=== PATIENT | female | born 1950 | race Caucasian/White ===

== ENCOUNTER 2024-04-28 10:58 | Outpatient (OUT) | payer MEDICARE, SELFPAY ==
--- NOTE | 2024-04-28 | XR_ITS ---
The [address] [address] Patient Name: CHARLI AGEE MRN: [id number] date: 1950 Sex: F Assigned Patient Location: Current Patient Location: Accession/Order Number: [id number] Exam Date: 04/28/2024 11:00 Report Date: 04/29/2024 10:58 At the request of: ELÍAS LOUIS Procedure: XR ankle LT min 3V PROCEDURE: XR ankle LT min 3V HISTORY: LEFT ANKLE PAIN COMPARISON: None. FINDINGS: BONES:Prior surgical repair of lateral malleolus via plate and screws; no hardware fracture loosening. Prior repair medial malleolus via 2 lag screws. Complete loss of the lateral aspect of the tibiotalar joint space with [id number] articulation and bone remodeling. Bone contact between lateral malleolus and lateral margin of the talus/calcaneus. SOFT TISSUES:Lateral soft tissue swelling. EFFUSION:None visible. OTHER: Negative. XR/XR ankle LT min 3V IMPRESSION: 1. 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 2. Prior repair of fractures without evidence of hardware failure. Electronically authenticated by: MIKAL HU Date: 04/29/2024 10:58
== END 2024-04-28 10:59 | disposition home or self-care (01) ==
LOC: EC 10:58
PROVIDERS: PCP Podiatrist Foot & Ankle Surgery; Visit Provider Podiatrist Foot & Ankle Surgery
DX: M25.572 Pain in left ankle and joints of left foot (principal); M19.072 Primary osteoarthritis, left ankle and foot; Z98.890 Other specified postprocedural states
CPT/HCPCS: 73610

== ENCOUNTER 2025-08-24 14:35 | Outpatient (OUT) | payer MEDICARE, SELFPAY ==
--- OUTSIDE RECORDS SUMMARY | 2025-08-19 09:34 | XMS_ITS | Continuity of Care Document ---
Author Organization [facility] Address [address] [place] [address] Phone Care Team Providers [facility] Social Worker Name Role Phone Mast, Adrian DO Primary Care Provider [phone] Mast, Adrian DO Attending Provider [phone] Sanchez Lr DPM Attending Provider Mast, Adrian DO Referring Provider Artie Hair MD Attending Provider Gretel Watts RN Attending Provider [facility] Care Teams Patient Care Team Team Status: Active Member Role/Relationship Status Dates Adrian Mast , DO Primary Care Provider Active Visit Care Team Team Status: Inactive Member Role/Relationship Status Dates Adrian Mast , DO Primary Care Provider Active Star t: May 21, 2025 End: May 21, 2025Eric Mast , DOAttending ProviderActiveStart: May 21, 2025 End: May 21, 2025 Visit Care Team Team Status: Inactive Member Role/Relationship Status Dates Adrian Mast , DO Primary Care Provider Active Star t: June 14, 2025 End: June 14, 2025ROLAND MaldonadoMAttending ProviderActiveStart: June 14, 2025 End: June 14, 2025 Visit Care Team Team Status: Inactive Member Role/Relationship Status Dates Adrian Mast , DO Primary Care Provider Active Star t: July 08, 2025 End: July 08, 2025Eric Mast , DOAttending ProviderActiveStart: July 08, 2025 End: July 08, 2025 Visit Care Team Team Status: Inactive Member Role/Relationship Status Dates Adrian Mast , DO Primary Care Provider Active Star t: July 22, 2025 End: July 22, 2025Eric Mast , DOReferring ProviderActiveStart: July 22, 2025 End: July 22, 2025Artie Hair MDAttending ProviderActiveStart: July 22, 2025 End: July 22, 2025 Visit Care Team Team Status: Inactive Member Role/Relationship Status Dates Adrian Mast , DO Primary Care Provider Active Star t: July 22, 2025 End: July 22, 2025Dajudah Hair MDAttending ProviderActiveStart: July 22, 2025 End: July 22, 2025 Visit Care Team Team Status: Inactive Member Role/Relationship Status Dates Adrian Mast , DO Primary Care Provider Active Star t: August 11, 2025 End: August 11, 2025Eric Mast , DOAttending ProviderActiveStart: August 11, 2025 End: August 11, 2025 Patient Care Team Team Status: Active Member Role/Relationship Status Dates Adrian Mast , DO Primary Care Provider Active Star t: August 18, 2025 Gretel Watts RNAttending ProviderActiveStart: August 18, 2025 Patient Care Team Team Status: Inactive Member Role/Relationship Status Dates Adrian Mast , DO Primary Care Provider Active Star t: August 19, 2025 End: August 19, 2025Eric Mast , DOAttending ProviderActiveStart: August 19, 2025 End: August 19, 2025 Chief Complaint and Reason for Visit Chief Complaint Admit Date Z13.6, E78.5 May 21, 2025 9:06 am B ankle pain (2 accounts) June 14, 11:15am awv July 08, 2025 1:44pm z13.6 k76.0 e04.1 z13.29 z78.0 July 22, 2025 11:22am follow up ALIF w/xray July 22 12:57pm K76.0 August 11, 2025 1 0:43am Amb Documentation August 18, 2025 1 0:50am recheck appt and to review US August 192024 12:54pm Reason for Visit Admit Date Fatty liver July 08, 2025 1:44pm Hx of partial thyroidectomy July 082024 1:44pm Hyperlipidemia July 08, 2025 1:44pm Obesity (BMI 35.0-39.9 without comorbidi ty) July 08, 2025 1:44pm Osteopenia July 08, 2025 1:44pm Encounter for subsequent [facility] wellness visit in Medicare patient July 08, 2025 1:44pm Lower extremity weakness July 22, 2025 12:57pm History of lumbar fusion July 22, 2025 12:57pm Allergies, Adverse Reactions, Alerts Allergen Type Severity Reaction Last Updated Verified Status Comments Penicillins Allergy Unknown Hives August 19, 2025 1:06pm Yes Active sulfamethoxazoleAllergyUnknownRashOctober 2024 1:06pmYesActiveoxycodone Adverse ReactionUnknownConfusionOctober 2024 1:06pmYesActivedelerium Social History Smoking Status Status Start Date End Date Date of Observa tion Never smoked tobacco (finding) July 08, 2025 2:05pm Observation Status Observation Response Date of Response Legal Sex Female (finding) Sex Assigned At BirthFemaleDecember 1949 Family History Relationship Condition Age at Onset Recorded Date/T rissa mother Arthritis Unknown Malignant melanomaUnknownDeceasedUnknownfatherPolycythemiaUnknownPulmonary emphysemaUnknownDeceasedUnknownHistory of strokeUnknownbrotherDeceasedUnknown Malignant neoplasmUnknowngrandparentDeceasedUnknowngrandparentDeceasedUnknown grandparentDeceasedUnknowngrandparentDeceasedUnknownbrotherAtrial fibrillation Unknown Problems Active Problems Problem Diagnosis/Recorded Date Onset Date Status C ryanne Carpal tunnel syndrome of ri ght wrist December 18, 2023 2:03pm Unknown Active Vascular claudicationApril 2023 10:26amUnknownActiveParonychiaMay 2024 12:32pmUnknownActiveSupraclavicular fossa fullnessApril 2023 2:43pm UnknownActiveParonychia of great toeMay 2024 12:41pmUnknownActiveGreater trochanteric bursitis of both hipsFebruary 2023 5:27pmUnknownActiveTrigger finger, right middle fingerFebruary 2023 2:03pmUnknownActiveTrigger finger, right index fingerApril 2023 9:51amUnknownActiveTrigger finger, right ring fingerApril 2023 9:51amUnknownActiveTrigger finger, left middle fingerApril 2024 2:38pmUnknownActiveTrigger finger, left ring fingerApril 2023 11:44amUnknownActiveCarpal tunnel syndrome of left wristFebruary 2023 2:03pmUnknownActiveSciaticaMay 2020 2:05pmUnknownActiveThyroid noduleAugust 2023 2:47pmUnknownActiveChronic painMay 2024 1:38pm UnknownActiveFatty liverMay 2023 2:46pmUnknownActiveElevated LFTsMay 2023 2:46pmUnknownActiveSymptoms of upper respiratory infection (URI)June 01, 2024 3:57pmUnknownActivePost-traumatic osteoarthritis of left ankleFebruary 2023 11:43amUnknownActiveOsteoarthritis of spine with radiculopathy, lumbar regionMay 2024 1:39pmUnknownActiveHyperlipidemiaFebruary 2023 2:03pmUnknownActiveLower extremity weaknessDecember 2023 2:27pmUnknown ActiveArthritis of both handsDecember 2023 11:58amUnknownActiveOsteopenia Kaitlin 2020 11:20amUnknownActivehad Reclast in MayObesity (BMI 35.0-39.9 without comorbidity)June 16, 2024 2:47pmUnknownActiveHx of partial thyroidectomyApril 2024 2:19pmUnknownActiveRight shoulder painJuly 2023 3:30pmUnknownActiveLeft thyroid noduleMay 2023 2:46pmUnknownActive Acute diarrheaAugust 2023 3:56pmUnknownActiveOsteoarthritis, shoulderJuly 2023 4:19pmUnknownActiveCarpal tunnel syndrome on both sidesJuly 2024 8:42amUnknownActiveArthritis of carpometacarpal (CMC) joint of left thumb December 18, 2023 2:02pmUnknownActiveInactive/Resolved Problems Problem Diagnosis/Recorded Date Onset Date Status C omments UTI (urinary tract infection) July 28, 2024 10:26pm Un known Resolved Lumbar radiculopathyJune 2023 9:47amUnknownResolvedImpaired mobility and activities of daily livingSeptember 2023 1:26pmUnknownResolvedLumbar stenosisApril 2023 10:26amUnknownResolvedArthritisFebruary 2023 2:03pmUnknownResolvedHypothyroidismFebruary 2023 2:03pmUnknownResolved Obesity, Class II, BMI 35-39.9February 2023 3:53pmUnknownResolvedHistory of lumbar fusionApril 2023 10:26amUnknownResolvedHistory of lumbar fusion April 14, 2024 9:47amUnknownResolvedSpinal stenosisFebruary 2023 2:03pm UnknownResolvedPost-operative painSeptember 2023 1:26pmUnknownResolvedFall July 26, 2024 4:04pmUnknownResolvedClass 2 obesity with body mass index (BMI) of 37.0 to 37.9 in adultFebruary 2023 3:53pmUnknownResolvedLumbar stenosis with neurogenic claudicationJune 2020 8:06amUnknownResolved Medications Medication Status Dose Units Route Directions Qty Days Refills S tart Date Stop Date End Date Reason(s) Instructions Adherence Omeprazole 20 mg capsule,delayed release(DR/EC) Discontinued 20 MG PO Daily 90 1April 2023 12:27pmSeptember 2023 1:18pmgerdAtorvastatin 20 mg tablet Discontinued0.ROUTE.VTZUQSI709Fgr 10th, 2024 10:53amSeptember 2023 1:18pm TAKE 1 TABLET BY MOUTH DAILYPropranolol 160 mg capsule,extended release 24 hr Discontinued0.ROUTE.SGFPGQQ403Vwqf 2023 7:39amSeptember 2023 1:18pm TAKE 1 CAPSULE BY MOUTH DAILYLevothyroxine 100 mcg tabletDiscontinued0.ROUTE .XZLMOUK256Nkgm 2023 1:15pmSeptember 2023 1:18pmTAKE 1 TABLET BY MOUTH DAILYOmeprazole 20 mg capsule,delayed release(DR/EC)Discontinued0.ROUTE .TUZEDXT094Jcywtodu 25th, 2024 12:11pmNovember 2023 1:24pmTAKE 1 CAPSULE BY MOUTH DAILY FOR GERDOmeprazole 20 mg capsule,delayed release(DR/EC)Active0 .ROUTE.BXTBCGL545Qgjnsgsc 25th, 2024 1:24pmTAKE 1 CAPSULE BY MOUTH DAILY FOR GERDComplies with drug therapyGabapentin 400 mg phaddspFpelcltxqlca758RXTNYjgyu times qcock915551Kfenlta 2024 11:54amApril 2024 9:14amnerve pain Propranolol 160 mg capsule,extended release 24 tbWwkszaqsyaex204APVUFidij lloijrd98722Flgqfpy 2024 7:53amMay 2024 12:35pmDiclofenac Sodium 75 mg tablet,delayed release (DR/EC)Ezblumeuxdzy44DWNAJsodw diwcv61289Phzsabld 2024 1:00amMay 2024 1:36pmDiclofenac Sodium (Voltaren Arthritis Pain) 1 % tuxSocyus6RDHITSZXQJynn times daily as needed for ppzk1529Dykho 2024 2:05pm apply to single knee, hand, ankle, foot; for foot includes sole/toes/top of foot Complies with drug therapyGabapentin 400 mg jumvwkuNfbcrtjtgyby878CYGJPevbh times unkut86152Gwrmr 2024 9:13amMay 2024 1:36pmSciatica Sciatica, unspecified side nerve painPropranolol 160 mg capsule,extended release 24 fsVetxxa055PWCAFcjdv wcvfzwu12505Hew 2024 12:35pmComplies with drug therapySumatriptan Succinate 50 mg tabletDiscontinued0.ROUTE.PLPXQDY025Rtr 2024 6:49amSeptember 2024 2:02pmTAKE 1 TABLET BY MOUTH DAILY NEEDED FOR HEADACHE. THIS IS 30 DAY SUPPLYLevothyroxine 150 mcg lrsxxhCypzly836VRVLEDolbs566Cwrg 2024 5:20pm Complies with drug therapyAtorvastatin 20 mg tabletActive0.ROUTE.SUUZVJJ584Uita 2024 12:13pmTAKE 1 TABLET BY MOUTH DAILYComplies with drug therapy Gabapentin 400 mg duyzqnhPtbeqj166UCHOMvjwr times tuizi93728Nynqbjjpg 2024 10:12amSciatica Sciatica, unspecified side nerve painComplies with drug therapyAtorvastatin 20 mg tvnokxObvxsxpyoihh71ELQH 1500June 2017 12:00amMay 2023 10:53amhyperlipidemiaFolic Acid 400 mcg TabletDiscontinued0.4MGPODailyJune 2017 12:00amJune 2020 11:43am Meloxicam 7.5 mg tabletDiscontinued7.5MGPODailyJune 2017 12:00amJune 2020 11:40amLevothyroxine 100 mcg yixxgkXczkqebisrth024BPIZHKosfyGrnu 2017 12:002023 1:15pmhypothyroidIbuprofen 200 mg QfeiyoVamtuksjkyne360FM PODaily as needed for PainJune 2017 12:00amJune 2020 11:47am Azelastine 137 mcg (0.1 %) aerosol,sprayDiscontinued0.1PERCENTINTRANASALTwice dailyJune 2017 12:00amJune 2020 11:46amSumatriptan (Imitrex) 20 mg/actuation [place],Non-HqbuearMglijqevbfku17UIDPJJBTLVYURhel as needed for Migraine HeadacheJune 2017 12:00amFebruary 2022 9:09amHydrocodone- Acetaminophen (Kyle) 5-325 mg tabletDiscontinued1 - 2TABPOEVERY 4-6 HOURS as needed for Rgiq694Dtqx2020 3:48pmPostoperative pain of extremity Trigger finger of left hand Other acute postprocedural pain Trigger finger, unspecified fingerDoxycycline Hyclate 100 mg tabletDiscontinued 100MGPOTwice nevlp3239Rpli 2017 12:00amMay 2020 3:48pmZoledronic Qium-Wczifujp-Oxina (Reclast) 5 mg/100 mL PjqxfjpwdTbjhstbfuzyr9MTXIPgcmVfx 3rd, 2021 12:00amFebruary 2022 9:09amMultivitamin IcpuhbFknefixqpymk1IXGKOMzkdf April 10, 2021 12:00amFebruary 2022 9:31amPropranolol 160 mg capsule,extended release 24 buPtdbafvlaotf374BZWDXafzs morningJun2020 12:00amJune 2023 7:39amPVC'sGabapentin 400 mg fxbxsemPkfiuppevsao860PLNY Three times dailyJune 2020 12:00amOctober 2023 12:23pmnerve pain Omeprazole 20 mg capsule,delayed release(DR/EC)Heezdmwssknz31VZXPSfmxzMnko 2020 12:00amApril 2023 12:27pmgerdDiclofenac Sodium 50 mg tablet,delayed release (DR/EC)Bqvviozysaob43SBJJLuhup dailyJune 2020 12:00amJune 2020 1:38pmarthritisCalcium-Vitamin D3-Vitamin K 500-100-40 mg-unit-mcg Tablet,RqbpebznAgngupnhqqeh7IMSPNDquyc eveningJun2020 12:00amOctober 2023 12:24pmTizanidine 2 mg kilgpqBtgwprmtacth4SEUIPpekm daily as needed for Muscle SpasmJune 2020 12:00amFebruary 2022 9:09amOndansetron Hcl (Zofran) 4 mg IyjnxyAuqbhgdbakkz5MACSB8W as needed for NauseaJune 2020 12:00amOctober 2023 12:24pmOxycodone-Acetaminophen 5-325 mg Tablet Jyutbmqvocxh6LWWUYNewxs times daily as needed for PainJune 2020 12:00am April 19, 2021 1:38pmRizatriptan 10 mg Tablet,IjcyuzffzaxzlfJstbyabdibjs46OVWA Once as needed for Migraine HeadacheJune 2020 12:00amFebruary 2023 2:31pmBisacodyl (Dulcolax (Bisacodyl)) 5 mg Tablet,Delayed Release (Dr/Ec) Dgobmbkqbxjz2SNMZXvrpi morning as needed for ConstipationJune 2020 12:00am December 03, 2022 9:09amAcetaminophen (Tylenol Extra Strength) 500 mg Capsule Htspfdubbfru4367SCIXK0G as needed for PainJune 2020 12:00amJune 2020 1:31kmBrsrado-Uhitounctpvsy-Vbvskaqq (Excedrin Migraine) 250-250-65 mg Tablet Pgvmoqowstwr1NCSMEDFXIE 4-6 HOURS as needed for Migraine HeadacheJune 2020 12:00amFebruary 2022 9:09amCyclobenzaprine 10 mg mpgnlfSvzdsqqjusad87HUPG Three times daily as needed for back deadnm040Pdfs 2020 12:00amFebruary 2022 9:09amOxycodone 5 mg capsuleDiscontinued5 - 99RBKWD4R as needed for gbld4193Byed 23rd, 2021February 2022 9:09amSpinal stenosis of lumbar region with neurogenic claudication Spinal stenosis, lumbar region with neurogenic claudicationPrednisone 10 mg tablets,dose lalbMehkvpftzwey8lmio pkPOper package mkblmtrfxz809Pryz 23rd, 2021 12:00amFebruary 2022 9:09amtake 4 tabs for 3 days then take 3 tabs for 3 days then take 2 tabs for 3 days then take 1 tab for 3 daysDiclofenac Sodium 75 mg tablet,delayed release (DR/EC) Gkrazhylvhsd81WGLXUhtnf dailyFebruary 2022 1:00amOctober 2023 12:24pm Fluticasone Propionate 50 mcg/actuation spray,yomvzktkniMqvlqdaxfytt9CBHCZ INTRANASALDailyFebruary 2022 1:00amFebruary 2023 11:15amSumatriptan Succinate 50 mg QwjfrsDlotkclkxbxz42LPLOMcyim as needed for migraine headache December 03, 2022 1:00amMay 2024 6:49amTramadol 50 mg TabletDiscontinued 71JRZIP0O as needed for PainFebruary 2022 1:00amSeptember 2023 9:25am Propranolol 160 mg capsule,extended release 24 fdRvsrcvfksxjw271LQOPBwzcu morningSeptember 2023 12:00amOctober 2023 12:23pmAtorvastatin 20 mg yvcsbkTwkwhtdpqmtl84SHJGAbqhd eveningSeptember 2023 12:00amOctober 2023 12:23pmLevothyroxine 100 mcg jsjzynSpunpiadauui984ZXPLWPazsg morning July 08, 2024 12:00amOctober 2023 12:23pmOmeprazole 20 mg capsule,delayed release(DR/EC)Yhvvoxfczarx22SXZHCbpot morningSeptember 2023 12:00amOctober 2023 12:24pmgerdCholecalciferol (Vitamin D3) (Vitamin D3) 25 mcg (1,000 unit) hntcffVfjdkcicryqi50RLQYUNzddo eveningSeptember 2023 12:00amOctober 2023 12:23pmAcetaminophen (Tylenol) 325 mg Tablet Cbhwbh094UOTHO8T as needed for Mild Dnoy39Qaabmoihn 2023 12:00amComplies with drug therapyCyclobenzaprine 10 mg NyhoexYsuhkhsklhzm25ARTHLjkmw 8 hours as needed for Muscle Yaypc24Uiphfuzxt 2023 12:00amOctober 2023 12:23pm Famotidine (Pf) 20 mg/2 mL KmiqtzhgOwohkovjvmxb85NEUR-VHEEJoocj 12 hoursJuly 24, 2024 12:00amOctober 2023 12:24pmSennosides-Docusate Sodium 8.6-50 mg UokilwRazywljfxltz4EYUEOQhcna wgnnr45Adzdoofht 2023 12:00am August 07, 2024 12:24pmMagnesium Hydroxide (Milk Of Magnesia) 400 mg/5 mL XpyjigkwptDbnkkgruvmfn90FCFDLleigpf as needed for Prricpbzambt37Trhdmevww 2023 12:00amOctober 2023 12:24pmAlum-Mag Hydroxide-Simeth (Mag-Al Plus) 200-200-20 mg/5 mL UxxgnlxpxhTlcmedrgebtf18NCZMW2E as needed for Yzfdwxryv67 July 24, 2024 12:00amOctober 2023 12:24pmOxycodone 5 mg Tablet Zdtjifplpeuv84JDDUJkqlh 6 hours as needed for Pain Scale 6 - 1000September 2023October 2023 12:24pmOxycodone 5 mg XsnqcgEjtfpyjsxwbl6GJKVIxqwi 6 hours as needed for Pain Scale 1 - 500September 2023Octb[facility] 2023 12:24pmSodium Chloride 0.9 % WpysfaezKexdiizxczbp17LRINVEXUEZGPLW as needed for To dilute Vncsqh51Kcajxkahv 27th, 2024 12:00amOctober 2023 12:24pmCalcium Carbonate-Vitamin D3 (Oyster Shell Calcium-Vit D3) 500 mg-5 mcg (200 unit) ihtedtOnrvabruwmol8SLIXAHexuwOuvkyrxza 2023 12:00amOctober 2023 12:23pmPantoprazole (Protonix) 40 mg tablet,delayed release (DR/EC)Discontinued 40MGPODailySeptember 2023 12:00amOctober 2023 12:23pmTramadol 50 mg RrucmeMeflfehsspzn87DQFFW5B as needed for Tabs7655KzusuvzAugust 07, 2024 12:00amMay 2024 1:36pmLumbar radiculopathy Radiculopathy, lumbar regionCyclobenzaprine 10 mg JafotpKukmlcwgmiao17XLVXTpett 8 hours as needed for Muscle Ybyqe90901Bzobujt 2023 12:22pmJune 2024 2:25pmPropranolol 160 mg capsule,extended release 24 lqXjseevshrlbl664XDLUBkftg sreivyz05906Zgnrbcx 2023 12:22pmJanuary 2024 7:53amAtorvastatin 20 mg hiwnsaWdnzesqxstfi66SUFTZapvf vgtgxmo22937Lswwqob 2023 12:22pmJuly 2024 12:13pmGabapentin 400 mg hinkbenPxdmoaqdgbws616AQWVYumcv times daily 10688Qpsauru 2023 12:22pmJanuary 2024 11:54amnerve painLevothyroxine 100 mcg vhqnuzRylrntjtwlst740VYSPOFgoos lkiosam58188Clzstwc 11th, 2024 12:22pm January 28, 2025 2:20pmPantoprazole (Protonix) 40 mg tablet,delayed release (DR/EC)Srxsysydenvk20DPPZQgcmb33143Zakyian 2023 12:22pmNovember 2023 11:01amCalcium Carbonate-Vitamin D3 (Oyster Shell Calcium-Vit D3) 500 mg-5 mcg (200 unit) mxemrgKbgtsjlvopvv9MFDYOClhpj71405Zygeaiw 2023 12:22pmSeptember 2024 2:00pmCholecalciferol (Vitamin D3) (Vitamin D3) 25 mcg (1,000 unit) baosswZmbdgs48VSVDBDfnej zmbqizj60115Byewyrb 2023 12:22pmComplies with drug therapyDiclofenac Sodium 1 % rwvLrxrrzuyahwh5WICKEMWLALx Ytpyxkry798401 August 07, 2024 12:22pmApril 2024 2:20pmFreeTextSig: as directed Externally; Note: Source Status: Takingprn; Provider: Morales Carr RCelecoxib (Celebrex) 200 mg DprxuqfLympfmoimxzu424HEGFJdbkv dailyJanuary 2018 1:00am April 10, 2021 11:46amAspirin 325 mg ZhililOaaqtjiidfxq284JLTEIzioyWyhbyvr 2018 1:00amJune 2020 11:18xcDgpwkxzm-Gznwrmmfu-Sc 3.5-10,000-0.5 mg/g-unit/g-% CreamDiscontinuedJanuary 2018 1:00amMay 2020 3:48pm Clobetasol 0.05 % SolutionDiscontinuedJanuary 2018 1:00amJune 2020 11:46amCalcium Carbonate-Vitamin D3 (Caltrate 600 + D) 600 mg (1,500 mg)-800 unit Tablet,OyvkounvPrdrkrbnssau2ZCJZWPsciu dailyJanuary 2018 1:00amJune 2020 11:46amHydrocodone-Acetaminophen (Kyle) 5-325 mg tabletDiscontinued1 TABPOEVERY 4-6 HOURS as needed for nexe1613Ycpxzia 2018May 2020 3:48pmChronic maxillary sinusitisClindamycin Hcl 150 mg lnoghlxXxmtojcfxvod550MG POThree times obzit1950Hgsmrxq 2018 1:00amJanuary 2018 1:00amJanuary 2018 1:02amHydrocodone-Acetaminophen 5-325 mg hfppqwHrwumqkbmupk2GBMMJO2N as needed for funt530Vuf 2020June 2020 11:46amSciatica Sciatica, unspecified sidePrednisone 20 mg biocpfOlmsoixwxita71RTJXAbllm958Jhu 2020 12:00amJune 2020 11:47amadminister with food or milk Methylprednisolone (Medrol (Nikolay)) 4 mg tablets,dose bogjErqybdsdqhki3CGPLsk hlnowify65Frbk 2023 12:00amAugust 2023 3:36pmTramadol 50 mg tablet Fgjpqg89LMZFSdsrb daily as needed for Zbml27592Dda 2024 1:34pmLumbar radiculopathy Radiculopathy, lumbar regionComplies with drug therapyGabapentin 400 mg capsule Womqdyslwtrt607NCEAXxtoc times woqzn98141Xtk 1st, 2025 1:36pmSeptember 2024 10:12amSciatica Sciatica, unspecified side nerve painDiclofenac Sodium 75 mg tablet,delayed release (DR/EC)Vapakx16CJIY Twice dnzxt26334Kdt 1st, 2025 1:36pmComplies with drug therapyMultivitamin (Daily Multi-Vitamin) plyxpgDvvkpr4UDGJIZgjhlRzqvwjnjk 2024 12:00am Complies with drug therapySumatriptan Succinate 50 mg tabletActive0.ROUTE .COMPLEX as neededSept2024 2:01pmTAKE 1 TABLET BY MOUTH DAILY NEEDED FOR HEADACHE. THIS IS 30 DAY SUPPLY PRN;Complies with drug therapy Acetaminophen-Codeine 300-30 mg rutnorXvabeoakucys3HWUWCEjgzw dailyFebruary 2023 1:00amSeptember 2023 1:15pmFreeTextSi tablet as needed Orally BID; Note: Source Status: Refill; Refills: 2; Qty: 60 Tablet; Provider: Toribio Ayala PDiclofenac Sodium 1 % ekrNgdizesywkaa2ZIKLSWAJTRt Directed December 24, 2023 1:00amOctober 2023 12:23pmFreeTextSig: as directed Externally; Note: Source Status: Takingprn; Provider: Morales Brenner Tirzepatide (Weight Loss) (Zepbound) 2.5 mg/0.5 mL pen injectorDiscontinued2.5MG SUBCUTevery fwat8347Kenlkfxg 2023 1:00amApril 2023 2:17pmDiclofenac Sodium (Voltaren Arthritis Pain) 1 % uulBmdmrtstkxyu0FNHBKQEHIPhjd times daily as needed for bgyg9095Loveqblu 2023 1:00amApril 2024 2:05pmapply to single knee, hand, ankle, foot; for foot includes sole/toes/top of foot Omeprazole 20 mg capsule,delayed release(DR/EC)Nglaevvmkqiu46URIPJmjnbOmdkmthc 2023 1:00amNovember 2023 12:11pmLevothyroxine 137 mcg tablet Pqknkfldyafk880TZRPNSulugFqfpm 2024 12:00amJuly 2024 5:21pm Methylprednisolone (Medrol (Nikolay)) 4 mg tablets,dose joltVihgndeloauy5IEWQus lmmjenhn89Preap 3rd, 2025 12:00amJune 2024 2:25pmDoxycycline Monohydrate 100 mg bceptinBdvbzyqgpnut288JKJTGkneb vecbs7547Qnp 2024 12:00amJun2024 2:25pm Immunizations Immunization Event Date Not Given Reason Dose Number Drop Wire Aliner Lot Number Reason(s) Given Vaccine Information Statement (VIS) Detail Administration Location COVID-19 mRNA-1273 (Moderna) December 22, 2020 COVID-19 mRNA-1273 (Moderna)January 19OVID-19 mRNA-1273 (Moderna)September 13OVID-19 mRNA Bivalent Booster (Moderna)August 07, 2022Quadrivalent Influenza (mdv)August 04, 2014Fluzone TIV High-Dose 65YR+August 03, 2024 HH5364ZMSillovvknSumma Health [facility] Ctrinfluenza, unspecified formulation July 17, 2017influenza, unspecified formulationOctober 2017 influenza, unspecified formulationOctober 2018influenza, unspecified formulationOctober 2019influenza, unspecified formulationNovneumococcal Conjugate Vaccine, 13 valentOctober 2017Pneumococcal Polysacc. Vaccine, 23 valentOctober 2018Quadrivalent InfluenzaNovember 2022Trivalent Influenza VaccineOctober 2020 Medical Equipment Device Date Implanted Date Explanted Device Deta ils STRATOFUSE DBM 10CC April 17, 2021 Spinal fusion graft kitJune 2020UDI: ()[id number] Issuing Agency: [facility] [[email or web address]] Device Id: [id number] Expiration Date: 2022-03-27 Lot Number: [id number] spinal fusion cage, non-sterileJune 2020 MARY: ()[id number] Issuing Agency: [facility] [[email or web address]] Device Id: [id number]-smjkd internal spinal fixation system, non-sterile April 17, 2021UDI: ()[id number] Issuing Agency: [facility] [[email or web address]] Device Id: [id number]-qfgcc internal spinal fixation system, non-sterile April 17, 2021UDI: ()[id number] Issuing Agency: [facility] [[email or web address]] Device Id: [id number]-gvrwv internal spinal fixation system, non-sterile April 17, 2021UDI: ()[id number] Issuing Agency: [facility] [[email or web address]] Device Id: [id number]-kenuq internal spinal fixation system, non-sterile April 17, 2021UDI: ()[id number] Issuing Agency: [facility] [[email or web address]] Device Id: [id number]-uucec internal spinal fixation system, non-sterile April 17, 2021UDI: ()[id number] Issuing Agency: [facility] [[email or web address]] Device Id: [id number]-ipujq internal spinal fixation system, non-sterile April 17, 2021UDI: ()[id number] Issuing Agency: [facility] [[email or web address]] Device Id: [id number]-fosix internal spinal fixation system, non-sterile April 17, 2021UDI: ()[id number] Issuing Agency: [facility] [[email or web address]] Device Id: [id number]-tiiwd internal spinal fixation system, non-sterile April 17, 2021UDI: ()[id number] Issuing Agency: [facility] [[email or web address]] Device Id: [id number] cement preparation/delivery kitJune 2020UDI: ()[id number]; [id number] cement preparation/delivery kitJune 2020UDI: ()[id number]; [id number] DBM 10CCSeptember 2023STRATOFUSE DBM 5CCSeptember 2023Spinal fusion graft kitSeptember 2023UDI: ()[id number] Issuing Agency: [facility] [[email or web address]] Device Id: [id number] Expiration Date: 2024-09-26 Lot Number: [id number] spinal fusion cage, non-sterileSeptember 2023UDI: ()[id number] Issuing Agency: [facility] [[email or web address]] Device Id: [id number] spinal fusion cage, non-sterileSept2023UDI: ()[id number] Issuing Agency: [facility] [[email or web address]] Device Id: [id number]-dsgpa internal spinal fixation system, non-sterile July 22, 2024UDI: ()[id number] Issuing Agency: [facility] [[email or web address]] Device Id: [id number]-kaggx internal spinal fixation system, non-sterile July 22, 2024UDI: ()[id number] Issuing Agency: [facility] [[email or web address]] Device Id: [id number]-mzzfh internal spinal fixation system, non-sterile July 22, 2024UDI: ()[id number] Issuing Agency: [facility] [[email or web address]] Device Id: [id number]-yhddf internal spinal fixation system, non-sterile July 22, 2024UDI: ()[id number] Issuing Agency: [facility] [[email or web address]] Device Id: [id number]-enevx internal spinal fixation system, non-sterile July 22, 2024UDI: +[id number] Issuing Agency: [facility] [[email or web address]] Device Id: [id number]-sbmrk internal spinal fixation system, non-sterile July 22, 2024UDI: +[id number] Issuing Agency: [facility] [[email or web address]] Device Id: [id number]-tdfnw internal spinal fixation system, non-sterile July 22, 2024UDI: +[id number] Issuing Agency: [facility] [[email or web address]] Device Id: [id number]-kqgmy internal spinal fixation system, non-sterile July 22, 2024UDI: +[id number] Issuing Agency: [facility] [[email or web address]] Device Id: [id number] bone screw, non-bioabsorbable, non-sterile July 22, 2024UDI: +[id number] Issuing Agency: [facility] Device Id: [id number] bone screw, non-bioabsorbable, non-sterile July 22, 2024UDI: +[id number] Issuing Agency: [facility] Device Id: [id number] bone screw, non-bioabsorbable, non-sterile July 22, 2024UDI: +[id number] Issuing Agency: [facility] Device Id: [id number] bone screw, non-bioabsorbable, non-sterile July 22, 2024UDI: +[id number] Issuing Agency: [facility] Device Id: [id number]-dwdtq internal spinal fixation system, non-sterile July 22, 2024UDI: +[id number] Issuing Agency: [facility] Device Id: [id number]-sfbot internal spinal fixation system, non-sterile July 22, 2024UDI: +[id number] Issuing Agency: [facility] Device Id: [id number]-xykej internal spinal fixation system, non-sterile April 172023UDI: ()[id number] Issuing Agency: [facility] [[email or web address]] Device Id: [id number]-yvbef internal spinal fixation system, non-sterile April 172023UDI: ()[id number] Issuing Agency: [facility] [[email or web address]] Device Id: [id number] Procedures Procedure Date Performed Status XR lumbar spine AP/LAT/FLX/EXT July 22, 2 025 12:05pm completed US liver August 11, 2025 10:46am compl eted Relevant Diagnostic Tests and/or Laboratory Data Laboratory Results Test Collection Date/Time Result Date/Time Result Interpretation Reference Range Result Comment Performing Site Corrected White Blood Count July 22, 2025 11:46am July 22, 2025 12:13pm 7.5 10*3/uL 3.8-11.6F[facility] [id number] [address] [facility] 79907Wkfxkvpfzkb WBC CountSept2024 11:46amSept2024 12:13pm7.5 10*3/uL3.8-11.6F[facility] [id number] [address] [facility] 49392Ekq Blood CountSept2024 11:46amSept2024 12:13pm3.94 10*6/uL3.60-5.00[facility] [id number] [address] [facility] 62774DbbawhxwmcHjorwrthn 2024 11:46amSeptember 2024 12:13pm12.6 g/dL11.8-15.4F[facility] [id number] [address] [facility] 43432YosfjnprmjHdmdmcvyp 2024 11:46amSeptember 2024 12:13pm37.0 %34.0-46.4F[facility] [id number] [address] [facility] 22518Gjvl Corpuscular VolumeSeptember 2024 11:46amSeptember 2024 12:13pm93.8 oD91-981AtswnvpsgPremier [facility] [id number] [address] [facility] 98912Dwxj Corpuscular HemoglobinSeptember 2024 11:46am July 22, 2025 12:13pm31.9 pg24.7-34.3F[facility] [id number] [address] [facility] 92859Yqmp Corpuscular Hemoglobin ConcentSeptember 2024 11:46am July 22, 2025 12:13pm34.0 g/dL32.0-35.0[facility] [id number] [address] [facility] 82215Rva Cell Distribution WidthSeptember 2024 11:46am July 22, 2025 12:13pm14.0 %11.9-15.3F[facility] [id number] [address] [facility] 75022Ljqkjwoy CountSeptember 2024 11:46amSept2024 12:51cb049 10*3/hL531-037NyowpncwrPremier Health Atrium [facility] [id number] [address] [facility] 61004Gsag Platelet VolumeSeptember 2024 11:46amSept2024 12:13pm7.8 fL6.3-10.7F[facility] [id number] [address] [facility] 84639Kxbtluuqhkw (%) (Auto)July 22, 2025 11:46amSept2024 12:13pm61.4 %.[facility] [id number] [address] [facility] 35549Kkulyguevhe (%) (Auto)July 22, 2025 11:46amSept2024 12:13pm27.2 %.[facility] [id number] [address] [facility] 98040Pbltlhcxp (%) (Auto)July 22, 2025 11:46amSept2024 12:13pm6.0 %.[facility] [id number] [address] [facility] 44753Jwixkrtticr (%) (Auto)July 22, 2025 11:46amSept2024 12:13pm4.7 %.[facility] [id number] [address] [facility] 73822Fufvqzmjh (%) (Auto)July 22, 2025 11:46amSept2024 12:13pm0.7 %.[facility] [id number] [address] [facility] 20222Veqcynjos RBC Relative Count (auto)July 22, 2025 11:46am July 22, 2025 12:13pm0.0 /100{WBC}0-0.5F[facility] [id number] [address] [facility] 36035Veqitugzfim # (Auto)July 22, 2025 11:46amSept2024 12:13pm4.6 10*3/uL1.8-7.7F[facility] [id number] [address] [facility] 43414Gytyszxezok # (Auto)July 22, 2025 11:46amSept2024 12:13pm2.0 10*3/uL1.00-4.8[facility] [id number] [address] [facility] 98002Nqdxcgcyp # (Auto)July 22, 2025 11:46amSept2024 12:13pm0.4 10*3/uL0.0-0.8[facility] [id number] [address] [facility] 76214Xqjkvgyrive # (Auto)July 22, 2025 11:46amSept2024 12:13pm0.4 10*3/uL0.0-0.45[facility] [id number] [address] [facility] 81097Lfkvjdwxw # (Auto)July 22, 2025 11:46amSeptember 2024 12:13pm0.1 10*3/uL0.0-0.2F[facility] [id number] [address] [facility] 22400Ihmzfat LevelJuly 2024 9:16amJuly 2024 2:49pm91 mg/uF48-207DloinzemgPremier Health [facility] [id number] [address] [facility] 15033Ocxfwes LevelSeptember 2024 11:46amSeptember 2024 12:50pm87 mg/dV38-907WzwqglqaaPremier Health [facility] [id number] [address] [facility] 65934Wozdo Urea NitrogenJuly 2024 9:16amJuly 2024 2:49pm 29 mg/dLAbove high normal7-[facility] [id number] [address] [facility] 55229Mfcsr Urea NitrogenSept2024 11:46amSeptember 2024 12:50pm19 mg/dL7-25[facility] [id number] [address] [facility] 84070ImbjmaurcwBtmh 2024 9:16amJuly 2024 2:49pm0.64 mg/dL0.60-1.20[facility] [id number] [address] [facility] 77075BtgbyvdvvqWucdroijm 25th, 2025 11:46amSeptember 2024 12:50pm0.59 mg/dLBelow low normal0.60-1.20[facility] [id number] [address] [facility] 67155Puiudnmks GFR (CKD-EPI)May 21, 2025 9:16amJuly 2024 2:49pm> 60.0 mL/MinPremier Health Atrium Medical Center Ctr [id number] [address] [facility] 49863Zoohtbywz GFR (CKD-EPI)July 22, 2025 11:46amSept2024 12:50pm> 60.0 mL/MinPremier Health Atrium Medical Center [facility] [id number] [address] [facility] 35765Rndxvi LevelJuly 2024 9:16amJuly 2024 2:70is654 mmol/P471-600CzdhfuegfPremier Health At[facility] [id number] [address] [facility] 80968Sptrfp LevelSeptember 2024 11:46amSeptember 2024 12:58xy121 mmol/N863-461OgycjcwjsPremier Health Atrium [facility] [id number] [address] [facility] 67632Wycyyzhej LevelJuly 2024 9:16amJuly 2024 2:49pm4.6 mmol/L3.5-5.1F[facility] [id number] [address] [facility] 92054Jrgddfldw LevelSeptember 2024 11:46amSeptember 2024 12:50pm4.5 mmol/L3.5-5.1F[facility] [id number] [address] [facility] 71963Fyqpdabo LevelJuly 2024 9:16amJuly 2024 2:79im290 mmol/T15-712HzqpqkxgyPremier Health [facility] [id number] [address] [facility] 18112Hvaowxch LevelSeptember 2024 11:46amSeptember 2024 12:48lu434 mmol/W17-228EhrguzotoPremier Health Atrium [facility] Center [facility] [id number] [address] [facility] 19719Mmzfek Dioxide LevelJuly 2024 9:16amJuly 2024 2:49pm30.1 mmol/L21.0-31.0[facility] [id number] [address] [facility] 32474Lwvnra Dioxide LevelSeptember 2024 11:46amSeptember 2024 12:50pm30.6 mmol/L21.0-31.0[facility] [id number] [address] [facility] 36502Mgncd GapJuly 2024 9:16amJuly 2024 2:49pm9.5 mEq/L 6.0-15.0[facility] [id number] [address] [facility] 42178Hhdgu GapSeptember 2024 11:46amSeptember 2024 12:50pm8.9 mEq/L6.0-15.0[facility] [id number] [address] [facility] 55345Voaxell LevelJuly 2024 9:16amJuly 2024 2:49pm9.3 mg/dL8.6-10.3F[facility] [id number] [address] [place] [id number] LevelSeptember 2024 11:46amSeptember 2024 12:50pm9.3 mg/dL8.6-10.3F[facility] [id number] [address] [facility] 77413Nbpkr ProteinJuly 2024 9:16amJuly 2024 2:49pm6.3 g/dLBelow low normal6.4-8.9[facility] [id number] [address] [facility] 20547Aauga ProteinSeptember 2024 11:46amSeptember 2024 12:50pm6.3 g/dLBelow low normal6.4-8.9[facility] [id number] [address] [facility] 81553CaauusxVoro 2024 9:16amJuly 2024 2:49pm3.8 g/dL 3.5-5.7F[facility] [id number] [address] [facility] 00713HcrzebiZabcpcxlq 2024 11:46amSeptember 2024 12:50pm 4.0 g/dL3.5-5.7F[facility] [id number] [address] [facility] 14490ThquoxynEdih 2024 9:16amJuly 2024 2:49pm2.5 g/dL [facility] [id number] [address] [place] [address] 44778IxovdagzZogsfzydy 2024 11:46amSeptember 2024 12:50pm2.3 g/dLPremier Health Atrium Medical Center [facility]tr [id number] [address] [facility] 46150Xedkhcp/Globulin RatioJuly 2024 9:16amJuly 2024 2:49pm1.5F[facility] [id number] [address] [facility] 00356Nonbkgr/Globulin RatioSeptember 2024 11:46amSeptember 2024 12:50pm1.7F[facility] [id number] [address] [facility] 08686Jnjif BilirubinJuly 2024 9:16amJuly 2024 2:49pm0.7 mg/dL0.3-1.0[facility] [id number] [address] [facility] 53221Thsxu BilirubinSeptember 2024 11:46amSeptember 2024 12:50pm1.1 mg/dLAbove high normal0.3-1.0[facility] [id number] [address] [facility] 35685Dbfkldnru Amino Transf (AST/SGOT)May 21, 2025 9:16amJuly 2024 2:49pm49 U/LAbove high lliifn52-09YwwflvliaPremier Health [facility]rium [facility] [id number] [address] [place] [address] 61706Rgsnadvdn Amino Transf (AST/SGOT)July 22, 2025 11:46am July 22, 2025 12:94ud395 U/LAbove high yexepx69-67VqegkncfpPremier Health Atrium [facility] [id number] [address] [place] [address] 13899Eqocmpz Aminotransferase (ALT/SGPT)May 21, 2025 9:16amJuly 2024 2:49pm69 U/LAbove high normal7-52[facility] [id number] [address] [place] [address] 47658Xsrlgwa Aminotransferase (ALT/SGPT)July 22, 2025 11:46am July 22, 2025 12:56tr659 U/LAbove high normal7-52[facility] [id number] [address] [place] [address] 13716Bgetbbru PhosphataseJuly 2024 9:16amJuly 2024 2:49pm47 U/T75-197LqivrooysPremier Health Atrium [facility] [id number] [address] [facility] 96261Ofquixiu PhosphataseSeptember 2024 11:46amSeptember 2024 12:50pm55 U/E55-914CziifcibhPremier Health Atrium Medical Center [facility] [id number] [address] [facility] 54912Iiicanmipoc LevelJuly 2024 9:16amJuly 2024 2:49pm 196 mg/oG851-296Xbmo less than 200 mg/dl low riskChol 201-239 mg/dl borderline riskChol 240 mg/dl and greater high riskPremier Health Atrium Medical Center [facility]tr [id number] [address] [facility] 75022Axlbhlfoaer LevelSeptember 2024 11:46amSeptember 2024 12:81rr795 mg/fD718-185Vjrx less than 200 mg/dl low riskChol 201-239 mg/dl borderline riskChol 240 mg/dl and greater high riskPremier Health Atrium Medical Center [facility] [id number] [address] [facility] 58522KUI CholesterolJuly 2024 9:16amJuly 2024 2:49pm50 mg/pQ50-28IVZ CHOL ATP-III CLASSIFICATION Cardiovascular RiskHDL > or equal to 60 mg/dL LOWHDL < 40 mg/dL [facility] [id number] [address] [facility] 99378PZQ CholesterolSeptember 2024 11:46amSeptember 2024 12:50pm53 mg/lL79-45DTM CHOL ATP-III CLASSIFICATION Cardiovascular RiskHDL > or equal to 60 mg/dL LOWHDL < 40 mg/dL [facility] [id number] [address] [facility] 57190Hvjhanjkbezwv LevelJuly 2024 9:16amJuly 2024 2:49pm 89 mg/dL0-149TRIG ATP III CLASSIFICATIONTRIG less than 150 mg/dL NormalTRIG 150- 199 mg/dL Borderline highTRIG 200-500 mg/dL High TRIG greater than 500 mg/dL Very highStandard traceable to the Center for Disease Conrtrol and Prevention (CDC) test method.[facility] [id number] [address] [facility] 93822Vhfghchgvseov LevelSeptember 2024 11:46amSeptember 2024 12:50pm86 mg/dL0-149TRIG ATP III CLASSIFICATIONTRIG less than 150 mg/dL NormalTRIG 150-199 mg/dL Borderline highTRIG 200-500 mg/dL High TRIG greater than 500 mg/dL Very highStandard traceable to the Center for Disease Conrtrol and Prevention (CDC) test method.[facility] [id number] [address] [facility] 94290JDU Cholesterol, CalculatedJuly 2024 9:16amJuly 2024 2:86gt193 mg/dLAbove high normal0-100LDL ATP III CLASSIFICATIONLDL less than 100 mg/dL OptimalLDL 100-129 mg/dL Near or above jtejlosYAW121-760 mg/dL Borderline highLDL 160-189 mg/dL HighLDL greater than 189 mg/dL Very high [facility] [id number] [address] [facility] 43903JZI Cholesterol, CalculatedSeptember 2024 11:46am July 22, 2025 12:44gu732 mg/dLAbove high normal0-100LDL ATP III CLASSIFICATIONLDL less than 100 mg/dL OptimalLDL 100-129 mg/dL Near or above vuqgfzdUHP336-242 mg/dL Borderline highLDL 160-189 mg/dL HighLDL greater than 189 mg/dL Very highPremier Health Atrium Medical Center [facility] [id number] [address] [facility] 42002VYMA CholesterolJuly 2024 9:16amJuly 2024 2:49pm17 mg/dLPremier Health Atrium Medical Center [facility] [id number] [address] [facility] 60057LXIZ CholesterolSeptember 2024 11:46amSeptember 2024 12:50pm17 mg/dLPremier Health Atrium Medical Center [facility] [id number] [address] [facility] 34718Ndfcyxfsbqm/HDL RatioJuly 2024 9:16amJuly 2024 2:49pm3.9<5.0[facility] [id number] [address] [facility] 47771Rxyuzoavbnb/HDL RatioSeptember 2024 11:46amSeptember 2024 12:50pm3.4<5.0[facility] [id number] [address] [place] [address] 50100Ddrduqn Stimulating Hormone 3rd GenSept2024 11:46am July 22, 2025 1:09pm2.98 u[iU]/mL0.45-5.33[facility] [id number] [address] [place] [address] 87907Ljsjepwn Creatinine Clearance (ChemJuly 2024 9:16amJuly 2024 2:49pmN/[facility] [id number] [address] [place] [address] 28812Bbelgibg Creatinine Clearance (ChemSeptember 2024 11:46am July 22, 2025 12:50pmN/[facility] [id number] [address] [place] [address] 42888 Diagnostic Imaging Reports Author Ramez Sanchez [facility]stownAuthoredSept2024 4:12pmReport Dictated Date/TimeDictated ByStatusRadiology ReportSept2024 4:12pm Ramez Sanchez II [facility] [place] [address] [place] [address] XRay Report Signed Patient: Yolis Florez MR#: [id number] : 1950 Acct:[id number] Age/Sex: 74 / F ADM Date: 5 Loc: IN Room: Type: [facility] Attending Dr: Artie Hair MD Copies to: Artie Hair MD~ Ordering Provider: Artie Hair MD Date of Service: 07/22/25 XR/XR lumbar spine AP/LAT/FLX/EXT: M47.26 - Other spondylosis with radiculopathy, lumbar region XR lumbar spine AP/LAT/FLX/EXT 07/22/2025 12:35 PM SIGNS AND SYMPTOMS: ^M47.26 - Other spondylosis with radiculopathy, lumbar region PROTOCOLS: Frontal, lateral, and flexion-extension views of the lumbar spine COMPARISON: 04/06/2025 FINDINGS: Posterior and intervertebral fusion is noted from L2 through L5 without hardware complication or change in alignment. There is evidence of prior vertebroplasty at L4 and L5. No pathologic movement on flexion or extension. The bones are in anatomic alignment. The sacrum and sacroiliac joints are normal. XR/XR lumbar spine AP/LAT/FLX/EXT IMPRESSION: Posterior and intervertebral fusion is noted from L2 through L5 without hardware complication or change in alignment. There is evidence of prior vertebroplasty at L4 and L5. No pathologic movement on flexion or extension. Impression dictated by: Ramez Sanchez M.D. 07/22/2025 4:14 PM Dictation Location: RADIO-PC-24 Transcribed By: [facility] 07/22/25 161 Dictated By: Ramez Sanchez II, MD 07/22/25 1612 Signed By: <Electronically signed by Ramez Sanchez II, MD in OV> 07/22/25 161 Author Marlo Siddiqui [facility]stownAuthoredOctbaptist health [facility] 2024 12:15pmReport Dictated Date/TimeDictated ByStatusRadiology ReportOctober 2024 12:15pm Marlo Siddiqui Jr [facility] [place] [address] [place] [address] Ultrasound Report Signed Patient: Yolis Florez MR#: [id number] : 1950 Acct:[id number] Age/Sex: 74 / F ADM Date: 5 Loc: Room: Type: [facility] Attending Dr: Adrian Sharif DO Ordering Provider: Adrian Sharif DO Date of Service: 08/11/25 US/US liver: K76.0 - Fatty (change of) liver, not elsewhere classified Copies to: Adrian Sharif DO~ LIMITED ABDOMINAL ULTRASOUND: CLINICAL HISTORY: Elevated LFTs. COMPARISON: None TECHNIQUE: Grayscale and color Doppler images of the right upper quadrant organs were obtained. FINDINGS: Pancreas: Visualized portions appear unremarkable. Liver: Unremarkable. Gallbladder: Small polyp versus adherent stone. No wall thickening. CBD: 4.6 mm. RT KIDNEY: No Hydronephrosis US/US liver IMPRESSION: SMALL POLYP VERSUS ADHERENT STONE INVOLVING THE GALLBLADDER. NO SONOGRAPHIC EVIDENCE OF ACUTE CHOLECYSTITIS.. Impression dictated by: Marlo Siddiqui Jr., D.O. 08/11/2025 12:16 PM Dictation Location: [place] [address] Tech: Blank Jimenez Transcribed By: ERIKA 08/11/251215 Dictated By: Marlo Siddiqui Jr, DO 08/11/251214 Signed By: <Electronically signed by Marlo Siddiqui Jr, DO in OV> 08/11/25 121 Vital Signs Vital Reading Result Reference Range Collection Date/Time Height 67 [in_i] July 08, 2025 2:13zuHkpidr43.69 kgSept2024 2:09pmBody Gzaknavveon66.0 [degF]97.6-99.0September 2024 2:09pmHeart Rate71 /min 60-100Sept2024 2:09pmRespiratory rate16 /egy02-46Cjtdrmtbu 11th, 2025 2:09pmOxygen saturation by Pulse nwhvkdyd32 %95-100Sept2024 2:09pmBP Dehzkdud886 mm[Hg]100-140Sept2024 2:09pmBP Dzfcgmtmz81 mm[Hg]60-100Sept2024 2:09pmBMI (Body Mass Index)33.7 kg/w2Xjozrgchl2024 2:67jiFynlzi988.40 kgSept2024 1:09efMewcqh48 [in_i] August 19, 2025 1:03udZdfctl885.32 kgOctober 2024 1:08pmBody Hixhwznsuhs89.8 [degF]97.6-99.0October 2024 1:08pmHeart Rate67 /vet50-836 August 19, 2025 1:08pmRespiratory rate20 /nfl14-06Sbekrrr 2024 1:08pm Oxygen saturation by Pulse jwyzgzmv27 %95-100October 2024 1:08pmBP Wycdbiss719 mm[Hg]100-140October 2024 1:08pmBP Kekmhasnt87 mm[Hg]60-100 August 19, 2025 1:08pmBMI (Body Mass Index)34.9 kg/q9Yftdjgm 2024 1:08pm Advance Directives Advance Directive Response Recorded Date/ Time Advance Directives No February 11 018 11:11am Insurance Providers Guarantor Yolis Florez Address [address]Home Phone: Payer Group Member ID Coverage Type Subscriber Relationship to Subscriber Effective Date Expiration Date [facility] Employees [id number] A Gahris Id: [id number] [address] [place] [id number] Home Phone: Email: [email or web address] Hospitaledicare Id: Shireen [id number] A Gahris Id: [id number] [address] [facility] [address] Home Phone: Email: [email or web address] Encounter Location(s) Arrival/Admit Date Discharge/Departure Date Discharge/Departure Disposition Provider(s) Departed Clinical [facility] May 21, 2025 9:06am May 21, 2025 9:07am Discharged to home care or self care (routine discharge) Adrian Sharif DO Discharged [facility] June 14, 2025 11:15am June 14, 2025 3:00pm Discharged to home care or self care (routine discharge) Sanchez Lr DPM Departed Physician/ Provider Office Visit -[facility] July 08, 2025 1:44pm July 08, 2025 2:38pm Discharged to home care or self care (routine discharge) Adrian Sharif DO Departed Clinical -[facility] July 22, 2025 11:22am July 22, 2025 11:23am Discharged to home care or self care (routine discharge) Artie Hair MD Departed Physician/ Provider Office Visit -[facility] July 22, 2025 12:57pm July 22, 2025 1:47pm Discharged to home care or self care (routine discharge) Artie Hair MD Departed Clinical -[facility] August 11, 2025 10:43am August 11, 2025 10:44am Discharged to home care or self care (routine discharge) Adrian Sharif DO Non-patient / Non-visit -[facility] Family Medicine Chaz liang August 18, 2025 10:50am Gretel Watts RNDeparted Physician/Provider Office Visit-[facility] Family Medicine BereniceyOctober 2024 12:54pmOctober 2024 1:33pmDischarged to home care or self care (routine discharge)Adrian Sharif DO Recent Diagnosis Onset Date Admit Date Fatty liver Unknown July 08, 2025 1:44pm Hx of partial thyroidectomy Unknown Jun 2024 1:44pm Hyperlipidemia Unknown July 08, 2025 1:44pm Obesity (BMI 35.0-39.9 without comorbidity) Unkn own July 08, 2025 1:44pm Osteopenia Unknown July 08, 2025 1:44pm Encounter for subsequent [facility] wellness visit in Medicare patient Unknown July 08, 2025 1:44pm Lower extremity weakness Unknown 2024 12:57pm History of lumbar fusion Unknown 2024 12:57pm Assessments Diagnosis Onset Date Resolution Status Admit Date Fatty liver acutept2024 1:44pmHx of partial thyroidectomyacutept2024 1:44pmHyperlipidemiaacuteSept2024 1:44pmObesity (BMI 35.0-39.9 without comorbidity)acuteJuly 08, 2025 1:44pmOsteopeniaacuteSept2024 1:44pmEncounter for subsequent annual wellness visit in Medicare patientnoneactiveSept2024 1:44pmLower extremity weaknessacute July 22, 2025 12:57pmHistory of lumbar fusioninactivept2024 12:57pm Plan of Treatment Author Artie Hair [facility]ored[facility] 1:40pmThis is a 75-year-old female who is deconditioned uses a walker but is much better now after her anterior posterior lumbar fusion L3-4 L2-3. I reevaluated her hardware which looks to be in good position. She tells me clinically she has definitely improved with surgery but she still remains globally deconditioned. She understands her limitations that she is doing well has no radicular pain no claudicatory pain. She is generally happy with her progress. I will see her again in a year with an x-ray. Author Adrian Sharif [facility]oredSept2024 2:44pmWe reviewed in detail the medical events over the last year. She continues to follow with orthopedics and neurosurgery. I encouraged her to be continue following with specialty care as she is doing. She is due for annual labs and DEXA scan which are ordered. I advised we may consider restarting Reclast pending the DEXA results. I will be happy to manage her levothyroxine replacement, await thyroid labs. Weight loss is encouraged. I think she would really benefit from a GLP-1 agonist and I encouraged her to consider a trial of semaglutide. We discussed that this can also improve fatty liver related conditions. Urged vaccines as noted above. Return in 6 months, sooner if problems Future Tests Future scheduled test information is unavailable Pending Tests Test Name Ordered Date Scheduled Date XR dexa axial skeleton July 08, 2025 2:26 pm Future Visits Future appointment information is unavailable Future Procedures Future procedure information is unavailable Future Medications Future medication information is unavailable Patient Instructions Patient instructions are unavailable
--- NOTE | 2025-08-24 14:44 | XR_ITS ---
The [address] [address] Patient Name: DMITRY AGEE MRN: [id number] date: 1950 Sex: F Assigned Patient Location: [facility] Current Patient Location: Accession/Order Number: [id number] Exam Date: 08/24/2025 14:55 Report Date: 08/25/2025 08:31 At the request of: ELÍAS LOUIS DPGage Procedure: XR ankle DAVID min 3V BILATERAL ANKLES - 3 views each COMPARISON: Left ankle 04/28/2024 CLINICAL DATA: Chronic bilateral ankle pain. Previous left ankle fractures. Weightbearing AP, lateral and oblique views were obtained. There is osteopenia. A lateral plate and multiple screws is seen along the distal left fibula. There are 2 cannulated screws at the left medial malleolus. No acute fractures or dislocation are noted. There is continued lateral narrowing of the left tibiotalar joint space with mild subchondral sclerosis and some spurring. Malleolar and calcaneal spurs are visualized bilaterally. Mild lateral soft tissue swelling is again seen on the left. XR/XR ankle DAVID min 3V IMPRESSION: OSTEOPENIA. POSTOPERATIVE AND DEGENERATIVE CHANGES AT THE LEFT ANKLE. CALCANEAL SPURS. Impression dictated by: Jyoti Rodríguez M.D. 08/25/2025 8:31 AM Dictation Location: [place] [address] Electronically authenticated by: [id number] Y Date: 08/25/2025 08:31
--- OUTSIDE RECORDS SUMMARY | 2025-08-24 14:51 | XMS_ITS | CCD ---
Author Organization [facility] Care Team Providers Care Data Integrity Specialist Name Role Phone Jamie Rooney Unavailable Artie Hair Unavailable Trixie Oconnor Unavailable Mast, Amanda Unavailable Trixie Loving Unavailable Jamie Vera Unavailable Lilly Nielsne Unavailable Baljit Pompa II Unavailable Mast, DO Amanda Primary Care Provider MD Lilly Nielsen Attending Provider [phone] MD Artie Hair Attending Provider [phone] Mast, DO Amanda Attending Provider MD Baljit Pompa II Attending Provider [phone] Krishna Zamorano Unavailable Mast, DO Amanda Primary Care Provider MD Baljit Pompa II Attending Provider Mast, DO Amanda Attending Provider [phone] Mast, DO Amanda Referring Provider Self, Referral Attending Provider Unavailable MD Krishna Zamorano Attending Provider [phone] Mast, DO Amanda Primary Care Provider Mast, DO Amanda Attending Provider MERCEDES Ayala Attending Provider Juanita Ayala Unavailable MD Jamie Rooney Attending Provider [phone] MD Baljit Pompa II Attending Provider [phone] MELECIO Hernández Attending Provider Mast, DO Amanda Primary Care Provider MERCEDES Ayala Attending Provider MD Jamie Rooney Attending Provider [phone] MD Baljit Pompa II Attending Provider MELECIO Hernández Attending Provider Mast, DO Amanda Primary Care Provider [phone] MD Artie Hair Attending Provider Mast, DO Amanda Primary Care Provider [phone] Mast, DO Amanda Referring Provider Self, Referral Attending Provider Unavailable Mast, DO Amanda Primary Care Provider Mast, DO Amanda Attending Provider DO Pascual Thornton Attending Provider MERCEDES Oconnor Attending Provider Mast, DO Amanda Primary Care Provider MD Artie Hair Attending Provider [phone] Mast, DO Amanda Primary Care Provider Mast, DO Amanda Attending Provider Mast, DO Amanda Primary Care Provider Mast, DO Amanda Primary Care Provider MD Artie Hair Attending Provider [phone] MD Artie Hair Admit Provider MD Marlo Wheatley Other Provider Amanda Sharif MD E Primary Care Provider [phone] Pascual Thornton DO Unavailable Mast, DO Amanda Primary Care Provider MD Artie Hair Attending Provider MD Artie Hair Admit Provider MD Marlo Wheatley Other Provider MurDO Pascual moreira Attending Provider [phone] Murharish DO, Pascual Attending Provider [phone] Mast DO, Amanda Primary Care Provider Artie Hair MD Attending Provider Murharish DO, Pascual Other Provider Murharish DO, Pascual Attending Provider [phone] Mast DO, Amanda Primary Care Provider Artie Hair MD Attending Provider Jose Guadalupe ALCANTAR, Buck Pinto Admitting U navailable Buck Shi MD Attending U navailable MAST, AMANDA E Primary Care Unavailable MAST, AMANDA E Primary Care Unavailable Le Nas K Admitting Unavailable Le, Nas K Attending Unavailable MAST, AMANDA E Primary Care Unavailable Phillip Martin Admitting Unavailable Phillip Martin Attending Unavailable Buddy Copeland Admitting Unavaila ble Buddy Copeland Attending Unavaila ble MAST, AMANDA E Primary Care Unavailable Mast DO, Amanda Primary Care Provider Pascual Thornton DO Attending Provider Mast DO, Amanda Primary Care Provider Pascual Thornton DO Attending Provider Mast DO, Amanda Referring Provider [phone] Self, Referral Attending Provider Unavailable Mast DO, Amanda Primary Care Provider Artie Hair MD Attending Provider Mast DO, Amanda E Primary Care Provider PASCUAL THORNTON Attending Unavailable MURPASCUAL MOREIRA Attending Unavailable MURPASCUAL MOREIRA Attending Unavailable MAST, AMANDA E Referring Unavailable PASCUAL THORNTON Attending Unavailable MURPASCUAL MOREIRA Attending Unavailable MAST, AMANDA E Referring Unavailable MURCEK, PASCUAL W Attending Unavailable MAST, AMANDA E Referring Unavailable MURPASCUAL MOREIRA Attending Unavailable MURPASCUAL MOREIRA W Attending Unavailable Jamie Rooney MD Attending Provider [phone] Yudy Brunner PA-C Attending Provider Artie Hair MD Attending Provider Sneider DPM, Sanchez Attending Provider Morales ALCANTAR, Lilly Brenner Attending Provider [phone] Mast DO, Amanda Attending Provider [phone] Sneider DPM, Sanchez Attending Provider Mast DO, Amanda Primary Care Provider Mureduink DO, Pascual Attending Provider [phone] Sneider DPM, Sanchez Attending Provider Mast DO, Amanda Primary Care Provider Artie Hair MD Attending Provider [phone] Mast DO, Amanda Primary Care Provider [phone] Mast DO, Amanda Referring Provider Mast DO, Amanda Primary Care Provider Artie Hair MD Attending Provider Mast DO, Amanda Primary Care Provider Gretel Watts RN Attending Provider Unavaila ble Mast, Amanda Primary Care Unavailable Mast, Amanda Referring Unavailable Self, Referral Attending Unavailable Self, Referral Admitting Unavailable Mast, Amanda Primary Care Unavailable Artie Hair Admitting Unavailable Artie Hair Attending Unavailable Mast, Amanda Primary Care Unavailable Pascual Thornton Attending Unavailable Pascual Thornton Admitting Unavailable Mast, Amanda Primary Care Unavailable Sanchez Lr Attending Unavailable Sanchez Lr Admitting Unavailable Mast, Amanda Primary Care Unavailable Mast, Amanda Admitting Unavailable Mast, Amanda Attending Unavailable Mast, Amanda Primary Care Unavailable Mast, Amanda Referring Unavailable Artie Hair Admitting Unavailable Artie Hair Attending Unavailable Mast, Amanda Primary Care Unavailable Mast, Amanda Admitting Unavailable Mast, Amanda Attending Unavailable Mast, Amanda Primary Care Unavailable Hair, Artie E Attending Unavailable Hair, Artie E Admitting Unavailable Murcek, Pascual Admitting Unavailable Murcek, Pascual Attending Unavailable Mast, Amanda Primary Care Unavailable Murcek, Pascual Consulting Unavailable Hair, Artie E Admitting Unavailable Hair, Artie E Attending Unavailable Murcek, Pascual Attending Unavailable Murcek, Pascual Admitting Unavailable Mast, Amanda Primary Care Unavailable Murcek, Pascual Attending Unavailable Murcek, Pascual Admitting Unavailable Hair, Artie E Admitting Unavailable Hair, Artie E Attending Unavailable Mast, Amanda Primary Care Unavailable Mast, Amanda Primary Care Unavailable Hair, Artei E Admitting Unavailable Hair, Artie E Attending Unavailable Mast, Amanda Primary Care Unavailable Murcek, Pascual Attending Unavailable Murcek, Pascual Admitting Unavailable Allergies Allergy ClassificationReported Allergen(s)Allergy TypeDate of OnsetReaction(s) FacilityPenicillins (antibiotic) (2 sources)PenicillinsDrug [id number] MetroHealth Systemulfonamides (antibiotic) (2 sources)SulfamethoxazoleDrug Fphasxq09-68-7114FmpvNfvwcapdpParma Community [facility] Hospital (20 sources)Penicillin VDrug AllergyUnkAudrain Medical Center [facility] Other (20 sources)SulfamethoxazoleDrug Ogjphkv27-65-2411ZsouuveMarietta Memorial Hospital (20 sources)Penicillins; Translations: [Penicillins]Allergy to substance 58-76-6716HftjbctZnukwueevDayton Osteopathic Hospital (13 sources)Sulfonamides (Antibiotic)Allergy to -83-3052KpwnAazifycnsParma Community General Hospital (20 sources)Penicillin; Translations: [penicillin]Drug AllergyC[facility] (20 sources)oxyCODONE; Translations: [oxycodone]Drug Ghjktej79-15-2973GgobyFirelands Regional Medical Center South CampusComment on above:delerium (16 sources)Sulfonamides (Antibiotic)Drug Haajvpd42-33-1746[facility] (1 source)sulfa drug; Translations: [sulfa drug]Propensity to adverse reactions to drug (disorder)[facility] (1 source)SulfamethoxazoleDrug Fxlgtzi50-43-0583ZbgdgcmmpTwin City Hospital Repository Medications Current Medications MedicationDrug Class(es)DatesSig (Normalized)Sig (Original)acetaminophen 325 mg oral tablet (20 sources)Start: 09-45-2826ngws 2 tablets by mouth every four hours as needed for painAcetaminophen (Tylenol) 325 mg Tablet Active 650 MG PO Q4H as needed for Mild Pain 0 0 July 24, 2024 12:00am Complies with drug therapyStart: 04-10-2021 End: 18-73-3364yvrj 2 capsules by mouth every six hours as needed for pain Acetaminophen (Tylenol Extra Strength) 500 mg Capsule Discontinued 1000 MG PO Q6H as needed for Pain April 10, 2021 12:00am April 19, 2021 1:38pmStart: 04-10-2021 End: 77-95-6992pxjm 2 capsules by mouth every six hours as needed for pain Acetaminophen (Tylenol Extra Strength) 500 mg Capsule Discontinued 1000 MG PO Q6H as needed for Pain April 10, 2021 12:00am April 19, 2021 1:38pm acetaminophen 325 mg / HYDROcodone bitartrate 5 mg oral tablet (20 sources)Opioid AgonistStart: 21-41-7232wjkv 1-2 tablets by mouth three times daily as neededHYDROcodone-Acetaminophen 5-325 MG 1-2 tablets Orally tid for 7 days prn February, ActiveStart: 63-60-6910Xulqb: 03-10-2021 End: 55-13-6543ebkd 1 tablet by mouth every six hours as needed for pain Hydrocodone-Acetaminophen 5-325 mg tablet Discontinued 1 TAB PO Q6H as needed for pain 8 2 0 March 10, 2021 April 10, 2021 11:46am Sciatica Sciatica, unspecified sideStart: 04-03-2018 End: 30-04-6834erqn 1 tablet by mouth every four to six hours as needed for pain Hydrocodone-Acetaminophen ([place]) 5-325 mg tablet Discontinued 1 TAB PO EVERY 4- 6 HOURS as needed for pain 20 7 0 November 17, 2018 February 27, 2021 3:48pm Chronic maxillary sinusitisatorvastatin 20 mg oral tablet (20 sources)HMG-CoA Reductase InhibitorStart: 14-43-9216nyrz 1 tablet by mouth once dailyAtorvastatin 20 mg tablet Active 0 .ROUTE .COMPLEX 90 3 May 13, 2025 12:13pm TAKE 1 TABLET BY MOUTH DAILY Complies with drug therapyStart: 07-08-2024 End: 85-23-5945uzpl 1 tablet by mouth once daily in the eveningAtorvastatin 20 mg tablet Discontinued 20 MG PO Every evening 30 August 07, 2024 12:22pm May 13, 2025 12:13pmStart: 03-06-2024 End: 97-69-7728ubkn 1 tablet by mouth once dailyAtorvastatin 20 mg tablet Discontinued 0 .ROUTE .COMPLEX 90 3 March 06, 2024 10:53am July 08, 2024 1:18pm TAKE 1 TABLET BY MOUTH DAILYStart: 03-06-2024 End: 63-37-0530gtds 1 tablet by mouth once dailyAtorvastatin Discontinued 0 .ROUTE .COMPLEX 90 March 06, 2024 9:53am July 08, 2024 12:18pm TAKE 1 TABLET BY MOUTH DAILYStart: 03-06-2024 End: 18-20-2312yxip 1 tablet by mouth once dailyAtorvastatin Discontinued 0 .ROUTE .COMPLEX 90 March 06, 2024 10:53am July 08, 2024 1:18pm TAKE 1 TABLET BY MOUTH DAILYStart: 63-27-7131jcin 1 tablet by mouth once daily Atorvastatin Active 0 .ROUTE .COMPLEX 90 March 06, 2024 10:53am TAKE 1 TABLET BY MOUTH DAILYStart: 04-02-2018 End: 19-55-4037Eksaxzvnjxpp 20 mg tablet Discontinued 20 MG PO 1500 April 02, 2018 12:00am March 06, 2024 10:53am hyperlipidemiaCalcium (20 sources)Phosphate Binder, CalciumCalcium + D ActiveCalcium Carbonate-Vitamin D3 (Oyster Shell Calcium-Vit D3) 500 mg-5 mcg (200 unit) tablet (20 sources)Start: 85-02-5140ewrd 1 tablet by mouth once dailyCalcium Carbonate- Vitamin D3 (Oyster Shell Calcium-Vit D3) 500 mg-5 mcg (200 unit) tablet Active 1 TAB PO Daily August 07, 2024 11:22amStart: 52-77-5981kitw 1 tablet by mouth once dailyCalcium Carbonate-Vitamin D3 (Oyster Shell Calcium-Vit D3) 500 mg-5 mcg (200 unit) tablet Active 1 TAB PO Daily August 07, 2024 12:22pmStart: 07-24-2024 End: 23-34-0951ixdu 1 tablet by mouth once dailyCalcium Carbonate-Vitamin D3 (Oyster Shell Calcium-Vit D3) 500 mg-5 mcg (200 unit) tablet Discontinued 1 TAB PO Daily July 23, 2024 11:00pm August 07, 2024 11:23amStart: 07-24-2024 End: 00-56-6543caqz 1 tablet by mouth once dailyCalcium Carbonate-Vitamin D3 (Oyster Shell Calcium-Vit D3) 500 mg-5 mcg (200 unit) tablet Discontinued 1 TAB PO Daily July 24, 2024 12:00am August 07, 2024 12:23pmStart: 54-36-3540wmkn 1 tablet by mouth once dailyCalcium Carbonate-Vitamin D3 (Oyster Shell Calcium-Vit D3) 500 mg-5 mcg (200 unit) tablet Active 1 TAB PO Daily July 24, 2024 12:00amcholecalciferol 0.025 mg oral capsule (20 sources)Vitamin DStart: 62-32-3605vvikrhefflkkqjw (Vitamin D-3) 25 MCG (1000 UT) capsule 08/07/2024 ActiveStart: 50-09-0986ywicauitpszkqhg (Vitamin D-3) 25 MCG (1000 UT) capsule Every evening 08/07/2024 ActiveStart: 07-08-2024 End: 98-09-5972ssts 1 tablet by mouth once daily in the eveningCholecalciferol (Vitamin D3) (Vitamin D3) 25 mcg (1,000 unit) tablet Active 25 MCG PO Every 30 0 August 07, 2024 12:22pm Complies with drug therapy ciprofloxacin 250 mg oral tablet (5 sources)Quinolone AntimicrobialStart: 10-84-8196fdbd 1 tablet by mouth every twelve hoursCiprofloxacin HCl 250 MG 1 tablet Orally every 12 hrs for 5 day(s) Apr, Activediclofenac sodium 75 mg delayed release oral tablet (20 sources)Nonsteroidal Anti-inflammatory DrugStart: 41-86-9083Emtsiradxn Sodium (Voltaren Arthritis Pain) 1 % gel Active 4 GM TOPICAL Four times daily as needed for pain February 01, 2025 2:05pm apply to single knee, hand, ankle, foot; for foot includes sole/toes/top of footStart: 11-30-2024 End: 85-00-7590pzra 1 tablet by mouth twice dailyDiclofenac Sodium 75 mg tablet,delayed release (DR/EC) Active 75 MG PO Twice daily 60 30 3 February 1:36pm Complies with drug therapyStart: 10-02-2024 End: 38-77-6453Yehulmeqjo Sodium (Voltaren Arthritis Pain) 1 % gel Active 4 GM TOPICAL Four times daily as needed for pain 100 0 February 01, 2025 2:05pm apply to single knee, hand, ankle, foot; for foot includes sole/toes/top of foot Complies with drug therapyStart: 10-02-2024 End: 78-66-8235Xuhucmauxz Sodium (Voltaren Arthritis Pain) 1 % gel Discontinued 4 GM TOPICAL Four times daily as needed for pain October 02, 2024 1:00am February 01, 2025 2:05pm apply to single knee, hand, ankle, foot; for foot includes sole/toes/top of footStart: 12-50-1894Jrgvtkduay Sodium (Voltaren Arthritis Pain) 1 % gel Active 4 GM TOPICAL Four times daily as needed for pain October 02, 2024 1:00am apply to single knee, hand, ankle, foot; for foot includes sole/toes/top of footStart: 46-84-3804Anhrvgnzui Sodium (Voltaren Arthritis Pain) 1 % gel Active 4 GM TOPICAL Four times daily as needed for pain October 02, 2024 12:00am apply to single knee, hand, ankle, foot; for foot includes sole/toes/top of footStart: 12-24-2023 End: 57-19-1829Bauazuqiqf Sodium 1 % gel Discontinued 2 GM TOPICAL As Directed 100 30 August 07, 2024 12:22pmApril 2024 2:20pm FreeTextSig: as directed Externally; Note: Source Status: Takingprn; Provider: Morales Brenner Start: 12-24-2023 End: 87-64-7976Phjgettgvd Sodium Active 2 GM TOPICAL As Directed August 07, 2024 11:22am FreeTextSig: asdirected Externally; Note: Source Status: Takingprn; Provider: Morales Carr RStart: 02-05-2022 End: 94-47-7528sznd 1 tablet by mouth twice dailyDiclofenac Sodium 75 mg tablet,delayed release (DR/EC) Discontinued 75 MG PO Twice daily December 03, 2022 1:00am August 07, 2024 12:24pmStart: 99-43-3804Ffzhnrauus Sodium 1 % as directed Externally prn May, ActiveStart: 04-10-2021 End: 60-47-8174ljfi 1 tablet by mouth twice dailyDiclofenac Sodium 50 mg tablet,delayed release (DR/EC) Discontinued 50 MG PO Twice daily March 12:00am April 19, 2021 1:38pm arthritistake 1 capsule by mouth every eight hoursDiclofenac 35 MG 1 capsule as needed Orally Three times a day Active Voltaren 1% apply 1-2 grams to affected area Transdermal BID PRN for 30 days PRN Activelevothyroxine sodium 0.15 mg oral tablet (20 sources)l-ThyroxineStart: 52-56-7787bnxd 1 tablet by mouth once daily Levothyroxine 150 mcg tablet Active 150 MCG PO Daily 90 1 May 03, 2025 5:20pm Complies with drug therapyStart: 03-02-2025 End: 64-55-2130nknm 1 tablet by mouth before mealtimelevothyroxine (Synthroid) 150 MCG tablet Indications: Status post partial thyroidectomy Take 1 tablet (150 mcg) by mouth in the morning. Take before meals. 60 tablet 03/02/2025 05/01/2025 ActiveStart: 12-01-2024 End: 50-97-0653ctwd 1 tablet by mouth once dailyLevothyroxine 137 mcg tablet Discontinued 137 MCG PO Daily January 28, 2025 12:00am May 03, 2025 5:21pm Start: 07-08-2024 End: 80-13-5690kliu 1 tablet by mouth once daily in the morningLevothyroxine 100 mcg tablet Discontinued 100 MCG PO Every morning 30 30 0 August 07, 2024 12:22pm January 28, 2025 2:20pmStart: 04-13-2024 End: 33-77-0901anvr 1 tablet by mouth once dailyLevothyroxine 100 mcg tablet Discontinued 0 .ROUTE .COMPLEX 90 3 April 13, 2024 1:15pm July 08, 2024 1:18pm TAKE 1 TABLET BY MOUTH DAILYStart: 04-02-2018 End: 24-53-2497lnjw 1 tablet by mouth once dailyLevothyroxine 100 mcg tablet Discontinued 100 MCG PO Daily April 02, 2018 12:00am April 13, 2024 1:15pm hypothyroidLevothyroxine Sodium 100 MCG TAKE ONE TABLET BY MOUTH DAILY Once a day for 90 days Activemeclizine hydrochloride 25 mg oral tablet (16 sources)AntiemeticStart: 80-48-4286exvz 1 tablet by mouth every eight hours as needed for dizzinessMeclizine HCl 25 MG 1 tablet as needed for dizziness Orally every 8 hrs May, Activemeloxicam 15 mg oral tablet (20 sources)Nonsteroidal Anti-inflammatory DrugStart: 34-07-2620vghj 1 tablet by mouth every twenty-four hoursMeloxicam 15 MG 1 tablet Orally Once a day for 30 day(s) Nov, ActiveStart: 04-02-2018 End: 62-07-8922avsk 1 tablet by mouth once dailyMeloxicam 7.5 mg tablet Discontinued 7.5 MG PO Daily April 02, 2018 12:00am April 10, 2021 11:40am Multivitamin (Daily Multi-Vitamin) tablet (5 sources)Start: 87-63-4668sqyc 1 tablet by mouth once dailyStart: 07-08-2025 take 1 tablet by mouth once dailyMultivitamin (Daily Multi-Vitamin) tablet Active 1 TAB PO Daily July 08, 2025 12:00am Complies with drug therapy omeprazole 20 mg delayed release oral capsule (20 sources)Proton Pump InhibitorStart: 09-21-2024 End: 99-57-6665ekca 1 capsule by mouth once daily for gastroesophageal reflux diseaseOmeprazole 20 mg capsule,delayed release(DR/EC) Active 0 .ROUTE .COMPLEX 90 3 September 21, 2024 1:24pm TAKE 1 CAPSULE BY MOUTH DAILY FOR GERD Complies with drug therapyStart: 04-10-2021 End: 72-65-1392xedt 1 capsule by mouth once dailyOmeprazole 20 mg capsule,delayed release(DR/EC) Discontinued 20 MG PO Daily September 21, 2024 1:00am September 21, 2024 12:11pmoseltamivir 75 mg oral capsule (7 sources)Neuraminidase InhibitorStart: 07-88-0657rksx 1 capsule by mouth every twelve hoursTamiflu 75 MG 1 capsule Orally Twice a day for 5 day(s) Sep, ActiveSUMAtriptan 50 mg oral tablet (20 sources)Serotonin-1b and Serotonin-1d Receptor AgonistStart: 03-15-2025 End: 49-12-9511ejbv 1 tablet by mouth once daily as needed for headache Sumatriptan Succinate 50 mg tablet Active 0 .ROUTE .COMPLEX as needed July 08, 2025 2:01pm TAKE 1 TABLET BY MOUTH DAILY NEEDED FOR HEADACHE. THIS IS 30 DAY SUPPLY PRN; Complies with drug therapyStart: 12-03-2022 End: 65-29-5036tocf 1 tablet by mouth once daily as needed for headache Sumatriptan Succinate 50 mg Tablet Discontinued 50 MG PO Daily as needed for migraine headache December 03, 2022 1:00am March 15, 2025 6:49amStart: 04-02-2018 End: 79-67-2362Bdbxuuptiix (Imitrex) 20 mg/actuation [place],Non-Aerosol Discontinued 20 MG INTRANASAL Once as needed for Migraine Headache April 02, 2018 12:00am December 03, 2022 9:09amtopiramate 50 mg oral tablet (16 sources)topiramate (Topamax) 50 MG tablet 1 (one) time each day at the same time ActivetraMADol hydrochloride 50 mg oral tablet (20 sources)Opioid AgonistStart: 63-86-7371yvyq 1 tablet by mouth twice daily as needed for painTramadol 50 mg tablet Active 50 MG PO Twice daily as needed for Pain 60 30 0 February 25, 2025 1:34pm Lumbar radiculopathy Radiculopathy, lumbar region Complies with drug therapyStart: 08-07-2024 End: 55-44-1556hzbj 1 tablet by mouth every six hours as needed for painTramadol 50 mg Tablet Discontinued 50 MG PO Q6H as needed for Pain 30 7 0 August 07, 2024 12:00am February 25, 2025 1:36pm Lumbar radiculopathy Radiculopathy, lumbar regionStart: 12-03-2022 End: 52-97-5911dwef 1 tablet by mouth every eight hours as needed for pain Tramadol 50 mg Tablet Discontinued 50 MG PO Q8H as needed for Pain December 03, 2022 1:00am July 24, 2024 9:25amStart: 05-46-0377lztr 1 tablet by mouth twice daily as neededtraMADol HCl 50 MG 1 tablet as needed Orally up to two times daily as needed for 30 days prn Apr, Not-Takingtake 1 tablet by mouth every twenty-four hourstraMADol HCl 50 MG 1 tablet as needed Orally Once a day for 30 days [facility]# [id number] ActiveVitamin D3 (11 sources)Vitamin D3 Active Completed/Discontinued Medications MedicationDrug Class(es)DatesSig (Normalized)Sig (Original)acetaminophen 250 mg / aspirin 250 mg / caffeine 65 mg oral tablet (20 sources)Platelet Aggregation Inhibitor, Nonsteroidal Anti-inflammatory Drug, Central Nervous System Stimulant, MethylxanthineStart: 04-10-2021 End: 58-57-0283eyif 1 tablet by mouth every four to six hours as needed for uzfrovkkNmiioos-Osmaxkwrgmcpq-Upjuxhoa (Excedrin Migraine) 250-250-65 mg Tablet Discontinued 1 TAB PO EVERY4-6 HOURS as needed for Migraine Headache April 10, 2021 12:00am December 03, 2022 9:09amacetaminophen 300 mg / codeine phosphate 30 mg oral tablet (20 sources)Opioid AgonistStart: 12-24-2023 End: 42-55-6953kwnd 1 tablet by mouth twice daily as neededAcetaminophen-Codeine 300-30 mg tablet Discontinued 1 TAB PO Twice daily December 24, 2023 1:00am July 08, 2024 1:15pm FreeTextSi tablet as needed Orally BID; Note: Source Status: Refill; Refills: 2; Qty: 60 Tablet; Provider: Toribio Russell Start: 30-08-1709mzmk 1 tablet by mouth every twelve hoursAcetaminophen-Codeine 300-30 MG 1 tablet as needed Orally BID for 30 days Oct, ActiveStart: 66-87-2874enmt 1 tablet by mouth every twelve hoursAcetaminophen-Codeine 300-30 MG 1 tablet as needed Orally BID for 30 days Jul, Activeacetaminophen 325 mg / oxyCODONE hydrochloride 5 mg oral tablet (20 sources)Opioid AgonistStart: 04-10-2021 End: 51-11-9653mfjf 1 tablet by mouth three times daily as needed for pain Oxycodone-Acetaminophen 5-325 mg Tablet Discontinued 1 TAB PO Three times daily as needed for Pain April 10, 2021 12:00am April 19, 2021 1:38pmaluminum hydroxide 40 mg/ml / magnesium hydroxide 40 mg/ml / simethicone 4 mg/ml oral suspension (20 sources)Start: 07-24-2024 End: 36-44-8806jxxx 1 mL by mouth every four hours as needed for gastroesophageal reflux diseaseAlum-Mag Hydroxide-Simeth (Mag-Al Plus) 200-200-20 mg/5 mL Suspension Discontinued 30 ML PO Q4H as needed for Heartburn 0 0 July 24, 2024 12:00am August 07, 2024 12:24pmaspirin 325 mg oral tablet (20 sources)Platelet Aggregation Inhibitor, Nonsteroidal Anti-inflammatory Drug Start: 11-12-2018 End: 67-81-0945pdyj 1 tablet by mouth once dailyAspirin 325 mg Tablet Discontinued 325 MG PO Daily November 12, 2018 1:00am April 10, 2021 11:45am azelastine hydrochloride 0.137 mg/actuat metered dose nasal spray (20 sources)Histamine-1 Receptor AntagonistStart: 04-02-2018 End: 61-49-6199Tlasfvbhde 137 mcg (0.1 %) aerosol,spray Discontinued 0.1 PERCENT INTRANASAL Twice daily April 02, 2018 12:00am April 10, 2021 11:46amtake 1 puff(s) nasal route twice dailyAzelastine HCl 0.1% 1 puff in each nostril Nasally Twice a day Activebisacodyl 5 mg delayed release oral tablet (20 sources)Stimulant LaxativeStart: 04-10-2021 End: 62-32-9263ihyh 1 tablet by mouth once daily in the morning as needed for constipationBisacodyl (Dulcolax (Bisacodyl)) 5 mg Tablet,Delayed Release (Dr/Ec) Discontinued 5 MG PO Every morning as needed for Constipation April 10, 2021 12:00am December 03, 2022 9:09amcalcium carbonate 1250 mg / cholecalciferol 200 unt oral tablet (20 sources)Vitamin DStart: 07-24-2024 End: 01-53-2828blde 1 tablet by mouth once dailyCalcium Carbonate-Vitamin D3 (Oyster Shell Calcium-Vit D3) 500 mg-5 mcg (200 unit) tablet Discontinued 1 TAB PO Daily 30 30 0 August 07, 2024 12:22pm July 08, 2025 2:00pmStart: 11-12-2018 End: 44-32-5301Bjrnswg Carbonate-Vitamin D3 (Caltrate 600 + D) 600 mg (1,500 mg)-800 unit Tablet,Chewable Discontinued 1 TAB PO Twice daily November 12, 2018 1:00am April 10, 2021 11:46amcalcium carbonate 1250 mg / cholecalciferol 100 unt / vitamin k1 0.04 mg chewable tablet (20 sources)Vitamin D, Warfarin Reversal Agent, Vitamin KStart: 04-10-2021 End: 08-19-8280tjbe 1 tablet by mouth once daily in the eveningCalcium-Vitamin D3-Vitamin K 500-100-40 mg-unit-mcg Tablet,Chewable Discontinued 1 TAB PO Every evening April 10, 2021 12:00am August 07, 2024 12:24pmStart: 29-91-9724yccw 1 tablet by mouth twice dailyCalcium-Vitamin D3-Vitamin K Active 1 TAB PO Twice daily April 10, 2021 12:00amcelecoxib 200 mg oral capsule (20 sources)Nonsteroidal Anti-inflammatory DrugStart: 11-12-2018 End: 04-37-3503bsgw 1 capsule by mouth twice dailyCelecoxib (Celebrex) 200 mg Capsule Discontinued 200 MG PO Twice daily November 12, 2018 1:00am April 10, 2021 11:46amtake 1 capsule by mouth once daily as neededcelecoxib (CeleBREX) 200 MG capsule take 1 capsule by ORAL route every day as needed Oral Active clindamycin 150 mg oral capsule (20 sources)Lincosamide AntibacterialStart: 11-17-2018 End: 06-35-7084mahv 1 capsule by mouth three times dailyClindamycin Hcl 150 mg capsule Discontinued 150 MG PO Three times daily 21 7 0 November 17, 2018 1: 00am November 23, 2018 1:00am November 24, 2018 1:02amclobetasol propionate 0.5 mg/ml topical solution (20 sources)CorticosteroidStart: 11-12-2018 End: 97-58-2828Wjyafxinyx 0.05 % Solution Discontinued November 12, 2018 1:00am April 10, 2021 11:46amStart: 11-12-2018 End: 76-45-1364Llzuedrjrv Discontinued SOLUTION November 12, 2018 12:00am April 10, 2021 10:46amCoricidin HBP (11 sources)Coricidin HBP otc Not-Taking/PRNCoricidin HBP otc Not-Taking Coricidin HBP otc Activecyclobenzaprine hydrochloride 10 mg oral tablet (20 sources)Muscle RelaxantStart: 07-24-2024 End: 01-58-7323lijk 1 tablet by mouth every eight hours as needed for muscle spasmsCyclobenzaprine 10 mg Tablet Discontinued 10 MG PO Every 8 hours as needed for Muscle Spasm 90 30 0October 2023 12:22pm April 06, 2025 2:25pmStart: 04-19-2021 End: 70-58-1499arti 1 tablet by mouth three times daily as needed for muscle spasmsCyclobenzaprine 10 mg tablet Discontinued 10 MG PO Three times daily as needed for back spasms 50 0Jun2020 12:00am December 03, 2022 9:09am docusate sodium 50 mg / sennosides, long term 8.6 mg oral tablet (20 sources)Start: 07-24-2024 End: 10-77-9512zhnk 2 tablets by mouth twice dailySennosides-Docusate Sodium 8.6-50 mg Tablet Discontinued 2 TAB PO Twice daily 0 0 July 24, 2024 12:00am August 07, 2024 12:24pmdoxycycline monohydrate 100 mg oral capsule (20 sources)Tetracycline-class DrugStart: 03-11-2025 End: 43-71-6103kfln 1 capsule by mouth twice dailyDoxycycline Monohydrate 100 mg capsule Discontinued 100 MG PO Twice daily 14 7 0 March 11, 2025 12:00am April 06, 2025 2:25pmStart: 40-31-6953irlo 1 capsule by mouth every twelve hours Doxycycline Hyclate 100 MG 1 capsule Orally every 12 hrs for 7 days Oct, ActiveStart: 43-71-9915pzhm 1 tablet by mouth every twelve hoursDoxycycline Hyclate 100 MG 1 tablet Orally every 12 hrs for 10 days Sep, Active Start: 04-03-2018 End: 03-11-0800wkmt 1 tablet by mouth twice dailyDoxycycline Hyclate 100 mg tablet Discontinued 100 MG PO Twice daily 10 5 0 April 03, 2018 12:00am February 27, 2021 3:48pm2 ml famotidine 10 mg/ml injection (20 sources)Histamine-2 Receptor AntagonistStart: 07-24-2024 End: 47-62-9870dwvt 20 mg intravenously every twelve hoursFamotidine (Pf) 20 mg/2 mL Solution Discontinued 20 MG IV-PUSH Every 12 hours 0 0 July 24, 2024 12:00am August 07, 2024 12:24pmfluticasone propionate 0.05 mg/actuat metered dose nasal spray (20 sources)CorticosteroidStart: 12-03-2022 End: 88-73-4474Vtxxlafjzrd Propionate 50 mcg/actuation spray,suspension Discontinued 1 SPRAY INTRANASAL Daily December 03, 2022 1:00am December 19, 2023 11:15amStart: 07-66-9450zziz 1 spray(s) nasal route once dailyFluticasone Propionate 50 MCG/ACT 1 spray in each nostril Nasally Once a day for 30 day(s) Oct, ActiveStart: 22-42-3712ofre 1 spray(s) nasal route once daily Fluticasone Propionate 50 MCG/ACT 1 spray in each nostril Nasally Once a day for 30 day(s) Oct, Activefluticasone (Flonase Allergy Relief) 50 MCG/ACT nasal spray 1 (one) time each day at the same time Activefolic acid 0.4 mg oral tablet (20 sources)Start: 04-02-2018 End: 75-12-5926ojrt 0.4 mg by mouth once dailyFolic Acid 400 mcg Tablet Discontinued 0.4 MG PO Daily April 02, 2018 12:00am April 10, 2021 11:43am Start: 04-02-2018 End: 05-34-8741tfus 0.4 mg by mouth once dailyFolic Acid Discontinued 0.4 MG PO Daily April 01, 2018 11:00pm April 10, 2021 10:43amgabapentin 400 mg oral capsule (20 sources)Anti-epileptic AgentStart: 04-10-2021 End: 66-00-6370mlmc 1 capsule by mouth three times dailyGabapentin 400 mg capsule Discontinued 400 MG PO Three times daily 90 30 2 February 25, 2025 1:36pm July 09, 2025 10:12am Sciatica Sciatica, unspecified side nerve pain hydrocortisone acetate 5 mg/ml / neomycin 3.5 mg/ml / polymyxin b 26649 unt/ml topical cream (13 sources)Aminoglycoside Antibacterial, Polymyxin-class Antibacterial, CorticosteroidStart: 11-12-2018 End: 89-75-7125Rpkhmkba-Polymyxin-Hc Discontinued November 12, 2018 1:00am February 27, 2021 3:48pmibuprofen 200 mg oral tablet (20 sources)Nonsteroidal Anti-inflammatory DrugStart: 04-02-2018 End: 95-47-5968zdwl 1 tablet by mouth once daily as needed for painIbuprofen 200 mg Tablet Discontinued 200 MG PO Daily as needed for Pain April 02, 2018 12:00am 2020 11:47ammagnesium hydroxide 80 mg/ml oral suspension (20 sources)Start: 07-24-2024 End: 21-66-4834ilvx 1 mL by mouth at bedtime as needed for constipationMagnesium Hydroxide (Milk Of Magnesia) 400 mg/5 mL Suspension Discontinued 30 ML PO Bedtime as needed for Constipation 0 0 July 24, 2024 12:00am August 07, 2024 12:24pmStart: 07-24-2024 End: 06-03-9053dkzq 1 mL by mouth at bedtime as needed for constipationMagnesium Hydroxide (Milk Of Magnesia) 400 mg/5 mL Suspension Discontinued 30 ML PO Bedtime as needed for Constipation 0 July 24, 2024 12:00am August 07, 2024 12:24pmStart: 07-24-2024 End: 55-67-9345jzdb 1 mL by mouth at bedtime as needed for constipationMagnesium Hydroxide (Milk Of Magnesia) 400 mg/5 mL Suspension Discontinued 30 ML PO Bedtime as needed for Constipation 0 July 23, 2024 11:00pm August 07, 2024 11:24amStart: 07-24-2024 End: 91-80-4838fxdw 1 mL by mouth at bedtimeMagnesium Hydroxide (Milk Of Magnesia) 400 mg/5 mL Suspension Discontinued 30 ML PO Bedtime 0 July 23, 2024 11:00pm August 07, 2024 11:24amStart: 07-24-2024 End: 20-19-3931yhti 1 mL by mouth at bedtimeMagnesium Hydroxide (Milk Of Magnesia) 400 mg/5 mL Suspension Discontinued 30 ML PO Bedtime 0 July 24, 2024 12:00am August 07, 2024 12:24pmStart: 05-43-0871uleg 1 mL by mouth at bedtimeMagnesium Hydroxide (Milk Of Magnesia) 400 mg/5 mL Suspension Active 30 ML PO Bedtime 0 July 24, 2024 12:00ammethylPREDNISolone 4 mg oral tablet (20 sources)CorticosteroidStart: 01-28-2025 End: 39-96-1716Gwkgdxvwcxmmrdnurm (Medrol (Nikolay)) 4 mg tablets,dose pack Discontinued 4 MG PO as directed 1 2024 12:00am April 06, 2025 2:25pmStart: 05-12-2024 End: 13-83-9729Pvpgrlongehixaqdll (Medrol (Nikolay)) 4 mg tablets,dose pack Discontinued 4 MG PO as directed 1 May 12, 2024 12:00am June 01, 2024 3:36pmStart: 78-19-5523onbtjlKTKAVIJyzhnw 4 MG as directed Orally for 6 days February, Not-Taking/PRNMultivitamin preparation (20 sources)Start: 04-10-2021 End: 28-99-6087yymx 1 tablet by mouth once dailyMultivitamin Discontinued 1 TAB PO Daily April 10, 2021 12:00am December 03, 2022 9:31amStart: 04-10-2021 End: 32-47-9629rdps 1 tablet by mouth once dailyMultivitamin Discontinued 1 TAB PO Daily April 09, 2021 11:00pm December 03, 2022 8:31amStart: 00-30-8968ffks 1 tablet by mouth once dailyMultivitamin Active 1 TAB PO Daily April 09, 2021 11:00pmStart: 28-04-0032fnow 1 tablet by mouth once dailyMultivitamin Active 1 TAB PO Daily April 10, 2021 12:00amMultivitamin Tablet (19 sources)Start: 04-10-2021 End: 88-18-8770kdxw 1 tablet by mouth once dailyMultivitamin Tablet Discontinued 1 TAB PO Daily April 10, 2021 12:00am December 03, 2022 9:31amStart: 04-10-2021 End: 25-41-3881lyij 1 tablet by mouth once dailyMultivitamin Tablet Discontinued 1 TAB PO Daily April 09, 2021 11:00pm December 03, 2022 8:31am Jzmfgadw-Howdregxl-Yw (20 sources)Start: 11-12-2018 End: 18-40-2080Skxqpkne-Polymyxin-Hc Discontinued November 12, 2018 12:00am February 27, 2021 2:48pmStart: 11-12-2018 End: 93-10-6079Jogfgnta-Polymyxin-Hc Discontinued November 12, 2018 1:00am February 27, 2021 3:18mgQojmvkxl-Fyezvqufq-Ua 3.5-10,000-0.5 mg/g-unit/g-% Cream (19 sources)Start: 11-12-2018 End: 38-37-1862Xhnlurpv-Polymyxin-Hc 3.5-10,000-0.5 mg/g-unit/g-% Cream Discontinued November 12, 2018 1:00am 2020 3:48pmStart: 11-12-2018 End: 87-98-2414Zoquilaf-Polymyxin-Hc 3.5-10,000-0.5 mg/g-unit/g-% Cream Discontinued November 12, 2018 12:00am February 27, 2021 2:48pmondansetron 4 mg oral tablet (20 sources)Serotonin-3 Receptor AntagonistStart: 04-10-2021 End: 62-30-0247dpwx 1 tablet by mouth every six hours as needed for nausea Ondansetron Hcl (Zofran) 4 mg Tablet Discontinued 4 MG PO Q6H as needed for Nausea April 10, 2021 12:00am August 07, 2024 12:24pmStart: 64-06-1263vlnh 1 tablet by mouth once daily as neededZofran ODT 4 MG 1 tablet on the tongue and allow to dissolve Orally Once a day for 30 day(s) PRN 2018 ActiveStart: 31-99-5214rgnw 1 tablet by mouth once daily as neededOndansetron 4 MG DISSOLVE ONE TABLET BY MOUTH DAILY NEEDED for 20 prn ActiveZofran prn Not-Taking/PRN Zofran prn Not-TakingZofran ActiveoxyCODONE hydrochloride 5 mg oral tablet (20 sources)Opioid AgonistStart: 07-24-2024 End: 72-28-5544lkxm 2 tablets by mouth every six hours as needed for pain Oxycodone 5 mg Tablet Discontinued 10 MG PO Every 6 hours as needed for Pain Scale 6 - 10 0 0 July 24, 2024 August 07, 2024 12:24pmStart: 07-24-2024 End: 74-83-5029xusa 1 tablet by mouth every six hours as needed for pain Oxycodone 5 mg Tablet Discontinued 5 MG PO Every 6 hours as needed for Pain Scale 1 - 5 0 0 July 24, 2024 August 07, 2024 12:24pmStart: 07-24-2024 End: 11-11-2219mpwj 10 mg by mouth every six hoursOxycodone Discontinued 10 MG PO Every 6 hours 0 July 24, 2024 August 07, 2024 11:24amStart: 04-19-2021 End: 30-15-6405cuvy 5-10 mg by mouth every six hours as needed for painOxycodone 5 mg capsule Discontinued 5 - 10 MG PO Q6H as needed for pain 40 8 0 April 19, 2021 December 03, 2022 9:09am Spinal stenosis of lumbar region with neurogenic claudication Spinal stenosis,lumbar region with neurogenic claudication pantoprazole 40 mg delayed release oral tablet (20 sources)Proton Pump InhibitorStart: 07-24-2024 End: 53-85-3479yjsx 1 tablet by mouth once dailyPantoprazole (Protonix) 40 mg tablet,delayed release (DR/EC) Discontinued 40 MG PO Daily 30 30 0 August 07, 2024 12:22pm September 21, 2024 11:01ampaxlovid (300/100) 20 x 150 mg & 10 x 100mg tablet therapy pack (9 sources)Paxlovid (300/100) 20 x 150 MG & 10 x 100MG as directed Orally Not-Taking/PRNpredniSONE 10 mg oral tablet (20 sources)Start: 04-19-2021 End: 33-57-1532Rfmqqilfsf 10 mg tablets,dose pack Discontinued 1 dose pk PO per package directions March 12:00am December 03, 2022 9:09am take 4 tabs for 3 days then take 3 tabs for 3 days then take2 tabs for 3 days then take 1 tab for 3 daysStart: 04-19-2021 End: 46-97-1101Pnvgdyigmj Discontinued 1 dose pk PO per package directions April 19, 2021 12:00am December 03, 2022 9:09am take 4 tabs for 3 days then take 3 tabs for 3 days then take 2 tabs for 3 days then take 1 tab for 3 days Start: 04-19-2021 End: 56-65-0639Zvelgpkrfv Discontinued 1 dose pk PO per package directions April 18, 2021 11:00pm December 03, 2022 8:09am take 4 tabs for 3 days then take 3 tabs for 3 days then take 2 tabs for 3 days then take 1 tab for 3 days Start: 06-95-2520Ozlptxvxdl Active 1 dose pk PO per package directions April 18, 2021 11:00pm take 4 tabs for 3 days then take 3 tabs for 3 days then take 2 tabs for 3 days then take 1 tab for 3 daysStart: 91-22-1291Riydyezrei Active 1 dose pk PO per package directions April 19, 2021 12:00am take 4 tabs for 3 d ays then take 3 tabs for 3 days then take 2 tabs for 3 days then take 1 tab for 3 daysStart: 03-10-2021 End: 16-33-7832fucx 2 tablets by mouth once daily at mealtimePrednisone 20 mg tablet Discontinued 40 MG PO Daily March 10, 2021 12:00am April 10, 2021 11:47am administer with food or milkStart: 03-10-2021 End: 37-85-4727kppc 40 mg by mouth once daily at mealtimePrednisone Discontinued 40 MG PO Daily March 09, 2021 11:00pm April 10, 2021 10:47am administerwith food or milk24 hr propranolol hydrochloride 160 mg extended release oral capsule (20 sources)beta-Adrenergic BlockerStart: 07-08-2024 End: 46-54-2070iyhw 1 capsule by mouth once daily in the morningPropranolol 160 mg capsule,extended release 24 hr Discontinued 160 MG PO Every morning 30 30 0 August 07, 2024 12:22pm November 09, 2024 7:53amStart: 04-10-2024 End: 08-41-3467cwte 1 capsule by mouth once dailyPropranolol 160 mg capsule,extended release 24 hr Discontinued 0 .ROUTE .COMPLEX 30 5 April 10, 2024 7:39am July 08, 2024 1:18pm TAKE 1 CAPSULE BY MOUTH DAILYStart: 26-49-1962dackupcapnn LA (Inderal LA) 160 MG 24 hr capsule 12/07/2023 Active Start: 04-10-2021 End: 70-31-8775yhsb 1 capsule by mouth once daily in the morningPropranolol 160 mg capsule,extended release 24 hr Discontinued 160 MG PO Every morning April 10, 2021 12:00am April 10, 2024 7:39am PVC'srizatriptan 10 mg disintegrating oral tablet (20 sources)Serotonin-1b and Serotonin-1d Receptor AgonistStart: 07-10-2019 End: 18-35-3213hzwj 1 tablet by mouth once as needed for headacheRizatriptan 10 mg Tablet,Disintegrating Discontinued 10 MG PO Once as needed for Migraine Headache April 10, 2021 12:00am December 24, 2023 2:31pmStart: 39-13-5405cuci 1 tablet by mouth every twenty-four hoursSodium Chloride 0.9 % (20 sources)Start: 07-24-2024 End: 38-09-0282Waoxxm Chloride 0.9 % Solution Discontinued 10 ML INJECTION PRN as needed for To dilute Pepcid 0 0 July 24, 2024 12:00am August 07, 2024 12:24pmStart: 07-24-2024 End: 29-73-5967Hpnfuq Chloride 0.9 % Solution Discontinued 10 ML INJECTION PRN as needed for To dilute Pepcid 0 July 24, 2024 12:00am August 07, 2024 12:24pmStart: 07-24-2024 End: 03-36-8752Ionfzx Chloride 0.9 % Solution Discontinued 10 ML INJECTION PRN as needed for To dilute Pepcid 0 July 23, 2024 11:00pm August 07, 2024 11:24amStart: 07-24-2024 End: 60-35-2002Knodqj Chloride 0.9 % Discontinued 10 ML INJECTION PRN 0 July 23, 2024 11:00pm July 11:24amStart: 07-24-2024 End: 29-08-8855Zgvlce Chloride 0.9 % Discontinued 10 ML INJECTION PRN 0 July 24, 2024 12:00am July 12:24pmStart: 27-07-7672Rhtapr Chloride 0.9 % Active 10 ML INJECTION PRN 0 July 24, 2024 12:00am Tirzepatide (Weight Loss) (20 sources)Start: 12-24-2023 End: 10-64-7705Wnqilmpsgwh (Weight Loss) (Zepbound) 2.5 mg/0.5 mL pen injector Discontinued 2.5 MG SUBCUT every week 2 December 24, 2023 1:00am February 25, 2024 2:17pmStart: 12-24-2023 End: 56-94-9629Odyhtdrylcm (Weight Loss) (Zepbound) 2.5 mg/0.5 mL pen injector Discontinued 2.5 MG SUBCUT every week 2 December 24, 2023 12:00am February 25, 2024 1:17pmStart: 12-24-2023 End: 45-99-7726Gqtecpfnlrl (Weight Loss) (Zepbound) 2.5 mg/0.5 mL pen injector Discontinued 2.5 MG SUBCUT every week 2 December 24, 2023 1:00am February 25, 2024 2:17pmStart: 79-61-3778Hqlmqqsfmhf (Weight Loss) (Zepbound) 2.5 mg/0.5 mL pen injector Active 2.5 MG SUBCUT every week 2 December 24, 2023 1:00amtiZANidine 2 mg oral tablet (20 sources)Central alpha-2 Adrenergic AgonistStart: 04-10-2021 End: 14-49-6422uakc 1 tablet by mouth twice daily as needed for muscle spasms Tizanidine 2 mg tablet Discontinued 2 MG PO Twice daily as needed for Muscle Spasm April 10, 2021 12:00am December 03, 2022 9:09amtriamcinolone acetonide 40 mg/ml injectable suspension (20 sources)CorticosteroidStart: 91-80-6392Viudgoa-40 Jul, 40 mgStart: 48-03-6539Tckphaz-40 Nov, 20 mgStart: 67-68-0710Cgyskcn-40 May, 80 mgStart: 20-76-4616Gsbxsbn -40 mg Dec, 20 mgStart: 09-25-5409Kknxzfo -40 mg Oct, 20 mgStart: 60-35-6009Vidiumx -40 mg Aug, 40 mg Start: 21-96-8687Mvjyuvt -40 mg Jul, 20 mgStart: 36-87-1732Egdhgea -40 mg May, 20 mgStart: 45-98-0888Aibblsp -40 mg Jan, 40 mgStart: 14-21-7005Bjabbee -40 mg Oct, 40 mgStart: 32-61-6561Nkhksiy -40 mg Apr, 40 mgStart: 65-25-8205Nwcagig -40 mg February, 40 mgStart: 06-80-9937Dcxlztj -40 mg Jun, 40 mgStart: 26-54-9413Ygnnlgc -40 mg Mar, 40 mgStart: 40-07-0702Zmenkdc -40 mg Nov, 40 mgStart: 04-65-3028Vzeihrh -40 mg Oct, 40 mgStart: 12-91-4759Bfvgggb -40 mg Aug, 40 mgStart: 99-77-2293Qisizgw -40 mg Jul, 40 mgStart: 87-26-6549Aviabce -40 mg Jan,Start: 38-44-2011Vtwcvgk -40 mg Nov, 3 mL100 ml zoledronic acid 0.05 mg/ml injection (20 sources)BisphosphonateStart: 02-27-2021 End: 85-82-1286ayfx 5 mg intravenously onceZoledronic Riqo-Lxpfnkeh-Xtjlr (Reclast) 5 mg/100 mL Piggyback Discontinued 5 MG IV Once February 27, 2021 12:00am December 03, 2022 9:09am{20 (nirmatrelvir 150 MG Oral Tablet) / 10 (ritonavir 100 MG Oral Tablet) } Pack [Paxlovid 5-Day] (2 sources)Paxlovid (300/100) 20 x 150 MG & 10 x 100MG as directed Orally Not-TakingPaxlovid (300/100) 20 x 150 MG & 10 x 100MG as directed Orally Active Problems Active Problems Problem ClassificationProblemDateDocumented DateEpisodic/ChronicAcquired foot deformities (2 sources)Foot drop, left footEpisodicAdministrative/social admission (20 sources)Other reduced mobility; Translations: [Impaired mobility and activities of daily living]64-51-1144YthnckldGtarauv disorders (20 sources)Anxiety; Translations: [Fear of flying]ChronicComplications of surgical procedures or medical care (15 sources)History of subtotal thyroidectomy; Translations: [Postprocedural hypothyroidism]Onset: 360296-82-9454VinkudkLtsdluelx of lipid metabolism (20 sources)Hyperlipidemia; Translations: [Hyperlipidemia, unspecified]Onset: 52-89-3588NiprrvmResjeyuhdelhhi and diverticulitis (20 sources)Diverticular disease of colon; Translations: [Diverticulosis of large intestine without perforationor abscess without bleeding]Onset: 04-01-2009 ChronicE Codes: Fall (20 sources)Fall; Translations: [Unspecified fall, initial encounter]07-26-2024 EpisodicEsophageal disorders (20 sources)Gastroesophageal reflux disease; Translations: [Gastro-esophageal reflux disease without esophagitis]ChronicHeadache; including migraine (20 sources)Migraine; Translations: [Migraine, unspecified, not intractable, without status migrainosus]Onset: 305005-39-8680UivszoyRrhuxcltpirmj and screening for infectious disease (3 sources)Contact with and (suspected) exposure to other viral communicable diseases; Translations: [Encounter for immunization]Onset: 10-02-2021 Resolved: 42-96-9150RcafworqSelmuenspd disorders (20 sources)Menopausal syndrome; Translations: [Menopausal and female climacteric states]ChronicOsteoarthritis (20 sources)Arthritis of hand; Translations: [Primary osteoarthritis, left hand] Onset: 08-31-2021 Resolved: 56-10-0765UxrgojwAdwcjbezjkey (20 sources)Senile osteoporosis; Translations: [Age-related osteoporosis without current pathological fracture]ChronicOther acquired deformities (20 sources)Spondylolisthesis; Translations: [Spondylolisthesis, lumbar region] EpisodicOther acquired deformities (20 sources)Lumbar spondylolisthesis; Translations: [Spondylolisthesis, lumbar region]EpisodicOther acquired deformities (3 sources)Spondylolisthesis, lumbar regionOnset: 11-02-2021 Resolved: 51-28-8965DftggvilGydkm bone disease and musculoskeletal deformities (8 sources)Osteopenia; Translations: [Other specified disorders of bone density and structure, unspecified site]53-26-2437IzlqbjkgZocyren on above:had Reclast in MayOther circulatory disease (11 sources)Other specified symptoms and signs involving the circulatory and respiratory systems; Translations:[Other respiratory abnormalities]Onset: 10-02-2021 Resolved: 34-20-8679LutbejdyJjgxn circulatory disease (20 sources)Upper respiratory tract finding; Translations: [Other specified symptoms and signs involving the circulatory and respiratory systems]06-01-2024 EpisodicOther connective tissue disease (20 sources)History of total knee arthroplasty; Translations: [Presence of left artificial knee joint]ChronicOther connective tissue disease (20 sources)Dupuytren contracture of left palm; Translations: [Palmar fascial fibromatosis [Dupuytren]]EpisodicOther connective tissue disease (20 sources)Triggering of digit; Translations: [Trigger finger, right middle finger]18-28-9635CxegnpsuUsvse connective tissue disease (20 sources)Trigger finger, right middle finger; Translations: [Trigger finger (acquired)]Onset: 01-09-2022 Resolved: 72-58-5647CkxjokhgDlujr connective tissue disease (20 sources)Trigger finger, right ring finger; Translations: [Trigger finger (acquired)]Onset: 01-09-2022 Resolved: 57-34-2978RkyrxnyyRkqcs connective tissue disease (14 sources)Trigger finger, left ring finger; Translations: [Trigger finger (acquired)]Onset: 01-09-2022 Resolved: 80-62-5040FaccgxwxKkcvv connective tissue disease (6 sources)Pain in right handOnset: 01-09-2022 Resolved: 50-26-5453CpzqgmidFwwiq connective tissue disease (2 sources)Calcific tendinitis of right shoulderOnset: 01-23-2022 Resolved: 33-91-9074RvnhuvdtCzsai connective tissue disease (2 sources)Calcific tendinitis of left shoulderOnset: 01-23-2022 Resolved: 76-24-7317MrtxfqrgOsxgx connective tissue disease (20 sources)Trochanteric bursitis, right hip; Translations: [Enthesopathy of hip region]Onset: 06-01-2022 Resolved: 02-35-2068FitdpptrStxhw connective tissue disease (3 sources)Trochanteric bursitis, left hipOnset: 06-01-2022 Resolved: 21-34-4286BgrdanyvBpgal connective tissue disease (20 sources)Trigger finger, right index finger; Translations: [Trigger finger (acquired)]Onset: 06-01-2022 Resolved: 67-80-8752PctrkiqdWslfz connective tissue disease (20 sources)Trochanteric bursitis; Translations: [Trochanteric bursitis, unspecified hip]Onset: 710800-88-4090TannuvcdKikro connective tissue disease (2 sources)Trochanteric bursitis, unspecified hip; Translations: [Trochanteric bursitis]EpisodicOther connective tissue disease (20 sources)History of lumbar fusion; Translations: [Arthrodesis status]Onset: 227161-64-0915GqibliinWstvu connective tissue disease (20 sources)Muscle weakness of limb; Translations: [Other symptoms and signs involving the musculoskeletal system]60-48-4788QejynhafLhvrr connective tissue disease (1 source)Contracture of muscle, right lower leg; Translations: [Contracture of muscle, right lower leg]Onset: 30-10-7223WlgnfdgdCmrke ear and sense organ disorders (16 sources)Chronic eczema of external auditory canal; Translations: [Other otitis externa, bilateral]Onset: 379686-05-7383PsdqgrvNwoqp gastrointestinal disorders (20 sources)Dysphagia; Translations: [Dysphagia, unspecified]EpisodicOther gastrointestinal disorders (20 sources)Acute diarrhea; Translations: [Diarrhea, unspecified]06-01-2024 EpisodicOther gastrointestinal disorders (10 sources)Diarrhea, unspecified; Translations: [Diarrhea]45-26-3899Dwinhliq Other liver diseases (20 sources)Steatosis of liver; Translations: [Fatty (change of) liver, not elsewhere classified]Onset: [id number]m liver diseases (18 sources)Fatty (change of) liver, not elsewhere classified; Translations: [Other chronic nonalcoholic liver disease]Onset: 451400-63-1220Gjrcecm Other nervous system disorders (20 sources)Chronic pain; Translations: [Other chronic pain]93-98-8593Wdclxyl Other nervous system disorders (20 sources)Carpal tunnel syndrome; Translations: [Carpal tunnel syndrome, right upper limb]ChronicOther nervous system disorders (11 sources)Other chronic pain; Translations: [Other chronic pain]Onset: 08-23-2021 Resolved: 37-77-3474NjspejxPuvur nervous system disorders (20 sources)Carpal tunnel syndrome, right upper limb; Translations: [Carpal tunnel syndrome]Onset: 06-01-2022 Resolved: 69-39-9359ObcvqkkLtqbi nervous system disorders (20 sources)Carpal tunnel syndrome, left upper limb; Translations: [Carpal tunnel syndrome]Onset: 06-01-2022 Resolved: 37-26-2680RlaavhaKtita nervous system disorders (20 sources)Carpal tunnel syndrome of right wrist; Translations: [Carpal tunnel syndrome, right upper limb]Onset: 536216-57-2813LuvabssYxkwz nervous system disorders (20 sources)Carpal tunnel syndrome of left wrist; Translations: [Carpal tunnel syndrome, left upper limb]Onset: [id number] nervous system disorders (17 sources)Bilateral carpal tunnel syndrome; Translations: [Carpal tunnel syndrome, bilateral upper limbs]15-97-6896GrwbwagXxhao nervous system disorders (20 sources)Postoperative pain ; Translations: [Other acute postprocedural pain] 78-88-6900YheixtjuXkduq nervous system disorders (5 sources)Other acute postprocedural pain; Translations: [Other acute postoperative pain]26-82-3701KzejoqhxWnjmo non-traumatic joint disorders (4 sources)Pain in left ankle and joints of left foot; Translations: [Pain in left ankle and joints of left foot M25.572]Onset: 08-23-2021 Resolved: 75-07-4165EsacwvomKmjuc non-traumatic joint disorders (20 sources)Pain in right shoulder; Translations: [Right shoulder pain]Onset: 01-23-2022 Resolved: 79-04-5621BobnwzzrVpeay non-traumatic joint disorders (2 sources)Pain in left shoulderOnset: 01-23-2022 Resolved: 85-82-8273ZotizjqkFsgft non-traumatic joint disorders (7 sources)Pain in unspecified shoulderOnset: 03-14-2022 Resolved: 38-14-8684WkizzziwCdtid nutritional; endocrine; and metabolic disorders (20 sources)Body mass index 30+ - obesity; Translations: [Body mass index (BMI) 37.0-37.9, adult]41-00-7154QsipgpiZtjqv nutritional; endocrine; and metabolic disorders (1 source)Body mass index (BMI) 37.0-37.9, adultChronicOther nutritional; endocrine; and metabolic disorders (1 source)Body mass index 40+ - severely obese; Translations: [Body mass index (BMI) 40.0-44.9, adult]ChronicOther nutritional; endocrine; and metabolic disorders (1 source)Body mass index (BMI) 38.0-38.9, adultChronicOther nutritional; endocrine; and metabolic disorders (20 sources)Obese class II; Translations: [Obesity, unspecified]Onset: 924523-01-8839YddeguyYmvtr nutritional; endocrine; and metabolic disorders (20 sources)Obesity; Translations: [Obesity, unspecified]Onset: 04-14-2024 86-28-0718XtukspoKtsjv nutritional; endocrine; and metabolic disorders (12 sources)Obesity, unspecified; Translations: [Obesity, unspecified]12-24-2023 ChronicOther screening for suspected conditions (not mental disorders or infectious disease) (20 sources)Encounter for screening for malignant neoplasm of colon; Translations: [Other specified abnormal findings of blood chemistry]Onset: 68-67-1514NmavegblLlfwp skin disorders (20 sources)Finding of neck region; Translations: [Localized swelling, mass and lump, trunk]Onset: 739034-61-1886RjjmscfhOvysb skin disorders (17 sources)Localized swelling, mass and lump, trunk; Translations: [Swelling, mass, or lump in chest]93-07-1302BxzrwiiyBsmve upper respiratory disease (20 sources)Allergic rhinitis; Translations: [Other allergic rhinitis]Onset: 47-66-1441YlffaftXvqbb upper respiratory disease (16 sources)Seasonal allergy; Translations: [Other seasonal allergic rhinitis] Onset: 696805-55-3097WybypjjDznox upper respiratory infections (16 sources)Chronic right maxillary sinusitis; Translations: [Chronic maxillary sinusitis]Onset: 976751-67-1769KvcekkoCztmi upper respiratory infections (1 source)Acute maxillary sinusitis, unspecifiedEpisodicPeripheral and visceral atherosclerosis (20 sources)Intermittent claudication; Translations: [Peripheral vascular disease, unspecified]Onset: 127468-11-4885KurjwffIevv and subcutaneous tissue infections (20 sources)Paronychia; Translations: [Cellulitis and abscess of unspecified digit]67-23-7784AqmfgnsyJkgqovqkrte; intervertebral disc disorders; other back problems (20 sources)Cervical spondylosis; Translations: [Spondylosis without myelopathy or radiculopathy, cervical region]Onset: 08-04-2021 Resolved: 55-04-3725LuehtbwAdrsezywf-related disorders (9 sources)Opioid use, unspecified, uncomplicated; Translations: [Continuous opioid dependence]Onset: 08-23-2021 Resolved: 39-18-0934KbgqysdyBlreies disorders (20 sources)Hypothyroidism; Translations: [Hypothyroidism, unspecified]Onset: 01-79-2887HwoxtamQtpiung tract infections (20 sources)Urinary tract infectious disease; Translations: [Urinary tract infection, site not specified]08-28-7516Vhloftar Past or Other Problems Problem ClassificationProblemDateDocumented DateEpisodic/ChronicCardiac dysrhythmias (16 sources)Palpitations; Translations: [Palpitations]Onset: 04-14-2024 50-63-9268OmnrvwfnPyuubmy obstructive pulmonary disease and bronchiectasis (1 source)Bronchitis, not specified as acute or chronicOnset: 10-03-2021 Resolved: 92-63-1039WptqcgfhWgkgr connective tissue disease (2 sources)Trigger finger, left index fingerOnset: 01-09-2022 Resolved: 54-46-2806JcrmmekyJqjzo connective tissue disease (2 sources)Trigger finger, left middle fingerOnset: 01-09-2022 Resolved: 72-94-6336RaniotnjPadgj connective tissue disease (2 sources)Pain in left handOnset: 01-09-2022 Resolved: 12-83-3819IuekcegkLrmhb connective tissue disease (20 sources)Arthrodesis status; Translations: [Arthrodesis status]Onset: 04-26-2022 Resolved: 34-09-3751YnpmilecEjjes connective tissue disease (16 sources)Other symptoms and signs involving the musculoskeletal system; Translations: [Other musculoskeletalsymptoms referable to limbs]Onset: 924439-79-2729VdpnmofeZafqq non-traumatic joint disorders (1 source)Pain in right hipOnset: 06-01-2022 Resolved: 91-82-1090HbwmmqzrDupmi non-traumatic joint disorders (1 source)Pain in left hipOnset: 06-01-2022 Resolved: 75-12-0157BggdsfivVklihctryit; intervertebral disc disorders; other back problems (20 sources)Spinal stenosis; Translations: [Spinal stenosis, site unspecified] Onset: 08-04-2021 Resolved: 89-13-5494FgsxdbzePahbsub disorders (4 sources)Mass of thyroid gland; Translations: [Disorder of thyroid, unspecified]Onset: 195604-00-9317VdcesryiOmliyppabele (1 source)Cough R05.9Onset: 10-02-2021 Resolved: 61-59-7803Wpppl infection (16 sources)Disease caused by 2019-nCoV; Translations: [COVID-19]Onset: 578313-60-2950WhvyywwoLrcza infection (1 source)COVID-19 Results Test NameValueInterpretationReference RangeFacilityUS liveron 52-70-3190MT liver [facility] [place] [address] [place] [address] Ultrasound Report Signed Patient: Yolis Florez MR#: [id number] : 1950 Acct:[id number] Age/Sex: 74 / F ADM Date: 08/11/25 Loc: Room: Type: [facility] Attending Dr: Amanda Sharif DO Ordering Provider: Amanda Sharif DO Date of Service: 08/11/25 US/US liver: K76.0 - Fatty (change of) liver, not elsewhere classified Copies to: Amanda Sharif DO LIMITED ABDOMINAL ULTRASOUND: CLINICAL HISTORY: Elevated LFTs. [...] CHOLECYSTITIS.. Impression dictated by: Marlo Siddiqui Jr., D.OMike 08/11/2025 12:16 PM Dictation Location: [place] [address] Tech: Blank Jimenez Transcribed By: ERIKA 08/11/25 1216 Dictated By: Marlo Sididqui Jr, DO 08/11/255 Signed By: 08/11/25 1216NoLevine Children's Hospital Physician GroupAlanine aminotransferase [Enzymatic activity/volume] in Serum or PlasmaOrdered By: Amanda Sharif on 06-48-9525PRQ [Catalytic activity/Vol]125 U/LHigh7-52T[facility] City HospitalComment on above:Order Comment: FASTING.JKWPerformed By: #### [place], [place] #### [place] [address] USAAlbumin [Mass/volume] in Serum or Plasma by Bromocresol green (BCG) dye binding methoOrdered By: Amanda Sharif on 56-43-1433Cpamkpy BCG dye [Mass/Vol]4.0 g/dL3.5-5.7FParkwood HospitalAlkaline phosphatase [Enzymatic activity/volume] in Serum or PlasmaOrdered By: Amanda Mast on 66-58-4469YJI [Catalytic activity/Vol]55 U/YRsjqvc51-127RvqxgqnevTwin City HospitalComment on above:Order Comment: FASTING.JKWPerformed By: #### [place], [place] #### [facility] [address] [place] [address] USAAspartate aminotransferase [Enzymatic activity/volume] in Serum or PlasmaOrdered By: Amanda Mast on 24-57-4087VJM [Catalytic activity/Vol] 115 U/IGbih25-91LjcgakmnjTwin City HospitalComment on above:Order Comment: FASTING.JKWPerformed By: #### [place], [place] #### [place] [address] USABasophils [#/volume] in Blood by Automated countOrdered By: Amanda Mast on 83-90-4433Jxoqmjaoq (Bld) [#/Vol]0.1 10*3/uLNormal0.0-0.2 [facility] HospitalComment on above:Result Comment: PERFORMED BY: [place] [address] PATHOLOGIST HYDRAULIC REPAIRER CRISTÓBAL THOMPSON M.D.Performed By: #### [place], [place] #### [place] [id number] USABasophils/100 leukocytes in Blood by Automated count Ordered By: Amanda Mast on 37-95-2667Cyjkhxxfj/100 WBC (Bld)0.7 %Normal.T[facility] City HospitalComment on above:Performed By: #### TSH[place], [place] #### [place] [id number] USABilirubin.total [Mass/volume] in Serum or PlasmaOrdered By: Amanda Mast on 89-67-6355Fcwtrqhsa [Mass/Vol]1.1 mg/dLHigh0.3-1.0T[facility] City HospitalComment on above:Order Comment: FASTING.JKWPerformed By: #### [place], [place] #### [facility] [address] [place] [address] USACMP with reflex to A1Con 16-92-2387Svykntn [Mass/Vol]4.0 g/dLNormal3.5-5.7The [facility] Physician GroupComment on above:Order Comment: FASTING.JKWPerformed By: #### [place], [place] #### [facility] [address] [place] [id number] USAGFR/1.73 sq M.predicted MDRD (S/P/Bld) [Vol rate/Area] mL/min/{1.73_m2}NormalThe [facility]rium Health Providence Physician GroupComment on above:Order Comment: FASTING.JKWPerformed By: #### [place], [place] #### [facility] [address] [place] [id number] USACalcium [Mass/volume] in Serum or PlasmaOrdered By: Amanda Mast on 69-05-9314Vxhgsyb [Mass/Vol]9.3 mg/dLNormal8.6-10.3FParkwood HospitalComment on above:Order Comment: FASTING.JKWPerformed By: #### [place], [place] #### [facility] [address] [place] [address] USACarbon dioxide, total [Moles/volume] in Serum or Plasma Ordered By: Amanda Mast on 78-18-8407XH1 [Moles/Vol]30.6 mmol/NFyqjag09.0-31.0 [facility] HospitalComment on above:Order Comment: FASTING.JKW Performed By: #### [place], [place] #### [facility] [address] [place] [address] USAChloride [Moles/volume] in Serum or PlasmaOrdered By: Amanda Mast on 16-78-1263Kqmylpht [Moles/Vol]107 mmol/KSppcmo54-102HfmdxugycTwin City HospitalComment on above:Order Comment: FASTING.JKWPerformed By: #### [place], [place] #### [facility] [address] [place] [address] USACholesterol [Mass/volume] in Serum or PlasmaOrdered By: Amanda Mast on 17-32-1194Wrhrglwyhkl [Mass/Vol]182 mg/nQFeongo024-180KdchxrlvnTwin City HospitalComment on above:Chol less than 200 mg/dl low riskChol 201-239 mg/dl borderline riskChol 240 mg/dl and greater high riskOrder Comment: FASTING.JKWResult Comment: Chol less than 200 mg/dl low risk Chol 201-239 mg/dl borderline risk Chol 240 mg/dl and greater high riskPerformed By: #### [place], [place] #### [facility] [address] [place] [address] USACholesterol in HDL [Mass/volume] in Serum or PlasmaOrdered By: Amanda Mast on 12-44-3282Nphxupwxrbq in HDL [Mass/Vol]53 mg/sHLlkwok43-32 [facility] HospitalComment on above:HDL CHOL ATP-III CLASSIFICATION Cardiovascular RiskHDL > or equal to 60 mg/dL LOWHDL < 40 mg/dL HIGHOrder Comment: FASTING.JKWResult Comment: HDL CHOL ATP-III CLASSIFICATION Cardiovascular Risk HDL > or equal to 60 mg/dL LOW HDL < 40 mg/dL HIGHPerformed By: #### [place], [place] #### [facility] [address] [place] [address] USACholesterol in LDL Calc [Mass/Vol]Ordered By: Amanda Mast on 36-32-0044Yjlpppndfki in LDL [Mass/Vol]112 mg/dLHigh0-100T[facility] City HospitalComment on above:LDL ATP III CLASSIFICATIONLDL less than 100 mg/dL OptimalLDL 100-129 mg/dL Near or above pnkjxlpEUY733-795 mg/dL Borderline highLDL 160-189 mg/dL HighLDL greater than 189 mg/dL Very highCholesterol in VLDL Calc [Mass/Vol]Ordered By: Amanda Mast on 15-81-0769Vyhydjwukro in VLDL [Mass/Vol]17 mg/dLTwin City HospitalComplete Blood Count Auto Diffon 45-14-7199Avif Corpuscular HGB Conc34.0 g/zPMkyfcm66.0-35.0The [facility] Physician GroupComment on above:Performed By: #### [place], [place] #### [facility] [address] [place] [address] USANRBC%0.0 /100{WBC}Normal0-0.5[facility] Comment on above:Performed By: #### [place], [place] #### [place] [address] USAWhite Blood Count7.5 [CFU]/mLNormal3.8-11.6The [facility] Physician GroupComment on above:Performed By: #### [place], [place] #### [place] [address] USACreatinine [Mass/volume] in Serum or PlasmaOrdered By: Amanda Mast on 21-17-4513Yngefxjwps [Mass/Vol]0.59 mg/dLLow0.60-1.20T[facility] City HospitalComment on above:Order Comment: FASTING.JKWPerformed By: #### [place], [place] #### [place] [address] USAEosinophils [#/volume] in Blood by Automated countOrdered By: Amanda Mast on 61-81-6688Iuirkthptki (Bld) [#/Vol]0.4 10*3/uLNormal0.0-0.45 [facility] HospitalComment on above:Performed By: #### [place], [place] #### [place] [address] USAEosinophils/100 leukocytes in Blood by Automated count Ordered By: Amanda Mast on 68-07-2122Gkqxiryozcq/100 WBC (Bld)4.7 %Normal. [facility] City HospitalComment on above:Performed By: #### [place], [place] #### [place] [address] USAErythrocyte distribution width [Ratio] by Automated count Ordered By: Amanda Mast on 70-47-0939Zgzbkxxcljx distribution width (RBC) [Ratio] 14.0 %Rhptuo33.9-15.3FParkwood HospitalComment on above:Performed By: #### [place], [place] #### [facility] [address] [place] [id number] USAErythrocytes [#/volume] in Blood by Automated countOrdered By: Amanda Sharif on 59-73-2811LLC (Bld) [#/Vol]3.94 10*6/uLNormal3.60-5.00 [facility] HospitalComment on above:Performed By: #### [place], [place] #### [facility] [address] [place] [id number] USAGlomerular filtration rate [Volume Rate/Area] in Serum, Plasma or Blood by CreatinineOrdered By: Amanda Mast on 37-54-3271Kxkoycdcpf filtration rate [Volume Rate/Area] in Serum, Plasma or Blood by Creatinine> 60.0 mL/MinTwin City HospitalGlucose [Mass/volume] in Serum or Plasma Ordered By: Amanda Mast on 43-46-1719Wlnwgwi [Mass/Vol]87 mg/oQFcfxrd47-689 [facility] HospitalComment on above:Order Comment: FASTING.JKW Performed By: #### [place], [place] #### [facility] [address] [place] [id number] USAHematocrit [Volume Fraction] of Blood by Automated count Ordered By: Amanda Sharif on 61-67-2583Getwoxlhig (Bld) [Volume fraction]37.0 % Qhfnss71.0-46.4FParkwood HospitalComment on above:Performed By: #### [place], [place] #### [facility] [address] [place] [address] USAHemoglobin [Mass/volume] in BloodOrdered By: Amanda Mast on 17-10-6366Mbfiobwgtc (Bld) [Mass/Vol]12.6 g/nIVhlowt68.8-15.4FParkwood HospitalComment on above:Performed By: #### [place], [place] #### [facility] [address] [place] [address] USALeukocytes [#/volume] corrected for nucleated erythrocytes in Blood by Automated counOrdered By: Amanda Sharif on 82-80-2294GKG corrected for nucl RBC Auto (Bld) [#/Vol]7.5 10*3/uL3.8-11.6FParkwood Hospital Leukocytes [#/volume] in Blood by Automated countOrdered By: Amanda Sharif on 91-88-7418DJP (Bld) [#/Vol]7.5 10*3/uLNormal3.8-11.6FParkwood HospitalComment on above:Performed By: #### [place], [place] #### [facility] [address] [place] [address] USALipid Panelon 18-41-4627FWI Cholesterol,Mbmbzhvsqw587 mg/dLHigh0-100The [facility] Physician GroupComment on above:Order Comment: FASTING.JKWResult Comment: LDL ATP III CLASSIFICATION LDL less than 100 mg/dL Optimal LDL 100-129 mg/dL Near or above optimal LDL 130-159 mg/dL Borderline high LDL 160-189 mg/dL High LDL greater than 189 mg/dL Very highPerformed By: #### [place], [place] #### [facility] [address] [place] [address] USATriglyceride w/Qjtrkn84 mg/dLNormal0-149The [facility] Physician GroupComment on above:Order Comment: FASTING.JKWResult Comment: TRIG ATP III CLASSIFICATION TRIG less than 150 mg/dL Normal TRIG 150-199 mg/dL Borderline high TRIG 200-500 mg/dL High TRIG greater than 500 mg/dL Very high Standard traceable to the Center for Disease Conrtrol and Prevention (CDC) test method.Performed By: #### [place], [place] #### [facility] [address] [place] [address] USAVLDL XKRUDQDHDFC09 mg/dLNormalThe [facility] Physician GroupComment on above:Order Comment: FASTING.JKWPerformed By: #### [place], [place] #### [facility] [address] [place] [address] USALymphocytes [#/volume] in Blood by Automated countOrdered By: Amanda Sharif on 65-89-5957Deedfbewkze (Bld) [#/Vol]2.0 10*3/uLNormal1.00-4.8 [facility] HospitalComment on above:Performed By: #### [place], [place] #### [facility] [address] [place] [id number] USALymphocytes/100 leukocytes in Blood by Automated count Ordered By: Amanda Mast on 29-76-9862Iywwgngntfi/100 WBC (Bld)27.2 %Normal. [facility] HospitalComment on above:Performed By: #### [place], [place] #### [address]H [Entitic mass] by Automated countOrdered By: Amanda Mast on 94-37-7680GUN (RBC) [Entitic mass]31.9 fdKaxpul15.7-34.3FParkwood HospitalComment on above:Performed By: #### [place], [place] #### [address] Auto (RBC) [Mass/Vol]Ordered By: Amanda Mast on 95-93-3653DVLB (RBC) [Mass/Vol]34.0 g/dL32.0-35.0Twin City HospitalMCV [Entitic volume] by Automated countOrdered By: Amanda Mast on 07-22-2025 MCV (RBC) [Entitic vol]93.8 uEEimalc25-893UrxcemyffTwin City Hospital Comment on above:Performed By: #### [place], [place] #### [facility] [address] [place] [address] USAMonocytes [#/volume] in Blood by Automated countOrdered By: Amanda Mast on 15-73-0681Acjxtmlou (Bld) [#/Vol]0.4 10*3/uLNormal0.0-0.8 [facility] HospitalComment on above:Performed By: #### [place], [place] #### [facility] [address] [place] [address] USAMonocytes/100 leukocytes in Blood by Automated count Ordered By: Amanda Mast on 85-49-6173Xfdvjlcje/100 WBC (Bld)6.0 %Normal.[facility] City HospitalComment on above:Performed By: #### [place], [place] #### [facility] [address] [place] [address] USANeutrophils [#/volume] in Blood by Automated countOrdered By: Amanda Mast on 13-72-6842Uufrxwwkkdd (Bld) [#/Vol]4.6 10*3/uLNormal1.8-7.7 [facility] HospitalComment on above:Performed By: #### [place], [place] #### [facility] [address] [place] [address] USANeutrophils/100 leukocytes in Blood by Automated count Ordered By: Amanda Mast on 94-70-0475Osredeqncla/100 WBC (Bld)61.4 %Normal. [facility] HospitalComment on above:Performed By: #### [place], [place] #### [facility] [address] [place] [address] USANo Panel InformationOrdered By: Amanda Mast on 07-22-2025 Pharmacy Creatinine Clearance (ChemN/AFParkwood HospitalNucleated erythrocytes [Presence] in Blood by Automated countOrdered By: Amanda Mast on 05-71-9241Fslfdgbpc RBC Auto Ql (Bld)0.0 /100{WBC}0-0.5FParkwood HospitalPlatelet mean volume [Entitic volume] in Blood by Automated count Ordered By: Amanda Mast on 96-41-2495Zcppacnt mean volume (Bld) [Entitic vol]7.8 fLNormal6.3-10.7FParkwood HospitalComment on above:Performed By: #### [place], [place] #### [facility] [address] [place] [id number] USAPlatelets [#/volume] in Blood by Automated countOrdered By: Amanda Mast on 24-86-1039Jzsigpanu (Bld) [#/Vol]324 10*3/dNBuxlkp113-763 [facility] HospitalComment on above:Performed By: #### [place], [place] #### [facility] [address] [place] [address] USAPotassium [Moles/volume] in Serum or PlasmaOrdered By: Amanda Mast on 84-50-0267Ydklhlgxv [Moles/Vol]4.5 mmol/LNormal3.5-5.1FParkwood HospitalComment on above:Order Comment: FASTING.JKWPerformed By: #### [place], [place] #### [facility] [address] [place] [address] USAProtein [Mass/volume] in Serum or PlasmaOrdered By: Amanda Mast on 78-14-0554Cbmssqb [Mass/Vol]6.3 g/dLLow6.4-8.9T[facility] City HospitalComment on above:Order Comment: FASTING.JKWPerformed By: #### [place], [place] #### [facility] [address] [place] [address] USASerum globulin measurement by calculation (mass/volume) Ordered By: Amanda Mast on 10-44-8034Ueivcxze (S) [Mass/Vol]2.3 g/dLNormal [facility] HospitalComment on above:Order Comment: FASTING.JKW Performed By: #### [place], [place] #### [facility] [address] [place] [address] USASerum or plasma albumin/globulin mass ratioOrdered By: Amanda Mast on 75-76-9368Zitydhv/Globulin [Mass ratio]1.7 {ratio}NormalTwin City HospitalComment on above:Order Comment: FASTING.JKWPerformed By: #### [place], [place] #### [facility] [address] [place] [address] USASerum or plasma anion gap determinationOrdered By: Amanda Mast on 78-07-0488Lgobf gap [Moles/Vol]8.9 mmol/LNormal6.0-15.0T[facility] City HospitalComment on above:Order Comment: FASTING.JKWPerformed By: #### [place], [place] #### [facility] [address] [place] [id number] USASerum or plasma total cholesterol/high density lipoprotein (HDL) cholesterol mass ratOrdered By: Amanda Mast on 07-22-2025 Cholesterol.total/Cholesterol in HDL [Mass ratio]3.4 {ratio}Normal<5.0T[facility] City HospitalComment on above:Order Comment: FASTING.JKWPerformed By: #### [place], [place] #### [place] [address] USASodium [Moles/volume] in Serum or PlasmaOrdered By: Amanda Mast on 86-28-8361Cshxhf [Moles/Vol]142 mmol/UPyraqn604-024BkjqxcbtkTwin City HospitalComment on above:Order Comment: FASTING.JKWPerformed By: #### [place], [place] #### [place] [address] USAThyroid Stim Hormone w/Rflxon 97-14-0516Jlxbflg Stim Hormone w/Rflx2.98 u[iU]/mLNormal0.45-5.33The [facility] Physician GroupComment on above:Order Comment: FASTING.JKWResult Comment: PERFORMED BY: [place] [id number] PATHOLOGIST HYDRAULIC REPAIRER CRISTÓBAL THOMPSON M.D.Performed By: #### [place], [place] #### [place] [id number] USAThyrotropin [Units/volume] in Serum or PlasmaOrdered By: Amanda Mast on 23-89-8676DBP Qn2.98 m[IU]/L0.45-5.33Twin City HospitalTriglyceride [Mass/volume] in Serum or PlasmaOrdered By: Amanda Mast on 24-18-7203Datxcgxiqfqr [Mass/Vol]86 mg/dL0-149[facility] Comment on above:TRIG ATP III CLASSIFICATIONTRIG less than 150 mg/dL NormalTRIG 150-199 mg/dL Borderline highTRIG 200-500 mg/dL High TRIG greater than 500 mg/dL Very highStandard traceable to the Center for Disease Conrtrol and Prevention (CDC) test method.Urea nitrogen [Mass/volume] in Serum or PlasmaOrdered By: Amanda Mast on 99-76-5464Dqpw nitrogen [Mass/Vol]19 mg/dLNormal05-21T[facility] City HospitalComment on above:Order Comment: FASTING.JKWPerformed By: #### [place], [place] #### [place] [address] USAX-ray reportOrdered By: Ramez Sanchez on 95-08-4313Klywe reportAVITA HEALTH SYSTEM [facility] [place] [address] [place] [address] XRay Report Signed Patient: Yolis Florez MR#: [id number] : 1950 Acct:[id number] Age/Sex: 74 / F ADM Date: 5 Loc: [place] Room: Type: [facility] Attending Dr: Artie Hair MD Copies to: [...] is noted from L2 through L5 without hardwarecomplication or change in alignment. There is evidence of prior vertebroplasty at L4 and L5. No pathologic movement on flexion or extension. The bones are inanatomic alignment. The sacrum and sacroiliac joints are normal. XR/XR lumbar spine AP/LAT/FLX/EXT IMPRESSION: Posterior and intervertebral fusion is noted from L2 through L5 without hardwarecomplication or change in alignment. There is evidence of prior vertebroplasty at L4 and L5. No pathologic movement on flexion or extension. Impression dictated by: Ramez Sanchez M.D. 07/22/2025 4:14 PM Dictation Location: [place] [address] Transcribed By: [facility] 07/22/25 1614 Dictated By: Ramez Sanchez II, MD 09/25/25 1612 Signed By: 07/22/251613 [facility] Work Phone: XR lumbar spine AP/LAT/FLX/EXTon 98-92-9312QG lumbar spine AP/LAT/FLX/EXTAV[facility] [place] [address] [place] [address] XRay Report Signed Patient: Yolis Florez MR#: [id number] : 1950 Acct:[id number] Age/Sex: 74 / F ADM Date: 07/22/25 Loc: [place] Room: Type: [facility] Attending Dr: Artie Hair MD Copies to: Artie Hair MD Ordering Provider: Artie Hair MD Date of Service: 07/22/25 XR/XR lumbar spine AP/LAT/FLX/EXT: M47.26 - Other spondylosis with radiculopathy, lumbar region XR lumbar spine AP/LAT/FLX/EXT 07/22/2025 12:35 PM SIGNS AND SYMPTOMS: M47.26 - Other spondylosis with radiculopathy, lumbar [...] Sanchez M.D. 07/22/2025 4:14 PM Dictation Location: [place] [address] Transcribed By: [facility] 07/22/251613 Dictated By: Ramez Sanchez II, MD 07/22/251611 Signed By: 07/22/25 161[facility] Physician GroupAlanine aminotransferase [Enzymatic activity/volume] in Serum or PlasmaOrdered By: Amanda Sharif on 12-24-8839IOD [Catalytic activity/Vol]69 U/LHigh7-52[facility] HospitalComment on above:Performed By: #### CMP wRFX A1C, LIPID #### [facility] [address] [place] [place] [id number] USAAlbumin [Mass/volume] in Serum or Plasma by Bromocresol green (BCG) dye binding methoOrdered By: Amanda Mast on 88-50-5374Pfstkdy BCG dye [Mass/Vol]3.8 g/dL3.5-5.7FParkwood HospitalAlkaline phosphatase [Enzymatic activity/volume] in Serum or PlasmaOrdered By: Amanda Mast on 12-17-6041VYY [Catalytic activity/Vol]47 U/USptdln70-394IwsseeiizTwin City HospitalComment on above:Performed By: #### CMP wRFX A1C, LIPID #### [facility] [address] [place] [address] USAAspartate aminotransferase [Enzymatic activity/volume] in Serum or PlasmaOrdered By: Amanda Mast on 01-47-5009BNU [Catalytic activity/Vol]49 U/ULokr58-00NmolxtunpTwin City HospitalComment on above:Performed By: #### CMP wRFX A1C, LIPID #### [facility] [address] [place] [id number] USABilirubin.total [Mass/volume] in Serum or PlasmaOrdered By: Amanda Mast on 77-80-0209Gncipgfny [Mass/Vol]0.7 mg/dLNormal0.3-1.0Twin City HospitalComment on above:Performed By: #### CMP wRFX A1C, LIPID #### [facility] [address] [place] [address] USACMP with reflex to A1Con 11-48-0993Ljjduxz [Mass/Vol]3.8 g/dLNormal3.5-5.7The [facility] Physician GroupComment on above:Performed By: #### CMP wRFX A1C, LIPID #### [facility] [address] [place] [address] USAGFR/1.73 sq M.predicted MDRD (S/P/Bld) [Vol rate/Area] mL/min/{1.73_m2}NormalThe Atrium Health Providence Physician GroupComment on above:Performed By: #### CMP wRFX A1C, LIPID #### [facility] [address] [place] [address] USACalcium [Mass/volume] in Serum or PlasmaOrdered By: Amanda Mast on 45-63-3181Cnqhmzw [Mass/Vol]9.3 mg/dLNormal8.6-10.3FParkwood HospitalComment on above:Performed By: #### CMP wRFX A1C, LIPID #### [facility] [address] [place] [address] USACarbon dioxide, total [Moles/volume] in Serum or Plasma Ordered By: Amanda Mast on 95-31-8296CI5 [Moles/Vol]30.1 mmol/SLzmgye50.0-31.0 Twin City HospitalComment on above:Performed By: #### CMP wRFX A1C, LIPID #### [facility] [address] [place] [address] USAChloride [Moles/volume] in Serum or PlasmaOrdered By: Amanda Mast on 69-44-5181Oirbvxjo [Moles/Vol]106 mmol/AGvnoxk33-548CppfjseizTwin City HospitalComment on above:Performed By: #### CMP wRFX A1C, LIPID #### [facility] [address] [place] [address] USACholesterol [Mass/volume] in Serum or PlasmaOrdered By: Amanda Mast on 15-31-0803Nuhnurmoasa [Mass/Vol]196 mg/rBByzean540-489CdvxrceraTwin City HospitalComment on above:Chol less than 200 mg/dl low riskChol 201-239 mg/dl borderline riskChol 240 mg/dl and greater high riskResult Comment: Chol less than 200 mg/dl low risk Chol 201-239 mg/dl borderline risk Chol 240 mg/dl and greater high riskPerformed By: #### TSH3, [place] #### [facility] [address] [place] [address] USACholesterol in HDL [Mass/volume] in Serum or PlasmaOrdered By: Amanda Mast on 21-98-8942Upryxcvwqtd in HDL [Mass/Vol]50 mg/vDZccepq30-08 Twin City HospitalComment on above:HDL CHOL ATP-III CLASSIFICATION Cardiovascular RiskHDL > or equal to 60 mg/dL LOWHDL < 40 mg/dL HIGHResult Comment: HDL CHOL ATP-III CLASSIFICATION Cardiovascular Risk HDL > or equal to 60 mg/dL LOW HDL < 40 mg/dL HIGHPerformed By: #### TSH3, [place] #### [facility] [address] [place] [address] USACholesterol in LDL Calc [Mass/Vol]Ordered By: Amanda Mast on 04-96-8627Yrhdlluhqcf in LDL [Mass/Vol]128 mg/dLHigh0-100T[facility] City HospitalComment on above:LDL ATP III CLASSIFICATIONLDL less than 100 mg/dL OptimalLDL 100-129 mg/dL Near or above ixderelUHD045-000 mg/dL Borderline highLDL 160-189 mg/dL HighLDL greater than 189 mg/dL Very highCholesterol in VLDL Calc [Mass/Vol]Ordered By: Amanda Mast on 37-82-3892Fyhapwshsdi in VLDL [Mass/Vol]17 mg/dLTwin City HospitalCreatinine [Mass/volume] in Serum or PlasmaOrdered By: Amanda Mast on 14-10-3291Absmcjvlbb [Mass/Vol]0.64 mg/dLNormal0.60-1.20T[facility] City HospitalComment on above:Performed By: #### CMP wRFX A1C, LIPID #### [facility] [address] [place] [address] USAGlucose [Mass/volume] in Serum or PlasmaOrdered By: Amanda Mast on 31-12-4634Qltfhpy [Mass/Vol]91 mg/iEIleqlm03-266CmdgyfnzxTwin City HospitalComment on above:Performed By: #### CMP wRFX A1C, LIPID #### [facility] [address] [place] [address] USALipid Panelon 50-32-5629CDX Cholesterol,Bjdcmhcjrr711 mg/dLHigh0-100The [facility] Physician GroupComment on above:Result Comment: LDL ATP III CLASSIFICATION LDL less than 100 mg/dL Optimal LDL 100-129 mg/dL Near or above optimal LDL 130-159 mg/dL Borderline high LDL 160-189 mg/dL High LDL greater than 189 mg/dL Very highPerformed By: #### TSH3, [place] #### [facility] [address] [place] [address] USATriglyceride w/Imqlev23 mg/dLNormal0-149The [facility] Physician GroupComment on above:Result Comment: TRIG ATP III CLASSIFICATION TRIG less than 150 mg/dL Normal TRIG 150-199 mg/dL Borderline high TRIG 200-500 mg/dL High TRIG greater than 500 mg/dL Very high Standard traceable to the Center for Disease Conrtrol and Prevention (CDC) test method.Performed By: #### TSH3, [place] #### [facility] [address] [place] [address] USAVLDL ZMSGJXCKAQS20 mg/dLNormalThe [facility] Physician GroupComment on above:Performed By: #### TSH3, [place] #### [facility] [address] [place] [address] USANo Panel InformationOrdered By: Amanda Sharif on 05-21-2025 Estimated GFR (CKD-EPI)> 60.0 mL/MinTwin City HospitalPharmacy Creatinine Clearance (ChemN/[facility] CenterPotassium [Moles/volume] in Serum or PlasmaOrdered By: Amanda Sharif on 37-30-9919Qpyrxuxdc [Moles/Vol]4.6 mmol/LNormal3.5-5.1FParkwood HospitalComment on above:Performed By: #### CMP wRFX A1C, LIPID #### [facility] [address] [place] [address] USAProtein [Mass/volume] in Serum or PlasmaOrdered By: Amanda Sharif on 93-73-1107Mnvylzy [Mass/Vol]6.3 g/dLLow6.4-8.9Twin City HospitalComment on above:Performed By: #### CMP wRFX A1C, LIPID #### [facility] [address] [place] [address] USASerum globulin measurement by calculation (mass/volume) Ordered By: Amanda Sharif on 23-34-9251Phhuxggy (S) [Mass/Vol]2.5 g/dLNormal [facility] City HospitalComment on above:Performed By: #### CMP wRFX A1C, LIPID #### [facility] [address] [place] [address] USASerum or plasma albumin/globulin mass ratioOrdered By: Amanda Mast on 91-56-1966Rlikcqz/Globulin [Mass ratio]1.5 {ratio}NormalTwin City HospitalComment on above:Performed By: #### CMP wRFX A1C, LIPID #### [facility] [address] [place] [address] USASerum or plasma anion gap determinationOrdered By: Amanda Mast on 76-02-5945Gjdfg gap [Moles/Vol]9.5 mmol/LNormal6.0-15.0Twin City HospitalComment on above:Performed By: #### CMP wRFX A1C, LIPID #### [facility] [address] [place] [id number] USASerum or plasma total cholesterol/high density lipoprotein (HDL) cholesterol mass ratOrdered By: Amanda Sharif on 05-21-2025 Cholesterol.total/Cholesterol in HDL [Mass ratio]3.9 {ratio}Normal<5.0Twin City HospitalComment on above:Result Comment: PERFORMED BY: [place] [address] PATHOLOGIST HYDRAULIC REPAIRER CRISTÓBAL THOMPSON M.D.Performed By: #### TSH3, [place] #### [facility] [address] [place] [address] USASodium [Moles/volume] in Serum or PlasmaOrdered By: Amanda Mast on 20-65-0697Kxxybr [Moles/Vol]141 mmol/MPgikxj060-727GweehfwpeTwin City HospitalComment on above:Performed By: #### CMP wRFX A1C, LIPID #### [facility] [address] [place] [address] USATriglyceride [Mass/volume] in Serum or PlasmaOrdered By: Amandaantwon Sharif on 62-45-1353Usjippxbmvje [Mass/Vol]89 mg/dL0-149T[facility] City HospitalComment on above:TRIG ATP III CLASSIFICATIONTRIG less than 150 mg/dL NormalTRIG 150-199 mg/dL Borderline highTRIG 200-500 mg/dL High TRIG greater than 500 mg/dL Very highStandard traceable to the Center for Disease Co nrtrol and Prevention (CDC) test method.Urea nitrogen [Mass/volume] in Serum or PlasmaOrdered By: Amanda Sharif on 32-52-3300Yhcv nitrogen [Mass/Vol]29 mg/dLHigh -Twin City HospitalComment on above:Performed By: #### CMP wRFX A1C, LIPID #### [facility] [address] [place] [address] USASerum or plasma thyroglobulin antibody assay (units/volume)Ordered By: Pascual Thornton on 56-87-1442Igpdvqpfsfhbg Ab Qn4.0 [IU]/mLHigh0.0-0.9T[facility] City HospitalComment on above: Thyroglobulin Antibody measured by Manda EterniamMethodologyIt should be noted that the presence of thyroglobulinantibodies may not be pathogenic nor diagnostic, especiallyat very low levels. The assay home assessment nurse has found thatfour percent of individuals without evidence of thyroiddisease or auto immunity will have positive TgAb levels upto 4 IU/mL.Thyroglobulin [Mass/volume] in Serum or PlasmaOrdered By: Pascual Thornton on 32-44-1175Wqwyxmhbuwnek [Mass/Vol]<2.0 ng/mL.Twin City HospitalComment on above:This test was developed and its performance characteristicsdetermined by [employer]. It has not been cleared or approvedby the Food and Drug Administration.Reference Range:Pubertal Childrenand Adults: <40According to the National Academy of Clinical Biochemistry,the reference interval for Thyroglobulin (TG) should berelated to euthyroid patients and not for patients whounderwent thyroidectomy. TGreference intervals for thesepatients depend on the residual mass of the thyroid tissueleft after surgery. Establishing a post-operative baselineis recommended. The assay quantitation limit is 2.0 ng/mL.Performed at: [facility] [address], [place], [place] [id number] Director: Bravo contreras PhD, Phone: [phone] at: [employer] [address] [place], [place] [id number] Director: Rashel Whatley MD, Phone: [phone] Thyroglobulin, Quant + Tg Abon 12-66-4736Odsjaxifwtwylgtkq Ab4.1Ptlvyz6.0-0.9The [facility] Physician GroupComment on above:Result Comment: Thyroglobulin Antibody measured by Manda Eterniam Methodology It should be noted that the presence of thyroglobulin antibodies may not be pathogenic nor diagnostic, especially at very low levels. The assay home assessment nurse has found that four percent of individuals without evidence of thyroid disease or autoimmunity will have positive TgAb levels up to 4 IU/mL.Performed By: #### T4T, TSH3, T3T #### [place] [address] USAThyroglobulin, TG-LATOYA<2.0Normal.The [facility] Physician GroupComment on above:Result Comment: This test was developed and its performance characteristics determined by [employer]. It has not been cleared or approved by the Food and Drug Administration. Reference Range: Pubertal Children and Adults: <40 According to the National Academy of Clinical Biochemistry, the reference interval for Thyroglobulin (TG) should be related to euthyroid patients and not for patients who underwent thyroidectomy. TG reference intervals for these patients depend on the residual mass of the thyroid tissue left after surgery. Establishing a post-operative baseline is recommended. The assay quantitation limit is 2.0 ng/mL. Performed at: - [facility] [place] [address] [place], [place] [id number] Outdoor Pursuits Instructor: Bravo Burris PhD, Phone: [phone] Performed at: [employer] [address] [place], [place] [id number] Outdoor Pursuits Instructor: Rashel Whatley MD, Phone: [phone] PERFORMED BY: [place] [address] PATHOLOGIST HYDRAULIC REPAIRER CRISTÓBAL THOMPSON M.D.Performed By: #### T4T, TSH3, T3T #### [address] [place] [address] USAThyrotropin [Units/volume] in Serum or PlasmaOrdered By: Pascual Thornton on 52-00-9506ETX Qn4.58 m[IU]/LNormal0.45-5.33T[facility] City HospitalComment on above:Result Comment: PERFORMED BY: [place] [address] PATHOLOGIST HYDRAULIC REPAIRER CRISTÓBAL THOMPSON M.D.Performed By: #### T4T, T3T, TSH3 #### [place] [address] USAThyroxine (T4) [Mass/volume] in Serum or PlasmaOrdered By: Pascual Thornton on 76-62-5679E9 [Mass/Vol]14.16 ug/dLHigh5.39-11.82T[facility] City HospitalComment on above:Performed By: #### T4T, T3T, TSH3 #### [place] [address] USATriiodothyronine (T3) Totalon 76-76-6589Ihgqthpxcbhvkxkl (T3) Total0.85 ng/mLLow0.87-1.78The [facility] Physician GroupComment on above: Performed By: #### T4T, T3T, TSH3 #### [place] [id number] USATriiodothyronine (T3) [Mass/volume] in Serum or Plasma Ordered By: Pascual Thornton on 30-78-9318X6 [Mass/Vol]0.85 ng/mLLow0.87-1.78 [facility] HospitalX-ray reportOrdered By: Hemant Sommers on 94-32-9552Qdaqx reportAVITA [facility] [place] [address] [place] [address] XRay Report Signed Patient: Yolis Florez MR#: [id number] : 1950 Acct:[id number] Age/Sex: 74 / F ADM Date: 5 Loc: XD Room: Type: REG CLI Attending Dr: Artie Hair MD Copies to: Artie Hair MD~ Ordering Provider: Artie Hair MD Date of Service: 04/06/25 XR/XR lumbar spine AP/LAT/FLX/EXT: M47.26 - Other spondylosis with radiculopathy, lumbar region AP with lateral neutral, flexion-extension views Lumbar Spine HISTORY: Low back pain. Leg weakness. Fell. COMPARISON: 01/05/2025 POSTSURGICAL CHANGES: Stable L3-L5 posterior hardware and L4 and L5 cement augmentation. BONY ALIGNMENT: Adequate HYPERMOBILITY:No hypermobility LISTHESIS:None FRACTURE: None DEGENERATIVE CHANGES: Similar mild findings SOFT TISSUES: Unremarkable BONY MINERALIZATION:Adequate XR/XR lumbar spine AP/LAT/FLX/EXT IMPRESSION: Stable degenerative and postsurgical changes Impression dictated by: Hmeant Sommers M.D. 04/06/2025 4:41 PM Dictation Location: [place] [address] Transcribed By: [facility] 04/06/25 1641 Dictated By: Hemant Sommers DO 04/06/25 1639 Signed By: 04/06/25 1641 [facility] HospitalXR lumbar spine AP/LAT/FLX/EXTon 81-87-3284AS lumbar spine AP/LAT/FLX/EXTAV[facility] [place] [address] XRay Report Signed Patient: Yolis Florez MR#: [id number] : 1950 Acct:[id number] Age/Sex: 74 / F ADM Date: 04/06/25 Loc: XD Room: Type: [facility] CLI Attending Dr: Artie Hair MD Copies to: Artie Hair MD Ordering Provider: Artie Hair MD Date of Service: 04/06/25 XR/XR lumbar spine AP/LAT/FLX/EXT: M47.26 - Other spondylosis with radiculopathy, lumbar region AP with lateral neutral, flexion-extension views Lumbar Spine HISTORY: Low back pain. Leg weakness. Fell. COMPARISON: 01/05/2025 POSTSURGICAL CHANGES: Stable L3-L5 posterior hardware and L4 and L5 cement augmentation. BONY ALIGNMENT: Adequate HYPERMOBILITY:No hypermobility LISTHESIS:None FRACTURE: None DEGENERATIVE CHANGES: Similar mild findings SOFT TISSUES: Unremarkable BONY MINERALIZATION:Adequate XR/XR lumbar spine AP/LAT/FLX/EXT IMPRESSION: Stable degenerative and postsurgical changes Impression dictated by: Hemant Sommers M.D. 04/06/2025 4:41 PM Dictation Location: [place] [address] Transcribed By: [facility] 04/06/25 1641 Dictated By: Hemant Sommers DO 04/06/25 1639 Signed By: 04/06/25 1641[facility] Physician [facility] screening mammo BI w/CADon 95-82-3396RZ screening mammo BI w/[facility] [address] [place] [address] Mammography Report Signed Patient: Yolis Florez MR#: [id number] : 1950 Acct:[id number] Age/Sex: 74 / F Adm Date: 03/24/25 Loc: [place] Room: Type: [facility] Attending Dr: Referral Self Ordering Provider: SELF,REFERRAL Date of Service: 03/24/25 Procedure(s): MM screening mammo BI w/CAD Accession Number(s): ([id number]) MM/MM screening mammo BI w/CAD: SCREENING Copies to: Amanda Sharif DO SELF,REFERRAL CLINICAL DATA: Screening for malignancy. BILATERAL SCREENING MAMMOGRAMS - FULL FIELD DIGITAL WITH TOMOSYNTHESIS AND CAD Tomosynthesis craniocaudal and mediolateral oblique views of both breasts were obtained using low- dose digital technique. Comparison is made to prior studies from 02/27/2024, 09/26/2022, and 09/05/2021. This examination was reviewed with the aid of CAD. There are scattered fibroglandular densities. Benign-appearing lymph nodes are noted along the chest wall. Benign-appearing calcifications are present. There is a similar focal asymmetry on the right. There is a similar focal asymmetry in the lateral aspect of the left breast. There are no dominant masses, typically malignant calcifications or architectural distortion. There has been no significant interval change. MM/MM screening mammo BI w/CAD IMPRESSION: NO MAMMOGRAPHIC EVIDENCE OF MALIGNANCY. ROUTINE FOLLOW-UP IS RECOMMENDED IN ONE YEAR. RESULT CODE: 2 Benign Findings(s) DENSITY CODE: 2 (approximately 25-50% glandular) There are scattered areas of fibroglandular density. FOLLOW UP: 1YR The false-negative rate of mammography is approximately 10-percent. Management of a palpable abnormality must be based on clinical grounds. Patient was entered into a reminder system with a target due date for the next mammogram. Impression dictated by: Ramez Sanchez M.D. 03/24/2025 3:38 PM Dictation Location: [facility] Dictated By: Ramez Sanchez II, MD 03/24/25 1535 Signed By: 03/24/[address] [place] [address] Physician GroupMammography reportOrdered By: Ramez Sanchez on 96-78-9640Rmeekdspcn imaging [facility] [address] [place] [address] Mammography Report Signed Patient: Yolis Florez MR#: [id number] : 1950 Acct:[id number] Age/Sex: 74 / F Adm Date: 5 Loc: [place] Room: Type: [facility] Attending Dr: Referral Self Ordering Provider: SELF,REFERRAL Date of Service: 03/24/25 Procedure(s): MM screening mammo BI w/CAD Accession Number(s): ([id number]) MM/MM screening mammo BI w/CAD: SCREENING Copies to: Amanda Sharif DO SELF,REFERRAL ~ CLINICAL DATA: Screening for malignancy. BILATERAL SCREENING MAMMOGRAMS - FULL FIELD DIGITAL WITH TOMOSYNTHESIS AND CAD Tomosynthesis craniocaudal and mediolateral oblique views of both breasts were obtained using low-dose digital technique. Comparison is made to prior studies from 02/27/2024, 09/26/2022, and 09/05/2021.This examination was reviewed with the aid of CAD. There are scattered fibroglandular densities. Benign-appearing lymph nodes are noted along the chest wall. Benign-appearing calcifications are present. There is a similar focal asymmetry on the right. There is a similar focal asymmetry inthe lateral aspect of the left breast. There are no dominant masses, typically malignant calcifications or architectural distortion. There has been no significant interval change. MM/MM screening mammo BI w/CAD IMPRESSION: NO MAMMOGRAPHIC EVIDENCE OF MALIGNANCY. ROUTINE FOLLOW-UP IS RECOMMENDED IN ONE YEAR. RESULT CODE: 2 Benign Findings(s) DENSITY CODE: 2 (approximately 25-50% glandular) There are scattered areas of fibroglandular density. FOLLOW UP: 1YR The false-negative rate of mammography is approximately 10-percent. Management of a palpable abnormality must be based on clinical grounds. Patient was entered into a reminder system with a target due date for the next mammogram. Impression dictated by: Ramez Sanchez M.D. 03/24/2025 3:38 PM Dictation Location: [facility] Dictated By: Ramez Sanchez II, MD 03/24/251534 Signed By: 03/24/25 1530 [facility] Work Phone: Serum or plasma thyroglobulin antibody assay (units/volume)Ordered By: Pascual Thornton on 72-26-9062Frrgdrurkgdni Ab QnSerum or plasma thyroglobulin antibody assay (units/volume)High0.0-0.9[facility] City HospitalComment on above:Thyroglobulin Antibody measured by Manda CoulterMethodologyIt should be noted that the presence of thyroglobulinantibodies may not be pathogenic nor diagnostic, especiallyat very low levels. The assay home assessment nurse has found thatfour percent of individuals without evidence of thyroiddisease or autoimmunity will have positive TgAb levels upto 4 IU/mL.Thyroglobulin Ab Qn3.0 [IU]/mLHigh0.0-0.9[facility] City HospitalComment on above:Thyroglobulin Antibody measured by Manda CoulterMethodologyIt should be noted that the presence of thyroglobulinantibodies may not be pathogenic nor diagnostic, especiallyat very low levels. The assay home assessment nurse has found thatfour percent of individuals without evidence of thyroiddisease or autoimmunity will have positive TgAb levels upto 4 IU/mL.Thyroglobulin [Mass/volume] in Serum or PlasmaOrdered By: Pascual Thornton on 96-24-4940Vrhvczetunkkz [Mass/Vol]Thyroglobulin [Mass/volume] in Serum or Plasma.[facility] City HospitalComment on above:This test was developed and its performance characteristicsdetermined by [employer]. It has not been cleared or approvedby the Food and Drug Administration.Reference Range:Pubertal Childrenand Adults: <40According to the National Academy of Clinical Biochemistry,the reference interval for Thyroglobulin (TG) should berelated to euthyroid patients and not for patients whounderwent thyroidectomy. TGreference intervals for thesepatients depend on the residual mass of the thyroid tissueleft after surgery. Establishing a post-operative baselineis recommended. The assay quantitation limit is 2.0 ng/mL.Performed at: [employer] [address] [id number] Director: Bravo contreras PhD, Phone: [phone] at: [employer] [place], [place] [id number] Director: Rashel Whatley MD, Phone: [phone] Thyroglobulin [Mass/Vol]<2.0 ng/mL.[facility] City HospitalComment on above:This test was developed and its performance characteristicsdetermined by [employer]. It has not been cleared or approvedby the Food and Drug Administration.Reference Range:Pubertal Childrenand Adults: <40According to the National Academy of Clinical Biochemistry,the reference interval for Thyroglobulin (TG) should berelated to euthyroid patients and not for patients whounderwent thyroidectomy. TGreference intervals for thesepatients depend on the residual mass of the thyroid tissueleft after surgery. Establishing a post- operative baselineis recommended. The assay quantitation limit is 2.0 ng/ mL.Performed at: [employer] [address] [id number] Director: Bravo Burris PhD, Phone: [phone] at: [address] [place], [place] [id number] Director: Rashel Whatley MD, Phone: [phone], Quant + Tg Abon 02-25-2025 Antithyroglobulin Ab3.0 [IU]/mLHigh0.0-0.9[facility] Physician GroupComment on above:Result Comment: Thyroglobulin Antibody measured by Manda Tamra Methodology It should be noted that the presence of thyroglobulin antibodies may not be pathogenic nor diagnostic, especially at very low levels. The assay home assessment nurse has found that four percent of individuals without evidence of thyroid disease or autoimmunity will have positive TgAb levels up to 4 IU/mL.Performed By: #### THYGLOB #### [facility] ,Thyroglobulin, TG-LATOYA<2.0Normal.[facility] Physician GroupComment on above: Result Comment: This test was developed and its performance characteristics determined by [employer]. It has not been cleared or approved by the Food and Drug Administration. Reference Range: Pubertal Children and Adults: <40 According to the National Academy of Clinical Biochemistry, the reference interval for Thyroglobulin (TG) should be related to euthyroid patients and not for patients who underwent thyroidectomy. TG reference intervals for these patients depend on the residual mass of the thyroid tissue left after surgery. Establishing a post-operative baseline is recommended. The assay quantitation limit is 2.0 ng/mL. Performed at: [employer] [address] [id number] Outdoor Pursuits Instructor: Bravo Burris PhD, Phone: [phone] Performed at: [employer] [address] [place] [id number] Outdoor Pursuits Instructor: Rashel Whatley MD, Phone: [phone] PERFORMED BY: [address] [place] [address] PATHOLOGIST HYDRAULIC REPAIRER SHABNAM BECERRA M.D.Performed By: #### THYGLOB #### [facility] ,Thyrotropin [Units/volume] in Serum or PlasmaOrdered By: Pascual Thornton on 14-06-8503DCN QnThyrotropin [Units/volume] in Serum or PlasmaHigh0.45-5.33 [facility] HospitalTS Qn8.29 m[IU]/LHigh0.45-5.33[facility] City HospitalComment on above:Result Comment: PERFORMED BY: [address] [place] [address] PATHOLOGIST HYDRAULIC REPAIRER SHABNAM BECERRA M.D.Performed By: #### T4T, TSH3, T3T #### [facility] [address] [place] [address] USAThyroxine (T4) [Mass/volume] in Serum or PlasmaOrdered By: Pascual Thornton on 88-15-9698E1 [Mass/Vol]Thyroxine (T4) [Mass/volume] in Serum or PlasmaHigh5.39-11.82[facility] City HospitalT4 [Mass/Vol]12.84 ug/dLHigh5.39-11.82[facility] City HospitalComment on above:Performed By: #### T4T, TSH3, T3T #### [facility] [address] [place] [id number] USATriiodothyronine (T3) Totalon 74-22-5990Uzspbgwfooircqye (T3) Total0.46 ng/mLLow0.87-1.78The [facility] Physician GroupComment on above: Performed By: #### T4T, TSH3, T3T #### [facility] [address] [place] [address] USATriiodothyronine (T3) [Mass/volume] in Serum or Plasma Ordered By: Pascual Thornton on 34-51-7621N7 [Mass/Vol]Triiodothyronine (T3) [Mass/volume] in Serum or PlasmaLow0.87-1.78[facility] HospitalT3 [Mass/Vol]0.46 ng/mLLow0.87-1.78[facility] City HospitalCoding Summary on 63-91-7252Xtjqsq SummaryHTMLBase 64 MwipoqnrKOb9eVi+PGhlYWQ+UX2PVYLfM32haLTmcQ8yG7ALGZnOQbbrTBRAGPvBGyFybwFzRB3nwMAw ZXJu [file] cHN (more content not included)...[facility] HospitalPhysical Therapy Noteon 52-37-4372Gkbchnwy Therapy Note [id number]#1.00OTGTTogus VA Medical CenterX-ray reportOrdered By: Marlo Siddiqui on 51-10-3816Jjtqo reportAV[facility] Main [place] [id number] XRay Report Signed Patient: Yolis Florez MR#: [id number] : 1950 Acct:[id number] Age/Sex: 74 / F ADM Date: 5 Loc: XD Room: Type: REG CLI Attending Dr: Artie Hair MD Copies to: Artie Hair MD~ Ordering Provider: Artie Hair MD Date of Service: 01/05/25 XR/XR lumbar spine 2-3V*: R29.898 - Other symptoms and signs involving the musculos... LUMBAR SPINE - 3 views CLINICAL HISTORY: Follow-up lumbar fusion COMPARISON: Lumbar spine 2024 FINDINGS: Posterior hardware fixation L3-L5 without radiographic complication. Cement augmentation L4 and L5 vertebral bodies. No pathological motion on flexion or extension views. XR/XR lumbar spine 2-3V* IMPRESSION: NO HARDWARE COMPLICATION. Impression dictated by: Marlo Siddiqui Jr., D.OMike01/05/2025 1:54 PM Dictation Location: [place] [address] Transcribed By: [facility] 01/05/25 1354 Dictated By: Marlo Siddiqui Jr, DO 01/05/25 1354 Signed By: 01/05/25 1354 [facility] HospitalXR lumbar spine 2-3V*on 71-34-8677PF lumbar spine 2-3V*[facility] Main [address] [address] XRay Report Signed Patient: Yolis Florez MR#: [id number] : 1950 Acct:[id number] Age/Sex: 74 / F ADM Date: 01/05/25 Loc: XD Room: Type: REG CLI Attending Dr: Artie Hair MD Copies to: Artie Hair MD Ordering Provider: Artie Hair MD Date of Service: 01/05/25 XR/XR lumbar spine 2-3V*: R29.898 - Other symptoms and signs involving the musculos... LUMBAR SPINE - 3 views CLINICAL HISTORY: Follow-up lumbar fusion COMPARISON: Lumbar spine 2024 FINDINGS: Posterior hardware fixation L3-L5 without radiographic complication. Cement augmentation L4 and L5 vertebral bodies. No pathological motion on flexion or extension views. XR/XR lumbar spine 2-3V* IMPRESSION: NO HARDWARE COMPLICATION. Impression dictated by: Marlo Siddiqui Jr., Diane01/05/2025 1:54 PM Dictation Location: [facility]- Transcribed By: [facility] 01/05/25 1354 Dictated By: Marlo Siddiqui Jr, DO 01/05/25 1354 Signed By: 01/05/[address] [place], [place] [address]Physical Therapy Noteon 72-11-7990Eufddlkv Therapy Note [id number]#1.00[facility] Thyroid Stimulating Hormoneon 28-03-0242KBK Qn11.06 m[IU]/LHigh0.45-5.33The The Children'S Hospital FoundationComment on above:Result Comment: PERFORMED BY: [facility] [address] [place] [id number] PATHOLOGIST HYDRAULIC REPAIRER SHABNAM BECERRA M.D.Performed By: #### T4T, TSH3, T3T #### [facility] [address] [place] [address] USAThyrotropin [Units/volume] in Serum or PlasmaOrdered By: Pascual Thornton on 30-31-7933QRR QnThyrotropin [Units/volume] in Serum or Plasma High0.45-5.33[facility] City HospitalThyroxine (T4) Totalon 11-26-2024 T4 [Mass/Vol]12.22 ug/dLHigh5.39-11.82[facility] Physician [facility] HospitalComment on above:Performed By: #### T4T, TSH3, T3T #### [facility] [address] [place] [id number] USAThyroxine (T4) [Mass/volume] in Serum or PlasmaOrdered By: Pascual Thornton on 72-68-2953A7 [Mass/Vol]Thyroxine (T4) [Mass/volume] in Serum or PlasmaHigh5.39-11.82[facility] HospitalTriiodothyronine (T3) Totalon 12-43-0034Nqaitoilmqevchmy (T3) Total0.90 ng/mLNormal0.87-1.78The [facility] Physician GroupComment on above:Performed By: #### T4T, TSH3, T3T #### [facility] [address] [place] [address] USATriiodothyronine (T3) [Mass/volume] in Serum or Plasma Ordered By: Pascual Thornton on 80-49-3472D6 [Mass/Vol]Triiodothyronine (T3) [Mass/volume] in Serum or Plasma0.87-1.78T[facility] City HospitalLon 10-14-2024 Specimen: [id number] Received: 10/14/24 Status: CAROLYN Hodge Num: [id number] Spec Type: Surgical Subm Dr: Pascual Thornton DO Tissues: A THYROID - Lobe (LT THY LOBE AND ISTHMUS) Procedures: , Gross/Micro L5 Age/ Patient Sex Location Account Attending Physician Yolis Florez 74/F [place] [id number] Pascual Thornton DO SPEC NUM: [id number] RECD: 10/14/24 STATUS: CAROLYN CHOICheco NUM: [id number] LAURA: 10/14/24 [facility] DR: Pascual Thornton DO ENTERED: 10/14/[address]: [facility] SPEC TYPE: Surgical DEPT: S ENTERED BY: [id number] RECV BY: [id number] ORDERED: , Gross/Micro L5 ORDERED: , Gross/Micro L5 Supplemental Report Addendum 1 Entered: 10/23/24 Supplemental for findings of consultation report from [facility]: -2 foci of 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, involving left lobe -Lymphatic invasion: Not identified -Angioinvasion: Not identified -Mitotic rate: <3 mitosis per 2 mm2 -Tumor necrosis: Not identified -Extranodal extension: Not identified -Papillary thyroid carcinoma, conventional/classic type (0.3 cm), involving left lobe -Background follicular nodular disease with dominant (2.5 cm) nodule -1 lymph node, negative for carcinoma (0/1) -See comment Addendum Signed (signature on file) Coy-Magdaleno Trent MD 10/23/241839 Specimen: [id number] Received: 10/14/24 Status: CAROLYN El Num: [id number] Spec Type: Surgical Subm Dr: Pascual Thornton DO Tissues: A THYROID - Lobe (LT THY LOBE AND ISTHMUS) Procedures: Tayler/Natalie L5 Patient: Yolis Florez [id number] (Continued) Specimen: [id number] Received: 10/14/24 (Continued) Signed (signature on file) Nancy Trent MD 10/19/24 1308 Specimen: [id number] Received: 10/14/24 Status: CAROLYN Hodge Num: [id number] Spec Type: Surgical Subm Dr: Pascual Thornton DO Tissues: A THYROID - Lobe (LT THY LOBE AND ISTHMUS) Procedures: , Gross/Micro L5 Patient: Yolis Florez [id number] (Continued) Specimen: [id number] Received: 10/14/24 (Continued) Pathological Diagnosis Left thyroid lobe and isthmus, left lobectomy with isthmectomy: -Thyroid follicular nodular disease, including multiple small and 1 very large dominant nodule -There is focal calcification in a second largest nodule with associated hemorrhage and focal mild cytological atypia of the equivocally degenerative type -One other much smaller nodule with mild cytological atypia is also identified -Pending secondary external consultation service with final interpretation to follow Clinical Information Left thyroid nodule Gross Description Part A is received in formalin labeled with the patients name, date of , and left thyroid lobe and isthmus is a 13.1 g, left thyroidectomy specimen with attached isthmus, 4.5 cm superior to inferior, 3.3 cm medial to lateral, and 2 cm anterior to posterior. The medial aspect of the specimen displays a roughened irregular area, 1 x 0.6 cm, consistent with fragmented isthmic margin. Extending from the superior aspect of the fragmented isthmic margin is a portion of adipose tissue, 1 x 0.8 x 0.2 cm with no palpable lymph node candidates. The remaining capsular surface is serna-pink, smooth and glistening with focal adhesions on the posterior aspect. The specimen is inked as follows: Anterior-Yellow Posterior-Black Fragmented isthmic margin-Newton Serial sections reveal a serna-pink, well-circumscribed, gelatinous, focally calcified nodule, 2.5 x 2 by 3.2 cm. The nodule is situated 0.8 cm from the fragmented isthmic margin, and adjacent (less than 0.1 cm) from the anterior, as well as posterior surfaces. The remaining thyroid parenchyma is red-brown, glistening and uniform. The specimen is entirely submitted progressing from superior to i (more content not included)...NormalThe [facility]rium [facility] Providence Physician GroupCalciumon 21-63-2474Vksmcgj [Mass/Vol]9.3 mg/dLNormal8.6-10.3The The Children'S Hospital FoundationComment on above:Performed By: #### TSH3, [place] #### [place] [address] USACalcium [Mass/volume] in Serum or PlasmaOrdered By: Pascual Thornton on 86-20-8332Qbbisgs [Mass/Vol]Calcium [Mass/volume] in Serum or Plasma8.6-10.3FParkwood HospitalParathyrin.intact [Mass/volume] in Serum or PlasmaOrdered By: Pascual Thornton on 12-67-0987Bzgyxabghm.intact [Mass/Vol]Parathyrin.intact [Mass/volume] in Serum or Sdkuda32-94AptwqpadwTwin City HospitalParathyroid Hormone Intacton 15-88-9133Mitcpvomggd Hormone Fratra16.4 pg/mTGppgqj05-38Izo The Children'S Hospital FoundationComment on above:Result Comment: PERFORMED BY: [facility] [address] [place] [address] PATHOLOGIST HYDRAULIC REPAIRER SHABNAM BECERRA M.D.Performed By: #### T4T, TSH3, T3T #### [facility] [address] [place] [id number] USAThyroid Stimulating Hormoneon 76-04-6669KCP Qn6.39 m[IU]/L High0.45-5.33The [facility] Physician GroupComment on above:Result Comment: PERFORMED BY: [place] [address] PATHOLOGIST HYDRAULIC REPAIRER SHABNAM BECERRA M.D.Performed By: #### TSH3, [place] #### [facility] [address] [place], [place] [address] USAThyrotropin [Units/volume] in Serum or PlasmaOrdered By: Pascual Thornton on 79-91-3029CAQ QnThyrotropin [Units/volume] in Serum or Plasma High0.45-5.33[facility] City HospitalXR lumbar spine 2-3V*on 2024 XR lumbar spine 2-3V*[facility] Main [place] [address] [place], [place] [address] XRay Report Signed Patient: Yolis Florez MR#: [id number] : 1950 Acct:[id number] Age/Sex: 74 / F ADM Date: 10/06/24 Loc: D Room: Type: [facility] Attending Dr: Artie Hair MD Copies to: Artie Hair MD Ordering Provider: Artie Hair MD Date of Service: 10/06/24 XR/XR lumbar spine 2-3V*: Z98.1 - Arthrodesis status Two-view Lumbar Spine HISTORY: Follow-up lumbar fusion COMPARISON: 08/25/2024 POSTSURGICAL CHANGES: None BONY ALIGNMENT: Stable HYPERMOBILITY:No bending imaging. LISTHESIS:Similar mild FRACTURE: None DEGENERATIVE CHANGES: Similar SOFT TISSUES: Unremarkable BONY MINERALIZATION:Adequate XR/XR lumbar spine 2-3V* IMPRESSION: Stable degenerative and postsurgical change Impression dictated by: Hemant Sommers M.D.10/06/2024 4:56 PM Dictation Location: [facility]--16 Transcribed By: ERIKA 10/06/241655 Dictated By: Hemant Sommers DO 10/06/241654 Signed By: 10/06/241655[facility] Physician GroupLon 82-50-5039QYwsthzla: [id number] Received: 09/01/24 Status: CAROLYN Req Num: [id number] Spec Type: Cytology Subm Dr: Pascual Thornton DO Tissues: A FNA SLIDES NOPATH (LT THY) Procedures: Cyto Int and Re, PAPSTN/15 Age/ Patient Sex Location Account Attending Physician Yolis Florez 73/F [place] [id number] Pascual Thornton DO SPEC NUM: [id number] RECD: 09/01/24 STATUS: CAROLYN EL NUM: [id number] LAURA: 09/01/[address]: Pascual Thornton DO ENTERED: 09/01/[address]: SPEC TYPE: Cytology DEPT: CNG ENTERED BY: [id number] RECV BY: [id number] ORDERED: Cyto Int and Re, PAPSTN/15 ORDERED: Cyto Int and Re, PAPSTN/15 Pathological Diagnosis Left thyroid, fine needle aspiration:? Unsatisfactory for evaluation. Too few epithelial cells. [place]?Category?I Clinical Information Left Throid Nodule Gross Description Received fixed in Cytolyt is <1 ml red cloudy fixed fluid for cytology said to have been obtained as Lt Thyroid Nodule. ThinPrep preparations are prepared for microscopic examination. Also received are 14 spray fixed smeared slides for pap and a Veracyte vial stored at -20 for microscopic examination. (CT/ri) CPT Codes 70076 Specimen: [id number] Received: 09/01/24-1517 Status: CAROLYN Hodge Num: [id number] Spec Type: Cytology Subm Dr: Pascual Thornton DO Tissues: A FNA SLIDES NOPATH (LT THY) Procedures: Cyto Int and Re, PAPSTN/15 Patient: Yolis Florez [id number] (Continued) Signed (signature on file) Shabnam Becerra MD 09/02/[address] [place] [address] Physician GroupProvider Orderson 08-27-2024 Provider [id number]#1.00[facility], BeachwoodXR lumbar spine 2-3V*on 50-44-8160CK lumbar spine 2-3V* [place] [address] XRay Report Signed Patient: Yolis Florez MR#: [id number] : 1950 Acct:[id number] Age/Sex: 73 / F ADM Date: 08/25/24 Loc: XD Room: Type: [facility] Attending Dr: Artie Hair MD Copies to: Artie Hair MD Ordering Provider: Artie Hair MD Date of Service: 08/25/24 XR/XR lumbar spine 2-3V*: M54.16 - Radiculopathy, lumbar region LUMBAR SPINE - 2 views CLINICAL HISTORY: Low back pain. Follow-up lumbar surgery. COMPARISON: Intraoperative study 07/22/2024 FINDINGS: Posterior hardware fixation L2-L5 without radiographic complication. Kyphoplasty changes L4 and L5 vertebral bodies. Vertebral body heights appear maintained. Remaining disc space heights appear maintained. XR/XR lumbar spine 2-3V* IMPRESSION: NO HARDWARE COMPLICATION. Impression dictated by: Marlo Siddiqui Jr., D.O.08/25/2024 4:30 PM Dictation Location: [place] [address] Transcribed By: [facility] 08/25/24 1630 Dictated By: Marlo Siddiqui Jr, DO 08/25/24 1629 Signed By: 08/25/[address] [place] [address] Physician GroupCoding Summaryon 08-17-2024 Coding SummaryHTMLBase 64 AcurxmqiRHh0cWu+PGhlYWQ+QK0ZTNIxR64tuNParY2gY7RJYEtUQfaeJJGBQOiZYbQuybWoDS1upGAv ZXJu [file] dHl (more content not included)...NormalMedina Hospitaluder HospitalProvider Orderson 43-99-2635Qcbtiaqz [id number]#1.00OTGTIFF NormalMedina Hospitaluder HospitalCoding Summaryon 86-53-9137Vvaeqz SummaryHTMLBase 64 BbtcnxgvPHc2mOg+PGhlYWQ+LX6IFKNjH00moZWzpB1mG8CBXRpERxdoTTNCBRcXJqKdzyBkGG2rzBEb ZXJu [file] ci1 (more content not included)...NormalMagruder Memorial Hospital HospitalCoding Summaryon 78-92-9331Bvuvam SummaryHTMLBase 64 RplczuklGUw9kPn+PGhlYWQ+DE1YWWYzF63smFXaoB2wG3VQWNyWDapaVLHNSSxITvTjwwHzKC6udEQr ZXJu [file] ci1 (more content not included)...[facility]. Vincent HospitalBasophils Auto (Bld) [#/Vol]Ordered By: Artie Hair on 61-26-8351Fmadcdkoq (Bld) [#/Vol]0.0 10*3/uL 0.0-0.2FParkwood HospitalBasophils/100 WBC Auto (Bld)Ordered By: Artie Hair on 56-89-1227Xitgtkcxr/100 WBC (Bld)0.1 %.[facility] HospitalCalcium [Mass/volume] in Serum or PlasmaOrdered By: Artie Hair on 22-72-4702Opzcila [Mass/Vol]8.7 mg/dL8.6-10.3FParkwood Hospital Carbon dioxide, total [Moles/volume] in Serum or PlasmaOrdered By: Artie Hair on 84-42-5233LT8 [Moles/Vol]28.6 mmol/L21.0-31.0[facility] Chloride [Moles/volume] in Serum or PlasmaOrdered By: Artie Hair on 07-22-2024 Chloride [Moles/Vol]106 mmol/Y68-241WwmxbxjsdTwin City HospitalCreatinine [Mass/volume] in Serum or PlasmaOrdered By: Artie Hair on 13-15-1988Vplirgvlyi [Mass/Vol]0.66 mg/dL0.60-1.20T[facility] City HospitalEosinophils Auto (Bld) [#/Vol]Ordered By: Artie Hair on 87-34-4389Uwzqskxvuow (Bld) [#/Vol]0.0 10*3/uL0.0-0.45T[facility] City HospitalEosinophils/100 WBC Auto (Bld) Ordered By: Artie Hair on 76-19-6466Heawbefdydj/100 WBC (Bld)0.0 %.T[facility] City HospitalErythrocyte distribution width Auto (RBC) [Ratio]Ordered By: Artie Hair on 15-03-6555Djyksqfzwaf distribution width (RBC) [Ratio]14.6 % 11.9-15.3FParkwood HospitalGlucose [Mass/volume] in Serum or PlasmaOrdered By: Artie Hair on 83-22-6653Xzvxilc [Mass/Vol]165 mg/vXHpbu43-374 Twin City HospitalComment on above:ADA recommended reference rangeRandom Glucose Reference Range is dependent on time and content of last meal. Glucose of more than 200 mg/dL in a nonstressed, ambulatory subject supports the diagnosisof Diabetes Mellitus.Hematocrit Auto (Bld) [Volume fraction]Ordered By: Artie Hair on 06-94-2034Ckltfsmobz (Bld) [Volume fraction] 37.4 %34.0-46.4FParkwood HospitalHemoglobin [Mass/volume] in BloodOrdered By: Artie Hair on 16-94-5524Xmqhvzeuwh (Bld) [Mass/Vol]12.3 g/dL 11.8-15.4FParkwood HospitalLeukocytes [#/volume] corrected for nucleated erythrocytes in Blood by Automated counOrdered By: Artie Hair on 92-80-8678BPP corrected for nucl RBC Auto (Bld) [#/Vol]12.7 10*3/uLHigh3.8-11.6 [facility] HospitalLymphocytes Auto (Bld) [#/Vol]Ordered By: Artie Hair on 30-25-5456Uwbzcbyjmiq (Bld) [#/Vol]0.7 10*3/uLLow1.00-4.8T[facility] City HospitalLymphocytes/100 WBC Auto (Bld)Ordered By: Artie Hair on 29-24-0476Pebswssvozi/100 WBC (Bld)5.8 %.[facility] City HospitalMCH Auto (RBC) [Entitic mass]Ordered By: Artie Hair on 17-07-0195CQZ (RBC) [Entitic mass]31.8 pg24.7-34.3FGreen Cross Hospital Auto (RBC) [Mass/Vol] Ordered By: Artie Hair on 16-29-5384OOTP (RBC) [Mass/Vol]32.9 g/dL32.0-35.0 [facility] HospitalMCV Auto (RBC) [Entitic vol]Ordered By: Artie Hair on 99-63-2809PMP (RBC) [Entitic vol]96.6 xK11-162DiimwqoobTwin City HospitalMonocytes Auto (Bld) [#/Vol]Ordered By: Artie Hair on 07-22-2024 Monocytes (Bld) [#/Vol]0.3 10*3/uL0.0-0.8[facility] Monocytes/100 WBC Auto (Bld)Ordered By: Artie Hair on 49-84-1341Xkqtazqwm/100 WBC (Bld)2.6 %.[facility] City HospitalNeutrophils Auto (Bld) [#/Vol] Ordered By: Artie Hair on 40-65-5362Ebigkwzdfeh (Bld) [#/Vol]11.6 10*3/uLHigh 1.8-7.7FParkwood HospitalNeutrophils/100 WBC Auto (Bld)Ordered By: Artie Hair on 68-29-5949Zdletayfuyz/100 WBC (Bld)91.5 %.[facility] HospitalNo Panel InformationOrdered By: Artie Hair on 66-00-6382Ccpsqodvm GFR (CKD-EPI)> 60.0 mL/MinTwin City HospitalPharmacy Creatinine Clearance (Chem75.76T[facility] City HospitalNucleated erythrocytes [Presence] in Blood by Automated countOrdered By: Artie Hair on 07-22-2024 Nucleated RBC Auto Ql (Bld)0.0 /100{WBC}0-0.5FParkwood Hospital Platelet mean volume Auto (Bld) [Entitic vol]Ordered By: Artie Hair on 76-06-6090Nmqlyzhi mean volume (Bld) [Entitic vol]7.3 fL6.3-10.7FParkwood HospitalPlatelets Auto (Bld) [#/Vol]Ordered By: Artie Hair on 18-18-4103Mxphpxrsl (Bld) [#/Vol]327 10*3/pY549-479LkigxcmkkTwin City HospitalPotassium [Moles/volume] in Serum or PlasmaOrdered By: Artie Hair on 33-65-2448Lnuyjvnki [Moles/Vol]4.6 mmol/L3.5-5.1FParkwood HospitalRBC Auto (Bld) [#/Vol]Ordered By: Artie Hair on 46-23-2063VOK (Bld) [#/Vol]3.87 10*6/uL3.60-5.00[facility] Hospitalerum or plasma anion gap determinationOrdered By: Artie Hair on 47-15-7832Sqhce gap [Moles/Vol] 8.0 mmol/L6.0-15.0[facility] Hospitalodium [Moles/volume] in Serum or PlasmaOrdered By: Artie Hair on 83-36-7273Eoiafo [Moles/Vol]138 mmol/L 136-145T[facility] City HospitalUrea nitrogen [Mass/volume] in Serum or PlasmaOrdered By: Artie Hair on 32-02-7318Wspy nitrogen [Mass/Vol]18 mg/dL7-25 [facility] HospitalWBC Auto (Bld) [#/Vol]Ordered By: Artie Hair on 47-66-2867CGD (Bld) [#/Vol]12.7 10*3/uLHigh3.8-11.6FParkwood HospitalC Urineon 07-18-2024 UrineUrine Culture ordered as a result of parameters set on specific urine dip and urine microsopic results. >100,000 cfu/ml Escherichia coli ORGANISM EC SUSCEPTIBILITY ORGANISM ID: 1 ANTIBIOTIC INTERPRETATION OBDULIO STATUS ORGANISM ECEC Amp S <=8 Verified Amp/Sul S <=8/4 Verified Azt S <=4 Verified Cefaz S <=2 Verified Cefep S <=2 Verified Cefo <=2 Verified Ceftaz S <=1 Verified Ceftri S <=1 Verified Cefur S <=4 Verified Cipro S <=0.25 Verified Ertap S <=0.5 Verified Gent S <=2 Verified Levo S <=0.5 Verified Nitro S <=32 Verified Pip/Scott S <=8 Verified Tetra S <=4 Verified Tobra S <=2 Verified Tri/Sulf S <=2/38 VerifiedSt. Vincent HospitalComment on above:Performed By: #### [id number], [id number], [id number] ####[facility] (DEFAULT)[address] [place], [place] [address]ZB Head or Brain w/o Contraston 66-06-4071OV Head or Brain w/o ContrastEXAMINATION: CT Head or Brain w/o Contrast HISTORY: Headache, new or worsening COMPARISON: CT head 07/16/2024. TECHNIQUE: CT examination of the head without IV contrast. Dose reduction techniques were achieved by using automated exposure control and/or adjustment of mA and/or kV according to patient size and/or use of iterative reconstruction technique. FINDINGS: Calvarium/skull base: Near-complete resolution of previously identified trace left parietal scalp contusion seen on recent prior. No evidence of acute fracture or destructive lesion. Paranasal sinuses: No air fluid levels. Mucosal retention cyst involving the anterior right maxillary sinus. Brain: No acute intracranial hemorrhage. No acute large vascular territory infarct. No mass lesion or mass effect. No hydrocephalus. Intracranial atherosclerosis. IMPRESSION: No acute intracranial process. No substantial change in appearance of the brain from 07/16/2024. Final Dictated by: Bethany Mitchell DO Dictated DT/TM: 07/18/24 1:24 Signed (Electronic Signature): Bethany Mitchell DO 07/18/24 1:27 pm Technologist: [facility]itaOhio[facility] Berger HospitalED Clinical Summaryon 72-64-4715HN Clinical [facility] - Emergency Department [address] [place] [address] ED Clinical Summary PERSON INFORMATION Name: YOLIS FLOREZ Age: 73 Years Sex: FEMALE : 1950 MRN: Acct#: Visit Reason: Vomiting; Headache; HEADACHE Arrival: 07/18/2024 11:40:08 Discharge: 07/18/2024 14:56:00 LOS: 000 03:16 Check In: 07/18/2024 11:40:08 Checkout:07/18/2024 14:56:00 Address: [address] [facility] [address] PCP: AMANDA SHARIF PROVIDER INFORMATION Provider Role Assigned Unassigned Nas Johnson MD ED Provider 07/18/2024 11:46:47 Floresita STOUT, Jessica Shelby ED Nurse 07/18/2024 11:57:53 VITALS INFORMATION Vital Sign Triage Latest Temperature Tympanic Temperature Temporal Artery Pulse Rate 74 bpm 74 bpm O2 Sat 94 % 94 % Respiratory Rate 18 br/min 18 br/min Blood Pressure /75 mmHg /75 mmHg MEDICAL INFORMATION Medications Given: Medication Dose Route Sodium Chloride 0.9% intravenous solution 1,000 mL 1000 mL Initial Volume 500 mL/hr IV Right Mid Forearm diphenhydrAMINE 12.5 mg IV Push prochlorperazine 10 mg IV Piggyback ketorolac 7 mg IV Push HYDROmorphone 0.25 mg IV Push Allergy Information: sulfa drug; penicillin PHYSICIAN DOCUMENTATION Patient: YOLIS FLOREZ Age: 73 years Sex: FEMALE : 1950 Associated Diagnoses: Intractable migraine without aura and without status migrainosus Author: Nas Johnson MD Basic Information Time seen: Date & time 07/18/2024 12:10:00. History source: Patient. Arrival mode: Private vehicle. History limitation: None. Additional information: Chief Complaint from Nursing Triage Note : Chief Complaint 07/18/2024 11:50 EDT Chief Complaint Headache, nausea, and vomiting. . History of Present Illness The patient presents with migraine . 73-year-old female presented to ER for complaint of migraine, headache, vomiting. Patient stated that she woke up this morning with what she described as migraine. She reported moderate to severe pain. Stated that headache was similar to previous migraine. Stated that she had associated nausea and v omiting. Stated that she had tried taking a sumatriptan. With a few minutes after taking the medication, she had vomited. She stated that she had taken Zofran. Stated that it was sublingual. Stated that she also vomited that as well. Stated that she had tried to repeat another dose of sumatriptan, without success. Continued to have several episode of vomiting. She reported moderate to severe headache. Patient stated that she was here 2 days ago. She stated that she was walking on her driveway and grass. Stated that she fell. Struck her head against the asphalt. She had a contused area on the left occipital area. She stated that she was seen in ER. CT scan was negative for acute. She stated that she had a persistent headache and pain around the area. Today, headache is worse. No visual disturbances, no numbness or tingling, no paresthesia, no speech deficit. No balance problem. Admits to prior history of migraine headaches Stated that it has been years since she had a bad headache. Review of Systems Constitutional symptoms: No fever, no chills. Skin symptoms: No rash, Eye symptoms: Vision unchanged. ENMT symptoms: No sore throat, Respiratory symptoms: No cough, Cardiovascular symptoms: No chest pain, Gastrointestinal symptoms: Nausea, vomiting, No abdominal pain, Genitourinary symptoms: No dysuria, Musculoskeletal symptoms: No Muscle pain, Neurologic symptoms: Headache, No dizziness, Psychiatric symptoms: Negative except as documented in HPI. Endocrine symptoms: Negative except as documented in HPI. Health Status Allergies: Allergic Reactions (Selected) Severity Not Documented Penicillin- No reactions were documented. Sulfa drug- No reactions were documented.. Medications: (Selected) Prescriptions Prescribed Macrobid 100 mg oral capsule: 100 mg = 1 cap(s), Oral, BID, for 3 day(s), 6 cap(s), 0 Refill(s) ondansetron 4 mg oral tablet, disintegratin mg = 1 tab(s), PO, q8hr (int), for 2 day(s), PRN: as needed for nausea/vomiting, 6 tab(s), 0 Refill(s) Documented Medications Documented Calcium and Magnesium oral tablet: 1 tab(s), PO, Daily, 0 Refill(s) PriLOSEC 20 mg oral delayed release capsule: 20 mg = 1 cap(s), PO, Daily, 0 Refill(s) SUMAtriptan 50 mg oral tablet: 50 mg = 1 tab(s), PO, Daily, may repeat dose after 2 hours up to a maximum of 200 mg in 24 hours, PRN: for migraine headache, 0 Refill(s) atorvastatin 20 mg oral tablet: 20 mg, 1 tab(s), PO, Daily, 0 Refill(s) diclofenac potassium 50 mg oral tablet: 50 mg = 1 tab(s), PO, BID, 0 Refill(s) gabapentin 400 mg oral capsule: 400 mg = 1 cap(s), PO, TID, 0 Refill(s) levothyroxine 100 mcg (0.1 mg) oral tablet: 100 mcg, 1 tab(s), PO, Daily, 0 Refill(s) propranolol 160 mg oral capsule, extended release: 160 mg = 1 cap(s), PO, Daily, 0 Refill(s) traMADol 50 mg oral tablet: 50 mg = 1 t (more content not included)...[facility] Physicianon [id number] Note - PhysicianPatient: YOLIS FLOREZ Age: 73 years Sex: FEMALE : 1950 Associated Diagnoses: Intractable migraine without aura and without status migrainosus Author: Nas Johnson MD Basic Information Time seen: Date & time 07/18/2024 12:10:00. History source: Patient. Arrival mode: Private vehicle. History limitation: None. Additional information: Chief Complaint from Nursing Triage Note : Chief Complaint 07/18/2024 11:50 EDT Chief Complaint Headache, nausea, and vomiting. . History of Present Illness The patient presents with migraine . 73-year-old female presented to ER for complaint of migraine, headache, vomiting. Patient stated that she woke up this morning with what she described as migraine. She reported moderate to severe pain. Stated that headache was similar to previous migraine. Stated that she had associated nausea and v omiting. Stated that she had tried taking a sumatriptan. With a few minutes after taking the medication, she had vomited. She stated that she had taken Zofran. Stated that it was sublingual. Stated that she also vomited that as well. Stated that she had tried to repeat another dose of sumatriptan, without success. Continued to have several episode of vomiting. She reported moderate to severe headache. Patient stated that she was here 2 days ago. She stated that she was walking on her driveway and grass. Stated that she fell. Struck her head against the asphalt. She had a contused area on the left occipital area. She stated that she was seen in ER. CT scan was negative for acute. She stated that she had a persistent headache and pain around the area. Today, headache is worse. No visual disturbances, no numbness or tingling, no paresthesia, no speech deficit. No balance problem. Admits to prior history of migraine headaches Stated that it has been years since she had a bad headache. Review of Systems Constitutional symptoms: No fever, no chills. Skin symptoms: No rash, Eye symptoms: Vision unchanged. ENMT symptoms: No sore throat, Respiratory symptoms: No cough, Cardiovascular symptoms: No chest pain, Gastrointestinal symptoms: Nausea, vomiting, No abdominal pain, Genitourinary symptoms: No dysuria, Musculoskeletal symptoms: No Muscle pain, Neurologic symptoms: Headache, No dizziness, Psychiatric symptoms: Negative except as documented in HPI. Endocrine symptoms: Negative except as documented in HPI. Health Status Allergies: Allergic Reactions (Selected) Severity Not Documented Penicillin- No reactions were documented. Sulfa drug- No reactions were documented.. Medications: (Selected) Prescriptions Prescribed Macrobid 100 mg oral capsule: 100 mg = 1 cap(s), Oral, BID, for 3 day(s), 6 cap(s), 0 Refill(s) ondansetron 4 mg oral tablet, disintegratin mg = 1 tab(s), PO, q8hr (int), for 2 day(s), PRN: as needed for nausea/vomiting, 6 tab(s), 0 Refill(s) Documented Medications Documented Calcium and Magnesium oral tablet: 1 tab(s), PO, Daily, 0 Refill(s) PriLOSEC 20 mg oral delayed release capsule: 20 mg = 1 cap(s), PO, Daily, 0 Refill(s) SUMAtriptan 50 mg oral tablet: 50 mg = 1 tab(s), PO, Daily, may repeat dose after 2 hours up to a maximum of 200 mg in 24 hours, PRN: for migraine headache, 0 Refill(s) atorvastatin 20 mg oral tablet: 20 mg, 1 tab(s), PO, Daily, 0 Refill(s) diclofenac potassium 50 mg oral tablet: 50 mg = 1 tab(s), PO, BID, 0 Refill(s) gabapentin 400 mg oral capsule: 400 mg = 1 cap(s), PO, TID, 0 Refill(s) levothyroxine 100 mcg (0.1 mg) oral tablet: 100 mcg, 1 tab(s), PO, Daily, 0 Refill(s) propranolol 160 mg oral capsule, extended release: 160 mg = 1 cap(s), PO, Daily, 0 Refill(s) traMADol 50 mg oral tablet: 50 mg = 1 tab(s), PO, q6hr (int), PRN: as needed for pain, 0 Refill(s). Past Medical/ Family/ Social History Medical history: No active or resolved past medical history items have been selected or recorded., Reviewed as documented in chart. Surgical history: No active procedure history items have been selected or recorded., Reviewed as documented in chart. Family history: No family history items have been selected or recorded., Reviewed as documented in chart. Social history: Social & Psychosocial Habits Alcohol 01/22/2024 Alcohol Use: Current Type: Liquor, Wine Frequency: 3-5 times per week Comment: States drinks wine or rum 3-4X/week - 05/30/2019 09:41 - Viola Galdamez RN 07/16/2024 Alcohol Use: Current Frequency: 3-5 times per week Substance Use 01/22/2024 Substance use: Never 07/16/2024 Substance use: Never Tobacco 01/22/2024 Smoking tobacco use: denies 07/16/2024 Smoking tobacco use: Never tobacco user Electronic Cigarette/Vaping 01/22/2024 Electronic Cigarette Use: Never 07/16/2024 Electronic Cigarette Use: Never , Reviewed as documented in chart. Problem list: Active Problems (5) Disease caused by 2019 novel coronavirus Hyperlipidemia Hypothyroid Migraine Pal (more content not included)...[facility]ursing[facility] [id number] Note-NursingPatient arrives to the ED via private vehicle. Wheeled to ED room 8. Alert and oriented X4. C/O migraine and nausea. Patient reports wakig up this morning with a migraine. States she took Imitrex butvomited shortly afterwards. Patient reports taking Zofran ODT and vomited again afterwards. Patientreports multiple episodes of vomiting afterwards. States she tried taking another dose of Imitrex and was unable to keep it down. Patient reports she has not had a migraine like this in years. Patient reports falling two days ago and hitting her head. Patient reports having a CT which was normal. Denies dizziness or blurred vision. Report photosensitivity. Patient verbalizes concern for worseningmigraine and possibly head injury. [facility]ED Patient Summaryon [id number] [facility] - [facility] [address] [place] [address] PATIENT DISCHARGE INSTRUCTIONS Patient Information Name: YOLIS FLOREZ Age: 73 Years Date of : 1950 Reason For Visit: Vomiting; Headache; HEADACHE Arrival Time: 07/18/2024 11:40:08 Primary Care Physician: AMANDA SHARIF Attending Physician: Nas Johnson MD Comment: Visit Diagnosis: Diagnoses This Visit Headache ([id number]) Intractable migraine without aura and without status migrainosus (G43.019) Vomiting ([id number]) The Pharmacy at [facility] is open Saturday through Saturday from 9A to 6P and Saturday and Saturday from 9A to 5P Prescription Information: If you have been given a prescription for narcotics, seek immediate medical attention if you have any difficulty breathing or any sudden status changes such as confusion andsleepiness. If you or anyone you know is experiencing suicidal thoughts, mental health, alcohol and/or drug addiction problems; contact the [facility] 20/05 Crisis Hotline -Text 8WGJE kj 520414. If you received any narcotics, sedation, or any other medication that causes drowsiness for the next 24 hours, unless otherwise directed: ? Do not drive a car. ? Do not operate machinery such as power tools, lawn mowers, drills, sewing machines, or stoves ? Avoid alcoholic beverages and drugs for allergies, nerves, or sleep ? Do not make important personal or business decisions or sign any legal documents With: Address: When: AM[facility], [address] [id number] Business (1) Within 3 to 5 days Comments: You were seen in the emergency room department for evaluation of a headache. There are many different types of headache. Some headaches are migraine. Others are due to tension headache, sinus headache or cluster headache. Some headaches are generalized without specific diagnosis or cause. These types of headache, while uncomfortable are more benign. Examples of emergency headache may include severe infection, meningitis, intracranial hemorrhage orstroke. On your evaluation today, no specific emergency was discovered. You were treated with medications to help your symptoms. If your headache change in pattern, or if you develop more severe headache, or you have the worse headache of your life, you should return to the emergency department for reevaluation. Additional considerations include difficulty with walking, difficulty with talking, persistent vomiting, changes in your ability to think or act normally. You should follow-up with your family doctor or specialist for reevaluation each time you have beento the emergency department for treatment of your headache. Additional treatment or diagnostic workup may be necessary. Review headache instructions provided. Keep yourself well hydrated. Resume your routine medication as instructed by your doctor. Contact your family doctor or the emergency department you have any questions or concerns regardingyour treatment today. Medication Information: The exam and treatment you received today in the [facility] Emergency Department were for an urgent problem and are not intended as complete care. It is important for you to follow up with a doctor, nurse practitioner, or physician?s assistant professor of psychology for ongoing care. If your symptoms become worse or you donot improve as expected and you are unable to reach your usual health care provider, you should return to the Emergency Department, we are available 24 hours a day. For those patients who have received Radiology results, the interpretation of your X-ray as given to you by our Emergency Department physician is only a preliminary report. The Radiologist will review your films and if there is a change in the diagnosis you will be notified by phone. Please make sure you have provided a working phone number so we can reach you if necessary. In the event that you had a lab culture while you were a patient in the Emergency Department, you will be notified by phone if there is a need to change your antibiotic. Please make sure you have provided a working phone number so we can reach you if necessary. [facility] has provided you with a complete list of medications post discharge. Please inform your transcriptionist/provider of your visit and for further instruction on these medications. Any specific questions regarding your chronic medications and dosages should be discussed with your primary care physician(s) and/or pharmacist. Additional medications on your home medication list not specifically addressed. Please contact the ordering physician if you have questions about these medications. atorvastatin (atorvastatin 20 mg oral tablet) 1 tab(s) Oral (given by mouth) every day. diclofenac (diclofenac (more content not included)...[facility] Noteon [id number] Note [id number]. Vincent HospitalCT Head or Brain w/o Contraston [id number] Head or Brain w/o ContrastEXAMINATION: CT Head or Brain w/o Contrast, , 07/16/2024 3:35 PM EDT INDICATION: Fall, head injury, headache HISTORY: Ordering Provider Reason for Exam: Technologist Note: Additional: COMPARISON: None. TECHNIQUE: CT scan of the head was performed without IV contrast. CT dose reduction technique was used, including Automated Exposure Control. FINDINGS: Soft tissue swelling of the scalp in the left parietal region. No skull fracture. Paranasal sinuses clear. Mastoid air cells and middle ear cavities clear. Nasopharynx normal. Antis[employer] Weapons [employer] spaces are normal. Orbital contents unremarkable. Moderate brain atrophy. No obstructive hydrocephalus. There is ex vacuo enlargement of the ventricles. No extraaxial fluid collection. No shift of midline structures. No acute hemorrhage. No mass. No edema in the brain. End Findings. IMPRESSION: 1. Soft tissue swelling in the scalp in the left parietal region. No skull fracture. 2. No acute intracranial findings. No intracranial hemorrhage. Final Dictated by: Sanford Ramirez MD Dictated DT/TM: 07/16/24 3:52 Signed (Electronic Signature): Sanford Ramirez MD 07/16/24 5:10 pm Technologist: LTCUniversity Hospitals Portage Medical CenterCT Spine Cervical w/o Contraston [id number] Spine Cervical w/o ContrastEXAMINATION: CT Spine Cervical w/o Contrast HISTORY: Fall, head injury COMPARISON: None. TECHNIQUE: CT scan of the cervical spine was performed without IV contrast. CT dose reduction technique was used, including Automated Exposure Control. FINDINGS: Osteopenia. Odontoid process is intact. Facet joints are intact. No acute cervical spine fracture. There is severe degenerative disc disease at C5-C6 and C6-C7. No evidence of spinal cord compression. No paraspinal soft tissue swelling. End Findings. IMPRESSION: No acute cervical spine fracture or traumatic subluxation. Final Dictated by: Sanford Ramirez MD Dictated DT/TM: 07/16/24 3:54 Signed (Electronic Signature): Sanford Ramirez MD 07/16/24 5:10 pm Technologist: AXEL GROSSAdena Health SystemED Clinical Summaryon [id number] Clinical [facility] - Emergency Department [address] [place], [place] [id number] ED Clinical Summary PERSON INFORMATION Name: YOLIS FLOREZ Age: 73 Years Sex: FEMALE : 1950 MRN: Acct#: Visit Reason: Fall; FALL-HEAD INJURY Arrival: 07/16/2024 13:35:57 Discharge: 07/16/2024 16:52:00 LOS: 000 03:17 Check In: 07/16/2024 13:35:57 Checkout:07/16/2024 16:52:00 Address: [address] [place] [id number] PCP: AMANDA SHARIF PROVIDER INFORMATION Provider Role Assigned Unassigned Virginie Stahl RN ED Nurse 07/16/2024 13:38:13 Phillip Martin MD ED Provider 07/16/2024 13:41:53 VITALS INFORMATION Vital Sign Triage Latest Temperature Tympanic Temperature Temporal Artery Pulse Rate 85 bpm 75 bpm O2 Sat 95 % 95 % Respiratory Rate 18 br/min 18 br/min Blood Pressure /67 mmHg /67 mmHg MEDICAL INFORMATION Medications Given: Medication Dose Route acetaminophen (Tylenol) 1000 mg Oral tetanus/diphth/pertuss (Tdap) adult/adol 0.5 mL Intramuscular bacitracin topical 500 unit(s) Topical nitrofurantoin 100 mg Oral Allergy Information: sulfa drug; penicillin PHYSICIAN DOCUMENTATION DISCHARGE INFORMATION: Discharge Disposition: Home Discharge Location: Home PATIENT EDUCATION INFORMATION Instructions: Urinary Tract Infection, Adult; Nonsutured Laceration Care Follow-Up: With: Address: When: AMANDA SHARIF [facility] [place] [address] Within 3 to 5 days DIAGNOSIS: 1:Fall; 2:Scalp laceration; 3:Urinary tract infection in female Patient Understands: Yes - Patient/family/caregiver verbalizes understanding of instructions given Comment:[facility]ED Note-Nursingon [id number] Note-NursingPt brought to ED RM 10 by [facility] C/O tripping and falling in her drive way. pt has a abrasionon the back of the head that is bleeding, but does not appear to be deep. Pt has a headache 03/06. Pt denies LOC. Pt denies being dizzy. Pt is A/Ox4 call light within reach oal [facility] HospitalED Patient Summaryon [id number] Patient SummaryWay[facility] Hospital - Emergency Department [address] [place] [address] PATIENT DISCHARGE INSTRUCTIONS Patient Information Name: YOLIS FLOREZ Age: 73 Years Date of : 1950 Reason For Visit: Fall; FALL-HEAD INJURY Arrival Time: 07/16/2024 13:35:57 Primary Care Physician: AMANDA SHARIF Attending Physician: Phillip Martin MD Comment: Visit Diagnosis: Diagnoses This Visit Fall ([id number]) Fall (W19.XXXA) Scalp laceration (S01.01XA) Urinary tract infection in female (N39.0) The Pharmacy at [facility] is open Saturday through Saturday from 9A to 6P and Saturday and Saturday from 9A to 5P Prescription Information: If you have been given a prescription for narcotics, seek immediate medical attention if you have any difficulty breathing or any sudden status changes such as confusion andsleepiness. If you or anyone you know is experiencing suicidal thoughts, mental health, alcohol and/or drug addiction problems; contact the [facility] 20/05 Crisis Hotline -Text 4HSNM lq 766111. If you received any narcotics, sedation, or any other medication that causes drowsiness for the next 24 hours, unless otherwise directed: ? Do not drive a car. ? Do not operate machinery such as power tools, lawn mowers, drills, sewing machines, or stoves ? Avoid alcoholic beverages and drugs for allergies, nerves, or sleep ? Do not make important personal or business decisions or sign any legal documents With: Address: When: [facility] [address] [place], [place] [id number] Within 3 to 5 days Medication Information: The exam and treatment you received today in the [facility] Emergency Department were for an urgent problem and are not intended as complete care. It is important for you to follow up with a doctor, nurse practitioner, or physician?s assistant professor of psychology for ongoing care. If your symptoms become worse or you donot improve as expected and you are unable to reach your usual health care provider, you should return to the Emergency Department, we are available 24 hours a day. For those patients who have received Radiology results, the interpretation of your X-ray as given to you by our Emergency Department physician is only a preliminary report. The Radiologist will review your films and if there is a change in the diagnosis you will be notified by phone. Please make sure you have provided a working phone number so we can reach you if necessary. In the event that you had a lab culture while you were a patient in the Emergency Department, you will be notified by phone if there is a need to change your antibiotic. Please make sure you have provided a working phone number so we can reach you if necessary. [facility] has provided you with a complete list of medications post discharge. Please inform your transcriptionist/provider of your visit and for further instruction on these medications. Any specific questions regarding your chronic medications and dosages should be discussed with your primary care physician(s) and/or pharmacist. New Medications [facility] [id number], [address] [place], [place] [id number], [phone] nitrofurantoin (Macrobid 100 mg oral capsule) 1 cap(s) Oral (given by mouth) 2 times per day for 3 Days. Refills: 0. Additional medications on your home medication list not specifically addressed. Please contact the ordering physician if you have questions about these medications. atorvastatin (atorvastatin 20 mg oral tablet) 1 tab(s) Oral (given by mouth) every day. diclofenac (diclofenac potassium 50 mg oral tablet) 1 tab(s) Oral (given by mouth) 2 times per day. gabapentin (gabapentin 400 mg oral capsule) 1 cap(s) Oral (given by mouth) 3 times per day. levothyroxine (levothyroxine 100 mcg (0.1 mg) oral tablet) 1 tab(s) Oral (given by mouth) every day. multivitamin with minerals (Calcium and Magnesium oral tablet) 1 tab(s) Oral (given by mouth) everyday. omeprazole (PriLOSEC 20 mg oral delayed release capsule) 1 cap(s) Oral (given by mouth) every day. ondansetron (ondansetron 4 mg oral tablet, disintegrating) 1 tab(s) Oral (given by mouth) every 8 hours as needed as needed for nausea/vomiting for 2 Days. Refills: 0. propranolol (propranolol 160 mg oral capsule, extended release) 1 cap(s) Oral (given by mouth) every day. SUMAtriptan (SUMAtriptan 50 mg oral tablet) 1 tab(s) Oral (given by mouth) every day as needed for migraine headache. may repeat dose after 2 hours up to a maximum of 200 mg in 24 hours. traMADol (traMADol 50 mg oral tablet) 1 tab(s) Oral (given by mouth) every 6 hours as needed as needed for pain. Visit Information Allergies: Substance Reaction Symptoms Type Comments penicillin Drug sulfa drug Drug Vital Signs: Vitals and Measurements this Visit (last charted valu (more content not included)...[facility] HospitalUA Tuohn2es [id number] Bacteria4+[facility]exner Medical CenterComment on above:Order Comment: Urinalysis Microscopic order added on by Grand Rounds Expert Rules system.Performed By: #### [id number], [id number], [id number] ####[facility] (DEFAULT)[address]0-2NAdena Health SystemComment on above:Order Comment: Urinalysis Microscopic order added on by Grand Rounds Expert Rules system.Performed By: #### [id number], [id number] ####[facility] (DEFAULT)[address] [place] [address]BS Squam EpiFewSt. Vincent HospitalComment on above:Order Comment: Urinalysis Microscopic order added on by Grand Rounds Expert Rules system.Performed By: #### [id number], [id number] ####[facility] (DEFAULT)[address] [place] [address] [id number] WBC3-5NoFostoria City HospitalComment on above:Order Comment: Urinalysis Microscopic order added on by Grand Rounds Expert Rules system.Performed By: #### [id number], [id number], [id number] ####[facility] (DEFAULT)[address] [place] [address] 96656WZ w Culture if Ind Standardon [id number] UASt. Vincent Hospital Comment on above:Performed By: #### [id number], [id number] ####[facility] (DEFAULT)[address] [place] [address] 53222Kytzy (U)YellowWexner Medical CenterComment on above:Performed By: #### [id number], [id number] ####[facility] (DEFAULT)[address] [place] [id number] Culture?IndicatedInvalid Interpretation [facility] HospitalComment on above: Result Comment: Result created by rule GL_MAGR_ADD_UA_CULT Result created by rule GL_MAGR_ADD_UA_CULT Result created by rule GL_MAGR_ADD_UA_CULT1 Result created by rule GL_MAGR_ADD_UA_CULTPerformed By: #### [id number], [id number], [id number] ####[facility] (DEFAULT)[address] [place] [address]652 Glucose (U) [Mass/Vol]NegativeNormalMagruder HospitalComment on above:Performed By: #### [id number], [id number], [id number] ####[facility] (DEFAULT)[address] [place] [address] 38260Muuhirm Ql (U)NegativeNoFostoria City Hospital Comment on above:Performed By: #### [id number], [id number], [id number] ####[facility] (DEFAULT)[address] [place] [address] [id number]?IndicatedInvalid Interpretation CodeMagruder Memorial Hospital HospitalComment on above:Result Comment: Result created by rule GL_MAGR_ADD_UA_MICROPerformed By: #### [id number], [id number], [id number] ####[facility] (DEFAULT)[address] [place] [address] [id number] BilirubinNegativeNoFirelands Regional Medical Center HospitalComment on above:Performed By: #### [id number], [id number], [id number] ####[facility] (DEFAULT)[address] [place] [address] [id number] BloodNegativeNormalNEGMorrow County Hospital Comment on above:Performed By: #### [id number], [id number], [id number] ####[facility] (DEFAULT)[address] [place] [address] 89615YJ ClarityCLEARNormal CLEARMagruder Memorial Hospital HospitalComment on above:Performed By: #### [id number], [id number], [id number] ####[facility] (DEFAULT)[address] [place] [address] [id number] Leuk EstTRACEAbnormalNEGUniversity Hospitals Health System HospitalComment on above:Performed By: #### [id number], [id number], [id number] ####[facility] (DEFAULT)[address] [place] [address] [id number] NitritePositiveAbnoalSelect Medical Specialty Hospital - [facility]on Comment on above:Performed By: #### [id number], [id number], [id number] ####[facility] (DEFAULT)[address] [place] [address] 19911OQ pH6.1Ocqpri1-1 [facility] HospitalComment on above:Performed By: #### [id number], [id number], [id number] ####[facility] (DEFAULT)[address] [place] [address] [id number] ProteinNegativeNormalNEGATIVEWayne HospitalComment on above:Performed By: #### [id number], [id number], [id number] ####[facility] (DEFAULT)[address] [place] [address] 06307DL Spec Grav>=1.264Cxknbx9.001-1.035[facility] HospitalComment on above:Performed By: #### [id number], [id number], [id number] ####[facility] (DEFAULT)[address] [place] [address] 99565LZ Urobilinogen1.0 mg/dLNormal0.2-1.0Wayne HospitalComment on above:Performed By: #### [id number], [id number], [id number] ####[facility] (DEFAULT)[address] [place] [address] 61834Vwhfu SourceClean CatchParma Community General Hospital Hospital Comment on above:Performed By: #### [id number], [id number], [id number] ####[facility] (DEFAULT)[address] [place] [address] 52267Xlexvghqr Auto (Bld) [#/Vol]Ordered By: Artie Hair on 84-42-2952Qblwnvopy (Bld) [#/Vol]0.1 10*3/uL 0.0-0.2FParkwood HospitalBasophils/100 WBC Auto (Bld)Ordered By: Artie Hair on 48-66-5820Csjtqfgyv/100 WBC (Bld)0.6 %.[facility] HospitalCalcium [Mass/volume] in Serum or PlasmaOrdered By: Artie Hair on 36-69-7476Gwgqcvs [Mass/Vol]9.1 mg/dL8.6-10.3FParkwood Hospital Carbon dioxide, total [Moles/volume] in Serum or PlasmaOrdered By: Artie Hair on 24-98-6921ZE7 [Moles/Vol]26.9 mmol/L21.0-31.0[facility] Chloride [Moles/volume] in Serum or PlasmaOrdered By: Artie Hair on 07-08-2024 Chloride [Moles/Vol]104 mmol/Y68-981AzacsixkhTwin City HospitalCreatinine [Mass/volume] in Serum or PlasmaOrdered By: Artie Hair on 84-91-2739Jdeaodtwln [Mass/Vol]0.80 mg/dL0.60-1.20[facility] HospitalEosinophils Auto (Bld) [#/Vol]Ordered By: Artie Hair on 70-31-6008Lhdkvusqgll (Bld) [#/Vol]0.2 10*3/uL0.0-0.45[facility] HospitalEosinophils/100 WBC Auto (Bld) Ordered By: Artie Hair on 25-38-2965Gfyoavayrfu/100 WBC (Bld)1.5 %.[facility] HospitalErythrocyte distribution width Auto (RBC) [Ratio]Ordered By: Artie Hair on 48-40-6288Cbmgdnclcqr distribution width (RBC) [Ratio]14.9 % 11.9-15.3FParkwood HospitalGlucose [Mass/volume] in Serum or PlasmaOrdered By: Artie Hair on 82-26-9526Afhjajv [Mass/Vol]98 mg/zO82-011 [facility] HospitalComment on above:ADA recommended reference rangeRandom Glucose Reference Range is dependent on time and content of last meal. Glucose of more than 200 mg/dL in a nonstressed, ambulatory subject supports the diagnosisof Diabetes Mellitus.Hematocrit Auto (Bld) [Volume fraction]Ordered By: Artie Hair on 94-54-1787Xbpdbigpbz (Bld) [Volume fraction] 36.7 %34.0-46.4FParkwood HospitalHemoglobin [Mass/volume] in BloodOrdered By: Artie Hair on 17-76-5844Ickntfqlvw (Bld) [Mass/Vol]12.4 g/dL 11.8-15.4FParkwood HospitalLeukocytes [#/volume] corrected for nucleated erythrocytes in Blood by Automated counOrdered By: Artie Hair on 74-47-4250TWB corrected for nucl RBC Auto (Bld) [#/Vol]10.5 10*3/uL3.8-11.6 [facility] HospitalLymphocytes Auto (Bld) [#/Vol]Ordered By: Artie Hair on 13-54-9713Kvnqkgzveyz (Bld) [#/Vol]2.2 10*3/uL1.00-4.8[facility] HospitalLymphocytes/100 WBC Auto (Bld)Ordered By: Artie Hair on 84-81-9012Dpdckfhrmdj/100 WBC (Bld)20.5 %.[facility] Auto (RBC) [Entitic mass]Ordered By: Artie Hair on 79-49-8947PPL (RBC) [Entitic mass]32.6 pg24.7-34.3FGreen Cross HospitalHC Auto (RBC) [Mass/Vol] Ordered By: Artie Hair on 14-44-4102NHKK (RBC) [Mass/Vol]33.8 g/dL32.0-35.0 [facility] HospitalMCV Auto (RBC) [Entitic vol]Ordered By: Artie Hair on 57-60-7768NDU (RBC) [Entitic vol]96.6 xK06-155NpndpdzuoTwin City HospitalMonocytes Auto (Bld) [#/Vol]Ordered By: Artie Hair on 07-08-2024 Monocytes (Bld) [#/Vol]0.6 10*3/uL0.0-0.8[facility] Monocytes/100 WBC Auto (Bld)Ordered By: Artie Hair on 14-02-1132Riwnvcyhe/100 WBC (Bld)5.5 %.[facility] HospitalNeutrophils Auto (Bld) [#/Vol] Ordered By: Artie Hair on 20-72-3593Igxhtoogmyz (Bld) [#/Vol]7.6 10*3/uL1.8-7.7 [facility] HospitalNeutrophils/100 WBC Auto (Bld)Ordered By: Artie Hair on 91-18-9174Jvynypctyuf/100 WBC (Bld)71.9 %.[facility] HospitalNo Panel InformationOrdered By: Artie Hair on 34-47-8572Bqvgjcyuf GFR (CKD-EPI)> 60.0 mL/MinTwin City HospitalPharmacy Creatinine Clearance (ChemN/AFParkwood HospitalNucleated erythrocytes [Presence] in Blood by Automated countOrdered By: Artie Hair on 07-08-2024 Nucleated RBC Auto Ql (Bld)0.0 /100{WBC}0-0.5FParkwood Hospital Platelet mean volume Auto (Bld) [Entitic vol]Ordered By: Artie Hair on 48-68-5329Lsnkfjic mean volume (Bld) [Entitic vol]8.0 fL6.3-10.7FParkwood HospitalPlatelets Auto (Bld) [#/Vol]Ordered By: Artie Hair on 23-56-1302Hofguriwl (Bld) [#/Vol]314 10*3/bY879-839XnlyvcdzvTwin City HospitalPotassium [Moles/volume] in Serum or PlasmaOrdered By: Artie Hair on 59-18-3092Xrgwaeejn [Moles/Vol]4.6 mmol/L3.5-5.1FParkwood HospitalRBC Auto (Bld) [#/Vol]Ordered By: Artie Hair on 53-17-8308GCR (Bld) [#/Vol]3.80 10*6/uL3.60-5.00[facility] Hospitalerum or plasma anion gap determinationOrdered By: Artie Hair on 29-24-6231Oikcx gap [Moles/Vol] 11.7 mmol/L6.0-15.0[facility] Hospitalodium [Moles/volume] in Serum or PlasmaOrdered By: Artie Hair on 60-61-9660Vdmwqe [Moles/Vol]138 mmol/L 136-145[facility] HospitalUrea nitrogen [Mass/volume] in Serum or PlasmaOrdered By: Artie Hair on 27-78-7442Lcbe nitrogen [Mass/Vol]32 mg/dLHigh 7-25[facility] HospitalWBC Auto (Bld) [#/Vol]Ordered By: Artie Hair on 02-49-3276DOL (Bld) [#/Vol]10.5 10*3/uL3.8-11.6FParkwood HospitalCOVID Cepheidon 58-01-5883NIYZ-CoV-2 (COVID-19) RNA JACE+probe Ql (Unsp spec)NegativeTwin City HospitalNo Panel Informationon 79-88-4239XMU Influenza A (PCR)NegativeTwin City HospitalPO Influenza B (PCR)NegativeTwin City HospitalHemercy medical center B virus surface Ab [Presence] in SerumOrdered By: Amanda Sharif on 38-85-7695AZH surface Ab Ql (S)Non-Reactive.[facility] HospitalComment on above:Non Reactive: Inconsistent with immunity, less than 10 mIU/mL Reactive: Consistent with immunity, greater than 9.9 mIU/mLHefrankfort regional medical centertis B virus surface Ag [Presence] in Serum or Plasma by ImmunoassayOrdered By: [facility] on 20-88-5958AXO surface Ag IA QlNegativeNegativeTwin City HospitalHemercy medical center C virus IgG Ab [Presence] in Serum or Plasma by ImmunoassayOrdered By: Amanda Sharif on 04-01-2024 HCV IgG IA QlNon-ReactiveNon ReactiveTwin City HospitalNo Panel InformationOrdered By: Amanda Sharif on 32-24-3257Zdpryaevj B Core Total Antibody NegativeNegativeTwin City HospitalComment on above:Performed at: [facility] LabAlexander [place] [id number] Director: Bravo Burris PhD, Phone: [phone] C Veraee cathy.[facility] City HospitalComment on above:Not infected with HCV unless early or acute infection issuspected (which may be delayed in an immuno compromisedindividual), or other evidence exists to indicate HCVinfection. Thyrotropin [Units/volume] in Serum or PlasmaOrdered By: Amanda Sharif on 04-01-2024 TSH Qn1.77 m[IU]/L0.45-5.33[facility] HospitalAlanine aminotransferase [Enzymatic activity/volume] in Serum or PlasmaOrdered By: Amanda Sharif on 44-65-0620SSX [Catalytic activity/Vol]110 U/LHigh7-52[facility] HospitalAlbumin [Mass/volume] in Serum or Plasma by Bromocresol green (BCG) dye binding methoOrdered By: Amanda Sharif on 13-50-8882Haqxcem BCG dye [Mass/Vol]3.8 g/dL3.5-5.7FParkwood HospitalAlkaline phosphatase [Enzymatic activity/volume] in Serum or PlasmaOrdered By: Amanda Mast on 45-13-9514BUZ [Catalytic activity/Vol]49 U/A30-436WnnjrlfnxTwin City HospitalAspartate aminotransferase [Enzymatic activity/volume] in Serum or Plasma Ordered By: Amanda Mast on 63-87-1422DHY [Catalytic activity/Vol]92 U/SZleg51-68 [facility] HospitalBilirubin.total [Mass/volume] in Serum or PlasmaOrdered By: Amanda Mast on 12-26-8044Cgnangqsi [Mass/Vol]1.1 mg/dLHigh 0.3-1.0[facility] HospitalCalcium [Mass/volume] in Serum or Plasma Ordered By: Amanda Mast on 00-00-1792Nisaltp [Mass/Vol]9.4 mg/dL8.6-10.3FParkwood HospitalCarbon dioxide, total [Moles/volume] in Serum or Plasma Ordered By: Amanda Mast on 71-89-1907JS5 [Moles/Vol]27.6 mmol/L21.0-31.0[facility] HospitalChloride [Moles/volume] in Serum or PlasmaOrdered By: Amanda Mast on 02-10-3330Bfiyhrze [Moles/Vol]106 mmol/W40-242MdhiswybsTwin City HospitalCholesterol [Mass/volume] in Serum or PlasmaOrdered By: Amanda Mast on 12-59-5058Ftwswdpcmxe [Mass/Vol]195 mg/xG738-690YwkgkidsuTwin City HospitalComment on above:Chol less than 200 mg/dl low riskChol 201-239 mg/dl borderline riskChol 240 mg/dl and greater high riskCholesterol in LDL Calc [Mass/Vol]Ordered By: Amanda Mast on 08-36-1596Vihcjergojg in LDL [Mass/Vol]127 mg/dLHigh0-100[facility] HospitalComment on above:LDL ATP III CLASSIFICATIONLDL less than 100 mg/dL OptimalLDL 100-129 mg/dL Near or above wcjczxsKSD071-555 mg/dL Borderline highLDL 160-189 mg/dL HighLDL greater than 189 mg/dL Very highCholesterol in VLDL Calc [Mass/Vol]Ordered By: Amanda Sharif on 34-06-1453Dllcqdffkps in VLDL [Mass/Vol]13 mg/dLTwin City HospitalCreatinine [Mass/volume] in Serum or PlasmaOrdered By: Amanda Sharif on 87-73-2223Yohjffantv [Mass/Vol]0.87 mg/dL0.60-1.20[facility] HospitalGlobulin Calc (S) [Mass/Vol]Ordered By: Amanda Sharif on 45-17-2862Qfkvgdkk (S) [Mass/Vol]2.8 g/dLTwin City HospitalGlucose [Mass/volume] in Serum or PlasmaOrdered By: Amanda Sharif on 17-13-3885Qldejfg [Mass/Vol]100 mg/dL 70-100[facility] HospitalNo Panel InformationOrdered By: Amanda Sharif on 53-64-9904Tgusbafyl GFR (CKD-EPI)> 60.0 mL/MinTwin City HospitalPharmacy Creatinine Clearance (ChemN/[facility] Potassium [Moles/volume] in Serum or PlasmaOrdered By: Amanda Sharif on 03-12-2024 Potassium [Moles/Vol]4.6 mmol/L3.5-5.1FParkwood HospitalProtein [Mass/volume] in Serum or PlasmaOrdered By: Amanda Sharif on 85-98-2366Bylppdu [Mass/Vol]6.6 g/dL6.4-8.9[facility] Hospitalerum or plasma albumin/globulin mass ratioOrdered By: Amanda Sharif on 32-79-0800Cmsbhvm/Globulin [Mass ratio]1.4 {ratio}[facility] Hospitalerum or plasma anion gap determinationOrdered By: Amanda Sharif on 67-74-5766Prhkk gap [Moles/Vol]10.0 mmol/L6.0-15.0[facility] Hospitalerum or plasma high density lipoprotein (HDL) cholesterol measurementOrdered By: Amanda Sharif on 03-12-2024 Cholesterol in HDL [Mass/Vol]55 mg/gL24-06ZugxxysgyTwin City Hospital Comment on above:HDL CHOL ATP-III CLASSIFICATION Cardiovascular RiskHDL > or equal to 60 mg/dL LOWHDL < 40 mg/dL HIGHSerum or plasma total cholesterol/high density lipoprotein (HDL) cholesterol mass ratOrdered By: [facility] on 91-41-8048Haqaizlagqu.total/Cholesterol in HDL [Mass ratio]3.5 {ratio}<5.0 [facility] Hospitalodium [Moles/volume] in Serum or PlasmaOrdered By: [facility] on 75-81-2281Wnfrdf [Moles/Vol]139 mmol/J258-251AlgxxapjsTwin City HospitalTriglyceride [Mass/volume] in Serum or PlasmaOrdered By: [facility] on 66-46-7504Koqyandamvdd [Mass/Vol]65 mg/dL0-149[facility] HospitalComment on above:TRIG ATP III CLASSIFICATIONTRIG less than 150 mg/dL NormalTRIG 150-199 mg/dL Borderline highTRIG 200-500 mg/dL High TRIG greater than 500 mg/dL Very highStandard traceable to the Center for Disease Co nrtrol and Prevention (CDC) test method.Urea nitrogen [Mass/volume] in Serum or PlasmaOrdered By: Amanda Sharif on 80-21-9016Lsbu nitrogen [Mass/Vol]24 mg/dL7-25 [facility] HospitalCoding Summaryon 97-60-5522Ywlqhd Summary HTMLBase 64 EelxgkziPLf1mRs+PGhlYWQ+HH5MDWVrC61xdQZnuR6nD2IOMLeGXainUFATRPnCNnTcpaFrKJ4ceISm ZXJu [file] cHN (more content not included)...NormalMagruder Memorial Hospital HospitalAerobic cultureOrdered By: MICHELLE Hernández on 11-20-5575Oaqjperm identified Aer cx Nom (Unsp spec)2 DaysSelect Medical [facility]Health Rehabilitation Hospital lumbar spine wo/w conon 81-38-9120ZS lumbar spine wo/w [facility] [employer] Other MR lumbar spine wo/w conFRMC Main [facility] [employer] Other MR lumbar spine wo/w [id number] Cj [facility] [employer] Other MR lumbar spine wo/w TAY Peters [address]FsmrzMadigan Army Medical Center [employer] Other MR lumbar spine wo/w conMRI [facility] [employer] Other MR lumbar spine wo/w conSCritical access hospital [employer] Other MR lumbar spine wo/w conPatient: Yolis Florez MR#: [id number] [employer] Other MR lumbar spine wo/w [id number] [employer] Other MR lumbar spine wo/w conDOB: 1950 Acct:[id number] [employer] Other MR lumbar spine wo/w conAge/Sex: 73 / F ADM Date: 11/16/23[place] [employer] Other MR lumbar spine wo/w conLoc: Room: Type: [facility] [employer] Other MR lumbar spine wo/w conAttending Dr: Juanita MACIASIPLogic Other MR lumbar spine wo/w conCopies to: Juanita Ayala, LEONARDO-[employer] Other MR lumbar spine wo/w conOrdering Provider: Juanita Ayala, COLLEENOrthoFi Other MR lumbar spine wo/w conDate of Service: 11/16/23[place] [employer] Other MR lumbar spine wo/w conAccession #: ([id number]) MR/MR lumbar spine wo/w con: M54.16[place] [employer] Other MR lumbar spine wo/w conMR lumbar spine wo/w con 11/16/2023 10:48 [facility] CENTERIPLog[facility] Other MR lumbar spine wo/w conSIGNS AND SYMPTOMS: Right- sided low back painClarks Hill [employer] Other MR lumbar spine wo/w conPROTOCOL: Multiplanar multisequence MR images of the lumbar spine were obtained with and without IV [employer] Other MR lumbar spine wo/w concontrastClarks Hill [employer] Other MR lumbar spine wo/w conCONTRAST: 20 mL of intravenous ProHanceNohedrick medical center [employer] Other MR lumbar spine wo/w conCOMPARISON: 06/06/2020[place] [employer] Other MR lumbar spine wo/w conFINDINGS: The bones of the lumbar spine are in anatomic alignment. There is preservation ofHathaway [employer] Other MR lumbar spine wo/w convertebral body heights. There is moderate to severe disc height loss at L2-L3 and L3-L4, worse at Z5Rwwct [employer] Other MR lumbar spine wo/w conthrough the prior exam. There is intervertebral fusion at L4-5. The marrow signal is within normalNohedrick medical center [employer] Other MR lumbar spine wo/w conlimits. The conus terminates at the inferior endplate of the L1 vertebral body level. No epidural [facility] [employer] Other MR lumbar spine wo/w conparaspinous fluid collection is appreciated. No abnormal postcontrast enhancement.[employer] Other MR lumbar spine wo/w conAt T12-L1: There is a normal disc, central canal, and neural foramen.[employer] Other MR lumbar spine wo/w conAt L1-L2: There is a normal disc, central canal, and neural foramen.[employer] Other MR lumbar spine wo/w conAt L2-L3: There is a circumferential disc bulge. There is facet hypertrophy with ligamentum flavum [place] [employer] Other MR lumbar spine wo/w conthickening contributing to moderate to severe spinal canal stenosis. This is worse when compared toNsaint alexius hospital [employer] Other MR lumbar spine wo/w conthe prior exam. There is also moderate to severe right and moderate left neural foraminal narrowingNohedrick medical center [employer] Other MR lumbar spine wo/w conwhich is worse when compared to the prior exam.[employer] Other MR lumbar spine wo/w conAt L3-L4: There is a circumferential disc bulge with facet hypertrophy and ligament flavumNsaint alexius hospital [employer] Other MR lumbar spine wo/w conthickening contributing to moderate spinal canal narrowing similar to the prior exam. EndplateNoVendscreen Other MR lumbar spine wo/w conosteophyte formation contributes to mild left and moderate right neural foraminal narrowing. This is [employer] Other MR lumbar spine wo/w conworse when compared to the prior exam.[employer] Other MR lumbar spine wo/w conAt L4-L5: There has been intervertebral fusion since the prior exam at this level. There is facetNortVerical Other MR lumbar spine wo/w conhypertrophy and endplate osteophyte formation. There is moderate spinal canal narrowing which isNort [employer] Other MR lumbar spine wo/w conbetter when compared to the prior exam. There is mild bilateral neural foraminal narrowing similarNohedrick medical center [employer] Other MR lumbar spine wo/w conto the prior exam.[employer] Other MR lumbar spine wo/w conAt L5-S1: There is a broad- based disc bulge with facet hypertrophy and small bilateral facetNoVendscreen Other MR lumbar spine wo/w coneffusions. There is mild spinal canal narrowing with moderate left and mild right neural foraminalNohedrick medical center [employer] Other MR lumbar spine wo/w constenosis. Left-sided neural foraminal narrowing is slightly worse when compared to the prior exam.[employer] Other MR lumbar spine wo/w conORDER #: [id number] MR/MR lumbar spine wo/w [facility] HospitalIPLogic Other MR lumbar spine wo/w conIMPRESSION:[employer] Other MR lumbar spine wo/w conIntervertebral fusion has been performed in the interval at L4-5 showing improving spinal canalNohedrick medical center [employer] Other MR lumbar spine wo/w connarrowing.[employer] Other MR lumbar spine wo/w conNo abnormal postcontrast enhancement.[employer] Other MR lumbar spine wo/w conImpression dictated by: Ramez Sanchez M.D.11/18/2023 12:16 [facility]ITALIPLog[facility] Other MR lumbar spine wo/w conDictation Location: [address] [employer] Other MR lumbar spine wo/w conTranscribed By: ERIKA 11/18/23 [facility] CenterV[facility] Other MR lumbar spine wo/w conDictated By: Ramez Sanchez II, MD 11/18/[address] [place] [address] [employer] Other MR lumbar spine wo/w conSigned By:[employer] Other MR lumbar spine wo/w con11/18/23 [facility] CenterVendscreen Other creatinine (Bld) [Mass/Vol]Ordered By: Juanita Ayala on 83-14-8572Zoygdrjxbp [Mass/Vol]0.8 mg/dL0.6-1.3FParkwood HospitalComment on above:ER/ESD physician is notified/shown all ISTAT results.Critical values may be confirmed by laboratorytesting ifdeemed necessary by ER attending doctor.No Panel InformationOrdered By: Juanita Ayala on 95-39-1705Aueuizs Estimated GFR (eGFR)> 60.0[facility] City HospitalXR lumbar spine 6V w bendingon 49-36-4516JC lumbar spine 6V w bendingCorey Hospital [employer] Other XR lumbar spine 6V w bendingFRAnaheim General Hospital [employer] Other XR lumbar spine 6V w [id number] [facility] [employer] Other XR lumbar spine 6V w bendingHighline Community Hospital Specialty CentertomasYAKIMA, [place] [address]Qyekw [employer] Other XR lumbar spine 6V w bendingXRNorth Okaloosa Medical Center [employer] Other XR lumbar spine 6V w bendingSignMetropolitan Saint [facility] [employer] Other XR lumbar spine 6V w bendingPatient: Yolis Florez MR#: [id number] [employer] Other XR lumbar spine 6V w [id number] [employer] Other XR lumbar spine 6V w bendingDOB: 1950 Acct:[id number] [employer] Other XR lumbar spine 6V w bendingAge/Sex: 73 / F ADM Date: 10/30/23[place] [employer] Other XR lumbar spine 6V w bendingLoc: XD Room: Type: [facility]IPLog[facility] Other XR lumbar spine 6V w bendingAttending Dr: Juanita Ayala [facility]ITALOrthoFi Other XR lumbar spine 6V w bendingCopies to: Juanita Ayala NPOrthoFi Other XR lumbar spine 6V w bendingOrdering Provider: COLLEEN BlancasCNorth [employer] Other XR lumbar spine 6V w bendingDate of Service: 10/30/23 [employer] Other XR lumbar spine 6V w bendingAccession #: ([id number]) XR/XR lumbar spine 6V w bending: M54.16Nohedrick medical center [employer] Other XR lumbar spine 6V w bendingLUMBAR SPINE WITH FLEXION, EXTENSION AND BENDING VIEWS- 6 views:[employer] Other XR lumbar spine 6V w bendingCLINICAL HISTORY: Right low back pain radiating down the leg. Previous lumbar fusionCl[place] [employer] Other XR lumbar spine 6V w bendingCOMPARISON: 04/16/2023[facility] HospitalVerical Other XR lumbar spine 6V w bendingStanding AP neutral, right and left bending as well as lateral views in neutral, flexion andNohedrick medical center [employer] Other XR lumbar spine 6V w bendingextension were obtained. There is osteopenia. There is prior fusion at L4-5 with posterior rods,[employer] Other XR lumbar spine 6V w bendingpedicle screws and an interbody fusion device. There is radiopaque cement within both vertebralVendscreen Other XR lumbar spine 6V w bendingbodies. The hardware appears intact and unchanged from the prior. There is still approximately 7Nort [employer] Other XR lumbar spine 6V w bendingmm anterolisthesis of L4 on L5. Alignment does not change significantly with flexion or extension.[employer] Other XR lumbar spine 6V w bendingThere are no developing fractures. There is disc space narrowing at L2-3 and L3-4 with endplateVendscreen Other XR lumbar spine 6V w bendingsclerosis. There is mild marginal spurring in that area and at the thoracolumbar region. There isVendscreen Other XR lumbar spine 6V w bendingminimal lower lumbar facet hypertrophy. The SI joints are intact. No paraspinal soft tissueNohedrick medical center [employer] Other xr lumbar spine 6V w bendingabnormalities are seen. [employer] Other xr lumbar spine 6V w bendingORDER #: [id number] XR/XR lumbar spine 6V w bendingNohedrick medical center [employer] Other xr lumbar spine 6V w bendingIMPRESSION:[employer] Other XR lumbar spine 6V w bendingOSTEOPENIA WITH POSTOPERATIVE AND DEGENERATIVE CHANGES SIMILAR TO THE COMPARISON.[employer] [employer] Other xr lumbar spine 6V w bendingImpression dictated by: Jyoti Rodríguez M.D.10/30/2023 5:17 [facility] [employer] Other xr lumbar spine 6V w bendingDictation Location: [address] [employer] Other xr lumbar spine 6V w bendingTranscribed By: PWS 10/30/[address] [place], [place] [address] Other xr lumbar spine 6V w bendingDictated By: Jyoti Rodríguez MD 10/30/[address] [place], [place] [address] Other xr lumbar spine 6V w bendingSigned By:[employer] Other xr lumbar spine 6V w lysozgp13/03/24 [facility] Other serum or plasma calcium measurement (mass/volume) Ordered By: Amanda Sharif on [id number] [Mass/Vol]9.5 mg/dL8.2-10.2FParkwood HospitalCOVID + FLU Quick Testingon [id number]-CoV-2 (COVID- 19) RNA JACE+probe Ql (Unsp spec)NegativeClarks Hill [facility] Other COVID + FLU Quick TestingNegativeClarks Hill [facility] Other XR chest 2V*on [id number] chest 2V*[facility] [employer] Other XR chest 2V*[facility] [employer] Other XR chest 2V*[address] [facility] [employer] Other XR chest 2V*[place] [address] [employer] [facility] Other XR chest 2V*XRay ReportClarks Hill [facility] Other XR chest 2V*SignedClarks [place] [facility] Other XR chest 2V*Patient: Yolis Florez MR#: [id number] [employer] [facility] Other XR chest 2V*[id number] [employer] [facility] Other XR chest 2V*: 1950 Acct:[id number] [employer] [facility] Other XR chest 2V*Age/Sex: 70 / F ADM Date: 10/02/21[place] [facility] Other XR chest 2V*Loc: XD Room: Type: [facility] [employer] Other XR chest 2V*Attending Dr: Trixie Loving [facility] [employer] Other XR chest 2V*Ordering Provider: Trixie Loving [facility] [employer] Other XR chest 2V*Date of Service: 10/02/21[place] [facility] Other XR chest 2V* XR/XR chest 2V*: Rhonchi at right lung base;CoughClarks Hill [facility] Other XR chest 2V*Copies to: Trixie Loving, [facility] [employer] Other XR chest 2V*XR chest 2V* 10/02/2021 3[facility] [employer] Other XR chest 2V*SIGNS AND SYMPTOMS: Productive cough, congestion, decreased lung sounds on rightClarks Hill [facility] Other XR chest 2V*PROTOCOL: Frontal and lateral radiograph of the [facility] [employer] [facility] Other XR chest 2V*COMPARISON: 05/03/2015[place] [facility] Other XR chest 2V*FINDINGS:[place] [facility] Other XR chest 2V*The trachea is midline. The heart and mediastinal structures are within normal limits. There [facility] [employer] Other XR chest 2V*mild interstitial prominence which may be chronic in nature. The lung parenchyma is clear,[place] [facility] Other XR chest 2V*otherwise. The bony thorax is intact.[place] [facility] Other XR chest 2V* XR/XR chest 2V*[place] [facility] Other XR chest 2V*IMPRESSION:[place] [facility] Other XR chest 2V*No acute cardiopulmonary pathology.[place] [facility] Other XR chest 2V*Chronic interstitial changes are redemonstrated without significant interval change.[place] [facility] Other XR chest 2V*Impression dictated by: Ramez Sanchez M.D.10/02/2021 4:22 [facility] [employer] Other XR chest 2V*Dictation Location: [address] [employer] Other XR chest 2V*Transcribed By: ERIKA 10/02/[address] [place] [address] [employer] [facility] Other XR chest 2V*Dictated By: Ramez Sanchez II, MD 10/02/[address] [place] [address] [facility] Other XR chest 2V*Signed By:[place] [facility] Other XR chest 2V*10/02/[address] [place] [address] [employer] [facility] Other XR ankle LT min 3V*on [id number] ankle LT min 3V* [facility] [employer] Other XR ankle LT min 3V*[facility] [employer] Other XR ankle LT min 3V*[address] [place] [address] [employer] Other XR ankle LT min 3V*[place], [place] [address]Ig[facility]kMad[facility] Center [facility] Other XR ankle LT min 3V*XRay [facility] [employer] Other XR ankle LT min 3V*SignedClarks Hill [facility] Other XR ankle LT min 3V*Patient: Yolis Florez MR#: [id number] [employer] [facility] Other XR ankle LT min 3V*[id number] [employer] [facility] Other XR ankle LT min 3V*: 1950 Acct:[id number] [facility] [employer] Other XR ankle LT min 3V*Age/Sex: 70 / F ADM Date: 08/31/21 [place] [facility] Other XR ankle LT min 3V*Loc: SOXD Room: Type: [facility] [employer] Other XR ankle LT min 3V*Attending Dr: Trixie Oconnor [facility] [employer] Other XR ankle LT min 3V*Ordering Provider: Trixie Oconnor, [facility] Other xr ankle LT min 3V*Date of Service: 08/31/21[employer] Other xr ankle LT min 3V* XR/XR ankle LT min 3V*: Arthritis of left ankleHannibal Regional HospitalVerical Other xr ankle LT min 3V*Copies to: Trixie Oconnor, [facility]ITALOrthoFi Other xr ankle LT min 3V*LEFT ANKLE - 3 viewsClarks Hill [facility] Other xr ankle LT min 3V*CLINICAL DATA: Follow-up ankle fractures. Continued pain.[employer] Other xr ankle LT min 3V*COMPARISON: 05/31/2021 and 02/04/2018 [employer] Other xr ankle LT min 3V*AP, lateral and oblique views were obtained. There is a malleable plate and multiple screws [facility] CenterHath[facility] [employer] Other xr ankle LT min 3V*the distal fibula. 2 cannulated screws are again seen at the medial malleolus. The hardware appearsVendscreen Other xr ankle LT min 3V*intact and unchanged from the prior. The underlying fractures are healed. There is no new fractureNoVerical Other xr ankle LT min 3V*or dislocation. Minor degenerative change is present at the malleoli and at the lateral tibial talarClarks Hill [facility] Other xr ankle LT min 3V*joint. There are tiny calcaneal spurs. There is no prominent soft tissue swelling.[employer] Other xr ankle LT min 3V* XR/XR ankle LT min 3V*[employer] Other xr ankle LT min 3V*IMPRESSION:[employer] Other xr ankle LT min 3V*STABLE POSTOPERATIVE AND DEGENERATIVE CHANGES.[employer] Other xr ankle LT min 3V*Impression dictated by: Jyoti Rodríguez M.D.08/31/2021 4:36 PMNBertrand [facility]af[facility] Hospital [facility] Other xr ankle LT min 3V*Dictation Location: [facility] [place] [address] [employer] Other xr ankle LT min 3V*Transcribed By: [facility] 08/31/[address] [place] [address] [employer] Other xr ankle LT min 3V*Dictated By: Jyoti Rodríguez MD 08/31/[address] [place] [address] [employer] Other xr ankle LT min 3V*Signed By:[employer] Other xr ankle LT min 3V*08/31/[address] [place] [address] [employer] [facility] Other Vital Signs Date TimeVital SignValuePerforming SqaksluxxYddfcxbw07-72-5052 13:08-0400Body wivxtn907.18 cmEric Mast DO Work Phone: 1(301)[address]10-23-2025 13:08-0400 Body mass index (BMI) [Ratio]34.9 kg/m2Eric Mast DO Work Phone: 8(495)177-[address] [place], [place] 0120110-23-2025 13:08-0400 Body fpwekqqxsvt19.8 [degF]Amanda Mast DO Work Phone: 7(174)032-[address] [place], [place] 0120110-23-2025 13:08-0400 Body yzhvuw903.32 kgEric Mast DO Work Phone: 6(735)100-[address] [place], [place] 0120110-23-2025 13:08-0400 Diastolic blood olatelvb31 mm[Hg]Amanda Mast DO Work Phone: 2(547)543-[address] [place], [place] 0120110-23-2025 13:08-0400 Heart rate67 /minEric Mast DO Work Phone: 1(952)[address] [place], [place] 5220610-23-2025 13:08-0400 Respiratory rate20 /minEric Mast DO Work Phone: [address] [place], [place] 5220610-23-2025 13:08-0400 SaO2% (BldA) [Mass fraction]97 %Amanda Mast DO Work Phone: [address] [place], [place] 5220610-23-2025 13:08-0400 Systolic blood zagxahjc687 mm[Hg]Amanda Mast DO Work Phone: 1(606)[address] [place], [place] 5220609-25-2025 13:07-0400 Body vadytx760.4 kgEric Mast DO Work Phone: 1(584)[address] [place], [place] 5220609-11-2025 14:09-0400 Body qtuawu599.18 cmEric Mast DO Work Phone: 1(195)[address] [place], [place] 5220609-11-2025 14:09-0400 Body mass index (BMI) [Ratio]33.7 kg/m2Eric Mast DO Work Phone: 1(212)[address] [place], [place] 5220609-11-2025 14:09-0400 Body btozefhgvyl83 [degF]Amanda Mast DO Work Phone: 1(336)[address] [place], [place] 5220609-11-2025 14:09-0400 Body fyzkqb59.69 kgEric Mast DO Work Phone: 1(292)[address] [place], [place] 5220609-11-2025 14:09-0400 Diastolic blood forfzfdb33 mm[Hg]Amanda Mast DO Work Phone: 1(031)[address] [place], [place] 5220609-11-2025 14:09-0400 Heart rate71 /minEric Mast DO Work Phone: 1(116)[address] [place], [place] 5220609-11-2025 14:09-0400 Respiratory rate16 /minEric Mast DO Work Phone: 1(903)[address] [place], [place] 5220609-11-2025 14:09-0400 SaO2% (BldA) [Mass fraction]97 %Amanda Mast DO Work Phone: 1419)[address] [place], [place] 5220609-11-2025 14:09-0400 Systolic blood mm[Hg]Amanda Mast DO Work Phone: 1419)[address] [place], [place] 5220606-24-2025 10:38-0400 Body .6 cmBenjamin Murcek DO Work Phone: 1419)[address] [place], [place] 9530706-24-2025 10:38-0400Body mass index (BMI) [Ratio]36.32 kg/q4Oaqlteck Murcek DO Work Phone: 1419)[address] [place], [place] 9530706-24-2025 10:38-0400Body tepmxe925.06 kgBenjamin Murcek DO Work Phone: 1419)[address] [place], [place] 9530706-10-2025 14:23-0400Body jloysd487.5 kgEric Mast DO Work Phone: 1419)[address] [place], [place] 5220605-15-2025 12:12-0400 Body uskiqd706.64 cmEric Mast DO Work Phone: 1419)[address] [place], [place] 5220605-15-2025 12:12-0400 Body mass index (BMI) [Ratio]34.7 kg/m2Eric Mast DO Work Phone: 1419)[address] [place], [place] 5220605-15-2025 12:12-0400 Body eaagxqkxbss16.3 [degF]Amanda Mast DO Work Phone: 1419)[address] [place], [place] 5220605-15-2025 12:12-0400 Body uqaekn52.52 kgEric Mast DO Work Phone: 1419)[address] [place], [place] 5220605-15-2025 12:12-0400 Diastolic blood mebnlcqk82 mm[Hg]Amanda Mast DO Work Phone: 1419)[address] [place], [place] 5220605-15-2025 12:12-0400 Heart rate72 /minEric Mast DO Work Phone: 1419)[address] [place], [place] 5220605-15-2025 12:12-0400 Systolic blood nvzbnayq847 mm[Hg]Amanda Mast DO Work Phone: 1(025)125-[facility]04-03-2025 14:23-0400 Diastolic blood rksupvgu39 mm[Hg]Amanda Mast DO Work Phone: [facility]04-03-2025 14:23-0400 Systolic blood pjanlboq63 mm[Hg]Amanda Mast DO Work Phone: 1(845)231-[facility]02-04-2025 10:21-0500 Body .6 cmBenjamin Murcek DO Work Phone: 1(312)5-[address] [place], [place] [address]Ykqcfoawkf38-29-9660 10:21-0500Body mass index (BMI) [Ratio]36.32 kg/y6Oadjnzaj Murcek DO Work Phone: 1(418)0-[address] [place], [place] [address]Ykmptaqxgw01-14-5300 10:21-0500Body qkfkhu400.06 kgBenjamin Murcek DO Work Phone: 1(984)[address] [place], [place] 9530712-24-2024 09:36-0500Body cmuhug409.6 cmBenjamin Murcek DO Work Phone: 1(154)7-[address] [place], [place] [address]Dvbaprdrkz79-14-0209 09:36-0500Body mass index (BMI) [Ratio]36.32 kg/n2Rvctnuzw Murcek DO Work Phone: 1(697)[address]12-24-2024 09:36-0500Body dnsyeh439.06 kgBenjamin Murcek DO Work Phone: 1(625)[address] [place], [place] 9530711-18-2024 14:31-0500Body zqunsj971.6 cmBenjamin Murcek DO Work Phone: 1(040)[facility] [place] [address]-18-2024 14:31-0500Body mass index (BMI) [Ratio]36.32 kg/n1Ohufttzl Murcek DO Work Phone: 1(727)2-[address] [place] [address]-18-2024 14:31-0500Body .06 kgBenjamin Murcek DO Work Phone: [facility] HospitalZvfowyqbio11-72-8697 08:04-0500Body xebycv587.6 cmBenlouise Murcek DO Work Phone: [facility] HospitalCviqcgjagb73-16-5306 08:04-0500Body mass index (BMI) [Ratio]36.32 kg/l3Dvfgvgkv Murcek DO Work Phone: [facility] HospitalCdcwpophsr71-37-2639 08:04-0500Body .06 kgBenlouise Murcek DO Work Phone: [facility] HospitalRskwsvxeun16-39-5148 13:37-0400Body eealei967.64 cmDO Amanda Mast Work Phone: 1(326)[address] [place], [place] 4814410-15-2024 10:59-0400 Body roacgc585.64 cmDO Amanda Mast Work Phone: 1(303)[address] [place], [place] 4814410-15-2024 10:59-0400 Body mass index (BMI) [Ratio]36.2 kg/m2DO Amanda Mast Work Phone: 1(985)[address] [place], [place] 4814410-15-2024 10:59-0400 Body oublre503.83 kgDO Amanda Mast Work Phone: 1(484)[address] [place], [place] 4814410-13-2024 14:41-0400 Body naryqaukgdz35.8 [degF]DO Amanda Mast Work Phone: 1(796)[address] [place], [place] 4814410-13-2024 14:41-0400 Diastolic blood mm[Hg]DO Amanda Mast Work Phone: 1(904)[address] [place], [place] 4814410-13-2024 14:41-0400 Heart rate84 /minDO Amanda Mast Work Phone: 1(120)[address] [place], [place] 4814410-13-2024 14:41-0400 Respiratory rate20 /minDO Amanda Mast Work Phone: 1(338)[address] [place], [place] 4814410-13-2024 14:41-0400 SaO2% (BldA) [Mass fraction]93 %DO Amanda Mast Work Phone: 1(847)[address] [place], [place] 4814410-13-2024 14:41-0400 Systolic blood pnktntew577 mm[Hg]DO Amanda Mast Work Phone: 1(525)[address] [place], [place] 4814410-13-2024 04:12-0400 Body .2 kgDO Amanda Mast Work Phone: 1(066)[address] [place], [place] 4814410-10-2024 07:31-0400 Body ccwjue796.64 cmDO Amanda Mast Work Phone: 1(892)[address] [place], [place] 4814410-01-2024 05:20-0400 Inhaled oxygen flow rate2 L/minDO Amanda Mast Work Phone: 1(348)[address] [place], [place] 4814409-27-2024 12:13-0400 Body fvnaxt505.64 cmDO Amanda Mast Work Phone: 1(476)[address] [place], [place] 4814409-27-2024 12:00-0400 Body neijhapsaaz97.9 [degF]DO Amanda Mast Work Phone: 1(509)[address] [place], [place] 4814409-27-2024 12:00-0400 Diastolic blood bbmuksui29 mm[Hg]DO Amanda Mast Work Phone: 1(013)[address] [place], [place] 4814409-27-2024 12:00-0400 Heart rate73 /minDO Amanda Mast Work Phone: 1(210)[address] [place], [place] 4814409-27-2024 12:00-0400 Respiratory rate16 /minDO Amanda Mast Work Phone: 1(033)[address] [place], [place] 4814409-27-2024 12:00-0400 SaO2% (BldA) [Mass fraction]93 %DO Amanda Mast Work Phone: 1(636)[address] [place], [place] 4814409-27-2024 12:00-0400 Systolic blood anpbvxyx777 mm[Hg]DO Amanda Mast Work Phone: 1(683)[address] [place], [place] 4814409-27-2024 06:00-0400 Body tgmefp432 kgDO Amanda Mast Work Phone: 1(384)[address] [place], [place] 4814409-26-2024 08:00-0400 Inhaled oxygen flow rate3 L/minDO Amanda Mast Work Phone: 1(459)[address] [place], [place] 4814408-29-2024 09:48-0400 Body .18 cmDO Amanda Mast Work Phone: 1(192)[address] [place], [place] 4814408-29-2024 09:48-0400 Body mass index (BMI) [Ratio]35.2 kg/m2DO Amanda Mast Work Phone: 1(849)[address] [place], [place] 4814408-29-2024 09:48-0400 Body yyjdxq607.17 kgDO Amanda Mast Work Phone: 1(325)[address] [place], [place] 4814408-20-2024 14:06-0400 Body hihebw163.18 cmDO Amanda Mast Work Phone: 1(956)[address] [place], [place] 4814408-20-2024 14:06-0400 Body mass index (BMI) [Ratio]35.4 kg/m2DO Amanda Mast Work Phone: 1(837)[address] [place], [place] 4814408-20-2024 14:06-0400 Body asniyfjhlrb53.8 [degF]DO Amanda Mast Work Phone: 1(935)[address] [place], [place] 4814408-20-2024 14:06-0400 Body tylmbo060.56 kgDO Amanda Mast Work Phone: 1(717)[address] [place], [place] 4814408-20-2024 14:06-0400 Diastolic blood mm[Hg]DO Amanda Mast Work Phone: 1(624)[address] [place], [place] 4814408-20-2024 14:06-0400 Heart rate71 /minDO Amanda Mast Work Phone: 1(955)[address] [place], [place] 4814408-20-2024 14:06-0400 SaO2% (BldA) [Mass fraction]96 %DO Amanda Mast Work Phone: 1(575)1-[address] [place], [place] 2186408-20-2024 14:06-0400 Systolic blood cajgttcq033 mm[Hg]DO Amanda Mast Work Phone: 1(208)[address] [place], [place] 4814408-05-2024 15:37-0400 Body ntrdka933.18 cmDO Amanda Mast Work Phone: 1(780)[address] [place], [place] 4814408-05-2024 15:37-0400 Body mass index (BMI) [Ratio]34 kg/m2DO Amanda Mast Work Phone: 1(170)[address] [place], [place] 4814408-05-2024 15:37-0400 Body gaqsbefkdsk81.2 [degF]DO Amanda Mast Work Phone: 1(867)[address] [place], [place] 4814408-05-2024 15:37-0400 Body liixzt38.65 kgDO Amanda Mast Work Phone: 1(962)[address] [place], [place] 4814408-05-2024 15:37-0400 Diastolic blood pbxuptzt01 mm[Hg]DO Amanda Mast Work Phone: 1(895)[address] [place], [place] 4814408-05-2024 15:37-0400 Heart rate70 /minDO Amanda Mast Work Phone: 1(635)[address] [place], [place] 4814408-05-2024 15:37-0400 SaO2% (BldA) [Mass fraction]98 %DO Amanda Mast Work Phone: 1(361)[address] [place], [place] 4814408-05-2024 15:37-0400 Systolic blood awbypkyv506 mm[Hg]DO Amanda Mast Work Phone: 1(119)[address] [place], [place] 4814406-18-2024 09:28-0400 Body adkxyr864.18 cmDO Amanda Mast Work Phone: 1(509)[address] [place], [place] 4814406-18-2024 09:28-0400 Body mass index (BMI) [Ratio]35.6 kg/m2DO Amanda Mast Work Phone: 1(933)[address] [place], [place] 4814406-18-2024 09:28-0400 Body xislii577.41 kgDO Amanda Mast Work Phone: 1(806)[address] [place], [place] 4814405-21-2024 14:09-0400 Body gpsesp114.18 cmDO Amanda Mast Work Phone: 1(013)[address] [place], [place] 4814405-21-2024 14:09-0400 Body mass index (BMI) [Ratio]35.5 kg/m2DO Amanda Mast Work Phone: 1(951)[address] [place], [place] 4814405-21-2024 14:09-0400 Body tmqattdfebc16.7 [degF]DO Amanda Mast Work Phone: 1(148)[address] [place], [place] 4814405-21-2024 14:09-0400 Body nfdowv669.02 kgDO Amanda Mast Work Phone: 1(229)[address] [place], [place] 4814405-21-2024 14:09-0400 Diastolic blood wswynyul52 mm[Hg]DO Amanda Mast Work Phone: 1(169)[address] [place], [place] 4814405-21-2024 14:09-0400 Heart rate72 /minDO Amanda Mast Work Phone: 1(325)[address] [place], [place] 4814405-21-2024 14:09-0400 SaO2% (BldA) [Mass fraction]96 %DO Amanda Mast Work Phone: 1(348)[address] [place], [place] 4814405-21-2024 14:09-0400 Systolic blood zpiasbec282 mm[Hg]DO Amanda Mast Work Phone: 1(173)[address] [place], [place] 4814405-02-2024 10:44-0400 Body .18 cmDO Amanda Mast Work Phone: 1(770)[address] [place], [place] 4814405-02-2024 10:44-0400 Body mass index (BMI) [Ratio]35.5 kg/m2DO Amanda Mast Work Phone: 1(174)[address] [place], [place] 4814405-02-2024 10:44-0400 Body upeuvy277.96 kgDO Amanda Mast Work Phone: 1(596)[address] [place], [place] 4814404-30-2024 14:19-0400 Body dhuhch124.18 cmDO Amanda Mast Work Phone: 1(634)[address] [place], [place] 4814404-30-2024 14:19-0400 Body mass index (BMI) [Ratio]36 kg/m2DO Amanda Mast Work Phone: 1(576)[address] [place], [place] 4814404-30-2024 14:19-0400 Body dnvkurmqple71.7 [degF]DO Amanda Mast Work Phone: 1(618)[address] [place], [place] 4814404-30-2024 14:19-0400 Body .35 kgDO Amanda Mast Work Phone: 1(805)[address] [place], [place] 4814404-30-2024 14:19-0400 Diastolic blood jyragbku86 mm[Hg]DO Amanda Mast Work Phone: 1(584)[address] [place], [place] 4814404-30-2024 14:19-0400 Heart rate68 /minDO Amanda Mast Work Phone: 1(359)[address] [place], [place] 4814404-30-2024 14:19-0400 SaO2% (BldA) [Mass fraction]96 %DO Amanda Mast Work Phone: 1(675)[address] [place], [place] 4814404-30-2024 14:19-0400 Systolic blood alatyyar205 mm[Hg]DO Amanda Mast Work Phone: 1(137)[address] [place], [place] 4814404-09-2024 10:02-0400 Body ejrqde937.18 cmDO Amanda Mast Work Phone: 1(433)[address] [place], [place] 4814404-09-2024 10:02-0400 Body mass index (BMI) [Ratio]36.5 kg/m2DO Amanda Mast Work Phone: 1(063)[address] [place], [place] 4814404-09-2024 10:02-0400 Body tamcpw176.68 kgDO Amanda Mast Work Phone: 1(848)[address] [place], [place] 4814402-27-2024 13:30-0500 Body ilxdqw487.18 cmDO Amanda Mast Work Phone: 1(928)[address] [place], [place] 4814402-27-2024 13:30-0500 Body mass index (BMI) [Ratio]35.7 kg/m2DO Amanda Mast Work Phone: 1(475)[address] [place], [place] 4814402-27-2024 13:30-0500 Body wjktuy744.53 kgDO Amanda Mast Work Phone: 1(943)[address] [place], [place] 4814402-27-2024 13:30-0500 Diastolic blood andtjgse06 mm[Hg]DO Amanda Mast Work Phone: 1(643)[address] [place], [place] 4814402-27-2024 13:30-0500 Heart rate74 /minDO Amanda Mast Work Phone: 1(654)[address] [place], [place] 4814402-27-2024 13:30-0500 Respiratory rate18 /minDO Amanda Mast Work Phone: 1(213)[address] [place], [place] 4814402-27-2024 13:30-0500 SaO2% (BldA) [Mass fraction]98 %DO Amanda Mast Work Phone: 1(291)[address] [place], [place] 4814402-27-2024 13:30-0500 Systolic blood rswziqie763 mm[Hg]DO Amanda Mast Work Phone: 1(086)[address] [place], [place] 4814402-09-2024 09:00-0500 Body ikjxbq111.37 cmJessica Stonestreet One Other [employer] Other 02-09-2024 09:00-0500Body mass index (BMI) [Ratio] 38.18 kg/s2Qgfnxnu [employer] Other [employer] Other 02-09-2024 09:00-0500Body khbtan131.69 kgJessica Stonestreet One Other [employer] Other 02-06-2024 08:40-0500Diastolic blood zwqvfsco54 mm[Hg] DO Amanda Mast Work Phone: 1(422)[address] [place], [place] 4814402-06-2024 08:40-0500 Heart rate64 /minDO Amanda Mast Work Phone: 1(920)[address] [place], [place] 4814402-06-2024 08:40-0500 Respiratory rate18 /minDO Amanda Mast Work Phone: 1(349)[address] [place], [place] 4814402-06-2024 08:40-0500 SaO2% (BldA) [Mass fraction]98 %DO Amanda Mast Work Phone: 1(221)[address] [place], [place] 4814402-06-2024 08:40-0500 Systolic blood fkarynia184 mm[Hg]DO Amanda Mast Work Phone: 1(364)[address] [place], [place] 4814402-06-2024 07:58-0500 Inhaled oxygen flow rate3 L/minDO Amanda Mast Work Phone: 1(709)[address] [place], [place] 4814402-06-2024 07:26-0500 Body miygga488.72 cmDO Amanda Mast Work Phone: 1(104)[address] [place], [place] 4814402-06-2024 07:26-0500 Body neyhbe009.32 kgDO Amanda Mast Work Phone: 1(617)[address] [place], [place] 4814401-20-2024 11:27-0500 Body clofxm035.72 cmDO Amanda Mast Work Phone: 1(862)[address] [place], [place] 4814401-20-2024 11:27-0500 Body hspokj875.32 kgDO Amanda Mast Work Phone: 1(380)[address] [place], [place] 4814401-03-2024 11:20-0500 Body nkuyug067.37 cmJehi5 Other [facility]01-03-2024 11:20-0500 Body mass index (BMI) [Ratio]38.34 kg/e2Vxvautbhi5 Other [employer] Other 01-03-2024 11:20-0500Body .14 kgJuanita Ayala Other [facility]11-02-2023 15:00-0400 Body keeybu545.37 cmEric Mast Other [employer] Other 11-02-2023 15:00-0400Body mass index (BMI) [Ratio] 37.69 kg/m2Eric Mast Other [employer] Other 11-02-2023 15:00-0400Body dtmucuvdrma08.9 [degF]Amanda Mast Other [employer] Other 11-02-2023 15:00-0400Body vclopf800.33 kgEric Mast Other [employer] Other 11-02-2023 15:00-0400Diastolic blood zeigaoig29 mm[Hg] Amanda Mast Other [employer] Other 11-02-2023 15:00-4108YxK7% (BldA) [Mass fraction]98 % Amanda Mast Other [employer] Other 11-02-2023 15:00-0400Systolic blood mm[Hg] Amanda Mast Other [employer] Other 07-19-2023 09:15-0400Body .37 [facility] Other [employer] Other 07-19-2023 09:15-0400Body mass index (BMI) [Ratio] 36.05 kg/a7Szzcafdshi Nielsen Other [employer] Other 07-19-2023 09:15-0400Body .79 kgCoshi Nielsen Other [employer] Other 06-20-2023 09:40-0400Body tkcusw211.37 cmArtie Hair Other [employer] Other 06-20-2023 09:40-0400Body mass index (BMI) [Ratio] 38.83 kg/m2Dajudah Hair Other [employer] Other 06-20-2023 09:40-0400Body ybdpws589.5 kgDajudah Hair Other [employer] Other 06-20-2023 09:40-0400Diastolic blood lmhfkyiw82 mm[Hg] Artie Hair Other [employer] Other 06-20-2023 09:40-0400Systolic blood iggymkll295 mm[Hg] Artie Hair Other [employer] Other 02-22-2023 15:45-0500Body fdvdpo860.37 cmRobert Wilbarger II Other [employer] Other 02-22-2023 15:45-0500Body mass index (BMI) [Ratio] 39.33 kg/i1Ysjsjy Wilbarger II Other [employer] Other 02-22-2023 15:45-0500Body tuczrc722.86 kgRobert Wilbarger II Other [employer] Other 02-06-2023 09:17-0500Diastolic blood dzmkytjf75 mm[Hg] DO Amanda Sharif Work Phone: [phone])[facility]02-06-2023 09:17-0500 Heart rate64 /minDO Amanda Mast Work Phone: [phone]02-06-2023 09:17-0500 Respiratory rate16 /minDO Amanda Mast Work Phone: [phone] [place], [place] 4814402-06-2023 09:17-0500 SaO2% (BldA) [Mass fraction]100 %DO Amanda Mast Work Phone: [phone] [place], [place] 4814402-06-2023 09:17-0500 Systolic blood dmvkrzin470 mm[Hg]DO Amanda Mast Work Phone: [phone] [place], [place] 4814402-06-2023 08:13-0500 Body cbnasl093.18 cmDO Amanda Mast Work Phone: [phone] [place], [place] 4814402-06-2023 08:13-0500 Body gulazjwablm07.8 [degF]DO Amanda Mast Work Phone: [phone])[address] [place], [place] 4814402-06-2023 08:13-0500 Body olcwre850.32 kgDO Amanda Mast Work Phone: [phone])[address] [place], [place] 4814401-11-2023 11:30-0500 Body rdaaiy049.37 cmJerobin Loving Other [facility] [employer] [facility] Other 01-11-2023 11:30-0500Body mass index (BMI) [Ratio] 39.38 kg/j6VuulgfapTrixie Loving Other [facility] Other 01-11-2023 11:30-0500Body nuzuexjodrj28.5 [degF] Trixie Loving Other [facility] Other 01-11-2023 11:30-0500Body kfwlyp144 kgJerobin Farleyle Other [employer] Other 01-11-2023 11:30-0500Diastolic blood psqqzzey69 mm[Hg] Trixie Fabienne Other [employer] Other 01-11-2023 11:30-0500Respiratory rate18 /minTrixie Loving Other [employer] Other 01-11-2023 11:30-7410CtC0% (BldA) [Mass fraction]98 % Trixie Loving Other [employer] Other 01-11-2023 11:30-0500Systolic blood ukyvkqiu886 mm[Hg] Trixie Loving Other [employer] Other 11-15-2022 12:15-0500Body urhujm001.37 cmRobert Wilbarger II Other [employer] Other 11-15-2022 12:15-0500Body mass index (BMI) [Ratio] 36.87 kg/d5Atwcjs Wilbarger II Other [employer] Other 11-15-2022 12:15-0500Body .06 kgRobert Peña II Other [employer] Other 11-01-2022 15:45-0400Body lmissj942.37 cmEric Mast Other [employer] Other 11-01-2022 15:45-0400Body mass index (BMI) [Ratio] 37.97 kg/m2Eric Mast Other [employer] Other 11-01-2022 15:45-0400Body nejjkrrpnrx35.3 [degF]Amanda Mast Other [employer] Other 11-01-2022 15:45-0400Body chsiqw291.1 kgEric Mast Other [employer] Other 11-01-2022 15:45-0400Diastolic blood mm[Hg] Amanda Mast Other [employer] Other 11-01-2022 15:45-3696KsN5% (BldA) [Mass fraction]98 % Amanda Mast Other [employer] Other 11-01-2022 15:45-0400Systolic blood asxkqwzg264 mm[Hg] Amanda Mast Other [employer] Other 10-21-2022 11:00-0400Body pestrd833.37 Nancy Nielsen Other [employer] Other 08-05-2022 10:00-0400Body yfojjd995.37 cmRobert Peña II Other [employer] Other 08-05-2022 10:00-0400Body mass index (BMI) [Ratio] 36.87 kg/s4Magpkz Peña II Other [employer] Other 08-05-2022 10:00-0400Body .06 kgRobert Peña II Other [employer] Other 07-29-2022 11:05-0400Body yenwvlwxqzm50 [degF]DO Amanda Mast Work Phone: [phone]-[facility]07-29-2022 11:05-0400 Diastolic blood mm[Hg]DO Amanda Mast Work Phone: [phone])[address]07-29-2022 11:05-0400 Heart rate60 /minDO Amanda Mast Work Phone: 1(519)3-[address] [place], [place] 2186407-29-2022 11:05-0400 Respiratory rate18 /minDO Amanda Mast Work Phone: [phone])[address]07-29-2022 11:05-0400 SaO2% (BldA) [Mass fraction]98 %DO Amanda Mast Work Phone: [phone])[address]07-29-2022 11:05-0400 Systolic blood kavphllh545 mm[Hg]DO Amanda Mast Work Phone: [phone])[address] [place], [place] 4814406-30-2022 11:20-0400 Body hyqncy733.37 cmDale Hair Other [employer] Other 06-30-2022 11:20-0400Body mass index (BMI) [Ratio] 36.05 kg/m2Dale Hair Other [employer] Other 06-30-2022 11:20-0400Body puiblt79.79 kgDale Hair Other [employer] Other 06-15-2022 10:15-0400Body xijlsd514.37 cmCup health systememmy Nielsen Other [employer] Other 06-15-2022 10:15-0400Body mass index (BMI) [Ratio] 36.05 kg/x1Mifivclemmy Nielsen Other [employer] Other 06-15-2022 10:15-0400Body arvoam69.79 kgCollemmy Nielsen Other [employer] Other 03-29-2022 11:30-0400Body mgzexq933.37 cmThomas Olexa Other [employer] Other 03-29-2022 11:30-0400Body mass index (BMI) [Ratio] 36.87 kg/g2Vnsyld Olexa Other [employer] Other 03-29-2022 11:30-0400Body ijfczx111.06 kgThomas Olexa Other [employer] Other 01-06-2022 12:20-0500Body aamnvm562.37 cmDale Hair Other [employer] Other 01-06-2022 12:20-0500Body mass index (BMI) [Ratio] 38.67 kg/m2Dale Hair Other [employer] Other 01-06-2022 12:20-0500Body udmofq727.05 kgDale Hair Other [employer] Other 12-06-2021 15:45-0500Body geblet704.37 cmJerobin Loving Other [employer] Other 12-06-2021 15:45-0500Body mass index (BMI) [Ratio] 38.72 kg/d5PkxgoqptTrixie Loving Other [employer] Other 12-06-2021 15:45-0500Body rhuvpuxkgqw52.2 [degF] Trixie Loving Other [employer] Other 12-06-2021 15:45-0500Body whmiqr867.19 kgAlexandrewsam Fabienne Other [employer] Other 12-06-2021 15:45-0500Diastolic blood mm[Hg] Trixie Fabienne Other [employer] Other 12-06-2021 15:45-0500Respiratory rate18 /minTrixie Loving Other [employer] Other 12-06-2021 15:45-7089FdT4% (BldA) [Mass fraction]98 % Trixie Fabienne Other [employer] Other 12-06-2021 15:45-0500Systolic blood juqgqyid212 mm[Hg] Trixie Loving Other [employer] Other 11-04-2021 16:45-0400Body .37 cmTrixie Oconnor Other [employer] Other 11-04-2021 16:45-0400Body mass index (BMI) [Ratio] 38.02 kg/y6ThxqstcgTrixie Oconnor Other [employer] Other 11-04-2021 16:45-0400Body ahktqw451.24 kgJannasam Elvni Other [employer] Other 10-08-2021 11:20-0400Body ucjqrp834.37 cmArtie Hair Other [employer] Other 10-08-2021 11:20-0400Body mass index (BMI) [Ratio] 38.02 kg/m2Dajudah Hair Other [employer] Other 10-08-2021 11:20-0400Body zfuksa608.24 kgLuciojudah Hair Other [employer] Other 14-56761980-74-5541 11:20-0400Diastolic blood vacehenc52 mm[Hg] Artie Laxmi Other [employer] Other 02-29163608-65-3537 11:20-0400Systolic blood sifvgxcc595 mm[Hg] Artie Hair Other [employer] Other Encounters Encounter DateEncounter TypeCare ProviderFacilityStart: 08-19-2025 End: 41-46-7436vyuwpiaojtKrrl Mast DO Work Phone: -[facility] CenteryStart: 08-19-2025 End: 04-34-9626Brscqhe encounter procedureEric E Mast DO-[facility] [place] Work Phone: Start: 19-38-0405Bvj-patient / Non-visitChristony Watts RN-[facility] [place] Work Phone: Start: 08-11-2025 End: 20-72-9266Jadywht encounter procedureEric E Mast DO-[facility] [place] Work Phone: Start: 08-11-2025 End: 29-97-6246nzhabxgijyHqlh Mast DO Work Phone: [facility] Work Phone: Start: 07-22-2025 End: 33-56-8285dbrxlahpokJefb Mast DO Work Phone: [facility] Work Phone: Start: 07-22-2025 End: 90-60-2993Jeagauo encounter procedureArtie Hair MD-[facility] Neurosurgery Work Phone: start: 07-22-2025 End: 45-90-0584Trbkhou encounter procedureArtie Hair MD-Lab [facility] Work Phone: Start: 07-22-2025 End: 17-56-3173vzphxkbeiiCusb Mast DO Work Phone: [facility] Work Phone: Start: 07-08-2025 End: 39-88-9792hlfgyvixoaVtvs Mast DO Work Phone: [facility] Work Phone: Start: 07-08-2025 End: 99-44-1062Duobzzn encounter procedureEric E Mast DO-[facility] Work Phone: Start: 06-14-2025 End: 38-79-7514jldswujvjxOpxy Mast DO Work Phone: [facility] Work Phone: Start: 06-14-2025 End: 47-49-8334Urzlkdnste RecurringKevin Sneider DPM-[address] [facility] Start: 10-12-5585Mkdwsptfgz RecurringKevin Sneider DPM-[address] [facility] Start: 05-21-2025 End: 83-71-5132Nfywocv encounter procedureEric E [facility]: 05-21-2025 End: 20-77-5244cnbhvhifhvXbtx Mast DO Work Phone: [facility] Work Phone: Start: 05-14-2025 End: 16-21-0127lbolzqssytCczm Mast DO Work Phone: [facility] Work Phone: Start: 05-14-2025 End: 12-32-6443Ndbpoav encounter procedureCoshi Nielsen MD-[facility] Orthopedics Work Phone: Start: 05-13-2025 End: 81-72-2798jkuiredxjqRowg Mast DO Work Phone: [facility] Work Phone: Start: 05-13-2025 End: 01-41-3699Mqhmdrcbpj Charles [facility]: 26-28-8072Lonadeoysg RecurringSanchez Lr DPM-[facility] TherapyStart: 04-20-2025 End: 74-63-4015Qbnmac flowsheetBenjamin W Murcek DO Work Phone: [facility] SANDUSKYStart: 04-20-2025 End: 75-28-1442Pqfmdm flowsheetBenjamin W Murcek DO Work Phone: [facility] SANDUSKYStart: 04-20-2025 End: 21-35-4915Dagtff outpatient visit 25 minutesBenjamin W Murcek DO Work Phone: [facility] SANDUSKYComment on above:Status post partial thyroidectomy (Primary Dx)Start: 04-20-2025 End: 89-37-9890ggpedbkzyxIZKZJKFQ W MURCEKNot AvailableStart: 04-19-2025 End: 77-73-4747Xslqguj encounter procedureBenjamin W Murcek DO-Lab [facility] Work Phone: Start: 04-19-2025 End: 90-77-0073rkhpenoldcGinp MastFacility:[facility] Start: 04-06-2025 End: 41-89-4153Nigpvym encounter procedureEric Mast DO Work Phone: [facility] Neurosurgery Work Phone: start: 04-06-2025 End: 21-68-9860hkqmlcszozAtnv Mast DO Work Phone: [facility] Work Phone: Start: 58-17-8009Nqdztgpdho RecurringEric Mast DO Work Phone: [facility] Start: 03-24-2025 End: 61-89-2019Bhomokm encounter procedureEric Mast DO Work Phone: [phone] [place] [address] for Breast Care Work Phone: Start: 03-24-2025 End: 02-72-3339fhojykhpsjVnaw Mast DO Work Phone: [phone] [place] [address] Work Phone: Start: 26-66-1214Fiapadhdko RecurringEric Mast DO Work Phone: [phone] [place] [address] Therapy Start: 03-11-2025 End: 63-29-4121jxdjeeffatWznd Mast DO Work Phone: [phone] [place] [address] Work Phone: Start: 03-11-2025 End: 05-05-7079Xdjmpba encounter procedureEric Mast DO Work Phone: [phone] [place] [address] Physician Group-[facility] [place] Work Phone: Start: 23-69-5683Pgxndxrhih RecurringEric Mast DO Work Phone: [phone] [place] [address] Therapy Start: 02-25-2025 End: 82-68-0827vvvihzyqbdDitz Mast DO Work Phone: [phone] [place] [address] Work Phone: Start: 02-25-2025 End: 18-93-0250Jiyracy encounter procedureEric Mast DO Work Phone: [phone] [place] [address] Physician Group-[facility] Work Phone: Start: 02-25-2025 End: 57-47-2115Skpbfwm encounter procedureEric Mast DO Work Phone: [phone] [place] [address]: 02-25-2025 End: 74-26-7411jzkketikcxHnfr Mast DO Work Phone: [phone] [place] [address] Work Phone: Start: 09-90-0986Pljfoclzcw RecurringEric Mast DO Work Phone: [facility] [address] [facility] Start: 01-28-2025 End: 16-89-3874nydeijotdgDzjr Mast DO Work Phone: [facility] Work Phone: Start: 01-28-2025 End: 05-84-8122Jnahwie encounter procedureEric Mast DO Work Phone: [facility] Work Phone: Start: 32-89-2430Udvgaxknrk RecurringEric Mast DO Work Phone: [facility] [address] [facility] Start: 51-63-1924qtzdjjuuyyCezafrb R. Halstead PAFacility:[facility] Start: 01-05-2025 End: 91-86-3204ljvsppscyhRrxt Mast DO Work Phone: [facility] Work Phone: Start: 01-05-2025 End: 08-56-2444Gkgycls encounter procedureEric Mast DO Work Phone: [facility] Neurosurgery Work Phone: start: 01-05-2025 End: 28-08-2574Zgryggt encounter procedureEric Mast DO Work Phone: [facility] Work Phone: Start: 01-05-2025 End: 71-98-2821rdrchkuqbpSnmk Mast DO Work Phone: [facility] Work Phone: Start: 12-01-2024 End: 48-57-2050Xdxudo flowsheetBenjamin W Murcek DO Work Phone: [facility] SANDUSKYStart: 12-01-2024 End: 18-11-9898Wdndii flowsheetBenjamin W Murcek DO Work Phone: noMS ENT SANDUSKYStart: 12-01-2024 End: 99-47-6238Qcouqh follow up visit related to original pxBenjamin W Murcek DO Work Phone: [facility] SANDUSKYComment on above:Status post partial thyroidectomy (CMS/HCC)Start: 12-01-2024 End: 08-01-0387jupztabijvBYDNKTRT W MURCEKNot AvailableStart: 11-26-2024 End: 43-14-6459Ztrluin encounter procedureEric Mast DO Work Phone: [facility] [place] Work Phone: Start: 11-26-2024 End: 20-51-3943qjoehfyxdxHdyz Mast DO Work Phone: [facility] Work Phone: Start: 10-20-2024 End: 75-14-7958Fjdwry follow up visit related to original pxBenjamin W Murcek DO Work Phone: [facility] SANDUSKYComment on above:Status post partial thyroidectomy (CMS/HCC) (Primary Dx)Start: 10-20-2024 End: 48-63-1282wpzwjkjbocZBKZYZPN W MURCEKNot AvailableStart: 10-14-2024 End: 89-13-8402ojcpawhsstADIIPPGO W MURCEKNot AvailableStart: 10-14-2024 End: 56-71-1286Mvaysd flowsheetBenjamin W Murcek DO Work Phone: noMS EXT DEPStart: 10-14-2024 End: 93-76-5958Wcouga flowsheetBenjamin W Murcek DO Work Phone: noMS EXT DEPStart: 10-14-2024 End: 87-86-3722nyldwvwoynVqmwssyh MurcekFacility:[facility] Hospitaltart: 10-14-2024 End: 10-88-4391Geiowate ReferredEric Mast DO Work Phone: [facility] [place] Work Phone: Start: 10-14-2024 End: 83-74-1954Ucucghr encounter procedureBenjamin W Murcek DO Work Phone: noms EXT DEPComment on above:Thyroid mass (CMS/HCC) (Primary Dx)Start: 2024 End: 71-65-5010Xzyxyxz encounter procedureEric Mast DO Work Phone: [facility] Neuro[facility] Work Phone: start: 2024 End: 36-92-2951dvibkvxzffRtmy MastFacility:[facility] Start: 10-02-2024 End: 55-95-3185Rtelntf encounter procedureEric Mast DO Work Phone: [facility] Orthopedics Work Phone: Start: 18-59-6830Pmw-patient / Non-visitEric Mast DO Work Phone: [facility] [place] Work Phone: Start: 09-14-2024 End: 97-36-5149Gekzva outpatient visit 25 minutesBenjamin W Murcek DO Work Phone: [facility] SANDUSKYComment on above:Thyroid mass (CMS/HCC) (Primary Dx)Start: 09-14-2024 End: 49-13-1704gpucjsrmqtGNGEJVXR W MURCEKNot AvailableStart: 09-14-2024 End: 58-56-7591Kkkhhc flowsheetBenjamin W Murcek DO Work Phone: [facility] SANDUSKYStart: 09-14-2024 End: 78-17-6425Xalbux flowsheetBenjamin W Murcek DO Work Phone: [facility] SANDUSKYStart: 09-01-2024 End: 00-84-8083Tvlgki flowsheetBenjamin W Murcek DO Work Phone: [facility] SANDUSKYStart: 09-01-2024 End: 55-61-8933Faonry flowsheetBenjamin W Murcek DO Work Phone: [facility] SANDUSKYStart: 09-01-2024 End: 14-60-2854Odahboel ReferredDO Amanda Mast Work Phone: [facility] [place] Work Phone: Start: 09-01-2024 End: 49-02-7952Ygjlkl outpatient visit 25 minutesBenjamin W Murcek DO Work Phone: [facility] E[facility] SANDUSKYComment on above:Thyroid nodule (CMS/HCC) (Primary Dx)Start: 09-01-2024 End: 81-94-4643qwhkazsgswXO Amanda Mast Work Phone: [facility] Work Phone: Start: 08-25-2024 End: 63-53-3096qdsoojulagPV Amanda Mast Work Phone: [facility] Work Phone: Start: 08-25-2024 End: 54-69-4947Kcgzcof encounter procedureDO Amanda Mast Work Phone: [facility] Work Phone: start: 08-25-2024 End: 24-22-5836Dpjxnjp encounter procedureDO Amanda Mast Work Phone: [facility] [place] Work Phone: Start: 08-25-2024 End: 79-97-7345tnfbhnoshzZQ Amanda Mast Work Phone: [facility] Work Phone: Start: 64-29-8194dzgulrsyatBeirugauo Blair Shi MDFacility:[facility] Cent[facility]art: 08-11-2024 End: 52-64-1092rdpdpvpxdqVU Amanda Mast Work Phone: [facility] Work Phone: Start: 08-11-2024 End: 73-33-1472Eytfdja encounter procedureDO Amanda Mast Work Phone: [facility] Work Phone: start: 30-19-5245Zsd-patient / Non-visitDO Amanda Mast Work Phone: [facility] [place] Work Phone: Start: 35-05-0509Yoh-patient / Non-visitDO Amanda Mast Work Phone: [facility] Work Phone: Start: 87-25-2029Zzj-patient / Non-visitDO Amanda Mast Work Phone: [facility] Work Phone: Start: 79-95-7667Tmg-patient / Non-visitDO Amanda Mast Work Phone: [facility] Work Phone: Start: 16-90-0035Itc-patient / Non-visitDO Amanda Mast Work Phone: [facility] Work Phone: Start: 35-19-6352Kie-patient / Non-visitDO Amanda Mast Work Phone: [facility] Work Phone: start: 47-66-1762Dne-patient / Non-visitDO Amanda Mast Work Phone: [facility] Work Phone: start: 07-22-2024 End: 65-08-7855Iiwkvghclu and management of inpatientDO Amanda Mast Work Phone: [facility]-[address] [place] [facility] Work Phone: Start: 07-18-2024 End: 58-97-6433Sfvmtpwfk department patient visitERIC E MASTFacility:[facility] HospitalStart: 01-31-4767Hbv-patient / Non-visitDO Amanda Mast Work Phone: [facility] [place] Work Phone: Start: 07-16-2024 End: 81-08-9275Ymhpfzmqo department patient visitERIC E MASTFacility:[facility] Centertart: 97-80-4228Tnb-patient / Non-visitDO Amanda Mast Work Phone: [facility] [place] Work Phone: Start: 07-08-2024 End: 03-71-9834znnqygnqvsZI Amanda Mast Work Phone: [phone] [place] [address] Work Phone: Start: 07-08-2024 End: 91-80-1557Icpbdit encounter procedureDO Amanda Mast Work Phone: [phone]-[facility]-Pre-Surgical Testing Work Phone: Start: 06-25-2024 End: 52-79-7022gcgaznbkuoYE Amanda Mast Work Phone: [facility] Work Phone: Start: 06-25-2024 End: 85-80-8054Vgfnonj encounter procedureDO Amanda Mast Work Phone: [facility] Neurosurgery Work Phone: start: 06-19-2024 End: 01-99-0452aldfmjognnFI Amanda Mast Work Phone: [facility] Work Phone: Start: 06-19-2024 End: 96-02-6169Pgljqag encounter procedureDO Amanda Mast Work Phone: [facility] Orthopedics Work Phone: Start: 06-16-2024 End: 79-85-5289avdxyvxdouAI Amanda Mast Work Phone: [facility] Work Phone: Start: 06-16-2024 End: 03-71-9395Tihsqll encounter procedureDO Amanda Mast Work Phone: [facility] Work Phone: Start: 06-01-2024 End: 22-19-6576pywvnnsrmoDJ Amanda Mast Work Phone: [facility] Work Phone: Start: 06-01-2024 End: 37-29-7649Nhinzsl encounter procedureDO Amanda Mast Work Phone: [facility] Work Phone: Start: 05-19-2024 End: 05-27-3624bckmnmnblcNRTOCDMN W MURYULIYAot AvailableStart: 05-12-2024 End: 85-18-5528xsmxzdiwboQG Amanda Mast Work Phone: [facility] Work Phone: Start: 05-12-2024 End: 61-37-4667Arjoojt encounter procedureDO Amanda Mast Work Phone: [facility] Orthopedics Work Phone: Start: 42-22-9782Sqqbbyc encounter procedureDO Amanda Mast Work Phone: [facility] [place] [facility] Start: 05-05-2024 End: 29-03-0089Vxnovbyz ReferredDO Amanda Mast Work Phone: [facility] [place] Work Phone: Start: 05-05-2024 End: 39-22-7559ikelnjssllVB Amanda Mast Work Phone: [phone] [place] [address] Ctr Work Phone: Start: 04-14-2024 End: 85-54-7949wlutoydnxhII Amanda Mast Work Phone: [phone] [place] [address] Med Center Work Phone: Start: 04-14-2024 End: 23-10-2661Xhmftas encounter procedureDO Amanda Mast Work Phone: [facility] Work Phone: start: 04-01-2024 End: 04-67-0253mljtxekatvVF Amanda Mast Work Phone: [phone] [place] [address] Work Phone: Start: 04-01-2024 End: 95-85-5742Lbcqakp encounter procedureDO Amanda Mast Work Phone: [phone] [place] [address] Ctr-[facility] [place] Work Phone: Start: 03-27-2024 End: 16-92-1913obekbxfmleEE Amanda Mast Work Phone: [facility] Work Phone: Start: 03-27-2024 End: 46-78-5502Qqmbdxi encounter procedureDO Amanda Mast Work Phone: [facility] Work Phone: Start: 03-17-2024 End: 67-73-2739monwnnetrtIH Amanda Mast Work Phone: [facility] Work Phone: Start: 03-17-2024 End: 47-27-2255Avgdtnu encounter procedureDO Amanda Mast Work Phone: [facility] Work Phone: Start: 03-12-2024 End: 64-56-8781okkvrjehfsDV Amanda Mast Work Phone: [phone] [place] [address] Work Phone: Start: 03-12-2024 End: [id number] encounter procedureDO Amanda Mast Work Phone: [phone] [place] [address]-[facility] [place] Work Phone: Start: [id number]-patient / Non-visitDO Amanda Mast Work Phone: [phone] Work Phone: Start: 02-27-2024 End: [id number] Amanda Mast Work Phone: [phone] Work Phone: Start: 02-27-2024 End: 24-78-8791Bznlsgx encounter procedureDO Amanda Mast Work Phone: [phone]-[facility] Work Phone: Start: 02-25-2024 End: 28-20-5607emblguirvbDV Amanda Mast Work Phone: [facility] Work Phone: Start: 02-25-2024 End: 61-79-8209Xmgmomy encounter procedureDO Amanda Mast Work Phone: [facility] [place] Work Phone: Start: 02-24-2024 End: 55-49-9841grjluhmnntJI Amanda Mast Work Phone: [facility] Work Phone: Start: 02-24-2024 End: 47-89-5797Xqlsrtq encounter procedureDO Amanda Mast Work Phone: [facility]-Ul[facility]ound [facility] [place] Work Phone: Start: 02-18-2024 End: 17-66-4738gyjooljuwdAW Amanda Mast Work Phone: [facility] Work Phone: Start: 02-18-2024 End: 24-79-8377Fymdhrg encounter procedureDO Amanda Mast Work Phone: [facility] [place] [facility] Work Phone: Start: 02-04-2024 End: 14-60-7402rvptnmazcuJW Amanda Mast Work Phone: [facility] Work Phone: Start: 02-04-2024 End: 14-55-7451Bmbsvcs encounter procedureDO Amanda Mast Work Phone: [facility] Work Phone: start: 12-24-2023 End: 34-79-5647Wxilfgm encounter procedureDO Amanda Mast Work Phone: [facility] [place] Work Phone: Start: 12-19-2023 End: 75-99-4821hlzjdomicuPG Amanda Mast Work Phone: [facility] Work Phone: Start: 12-19-2023 End: 70-93-8113Masttbsj ReferredDO Amanda Mast Work Phone: [facility] [place] Work Phone: Start: 12-19-2023 End: 67-04-6118ulcjbhpehsNZ Amanda Mast Work Phone: [facility] Work Phone: Start: 12-19-2023 End: 92-47-0447Seswhfs encounter procedureDO Amanda Mast Work Phone: [facility] Work Phone: Start: 12-06-2023 End: 37-83-4235xdqixtlfjnOwfjvhs Springer Other [employer] Other start: 10-70-6178Ppdvfg outpatient visit 25 minutes Juanita AyalaAfsaneh [facility] NeurosurgeryStart: 12-03-2023(Procedure) Short Jamie [facility] Medical OutPtStart: 12-03-2023 End: 34-39-9824Gdszvsqyk to same day surgery centerDO Amanda Mast Work Phone: [facility] Work Phone: Start: 12-03-2023 End: 64-01-6207fgddutgghnWZ Amanda Mast Work Phone: [facility] Work Phone: Start: 11-19-2023 End: 51-74-6150uqdhqpiypkZzbhkw Felter Other [employer] Other Start: 89-76-7639Obpwkp outpatient visit 25 minutes Jamie [facility] [place]: 12-08-5351Ppphoxbco encounter Jamie [facility] [place]Start: 11-19-2023 End: 00-59-7509Zlammnk encounter procedureDO Amanda Mast Work Phone: [facility]-Start: 11-16-2023 End: 98-75-5056alvsamqfvxBO Amanda Mast Work Phone: [facility] Work Phone: Start: 11-16-2023 End: 20-31-6408Frdvehv encounter procedureDO Amanda Mast Work Phone: [facility]MRI [facility] [place] Work Phone: Start: 53-72-6758Boiipr outpatient new 45 minutes Juanita [facility] NeurosurgeryStart: 10-30-2023 End: 84-64-2172uhngmgctlfBF Amanda Mast Work Phone: [facility] Work Phone: Start: 10-30-2023 End: 95-90-7260Kldnxdl encounter procedureDO Amanda Mast Work Phone: [facility]-XRay [facility] [place] Work Phone: Start: 10-30-2023 End: 24-20-6237Nxtzwlb encounter procedureDO Amanda Mast Work Phone: [facility] Work Phone: start: 10-16-2023 End: 87-23-4206sjyavzhbhaHrrpazv Calvey Other [employer] Other Start: 60-11-2005Pwvibt outpatient visit 25 minutes Lilly [facility]CHANDLER [facility]icsStart: 10-11-2023 End: 19-04-5814eayrycqljyRvwpka Felter Other [employer] Other Start: 25-48-4809Geowimbii encounterThomas FelterFPG [facility] [place]Start: 08-29-2023 End: 39-99-2351ugleyrbgswCxqb Mast Other [employer] Other Start: 81-97-6109Vxhunhq encounter procedureEric Mast [facility] [place]Start: 08-29-2023 End: 77-64-6822Xglhypr encounter procedureDO Amanda Mast Work Phone: [facility] [place] Work Phone: Start: 08-21-2023 End: 32-67-3451rvzhimfwhmHzhm Mast Other [employer] Other Start: 69-09-8110Dhluztfwh encounterEric MastFP[facility] [place]Start: 08-06-2023 End: 81-47-6191rcsinnxlvqVrlchl Felter Other [employer] Other Start: 83-40-1097Sgizgs outpatient visit 25 minutes Jamie FelterFP[facility] [place]Start: 71-93-1104Uukykrfik encounter Jamie FelterFPG [place] OrthopedicsStart: 08-05-2023 End: 57-95-9618nfdauojwruPlhdko Felter Other [employer] Other Start: 51-81-2844Fwryuyrxv encounterThomas FelterFP[facility] [place]Start: 05-29-2023 End: 80-00-9863wvnqbzmrbaHgir Mast Other [employer] Other Start: 73-93-3011Nkrwguylk encounterEric MastFP[facility] [place]Start: 05-15-2023 End: 93-20-7191celmazxeilRvulzlf Morales Other [employer] Other Start: 14-07-3479Irrgbv outpatient visit 15 minutes Lilly CalvbriaFPG [place] [facility]opedicsStart: 04-16-2023 End: 82-37-5892fqfploqezfItpy Hair Other [employer] Other start: 78-61-5593Rbypvi outpatient visit 15 minutes Artie HairFPAfsaneh [facility] NeurosurgeryStart: 03-27-2023 End: 35-16-0038outiaanoiwPsseih Felter Other [employer] Other Start: 07-05-8502Pkyxlxikh encounterThomas FelterFP[facility] [place]Start: 03-04-2023 End: 68-38-9308mcuqvmizjfJqlcjzfe Elvin Other [employer] Other Start: 24-51-1868Zwfvof outpatient visit 15 minutes Trixie OconnorFPChoate Memorial Hospital OrthopedicsStart: 01-10-2023 End: 75-37-9270hmknmcatkrKayhvj Felter Other [employer] Other Start: 71-58-5178Kjcbvuncj encounterThomas FelterFPG [place] [facility]opedicsStart: 01-08-2023 End: 53-59-6680feyygszquzEsydki Felter Other [employer] Other Start: 18-02-7653Nfnppxrlb encounterThomas FelterFP[facility] [place]Start: 01-07-2023 End: 38-36-3436brswnlaeqcGylx Mast Other [employer] Other Start: 04-38-7034Deblgolcc encounterEric MastFP[facility] [place]Start: 12-19-2022 End: 44-29-8757tvvdlgttmeXoqxep Peña COTA Other [employer] Other Start: 08-60-1790Uvhqmy outpatient visit 15 minutes Baljit Pompa IIFPG [place] [facility]opedicsStart: 12-17-2022 End: 35-21-1646xpxcttvzbiVrzspy Felter Other [employer] Other Start: 59-50-8641Ymdyoaejn encounterThomas FelterFPG [place] [facility]opedicsStart: 12-03-2022 End: 05-81-8231Irxehapap to same day surgery centerDO Amanda Mast Work Phone: [facility] Work Phone: Start: 12-03-2022 End: 72-33-6626ldvksaoggzND Amanda Mast Work Phone: [facility] Work Phone: Start: 11-07-2022 End: 71-28-2192yswcgyarfpNayvzcyc Kaple Other [employer] Other Start: 16-56-9021Nfeqga outpatient visit 25 minutes Trixie L[facility]CH[facility] Medicine [place]Start: 10-04-2022 End: 45-12-8208dmlsgqqnhlFlnfwi Wilbarger II Other [employer] Other Start: 09-09-7223Suytrursn encounterRobert Wilbarger II [facility] [place] [facility]icsStart: 09-27-2022 End: 02-00-4837fnohomdnraPnys Mast Other [employer] Other Start: 01-67-1086Fpqdckhci encounterEric MastFP[facility] [place]Start: 09-26-2022 End: 53-31-3533xhnroosiohLN Amanda Mast Work Phone: [facility] Work Phone: Start: 09-26-2022 End: 51-92-8941Iymykma encounter procedureDO Amanda Mast Work Phone: [facility] Start: 09-11-2022 End: 37-81-3719xqmqsqebgzPshbyc Wilbarger II Other [employer] Other Start: 46-33-5059Pzdwyg outpatient visit 25 minutes Baljit Broussardisle IIFPG [facility]icsStart: 09-11-2022 End: 60-62-3367Wybpgws encounter procedureDO Amanda Mast Work Phone: [facility] [place] [facility] Start: 08-28-2022 End: 15-31-5693aasmogawfkIhvv Mast Other [employer] Other Start: 82-59-9622Fiarnhh encounter procedureEric Mast [facility] [place]Start: 08-27-2022 End: 17-20-1305sxdulbulouQybtblm Diheathery Other [employer] Other Start: 53-92-8798Ywicntyxh encounterCameron DittyFPG Referral CoordinatorStart: 08-17-2022 End: 22-95-5802zmjkrqjvelRwaoxhv Morales Other [employer] Other Start: 46-93-9544Vafmla outpatient visit 15 minutes Lilly Castelan [facility]icsStart: 08-03-2022 End: 22-42-9270dsdmwlpofjCtvd Mast Other [employer] Other Start: 59-20-5844Nxhlklvie encounterEric MastFP[facility] [place]Start: 07-27-2022 End: 26-27-6499mmckucrafhYswf Mast Other [employer] Other Start: 62-69-5128Ptrlypcux encounterEric MastFP[facility] [place]Start: 06-06-2022 End: 08-28-5825lptjupozjiHpaibt Felter Other [employer] Other Start: 88-22-2559Rxxvgyntt encounterThomas FelterFPG [place] [facility]icsStart: 06-01-2022 End: 78-17-3472ctgxlfdcasWlzspc Wilbarger II Other [employer] Other Start: 51-07-2431Arxvfj outpatient new 45 minutes Baljit Wilbarger IIFPG [facility] OrthopedicsStart: 77-49-6590Hnezsq outpatient visit 25 minutesCokathiemmy CalveyFPG [facility]opedicsStart: 06-01-2022 End: 92-30-7953Sbibbqk encounter procedureDO Amanda Mast Work Phone: [facility] [place] [facility] Start: 05-28-2022 End: 23-16-8526byblgzlypmPzisft Felter Other [facility] [employer] Other Start: 29-77-1778Alirpbamh encounterThomas FelterFPG [place] [facility]opedicsStart: 05-25-2022 End: 37-57-5834Jfjxkvycnk RecurringDO Amanda Mast Work Phone: [facility]-Infusion Therapy - O/P Start: 05-10-2022 End: 06-82-5333Bmbfuca encounter procedureDO Amanda Mast Work Phone: [facility]: 05-03-2022 End: 68-39-1773kqjbirszpuTusa Mast Other [facility] [employer] Other Start: 04-95-6357Ifaanecsc encounterEric MastFP[facility] [place]Start: 04-26-2022 End: 19-71-2399mfcketanddYzek Hair Other [facility] [employer] Other start: 28-77-1153Bkhfso outpatient visit 15 minutes Artie Diana [facility] NeurosurgeryStart: 04-26-2022 End: 15-25-6598Adgcazl encounter procedureDO Amanda Mast Work Phone: [facility] CampusStart: 04-11-2022 End: 84-53-8140zyjmflwgrqOpvimoz Morales Other [employer] Other Start: 78-61-9538Zuuvsw outpatient visit 15 minutes Lilly NielsenFPG [place] [facility]icsStart: 04-11-2022 End: 04-44-7330Ocbuafz encounter procedureDO Amanda Mast Work Phone: [facility] [place] [facility] Start: 03-14-2022 End: 97-46-6837nxaykayhyoUqmslw Felter Other [employer] Other Start: 62-84-9255Dnplkh outpatient visit 25 minutes Jamie A[facility]zquita [facility] [place]Start: 03-05-2022 End: 27-37-0896owoautmtmcFbsxth Felter Other [employer] Other Start: 81-09-8449Xywosjfcv encounterThomas FelterFPG [place] [facility]opedicsStart: 02-12-2022 End: 90-73-1054qsxvtsowcjTdrorv Felter Other [employer] Other Start: 46-69-9597Ltgivaxbx encounterThomas FelterFPG [place] [facility]icsStart: 01-23-2022 End: 85-26-8721nzampityfzKoxqem Olexa Other [employer] Other Start: 95-63-3482Vmyfdy outpatient visit 15 minutes Jamie Saul [place] [facility]icsStart: 66-28-8278Ipjqwaitz encounterThomas OlexaFPG Referral CoordinatorStart: 01-09-2022 End: 99-61-1203mngrtxnytgXtqbsft Calvey Other [employer] Other Start: 62-12-3640Cssjbi outpatient visit 25 minutes Lilly HoyoseyFP [place] [facility]icsStart: 11-22-2021 End: 17-51-1499wkthfqyobbNpgvbkqa Kaple Other [facility] [employer] Other Start: 81-05-2214Ligoegrdy encounterJennifer KapleFPG [facility] Medicine [place]izabethyStart: 11-02-2021 End: 96-50-0701yeugqbazmlKdvx Mast Other [facility] [employer] Other Start: 43-01-4125Ycmiie outpatient visit 15 minutes Artie LaxmiMonroe [facility]ll [facility] NeurosurgeryStart: 92-62-6873Irihqxftx encounterEric MastFPG [facility] CenteryStart: 10-03-2021 End: 27-50-8862mcbncgmvfsHzqs Mast Other [employer] [facility] [employer] Other Start: 53-91-9148Fgviboivz encounterEric MastFPG Primary CareStart: 10-02-2021 End: 53-04-5560yjgmiuinwgVbffymjl Kaple Other [facility] [employer] Other Start: 74-87-4337Jjnapb outpatient visit 15 minutes Trixie FabienneG Family Medicine [facility] Specialty CenteryStart: 09-05-2021 End: 99-85-6794erptobbwucVtblqf Felter Other [facility] [employer] Other Start: 24-82-0410Xmgpnkpqp encounterThomas FelterFPG [place] [facility]icsStart: 08-31-2021 End: 58-67-7316mwbvmytkkjYnslgydz [place] Other [facility] [employer] Other Start: 70-83-0367Pxfqzd outpatient visit 15 minutes Trixie OconnorFPAfsaneh Fuentes OrthopedicsStart: 32-24-5822Knlcat outpatient visit 15 minutesThomas FelterFP[facility] [place]Start: 56-17-5959Ifmqoc outpatient visit 15 minutesDale BraunFPG [facility] NeurosurgeryStart: 37-00-5767Xvjsbahpo encounterThomas FelterFPG [place] [facility] Procedures DateProcedureProcedure DetailPerforming ClinicianStart: 08-11-2025 Ultrasonography of liverEric Mast DO Work Phone: Start: 53-97-6333M-ray of lumbar spine, four viewsEric Mast DO Work Phone: Start: 02-78-0275N-ray of lumbar spine, four viewsEric Mast DO Work Phone: Start: 77-55-7683Iargiqzeu mammography of bilateral breastsEric Mast DO Work Phone: start: 68-77-0365U-ray of lumbar spine, two or three viewsEric Mast DO Work Phone: Start: 93-45-4856T-ray of lumbar spine, two or three viewsEric Mast DO Work Phone: Start: 54-90-2081Z-ray of lumbar spine, two or three viewsDO Amanda Mast Work Phone: Start: 14-62-0303VU XLIF Lumbar Lateral Interbody Fusion (Not Applicable)DO Amanda Mast Work Phone: start: 70-58-2283Y-ray of lumbar spine, two or three viewsDO Amanda Mast Work Phone: start: 93-55-7377V-ray of lumbar spine, four viewsDO Amanda Mast Work Phone: start: 64-76-0697Efddevknwoseyra of liverDO Amanda Mast Work Phone: Start: 00-70-6595RT scan of thyroidDO Amanda Mast Work Phone: Start: 40-45-8430BY of soft tissues of neck with contrastDO Amanda Mast Work Phone: Start: 15-00-3797Vccjghubh mammography of bilateral breastsDO Amanda Mast Work Phone: Start: 77-19-0931Qqhff volume recorder pneumoplethysmographyDO Amanda Mast Work Phone: Start: 50-94-0986Izccvut microbial cultureDO Amanda Mast Work Phone: Start: 41-03-7060Dwxnn X-ray of left hipDO Amanda Mast Work Phone: Start: 46-77-2956Gndyvuumk of local anesthetic into sacroiliac jointDO Amanda Mast Work Phone: Start: 62-11-3848EED of lumbar spine with contrastDO Amanda Mast Work Phone: Start: 60-10-0284Mxlod chest X-rayDO Amanda Mast Work Phone: Start: 62-62-1197E-ray of lumbar spine, six views including bending viewsDO Amanda Mast Work Phone: Start: 69-75-0298Pgefnorqn colonoscopyDO Amanda Mast Work Phone: Start: 24-37-3001Npelymqle mammography of bilateral breastsDO Amanda Mast Work Phone: Start: 57-17-8590C[employer] energy X-ray absorptiometryDO Amanda Mast Work Phone: Start: 28-95-3461S-ray of left ankleDO Amanda Mast Work Phone: Start: 37-94-9920Ygvbq x-ray of pelvis and lower extremityDO [employer] Work Phone: Start: 98-93-6698B-ray of lumbar spine, four viewsDO Amanda Eventfinda Work Phone: Start: 63-60-9940Ushzk X-ray of bilateral handsDO [employer] Work Phone: History of operative procedure on kneeThomas Felter Other Plan of Treatment DateCare ActivityDetailAuthorStart: 25-77-8890O-ray of lumbar spine, four views XR lumbar spine AP/LAT/FLX/EXTSelect Medical OhioHealth Rehabilitation Hospitaltart: 04-20-2025 End: 67-74-3597Ybncwdf encounter procedureNOMS ENT SANDUSKYComment on above: ArrivedStart: 52-81-1616W-ray of lumbar spine, four viewsXR lumbar spine AP/LAT/FLX/EXTSelect Medical OhioHealth Rehabilitation Hospitaltart: 67-74-2271UK Lumbar spine 4 ViewsSelect Medical OhioHealth Rehabilitation Hospitaltart: 04-05-2025 End: 94-96-9623TxtvglfwvctkjYumuqtluvwllh Lab Routine Status post partial thyroidectomy ([facility]) Expected: 04/05/2025 (Approximate), Expires: 12/01/2025 [facility] HealthcareComment on above:Expected: 04/05/2025 (Approximate), Expires: 12/01/2025Start: 04-05-2025 End: 40-92-5539Gptsnuwrejx [Units/volume] in Serum or PlasmaNOMS Healthcare Comment on above:Expected: 04/05/2025 (Approximate), Expires: 12/01/2025Start: 04-05-2025 End: 37-43-9484Fqktjkvwvsbhzosb (T3) [Mass/volume] in Serum or PlasmaT3 Lab Routine Status post partial thyroidectomy ([facility]) Expected: 04/05/2025 (Approximate), Expires: 12/01/2025NOMS HealthcareComment on above:Expected: 04/05/2025 (Approximate), Expires: 12/01/2025Start: 02-15-2025 End: 38-85-1577Bcvaazdejds [Units/volume] in Serum or PlasmaNOMS Healthcare Work Phone: comment on above:Expected: 02/15/2025 (Approximate), Expires: 12/01/2025Start: 02-15-2025 End: 85-00-8986Bdkkixzymluvxbdn (T3) [Mass/volume] in Serum or PlasmaT3 Lab Routine Status post partial thyroidectomy (CMS/HCC) Expected: 02/15/2025 (Approximate), Expires: 12/01/2025NOMS HealthcareComment on above:Expected: 02/15/2025 (Approximate), Expires: 12/01/2025Start: 48-92-5313Urrmauu referral [facility] Work Phone: Start: 75-15-9000U-ray of lumbar spine, two or three viewsXR lumbar spine 2-3V*[facility] Hospitaltart: 87-49-7820BD Lumbar spine 2 or 3 ViewsSelect Medical OhioHealth Rehabilitation Hospitaltart: 12-01-2024 End: 36-34-7031YlzmvtsnhcmezQqekptdcwwfia Lab Routine Status post partial thyroidectomy (CMS/HCC) Expected: 12/01/2024 (Approximate), Expires: 12/01/2025 NOMS HealthcareComment on above:Expected: 12/01/2024 (Approximate), Expires: 12/01/2025Start: 12-01-2024 End: 25-87-8227Ztunpie encounter procedureNOMS ENT SANDUSKYComment on above: ArrivedStart: 11-20-2024 End: 78-80-9343Cavithzwhkq [Units/volume] in Serum or PlasmaNOMS Healthcare Comment on above:Expected: 11/20/2024 (Approximate), Expires: 10/20/2025Start: 11-20-2024 End: 65-62-1562Oxxovgcsckakcype (T3) [Mass/volume] in Serum or PlasmaT3 Lab Routine Status post partial thyroidectomy (CMS/HCC) Expected: 11/20/2024 (Approximate), Expires: 10/20/2025[facility] Work Phone: Comment on above:Expected: 11/20/2024 (Approximate), Expires: 10/20/2025Start: 10-20-2024 End: 85-72-2436Oykktdr encounter syvcehouy31/24/2024 9:45 AM EST Office Visit [facility] MAGGIE ABREUUSKY [address] [place] [phone] Pascual Thornton, DO [address] [place] [address] [facility] SANDUSKYStart: 10-07-2024 End: 82-86-0503Bqsrknj encounter fqhedyubo51/11/2024 1:45 PM EST Office Visit [facility] MAGGIE ABREUUSKY [address] [place] [phone] Pascual Thornton, DO [address] [place] [address] [facility] SANDUSKYStart: 09-14-2024 End: 19-56-1303Feadfvx encounter /18/2024 2:45 PM EST Office Visit [facility] MAGGIE ABREUUSKY [address] [place] [phone] Pascual Thornton, DO [address] [place] [address] ArrivedNOMS ENT SANDUSKYComment on above:ArrivedStart: 09-01-2024 End: 25-97-1444Zrhxtlq encounter ahaqkvnuh39/05/2024 8:00 AM EST Office Visit [facility] [place] [address] [place] [phone] Pascual Thornton, DO [address] [place] [address] ArrivedNOMS ENT SANDUSKYComment on above:ArrivedStart: 02-46-9731Y-ray of lumbar spine, two or three viewsXR lumbar spine 2-3V* [facility] Hospitaltart: 30-54-4847NQ Lumbar spine 2 or 3 Views [facility] Hospitaltart: 29-77-3098DzvsjkedjSelect Medical OhioHealth Rehabilitation Hospitaltart: 12-89-4563Giymmire to clinical allergistSelect Medical OhioHealth Rehabilitation Hospitaltart: 47-15-5985Lwrazect admissionSelect Medical OhioHealth Rehabilitation Hospitaltart: 84-83-4797DrgruniopSelect Medical OhioHealth Rehabilitation Hospitaltart: 45-99-6662Isdkpwaa to rehabilitation physicianSelect Medical OhioHealth Rehabilitation Hospitaltart: 63-17-4317Cqkkqs of 2 or more Lumbar Vertebral Joints with Interbody Fusion Device, Anterior Approach, Anterior Column, Open ApproachFusion of 2 or more Lumbar Vertebral Joints with Interbody Fusion Device, Anterior Approach, Anterior Column, Open ApproachSelect Medical OhioHealth Rehabilitation Hospitaltart: 09-54-5716Wnrutcontosu of Recombinant Bone Morphogenetic Protein into Joints, Open ApproachIntroduction of Recombinant Bone Morphogenetic Protein into Joints, Open ApproachSelect Medical OhioHealth Rehabilitation Hospitaltart: 82-23-7132Ipzrojw of Internal Fixation Device from Lumbar Vertebral Joint, Percutaneous ApproachRemoval of Internal Fixation Device from Lumbar Vertebral Joint, Percutaneous ApproachSelect Medical OhioHealth Rehabilitation Hospitaltart: 68-05-1737Cwzqwyxp admissionSelect Medical OhioHealth Rehabilitation Hospitaltart: 66-17-7510H-ray of lumbar spine, two or three viewsXR lumbar spine 2-3V*[facility] Hospitaltart: 44-15-1045LP Lumbar spine 2 or 3 ViewsSelect Medical OhioHealth Rehabilitation Hospitaltart: 88-89-1862Mogqd X-ray of right shoulderXR shoulder RT min 2V*[facility] Hospitaltart: 05-12-2024 XR Shoulder - right ViewsSelect Medical OhioHealth Rehabilitation Hospitaltart: 88-41-7828Z-ray of lumbar spine, four viewsXR lumbar spine AP/LAT/FLX/EXTSelect Medical OhioHealth Rehabilitation Hospitaltart: 01-99-6455Eqlkrkyjh B core antibody measurementSelect Medical OhioHealth Rehabilitation Hospitaltart: 53-88-7018Miswziadq B virus surface Ab [Presence] in SerumSelect Medical OhioHealth Rehabilitation Hospitaltart: 26-37-7423CldizopmvSelect Medical OhioHealth Rehabilitation Hospitaltart: 45-43-9176Lniguah referralPromedica Fostoria Community Hospital Work Phone: Start: 61-15-0934Sxdwkfp referralPromedica Fostoria Community Hospital Work Phone: Start: 03-38-7310Jbwam volume recorder pneumoplethysmographyUS arterial pvr rest [facility] Start: 99-13-3369FksaqpwbuSelect Medical OhioHealth Rehabilitation Hospitaltart: 46-62-7355Bcffbmc [facility] Work Phone: Start: 48-47-3903Xmcbqigmfjo Wound CultureSuperficial Wound CultureSelect Medical OhioHealth Rehabilitation Hospitaltart: 41-20-2709Bnzej X-ray of left hipXR hip LT min 2V(w/wo pelvis)*[facility] Hospitaltart: 27-29-3759ZO Hip - left 2 ViewsSelect Medical OhioHealth Rehabilitation Hospitaltart: 63-46-8754UwoohhhmlSelect Medical OhioHealth Rehabilitation Hospitaltart: 74-36-3301PB Lumbar spine WO and W contrast [facility]: 58-57-9202SNL of lumbar spine with contrastMR lumbar spine wo/w [facility] Start: 55-24-7726KaaizzbkwSelect Medical OhioHealth Rehabilitation Hospitaltart: 23-53-7892Hjqsz x-ray of pelvis and lower extremityXR hip BI w SLE3TUyogcdttjTwin City Hospital Start: 06-01-2022 End: 75-56-7953Oloffuc encounter procedureDeparted ClinicalAvita Health System Ctr-XRay [place] OrthoStart: 03-60-4127Jhgtjbyho for malignant neoplasm of breastMammogramNOMS HealthcareStart: 42-71-5803Nftixdoul for malignant neoplasm of colonNOMS HealthcareBacteria identified in Unspecified specimen by Aerobe cultureTwin City HospitalCT Neck WO contrastTwin City HospitalDXA Skeletal system.axial Views for bone densityTwin City HospitalHepatitis B core antibody measurementTwin City HospitalHepatitis B virus surface Ab [Presence] in SerumTwin City HospitalHepatitis B virus surface Ag [Presence] in Serum or Plasma by ImmunoassayTwin City HospitalHepatitis C virus IgG Ab [Presence] in Serum or Plasma by ImmunoassayTwin City HospitalPatient EducationAvita Health System Ctr Work Phone: Patient referralAvita Health System Ctr Work Phone: Thyroglobulin Ab [Units/volume] in Serum or Plasma [facility] HospitalUS LiverTwin City HospitalUS Thyroid glandTwin City HospitalXR Lumbar spine 2 or 3 Views [facility] HospitalXR Lumbar spine 4 ViewsTwin City HospitalXR Lumbar spine Single [facility] [place] Immunizations Immunization DateImmunizationNotesCare VhrcmzqdVoxbpnqh07-72-5825xwtrfrtxx, high dose seasonal, preservative-freeDO Amanda Mast Work Phone: [facility]09-19-2024tetanus toxoid, reduced diphtheria toxoid, and acellular pertussis vaccine, adsorbed Pascual Murcek DO Work Phone: [facility] HospitalBoyadjfqaa49-33-3577ikwjvotqn, injectable, quadrivalent, preservative freeEric Mast Other [facility]11-01-2022influenza, high dose seasonal, preservative-freeEric Mast Other [facility] Other [id number] virus vaccine, unspecified formulationDO Amanda Mast Work Phone: [facility]11-01-2022Influenza, High-dose Seasonal, Quadrivalent, Preservative FreeBenjamin Murcek DO Work Phone: [facility] HospitalEosuigpuos63-00-5526QHOGD-28 Moderna (BIvalent) Amanda Mast Other [facility]11-17-2021COVID-19 Vaccine Moderna - Documentation Purposes OnlyEric Mast Other [facility]10-27-2021Kenalog -40 mgThomas Felter Other [employer] Other [id number], injectable, quadrivalent, contains preservativeBenjamin Murcek DO Work Phone: [facility] HospitalQxqdpxveim73-17-7266eqpmeqswt, seasonal, injectableEric Mast Other [facility]08-18-2021Kenalog -40 mgThomas Felter Other [employer] Other [id number] -40 mgThomas Felter Other [employer] Other [id number]-75 Vaccine Moderna - Documentation Purposes OnlyThomas Felter Other [facility]02-25-2021COVID-19 Vaccine Moderna - Documentation Purposes OnlyThomas Felter Other [facility]01-26-2021Kenalog -40 mgThomas Felter Other [employer] Other 10-349958-25-2346pfhogqpxe, high dose seasonal, preservative-freeThomas Felter Other [employer] Other 10-532721-59-5482lqkqlrdyz virus vaccine, unspecified formulationDO Amanda Mast Work Phone: [facility]10-29-2020Influenza, High-dose Seasonal, Quadrivalent, Preservative FreeBenjamin Murcek DO Work Phone: [facility] HospitalRkmavflocg96-17-4556Vhtxtsv -40 mgThomas Felter Other [employer] Other [id number] -40 mgThomas Felter Other [employer] Other 10999200-79-3326xwyllfcip virus vaccine, unspecified formulationDO Amanda Mast Work Phone: [facility]10-21-2019 pneumococcal polysaccharide vaccine, 23 valentThomas Felter Other [facility]10-21-2019influenza, high dose seasonal, preservative-freeThomas Felter Other [employer] Other 09-427170-05-2654Mfglvem -40 mgThomas Felter Other [employer] Other 48-36766249-37-5559Ouofnap -40 mgThomas Felter Other [employer] Other 02-039315-72-0077Xrotqew -40 mgThomas Felter Other [employer] Other 01123122-41-4312Jmbpbwh -40 mgThomas Felter Other [employer] Other 11108495-37-5398Qvrffpk -40 mgThomas Felter Other [employer] Other 45-10172066-73-6592Heohvrz -40 mgThomas Felter Other [employer] Other 10231920-04-3005uhbpvjodr virus vaccine, unspecified formulationDO Amanda Mast Work Phone: [facility]10-01-2018 pneumococcal conjugate vaccine, 13 valentThomas Felter Other [facility]10-01-2018influenza, high dose seasonal, preservative-freeThomas Felter Other [employer] Other 04-415315-92-5577Npzidkx -40 mgThomas Felter Other [employer] Other 09-565834-76-4888ogbahrpjt, high dose seasonal, preservative-freeThomas Felter Other [employer] Other 09-827155-69-1155oonwywmup virus vaccine, unspecified formulationDO Amanda Mast Work Phone: [facility]02-16-2017Kenalog -40 mgThomas Felter Other [employer] Other 10725358-56-9196iniaifsdy, injectable, quadrivalent, contains preservativeDO Amanda Mast Work Phone: [facility]10-08-2014influenza, injectable, quadrivalent, preservative freeThomas Felter Other [employer] Other Payers DatePayer CategoryPayerPolicy [id number] Health InsuranceAARP ..[id number] 2017MedicareMEDICARE Member Subscriber Plan / Payer (Effective 2016-Present) Name: Yolis Florez Member ID: [id number] Relation to Subscriber: Self Name: Yolis Florez Subscriber ID: [id number] Payer ID: STATE Group ID: Not on file Type: Medicare Address: [address] [id number] [id number] [id number] 2.16840.1.516042.3.57[id number] 2.16840.1.165634.3.57[id number] 2.16.840.1.208343.3.57[id number] 2.16.840.1.961212.3.57[id number] 2.16840.1.166223.3.579.2.[id number] 2.16840.1.859039.3.57[id number] 2.16.840.1.286502.3.57[id number] 2.16840.1.831833.3.57[id number] 2.16840.1.187925.3.579.2.[id number] 2.16840.1.118206.3.57[id number] 2..1.564824.3.579.2.[id number] 2..1.054443.3.579.2.1259MedicareMedicare-[facility] Part [id number] 2.0.1.263[id number] 2..1.811259.3.579.2.531 [id number] 2..1.5[id number] 2..1.367150.3.579.2.883Dtekyre32704810 2.0.1.768465.3.579.2.531 [id number] 2.840.1.9[id number] 2..1.602731.3.579.2.131Qsrdnzx03998926 2.840.1.312653.3.579.2.531 [id number] 2.840.1.899[id number] 2.840.1.2703[id number] 2.840.1.872640.3.579.2.531 [id number] 2.0.1.03784[id number] 2.84.1.489440.3.579.2.125Jczqyfl09302235 ..840.1.930963.3.579.2.531 [id number] ..840.1.729127.3.579.2.531 Social History DateTypeDetailFacilityUnknown if ever smokedCl[facility] Other Start: 05-19-2024 End: 37-43-6845Gct Assigned At [facility] [employer] [facility] Other Start: 04-17-2021 End: 87-52-8272Hqaonhc smoking status NHISNever smoked tobacco (finding) [facility]: 22-87-2965Tjf Assigned At [facility]FeC[facility] Hospitaltart: 05-19-2024 End: 17-86-3548Wmzsoti of Social functionNOMS HealthcareStart: 85-44-2719Mur assigned at birthNot on fileNOMS HealthcareStart: 93-54-2820Vqzyppp use and exposureSmokeless tobacco non-userNOMS HealthcareStart: 10-20-2024 End: 53-54-8338Xemvzlprf beverage intakeCurrent drinker of alcohol (finding)NOMS HealthcareStart: 11-27-2024 End: 27-87-8258SfuOyztny (finding)[facility] Medical Equipment Procedure CodeEquipment CodeEquipment Original TextEquipment IdentifierDates Fusion, spine, lumbar, XLIFSTRATOFUSE DBM 10CCFDAStart: 08-75-1297Mhcaqd, spine, lumbar, XLIFBone-screw internal spinal fixation system, non-sterile ()[id number] FDAStart: 26-98-1706Wccqqw, spine, lumbar, XLIFBone-screw internal spinal fixation system, non-sterile()[id number] FDAStart: 03-31-7447Djddtc, spine, lumbar, XLIFOrthopaedic cement preparation/delivery kit ([id number]; [id number] FDAStart: 07-63-4121Pwagvr, spine, lumbar, XLIFSpinal fusion graft kit ()[id number])[id number] FDAStart: 57-39-7643Vodzqw, spine, lumbar, XLIFMetallic spinal fusion cage, non-sterile()[id number] FDAStart: 24-84-8933Fakhfi, spine, lumbar, XLIFBone-screw internal spinal fixation system, non-sterile()[id number] FDAStart: 48-03-5854Jzcakl, spine, lumbar, XLIFBone-screw internal spinal fixation system, non-sterile()[id number] FDAStart: 04-44-9410Tvwygx, spine, lumbar, XLIFSTRATOFUSE DBM 10CCFDAStart: 53-89-6733Tiudgt, spine, lumbar, XLIFSTRATOFUSE DBM 10CCFDAStart: 04-17-2021 Fusion, spine, lumbar, XLIFSTRATOFUSE DBM 10CCFDAStart: 76-95-2437Xaunob, spine, lumbar, XLIFSTRATOFUSE DBM 10CCFDAStart: 22-61-6564Easlsf, spine, lumbar, XLIF STRATOFUSE DBM 10CCFDAStart: 74-29-7793Ovruoj, spine, lumbar, XLIFSTRATOFUSE DBM 10CCFDAStart: 61-43-0862Yrhguj, spine, lumbar, XLIFSTRATOFUSE DBM 10CCFDAStart: 65-92-7299Sunqxz, spine, lumbar, XLIFSTRATOFUSE DBM 10CCFDAStart: 04-17-2021 Fusion, spine, lumbar, XLIFSTRATOFUSE DBM 10CCFDAStart: 51-30-9470Lduzec, spine, lumbar, XLIFSTRATOFUSE DBM 10CCFDAStart: 54-67-7031Tdzljx, spine, lumbar, XLIF STRATOFUSE DBM 10CCFDAStart: 80-40-7401Zyhziw, spine, lumbar, XLIFSTRATOFUSE DBM 10CCFDAStart: 53-41-5187Piexyh, spine, lumbar, XLIFSTRATOFUSE DBM 10CCFDAStart: 52-33-0318Fxwsio, spine, lumbar, XLIFSTRATOFUSE DBM 10CCFDAStart: 04-17-2021 Fusion, spine, lumbar, XLIFSTRATOFUSE DBM 10CCFDAStart: 21-42-7490Axyqia, spine, lumbar, XLIFSTRATOFUSE DBM 10CCFDAStart: 69-71-2755Xxhyiv, spine, lumbar, XLIF STRATOFUSE DBM 10CCFDAStart: 95-67-8724Vylijm, spine, lumbar, XLIFSTRATOFUSE DBM 10CCFDAStart: 53-83-3891Uiksvw, spine, lumbar, XLIFSTRATOFUSE DBM 10CCFDAStart: 57-31-0475Vjhmcn, spine, lumbar, XLIFSTRATOFUSE DBM 10CCFDAStart: 04-17-2021 Fusion, spine, lumbar, XLIFSTRATOFUSE DBM 10CCFDAStart: 17-56-0475Eaeugv, spine, lumbar, XLIFSTRATOFUSE DBM 10CCFDAStart: 26-08-2496Lbltxj, spine, lumbar, XLIF STRATOFUSE DBM 10CCFDAStart: 19-61-0749Uxrzlg, spine, lumbar, XLIFSTRATOFUSE DBM 10CCFDAStart: 50-34-9440Dtoeuw, spine, lumbar, XLIFSTRATOFUSE DBM 10CCFDAStart: 27-26-2897Dwoetr, spine, lumbar, XLIFSTRATOFUSE DBM 10CCFDAStart: 04-17-2021 Fusion, spine, lumbar, XLIFSTRATOFUSE DBM 10CCFDAStart: 20-17-8261Umldtu, spine, lumbar, XLIFSTRATOFUSE DBM 10CCFDAStart: 74-98-1469Zllwsz, spine, lumbar, XLIF STRATOFUSE DBM 10CCFDAStart: 69-92-6830Wyrkhm, spine, lumbar, XLIFSTRATOFUSE DBM 10CCFDAStart: 05-82-9950Iafvuj, spine, lumbar, XLIFSTRATOFUSE DBM 10CCFDAStart: 15-00-0964Lzsoxr, spine, lumbar, XLIFBone-screw internal spinal fixation system, non-sterile+[id number] FDAStart: 62-65-5506Evtldy, spine, lumbar, XLIF Orthopaedic bone screw, non-bioabsorbable, non-sterile+[id number] FDAStart: 29-52-1333Xwpukx, spine, lumbar, XLIFBone-screw internal spinal fixation system, non-sterile+[id number] FDAStart: 56-78-3340Vioztm, spine, lumbar, XLIF STRATOFUSE DBM 5CCFDAStart: 19-38-6319Gwuflg, spine, lumbar, XLIFSpinal fusion graft kit()[id number])[id number] FDAStart: 12-12-8755Oamtek, spine, lumbar, XLIFMetallic spinal fusion cage, non-sterile()[id number] FDAStart: 27-91-7260Gprkss, spine, lumbar, XLIFSTRATOFUSE DBM 10CCFDAStart: 79-17-9343Imhmuo, spine, lumbar, XLIFSTRATOFUSE DBM 10CCFDAStart: 07-22-2024 Fusion, spine, lumbar, XLIFSTRATOFUSE DBM 5CCFDAStart: 56-44-2142Uqiyeh, spine, lumbar, XLIFSTRATOFUSE DBM 10CCFDAStart: 12-53-8369Tpohcn, spine, lumbar, XLIF STRATOFUSE DBM 10CCFDAStart: 43-20-9327Zmlwvk, spine, lumbar, XLIFSTRATOFUSE DBM 5CCFDAStart: 40-31-7036Risxad, spine, lumbar, XLIFSTRATOFUSE DBM 10CCFDAStart: 94-63-1387Rnjlap, spine, lumbar, XLIFSTRATOFUSE DBM 10CCFDAStart: 07-22-2024 Fusion, spine, lumbar, XLIFSTRATOFUSE DBM 5CCFDAStart: 30-58-3666Kamjzx, spine, lumbar, XLIFSTRATOFUSE DBM 10CCFDAStart: 01-73-1451Zrkjji, spine, lumbar, XLIF STRATOFUSE DBM 10CCFDAStart: 52-58-9882Yaqgnb, spine, lumbar, XLIFSTRATOFUSE DBM 5CCFDAStart: 64-12-0241Cyelcu, spine, lumbar, XLIFSTRATOFUSE DBM 10CCFDAStart: 04-99-5968Ktolkp, spine, lumbar, XLIFSTRATOFUSE DBM 10CCFDAStart: 07-22-2024 Fusion, spine, lumbar, XLIFSTRATOFUSE DBM 5CCFDAStart: 12-26-5355Yilxzp, spine, lumbar, XLIFSTRATOFUSE DBM 10CCFDAStart: 19-50-9114Ypgypl, spine, lumbar, XLIF STRATOFUSE DBM 10CCFDAStart: 40-51-9743Mzzqap, spine, lumbar, XLIFSTRATOFUSE DBM 5CCFDAStart: 40-34-9889Aogqgs, spine, lumbar, XLIFSTRATOFUSE DBM 10CCFDAStart: 27-95-7678Rgtjdq, spine, lumbar, XLIFSTRATOFUSE DBM 10CCFDAStart: 07-22-2024 Fusion, spine, lumbar, XLIFSTRATOFUSE DBM 5CCFDAStart: 04-55-5867Yizjgn, spine, lumbar, XLIFSTRATOFUSE DBM 10CCFDAStart: 26-67-7052Hfqdtc, spine, lumbar, XLIF STRATOFUSE DBM 10CCFDAStart: 99-29-8738Bdwxhh, spine, lumbar, XLIFSTRATOFUSE DBM 5CCFDAStart: 95-38-9682Modtjk, spine, lumbar, XLIFSTRATOFUSE DBM 10CCFDAStart: 40-40-5519Ltdjjv, spine, lumbar, XLIFSTRATOFUSE DBM 10CCFDAStart: 07-22-2024 Fusion, spine, lumbar, XLIFSTRATOFUSE DBM 5CCFDAStart: 14-20-5798Oapalg, spine, lumbar, XLIFSTRATOFUSE DBM 10CCFDAStart: 44-85-5386Nhsljn, spine, lumbar, XLIF STRATOFUSE DBM 10CCFDAStart: 92-37-8326Lcmtwn, spine, lumbar, XLIFSTRATOFUSE DBM 5CCFDAStart: 05-42-9622Agdtlc, spine, lumbar, XLIFSTRATOFUSE DBM 10CCFDAStart: 16-17-2887Oibzag, spine, lumbar, XLIFSTRATOFUSE DBM 10CCFDAStart: 07-22-2024 Fusion, spine, lumbar, XLIFSTRATOFUSE DBM 5CCFDAStart: 94-87-7791Fqtqoo, spine, lumbar, XLIFSTRATOFUSE DBM 10CCFDAStart: 07-43-1335Tttfyf, spine, lumbar, XLIF STRATOFUSE DBM 10CCFDAStart: 58-85-9047Dsvdkp, spine, lumbar, XLIFSTRATOFUSE DBM 5CCFDAStart: 61-13-8573Qabywd, spine, lumbar, XLIFSTRATOFUSE DBM 10CCFDAStart: 33-37-0406Ywtizn, spine, lumbar, XLIFSTRATOFUSE DBM 10CCFDAStart: 07-22-2024 Fusion, spine, lumbar, XLIFSTRATOFUSE DBM 5CCFDAStart: 06-44-8598Lztjqb, spine, lumbar, XLIFSTRATOFUSE DBM 10CCFDAStart: 05-17-3383Jboxhs, spine, lumbar, XLIF STRATOFUSE DBM 10CCFDAStart: 67-62-2105Nkrbti, spine, lumbar, XLIFSTRATOFUSE DBM 5CCFDAStart: 82-19-8389Dpwvwl, spine, lumbar, XLIFSTRATOFUSE DBM 10CCFDAStart: 99-41-2214Txklwa, spine, lumbar, XLIFSTRATOFUSE DBM 10CCFDAStart: 07-22-2024 Fusion, spine, lumbar, XLIFSTRATOFUSE DBM 5CCFDAStart: 85-51-8489Jhvekb, spine, lumbar, XLIFSTRATOFUSE DBM 10CCFDAStart: 16-37-9576Ttplai, spine, lumbar, XLIF STRATOFUSE DBM 10CCFDAStart: 22-14-9266Njleml, spine, lumbar, XLIFSTRATOFUSE DBM 5CCFDAStart: 62-02-4105Yjhjti, spine, lumbar, XLIFSTRATOFUSE DBM 10CCFDAStart: 91-24-0869Hslczl, spine, lumbar, XLIFSTRATOFUSE DBM 10CCFDAStart: 07-22-2024 Fusion, spine, lumbar, XLIFSTRATOFUSE DBM 5CCFDAStart: 89-53-5855Qlicfm, spine, lumbar, XLIFSTRATOFUSE DBM 10CCFDAStart: 99-91-2281Yltqji, spine, lumbar, XLIF STRATOFUSE DBM 10CCFDAStart: 24-73-0420Jybkco, spine, lumbar, XLIFSTRATOFUSE DBM 5CCFDAStart: 70-73-0336Vntfga, spine, lumbar, XLIFSTRATOFUSE DBM 10CCFDAStart: 25-74-2678Nggzvh, spine, lumbar, XLIFSTRATOFUSE DBM 10CCFDAStart: 07-22-2024 Fusion, spine, lumbar, XLIFSTRATOFUSE DBM 5CCFDAStart: 94-39-2974Wbjlrm, spine, lumbar, XLIFSTRATOFUSE DBM 10CCFDAStart: 97-53-4282Rlqufn, spine, lumbar, XLIF STRATOFUSE DBM 10CCFDAStart: 84-73-8680Fngqwm, spine, lumbar, XLIFSTRATOFUSE DBM 5CCFDAStart: 13-89-6610Azvedm, spine, lumbar, XLIFSTRATOFUSE DBM 10CCFDAStart: 08-08-6420Covutp, spine, lumbar, XLIFSTRATOFUSE DBM 10CCFDAStart: 07-22-2024 Fusion, spine, lumbar, XLIFSTRATOFUSE DBM 5CCFDAStart: 87-32-9699Ljyszm, spine, lumbar, XLIFSTRATOFUSE DBM 10CCFDAStart: 56-21-5893Arpfig, spine, lumbar, XLIF STRATOFUSE DBM 10CCFDAStart: 24-06-8598Haakso, spine, lumbar, XLIFSTRATOFUSE DBM 5CCFDAStart: 72-64-6461Iktrgs, spine, lumbar, XLIFSTRATOFUSE DBM 10CCFDAStart: 09-30-0167Ktrmxx, spine, lumbar, XLIFSTRATOFUSE DBM 10CCFDAStart: 07-22-2024 Fusion, spine, lumbar, XLIFSTRATOFUSE DBM 5CCFDAStart: 33-44-5005Fdrjmn, spine, lumbar, XLIFSTRATOFUSE DBM 10CCFDAStart: 36-62-5020Aonqkt, spine, lumbar, XLIF STRATOFUSE DBM 10CCFDAStart: 45-63-2196Iyuoat, spine, lumbar, XLIFSTRATOFUSE DBM 5CCFDAStart: 07-22-2024 Goals DatePatient GoalDesired Activity/State Functional Status XgieUtjkefaraiEypgocVusbphak86-57-9958Ldbbjqxclg statusPatient at [facility] Work Phone: 1(838) 330-43190792356-23-6149Jwnpcltfca statusDisability Status [facility] Work Phone: Mental Status YevrTpuzwingbvTlqjngVvqtxvqg93-91-8162Kdvodsybl functionCognitive Status [facility] Work Phone: Clinical Notes 08-04-2021 to 08-11-2025 Note Date & VsboVbebLczqhexk78-66-9036 Radiology Diagnostic study [facility] [place] [address] Ultrasound Report Signed Patient: Yolis Florez MR#: [id number] : 1950 Acct:[id number] Age/Sex: 74 / F ADM Date: 5 Loc: Room: Type: [facility] Attending Dr: Amanda Sharif DO Ordering Provider: Amanda Sharif DO Date of Service: 08/11/25 US/US liver: K76.0 - Fatty (change of) liver, not elsewhere classified Copies to: Amanda Sharif DO~ LIMITED ABDOMINAL ULTRASOUND: CLINICAL HISTORY: Elevated LFTs. COMPARISON: None TECHNIQUE: Grayscale and color Doppler images of the right upper quadrant organswere obtained. FINDINGS: Pancreas: Visualized portions appear unremarkable. Liver: Unremarkable. Gallbladder: Small polyp versus adherent stone. No wall thickening. CBD: 4.6 mm. RT KIDNEY: No Hydronephrosis US/US liver IMPRESSION: SMALL POLYP VERSUS ADHERENT STONE INVOLVING THE GALLBLADDER. NO SONOGRAPHIC EVIDENCE OF ACUTE CHOLECYSTITIS.. Impression dictated by: Marlo Siddiqui Jr., D.OMike 08/11/2025 12:16 PM Dictation Location: [place] [address] Tech: Blank Jimenez Transcribed By: ERIKA 08/11/251215 Dictated By: Marlo Siddiqui Jr DO 08/11/251214 Signed By: 08/11/25 121 [facility]09-11-2025 Evaluation note* Diagnosis Onset Date Resolution Status Admit Date Fatty liver acuteSeptember 2024 1:44pmHx of partial thyroidectomyacuteSept2024 1:44pmHyperlipidemiaacuteSept2024 1:44pmObesity (BMI 35.0-39.9 without comorbidity)acuteSeptember 2024 1:44pmOsteopeniaacuteSept2024 1:44pmEncounter for subsequent annual wellness visit in Medicare patientnoneactiveSept2024 1:44pmLower extremity weaknessacute July 22, 2025 12:57pmHistory of lumbar fusioninactiveSept2024 12:57pm [facility] Work Phone: 1(885) 236-254207-18-2025 Evaluation note* Diagnosis Onset Date Resolution Status Admit Date Arthritis of carpometacarpal (CMC) joint of left thumb acuteJuly 2024 8:24amCarpal tunnel syndrome on both sidesacuteJuly 2024 8:24amTrigger finger, right ring fingeracuteJuly 2024 8:24amEncounter for subsequent annual wellness visit in Medicare patientpage hospitaleactivept2024 1:44pm [facility] Work Phone: 1(900) 923-139407-18-2025 Evaluation note* Diagnosis Onset Date Resolution Status Admit Date Arthritis of carpometacarpal (CMC) joint of left thumb acuteJuly 2024 8:24amCarpal tunnel syndrome on both sidesacuteJuly 2024 8:24amTrigger finger, right ring fingeracuteJuly 2024 8:24amFatty liveracuteSeptember 2024 1:44pmHx of partial thyroidectomyacuteSept2024 1:44pmHyperlipidemiaacuteSept2024 1:44pmObesity (BMI 35.0-39.9 without comorbidity)acuteSept2024 1:44pmOsteopeniaacute July 08, 2025 1:44pmEncounter for subsequent annual wellness visit in Medicare patientnoneactiveSept2024 1:44pmLower extremity weakness acuteSept2024 12:57pmHistory of lumbar fusioninactiveSept2024 12:57pm [facility] Work Phone: 1(265) 162-862906-24-2025 History of Present illness Narrative* Pascual Thornton, DO - 04/20/2025 10:30 AM EDT Subjective Patient ID: HPI Patient presents today for follow-up. She is status post right hemithyroidectomy while ago for benign disease. Recent lab work is all within normal limits. She is feeling fine. Review of Systems ROS The specialty specific review of systems is noncontributory except for that recorded in the intake questionnaire and /or described in the history of present illness. Objective ENT Physical Exam Physical Exam Constitutional: Appearance: Normal appearance. HENT: Head: Atraumatic. Ears: External ear shows no abnormality Bilateral ear canals are clear Tympanic membranes intact, no evidence of middle ear fluid or other pathology. Nose: External nose appears to be normal Nares patent. Septal deviation to the No evidence of polyp, mass or pus bilaterally. Oral Cavity: No evidence of trismus Lips appear normal Dental good Tongue of normal size and configuration, floor of mouth mucosa clear. Buccal mucosa shows no evidence of ulceration, mass or other abnormality Hard palate soft palate mucosa intact with no evidence of mass, ulceration or other abnormality Uvula of normal size and configuration Oropharynx: Tonsils atrophic Posterior pharyngeal wall normal Neck: No evidence of palpable abnormality Thyroid without evidence of thyromegaly or mass. No cervical lymphadenopathy present. Cardiovascular: Rate and Rhythm: Normal rate and regular rhythm. . Skin: General: Skin is warm and dry. Neurological: General: No focal deficit present. Mental Status: alert and oriented to person, place, and time. Assessment/Plan Yolis was seen today for history of thyroidectomy. Diagnoses and all orders for this visit: Status post partial thyroidectomy (Primary) Comments: I am going to release the patient back to her primary care physician. I recommend checking her thyroid function studies twice yearly. documented in this encounterReynolds County General Memorial HospitalKuknyxupjx18-49-6592 Evaluation note* Diagnosis Onset Date Resolution Status Admit Date Lower extremity weakness acuteJune 2024 2:21pmHistory of lumbar fusioninactiveJune 2024 2:21pmArthritis of carpometacarpal (CMC) joint of left thumbacuteJuly 2024 8:24amCarpal tunnel syndrome on both sidesacuteJuly 2024 8:24amTrigger finger, right ring fingeracuteJuly 2024 8:24am [facility] Work Phone: 1(378) 790-588605-01-2025 Evaluation note* Diagnosis Onset Date Resolution Status Admit Date Chronic pain acuteMay 2024 1:12pmLower extremity weaknessacuteMay 2024 1:12pm Osteoarthritis of spine with radiculopathy, lumbar regionacuteMay 2024 1:12pmParonychia of great toeacuteMay 2024 12:01pmLower extremity weakness acuteJune 2024 2:21pmHistory of lumbar fusioninactiveJune 2024 2:21pmArthritis of carpometacarpal (CMC) joint of left thumbacuteJuly 2024 8:24amCarpal tunnel syndrome on both sidesacuteJuly 2024 8:24amTrigger finger, right ring fingeracuteJuly 2024 8:24am [facility] Work Phone: 1(249) 935-859104-03-2025 Evaluation note* Diagnosis Onset Date Resolution Status Admit Date Arthritis of carpometacarpal (CMC) joint of left thumb acuteApril 2024 2:09pmCarpal tunnel syndrome of left wristacuteApril 2024 2:09pmCarpal tunnel syndrome of right wristacuteApril 2024 2:09pm Trigger finger, right ring fingeracuteApril 2024 2:09pmChronic painacuteMay 2024 1:12pmLower extremity weaknessacuteMay 2024 1:12pmOsteoarthritis of spine with radiculopathy, lumbar regionacuteMay 2024 1:12pmParonychia of great toeacuteMay 2024 12:01pmLower extremity weaknessacuteJune 2024 2:21pmHistory of lumbar fusioninactiveJune 2024 2:21pm [facility] Work Phone: [phone] NotePatient Education Materials Follows: COVID-19 Frequently Asked Questions COVID-19 (coronavirus disease) is an infection that is caused by a virus called severe acute respiratory syndrome coronavirus 2 (SARS-CoV-2). Coronaviruses are a large family of viruses. Some of these viruses cause illness in people, and others cause illness in animals like camels, cats, and bats. In some cases, the viruses that cause illness in animals can spread to humans. Where did the coronavirus come from? In September 2019, [place] told the World Health Organization (WHO) about several cases of lung disease (human respiratory illness). These cases were linked to an open seafood and livestock market in the city of [facility]. The link to the seafood and livestock market suggests that the virus may have spread from animals to humans. However, since that first outbreak in September 2019, the virus has also been shown to spread from person to person. What is the name of the disease and the virus? Disease name Early on, this disease was called novel coronavirus. This is because scientists determined that thedisease was caused by a new (novel) respiratory virus. The World Health Organization (WHO) has now named the disease COVID-19, or coronavirus disease. Virus name The virus that causes the disease is called severe acute respiratory syndrome coronavirus 2 (SARS-CoV-2). More information on disease and virus naming ? World Health Organization: www.who.int/emergencies/diseases/txrqg-pmqvlhzmcoe-1336/technical-guidance Who is at risk for complications from coronavirus disease? Some people may be at higher risk for complications from coronavirus disease. This includes older adults and people who have chronic diseases, such as heart disease, diabetes, and lung disease. If you are at higher risk for complications, take these extra precautions: ? Stay home as much as possible. ? Avoid social gatherings and travel. ? Avoid close contact with others. Stay at least 6 ft (2 m) away from others, if possible. ? Wash your hands often with soap and water for at least 20 seconds. ? Avoid touching your face, mouth, nose, or eyes. ? Keep supplies on hand at home, such as food, medicine, and cleaning supplies. ? If you must go out in public, wear a cloth face covering or face mask. Make sure your mask coversyour nose and mouth. How does coronavirus disease spread? The virus that causes coronavirus disease spreads easily from person to person (is contagious). Youmay catch the virus by: ? Breathing in droplets from an infected person. Droplets can be spread by a person breathing, speaking, singing, coughing, or sneezing. ? Touching something, like a table or a doorknob, that was exposed to the virus (contaminated) and then touching your mouth, nose, or eyes. Can I get the virus from touching surfaces or objects? There is still a lot that we do not know about the virus that causes coronavirus disease. Scientists are basing a lot of information on what they know about similar viruses, such as: ? Viruses cannot generally survive on surfaces for long. They need a human body (host) to survive. ? It is more likely that the virus is spread by close contact with people who are sick (direct contact), such as through: ? Shaking hands or hugging. ? Breathing in respiratory droplets that travel through the air. Droplets can be spread by a personbreathing, speaking, singing, coughing, or sneezing. ? It is less likely that the virus is spread when a person touches a surface or object that has thevirus on it (indirect contact). The virus may be able to enter the body if the person touches a surface or object and then touches his or her face, eyes, nose, or mouth. Can a person spread the virus without having symptoms of the disease? It may be possible for the virus to spread before a person has symptoms of the disease, but this ismost likely not the main way the virus is spreading. It is more likely for the virus to spread by being in close contact with people who are sick and by breathing in the respiratory droplets spread when a person breathes, speaks, sings, coughs, or sneezes. What are the symptoms of coronavirus disease? Symptoms vary from person to person and can range from mild to severe. Symptoms may include: ? Fever or chills. ? Cough. ? Difficulty breathing or feeling short of breath. ? Feeling tired. ? Headaches, body aches, or muscle aches. ? Runny or stuffy (congested) nose. ? Sore throat. ? New loss of taste or smell. ? Nausea, vomiting, or diarrhea. These symptoms can appear anywhere from 2 to 14 days after you have been exposed to the virus. Somepeople may not have any symptoms. If you develop symptoms, call your health care provider. People with severe symptoms may need hospital care. Should I be tested for this virus? Your health care provider will decide whether to test you based on your symptoms, history of exposure, and your risk factors. How does a healt (more content not included)...[id number] Evaluation [facility]* Diagnosis Onset Date Resolution Status Admit Date Lower extremity weakness acuteMarch 2024 12:58pmHistory of lumbar fusioninactiveMarch 2024 12:58pm [facility] Work Phone: 1(652) 352-493803-11-2025 Evaluation note* Diagnosis Onset Date Resolution Status Admit Date Lower extremity weakness acuteMarch 2024 12:58pmHistory of lumbar fusioninactiveMarch 2024 12:58pmArthritis of carpometacarpal (CMC) joint of left thumbacuteApril 2024 2:09pmCarpal tunnel syndrome of left wristacuteApril 2024 2:09pmCarpal tunnel syndrome of right wristacuteApril 2024 2:09pmTrigger finger, right ring fingeracuteApril 2024 2:09pm [facility] Work Phone: 1(983) 181-277203-11-2025 Evaluation note* Diagnosis Onset Date Resolution Status Admit Date Lower extremity weakness acuteMarch 2024 12:58pmHistory of lumbar fusioninactiveMarch 2024 12:58pmArthritis of carpometacarpal (CMC) joint of left thumbacuteApril 2024 2:09pmCarpal tunnel syndrome of left wristacuteApril 2024 2:09pmCarpal tunnel syndrome of right wristacuteApril 2024 2:09pmTrigger finger, right ring fingeracuteApril 2024 2:09pmChronic painacuteMay 2024 1:12pmLower extremity weaknessacuteMay 2024 1:12pmOsteoarthritis of spine with radiculopathy, lumbar regionacuteMay 2024 1:12pm [facility] Work Phone: 1(722) 473-755903-11-2025 Evaluation note* Diagnosis Onset Date Resolution Status Admit Date Lower extremity weakness acuteMarch 2024 12:58pmHistory of lumbar fusioninactiveMarch 2024 12:58pmArthritis of carpometacarpal (CMC) joint of left thumbacuteApril 2024 2:09pmCarpal tunnel syndrome of left wristacuteApril 2024 2:09pmCarpal tunnel syndrome of right wristacuteApril 2024 2:09pmTrigger finger, right ring fingeracuteApril 2024 2:09pmChronic painacuteMay 2024 1:12pmLower extremity weaknessacuteMay 2024 1:12pmOsteoarthritis of spine with radiculopathy, lumbar regionacuteMay 2024 1:12pmParonychiaacuteMay 2024 12:01pm [facility] Work Phone: 1(142) 512-968803-11-2025 Evaluation note* Diagnosis Onset Date Resolution Status Admit Date Lower extremity weakness acuteMarch 2024 12:58pmHistory of lumbar fusioninactiveMarch 2024 12:58pmArthritis of carpometacarpal (CMC) joint of left thumbacuteApril 2024 2:09pmCarpal tunnel syndrome of left wristacuteApril 2024 2:09pmCarpal tunnel syndrome of right wristacuteApril 2024 2:09pmTrigger finger, right ring fingeracuteApril 2024 2:09pmChronic painacuteMay 2024 1:12pmLower extremity weaknessacuteMay 2024 1:12pmOsteoarthritis of spine with radiculopathy, lumbar regionacuteMay 2024 1:12pmParonychia of great toe acuteMay 2024 12:01pm [facility] Work Phone: 1(779) 654-751702-04-2025 History of Present illness Narrative* Pascual Thornton DO - 12/01/2024 10:30 AM EST HPI Patient presents today about a month postop left hemithyroidectomy. 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 The larger nodule was benign. I made her aware of that. She is doing verywell. Her TSH is significant elevated, I am going to have to increase her Synthroid. Relevant postoperative physical examination Neck examination reveals no palpable abnormality, scar is healing very nicely. Assessment/plan Yolis was seen today for post-op. Diagnoses and all orders for this visit: Status post partial thyroidectomy (CMS/HCC) Comments: Patient needs no further treatment for the microcarcinoma was other than follow- up. I am also goingto increase her Synthroid. Orders: - TSH; Future - T3; Future - T4; Future - Thyroglobulin; Future - TSH - T3 - T4 - Thyroglobulin - TSH; Future - T3; Future - T4; Future - Thyroglobulin; Future - TSH - T3 - T4 - Thyroglobulin I will recheck labs in 60 days and call for any further adjustments, otherwise I will see her back in 3 months with lab work. documented in this encounterReynolds County General Memorial [id number] History of Present illness Narrative* Pascual Thornton DO - 10/20/2024 9:45 AM EST HPI Patient presents today status post left hemithyroidectomy last week. Pathology at least at this point is benign however it has been sent out for expert pathologic opinion. I told the patient that. She is doing great. Relevant postoperative physical examination Incision intact, no evidence of hematoma or seroma, voice is normal. Assessment/plan Yolis was seen today for post-op. Diagnoses and all orders for this visit: Status post partial thyroidectomy (CMS/HCC) (Primary) Comments: Patient given wound instructions, I will see her back in a month. I will call her outside pathology. Orders: - T3; Future - T4; Future - TSH; Future - T3 - T4 - TSH documented in this [facility]12-18-2024 History of Present illness Narrative* Pascual Thornton DO - 10/14/2024 9:30 AM EST mmm documented in this [facility]12-06-2024 Evaluation note* Diagnosis Onset Date Resolution Status Admit Date Arthritis of carpometacarpal (CMC) joint of left thumb acuteDecember 2023 10:41amCarpal tunnel syndrome of left wristacuteDecember 2023 10:41amCarpal tunnel syndrome of right wristacuteDecember 2023 10:41amLower extremity weaknessacuteDecember 2023 12:49pmHistory of lumbar fusioninactiveDeceer 2023 12:49pm [facility] Work Phone: 1(900) 370-680611-18-2024 History of Present illness Narrative* Pascual Thornton DO - 09/14/2024 2:45 PM EST Allergies as of 09/14/2024 - Reviewed 09/14/2024 Allergen Reaction Noted Oxycodone Other 08/25/2024 Penicillins Unknown 04/10/2021 Sulfa antibiotics 04/10/2021 Past Medical History: Diagnosis Date Arthritis Hyperlipemia ([facility]/HCC) Current Outpatient Medications: atorvastatin (Lipitor) 20 MG tablet, 1 (one) time each day at the same time, Disp: , Rfl: celecoxib (CeleBREX) 200 MG capsule, take 1 capsule by ORAL route every day as needed Oral, Disp: ,Rfl: cholecalciferol (Vitamin D-3) 25 MCG (1000 UT) capsule, Every evening, Disp: , Rfl: cyclobenzaprine (Flexeril) 10 MG tablet, Every 8 hours, Disp: , Rfl: diclofenac (Voltaren) 75 MG EC tablet, Take 75 mg by mouth in the morning and 75 mg before bedtime.Do not crush, chew, or split.., Disp: , Rfl: fluticasone (Flonase Allergy Relief) 50 MCG/ACT nasal spray, 1 (one) time each day at the same time, Disp: , Rfl: gabapentin (Neurontin) 400 MG capsule, , Disp: , Rfl: levothyroxine (Synthroid, Levoxyl) 100 MCG tablet, , Disp: , Rfl: omeprazole (PriLOSEC) [address] capsule, Take 20 mg by mouth in the morning. Take before meals., Disp: , Rfl: pantoprazole (ProtoNix) 40 MG EC tablet, Daily, Disp: , Rfl: propranolol LA (Inderal LA) 160 MG 24 hr capsule, , Disp: , Rfl: topiramate (Topamax) 50 MG tablet, 1 (one) time each day at the same time, Disp: , Rfl: Past Surgical History: Procedure Laterality Date ANKLE SURGERY Left HYSTERECTOMY KNEE SURGERY Bilateral Social History Socioeconomic History Marital status: Spouse name: Not on file Number of children: Not on file Years of education: Not on file Highest education level: Not on file Occupational History Not on file Tobacco Use Smoking status: Never Smokeless tobacco: Not on file Substance and Sexual Activity Alcohol use: Not on file Drug use: Not on file Sexual activity: Not on file Other Topics Concern Not on file Social History Narrative Not on file Social Drivers of Health Financial Resource Strain: Not on file Food Insecurity: Not on file Transportation Needs: Not on file Physical Activity: Not on file Stress: Not on file Social Connections: Not on file Intimate Partner Violence: Not on file Housing Stability: Not on file Subjective Patient ID: HPI Patient presents today following a 2nd FNA a of a sizable left thyroid nodule. Unfortunately, this again as [place] I, nondiagnostic. Review of Systems ROS The specialty specific review of systems is noncontributory except for that recorded in the intake questionnaire and /or described in the history of present illness. Objective ENT Physical Exam Physical Exam Constitutional: Appearance: Normal appearance. HENT: Head: Atraumatic. Ears: External ear shows no abnormality Bilateral ear canals are clear Tympanic membranes intact, no evidence of middle ear fluid or other pathology. Nose: External nose appears to be normal Nares patent. Septal deviation to the right No evidence of polyp, mass or pus bilaterally. Oral Cavity: No evidence of trismus Lips appear normal Dental Tongue of normal size and configuration, floor of mouth mucosa clear. Buccal mucosa shows no evidence of ulceration, mass or other abnormality Hard palate soft palate mucosa intact with no evidence of mass, ulceration or other abnormality Uvula of normal size and configuration Oropharynx: Tonsils atrophic Posterior pharyngeal wall normal Neck: No evidence of palpable abnormality Thyroid without evidence of thyromegaly or mass. No cervical lymphadenopathy present. Cardiovascular: Rate and Rhythm: Normal rate and regular rhythm. . Skin: General: Skin is warm and dry. Neurological: General: No focal deficit present. Mental Status: alert and oriented to person, place, and time. FIBEROPTIC NASOPHARYNGOLARYNGOSCOPY A diagnostic flexible fiberoptic laryngoscopy was performed. The flexible fiberoptic laryngoscope was placed into the nose and advanced to the level of the tip of the epiglottis. Examination of the larynx including both surfaces of the epiglottis false and true vocal folds, arytenoids and surrounding mucosal surfaces show no evidence of lesion, ulceration or mass. Normal bilateral true vocal foldmotion is present. Bilateral piriform sinuses and base of tongue appear without lesion Assessment/Plan Yolis was seen today for thyroid nodule. Diagnoses and all orders for this visit: Thyroid mass (CMS/[facility]) (Primary) Comments: Patient has now failed to FNAs. Most authority was would now recommend a diagnostic lobectomy and I have recommended a left thyroidlobectomy. The risks and benefits of thyroidectomy were discussed with the patient. These include but are not inclusive of perioperative , infection, major neurovascular injury, recurrent laryngeal nerve injury/dysfx, hoarsness, permanent vocal cord paralysis, permanent hyoparathyroidism, poor scaring, sw allowing and/or voice difficulties, etc. The patient has consented to proceed. documented in this encounterReynolds County General Memorial [id number] History of Present illness Narrative* Pascual Thornton, DO - 09/01/2024 8:00 AM EST Subjective Patient ID: HPI Patient presents today for repeat FNA of a large left thyroid nodule. Nodules about 3.6 cm. Previous FNA about 2 months ago was nondiagnostic, [place] I. Review of Systems ROS The specialty specific review of systems is noncontributory except for that recorded in the intake questionnaire and /or described in the history of present illness. Objective ENT Physical Exam Physical Exam Constitutional: Appearance: Normal appearance. HENT: Head: Atraumatic. Ears: External ear shows no abnormality Bilateral ear canals are clear Tympanic membranes intact, no evidence of middle ear fluid or other pathology. Nose: External nose appears to be normal Nares patent. Septal deviation to the right No evidence of polyp, mass or pus bilaterally. Oral Cavity: No evidence of trismus Lips appear normal Dental good Tongue of normal size and configuration, floor of mouth mucosa clear. Buccal mucosa shows no evidence of ulceration, mass or other abnormality Hard palate soft palate mucosa intact with no evidence of mass, ulceration or other abnormality Uvula of normal size and configuration Oropharynx: Tonsils atrophic Posterior pharyngeal wall normal Neck: No evidence of palpable abnormality Thyroid without evidence of thyromegaly or mass. No cervical lymphadenopathy present. Cardiovascular: Rate and Rhythm: Normal rate and regular rhythm. . Skin: General: Skin is warm and dry. Neurological: General: No focal deficit present. Mental Status: alert and oriented to person, place, and time. ULTRASOUND GUIDED FNA Thyroid gland was palpated. The _ left inferior thyroid nodule be biopsied have been identified by ultrasound.The skin was cleaned with alcohol. The skin above the nodule was anesthetized withan injection of 1% xylocaine with epi. The patient was asked not to talk or swallow during the procedure. A fine gauge biopsy needle was inserted under US visualization and multiple passes were taken. Aspiration of thyroid nodule was performed and material was prepared for both slides and cell block. Three individual passes were made. Material was also obtained for possible molecular testing. Assessment/Plan Yolis was seen today for thyroid nodule. Diagnoses and all orders for this visit: Thyroid nodule (CMS/HCC) (Primary) Comments: Patient tolerated procedure without complication, I will see her back in about 2 weeks to discuss pathology. documented in this encounterReynolds County General Memorial [id number] Discharge summary Author Artie Hair [facility] July 24, 2024 9:26amNote Date/TimeSeptember 2023 9:13[place] [address] Discharge Summary Signed Patient: Yolis Florez MR#: [id number] : 1950 Acct:[id number] Age/Sex: 73 / F Adm Date: 4 Loc: 4 Room: 6M4240-[address]: Artie Hair MD Copies to: MD Amanda Isbell DO~ Providers Date of Discharge: 07/24/24 Discharging Provider: Artie Hair Primary Care Provider: Amanda Sharif Consults: 07/22/24 13:36 Consult to Occupational Therapy Routine Comment: Physician Instructions: Consult to OT for:: Evaluation and Treat Consult to Physical Therapy Routine Comment: Physician Instructions: Consult to PT for:: Evaluation and Treat 07/23/24 07:54 Consult to Physiatry Routine Comment: Consulting Provider: Marlo Wheatley Reason For Exam: eval for rehab Has Provider Been Notified: Yes Date of Notification: 07/23/24 Time of Notification: 07:55 Discharge Diagnosis (1) Lumbar radiculopathy: (2) Lumbar stenosis: (3) History of lumbar fusion: Final Diagnosis Final Discharge Diagnosis: Lumbar stenosis neurogenic claudication L2-3 L3-4. Summary Hospital Course Hospital course: Patient was admitted to the hospital preoperatively. Underwent general anesthesia. Was placed lateral left side up. An anterior lateral interbody fusion was performed at L3-4 and L2-3. Patient was positioned prone. New pedicle screws were placed at L2 and L3. Her old rods and setscrews were removedand her L4 and L5 screws were included in the new construct. Patient tolerated procedure well. Postoperatively patient's recovery was unremarkable. Condition Condition at Discharge: Stable Status at Discharge Cognitive/behavioral status at discharge: Unchanged Functional status at discharge: uses cane/walker Overall status at discharge: patient is progressing back to baseline Time Spent with Patient Time spent providing/coordinating discharge services (# min): 30 Surgeries and Procedures Operation Date: 07/22/24 07:45 Actual Procedures p OR XLIF L2-3 L3-4 Hardware Revision L4-5, Nerve Monitoring(Not Applicable) - Artie Hair MD Discharge Plan Discharge Plan Patient Disposition: Rehab [facility] Activity: Ambulate as Tolerated Diet: Regular Additional Instructions: DISCHARGE INSTRUCTIONS FOR POSTERIOR LUMBAR INTERBODY FUSION OR POSTERIOR LUMBARFUSION DIET-regular home diet ACTIVITY - Wear brace when sitting and standing and out of bed - Activity as tolerated; No lifting over 15 pounds - Stairs as tolerated - Walk as much as possible - No driving until seen by physician; february ride in car -February shower Saturday. When taking first shower leave dressing on complete shower remove dressing dry the wound and apply small amount of antibiotic ointment to the wound 1 time daily thereafter - Keep incision clean and dry OTHER - Call your provider's office for any fever, chills, nausea, vomiting, headache,numbness, or tingling. - Call your providers office and make an appointment to see your provider in 2 weeks. Use ice as needed for back spasm 20 minutes every 1-2 hours Use the prednisone provided if the leg pain returns to a significant degree after surgery. If it does not do not use the prednisone Prescriptions: New acetaminophen [Tylenol] 325 mg Tablet 650 mg PO Q4H PRN (Reason: Mild Pain) Qty: 0 0RF cyclobenzaprine 10 mg Tablet 10 mg PO Q8HR PRN (Reason: Muscle Spasm) Qty: 0 0RF famotidine (PF) 20 mg/2 mL Solution 20 mg IV-PUSH Q12HR Qty: 0 0RF sennosides-docusate sodium 8.6-50 mg Tablet 2 tab PO BID Qty: 0 0RF magnesium hydroxide [Milk of Magnesia] 400 mg/5 mL Suspension 30 ml PO HS PRN (Reason: Constipation) Qty: 0 0RF alum-mag hydroxide-simeth [Mag-Al Plus] 200-200-20 mg/5 mL Suspension 30 ml PO Q4H PRN (Reason: Heartburn) Qty: 0 0RF oxycodone 5 mg Tablet 10 mg PO Q6HR PRN (Reason: Pain Scale 6 - 10) Qty: 0 0RF oxycodone 5 mg Tablet 5 mg PO Q6HR PRN (Reason: Pain Scale 1 - 5) Qty: 0 0RF sodium chloride 0.9 % Solution 10 ml INJ PRN PRN (Reason: To dilute Pepcid) Qty: 0 0RF Continued gabapentin 400 mg capsule 400 mg PO TID calcium-vitamin D3-vitamin K 500-100-40 mg-unit-mcg Tablet,Chewable 1 tab PO QPM ondansetron HCl [Zofran] 4 mg Tablet 4 mg PO Q6H PRN (Reason: Nausea) diclofenac sodium 75 mg tablet,delayed release (DR/EC) 75 mg PO BID sumatriptan succinate 50 mg Tablet 50 mg PO DAILY PRN (Reason: migraine headache) propranolol 160 mg capsule,extended release 24 hr 160 mg PO QAM atorvastatin 20 mg tablet 20 mg PO QPM levothyroxine 100 mcg tablet 100 mcg PO QAM omeprazole 20 mg capsule,delayed release(DR/EC) 20 mg PO QAM cholecalciferol (vitamin D3) [Vitamin D3] 25 mcg (1,000 unit) tablet 25 mcg PO QPM diclofenac sodium 1 % gel 2 g topical DIRECTED Rx Instructions: FreeTextSig: as directed Externally; Note: Source Status: Takingprn; Provider: Morales Brenner Discontinued tramadol 50 mg Tablet 50 mg PO Q8H PRN (Reason: Pain) Follow Up: Artie Hair MD [Active Staff] - 08/04/24 1:00 pm Exam Physical Exam Vital Signs: Temp Pulse Resp BP Pulse Ox O2 Del Method O2 Flow Rate 98.2 F 72 12 136/80 92 L Room Air 3 07/24/24 04:47 07/24/24 04:47 07/24/24 04:47 07/24/24 04:47 07/24/24 04:47 07/24/24 04:47 07/23/24 08:00 Narrative: Incision clean and dry Lower extremity strength and motion baseline Gait grossly normal using walker Brace fitting appropriately Diagnostic Studies Completed and Pending Studies Pending studies at discharge: 07/22/24 XR lumbar spine 2-3V* Routine Documented By: Artie Hair MD 07/24/24 0700 Signed By: <Electronically signed by MD Artie Hair> 07/24/24 0928 [facility] Work Phone: 1(287) 602-875909-27-2024 Progress note Author Artie Hair [facility] July 24, 2024 9:12amNote Date/TimeSeptember 2023 9:[address] [address] Neurosurgery Progress Note Signed Patient: Yolis Florez MR#: [id number] : 1950 Acct:[id number] Age/Sex: 73 / F Adm Date: 4 Loc: 4N Room: [address] [place] [address] Type: ADM IN Attending Dr: Artie Hair MD Copies to: ~ Date of Service: 07/24/2024 Subjective Subjective HPI: Patient in chair at bedside awake and alert. Says her back is sore but tolerable. Thinks her legs feel better. Excited to go to rehab. Exam Physical Exam Vital Signs: Temp Pulse Resp BP Pulse Ox O2 Del Method O2 Flow Rate 98.2 F 72 12 136/80 92 L Room Air 3 07/24/24 04:47 07/24/24 04:47 07/24/24 04:47 07/24/24 04:47 07/24/24 04:47 07/24/24 04:47 07/23/24 08:00 Narrative: Incision clean and dry Lower extremity strength and motion baseline Gait grossly normal using walker Brace fitting appropriately Assessment/Plan Assessment/Plan (1) Lumbar radiculopathy: (2) Lumbar stenosis: Qualifiers: Neurogenic claudication status: unspecified Qualified Code(s): M48.061 - Spinal stenosis, lumbar region without neurogenic claudication (3) History of lumbar fusion: Plan Increase activity as tolerated physical therapy. Transfer to inpatient rehab today. Documented By: Artie Hair MD 07/24/24731 Signed By: <Electronically signed by MD Artie Hair> 07/24/24911 [facility] Work Phone: 1(926) 186-337809-26-2024 Consult note Author Buck Shi [facility] July 23, 2024 1:31pmNote Date/TimeSeptember 2023 9:[address] [address] Physiatry (Rehab) Consult Note Signed Patient: Yolis Florez MR#: [id number] : 1950 Acct:[id number] Age/Sex: 73 / F Adm Date: 4 Loc: 4N Room: 6W5996-2 Type: ADM IN Attending Dr: Artie Hair MD Copies to: MD Artie Lawson MD Eric E Mast DO~ HPI Consult Date: 07/23/24 Requesting Physician: Artie Hair MD Primary Care Provider: Amanda Sharif DO Consult Narrative Reason for consult: Evaluation for inpatient HPI: Ms. Florez is a 73 year old female with h/o L4-5 anterior lateral lumbar interbody fusion who presented for elective fusion at L2-3 and L3-4 with revision of hardware and placement of new screws L2-L5 bilateral and fusion due to stenosis above her previous fusion with neurogenic claudication. No major post op complications. Patient lives with her spouse in a ranch style home with 5 ANTHONY. IND at baseline.Has a walker and cane. Patient participated in OOB therapy today. This patient was seen and evaluated at bedside today. Sitting up in recliner. Pain fairly controlled today. Interested in rehab prior to return home. Review of Systems Review of Systems All other systems reviewed & are negative unless noted below or in HPI [facility] Medical History (Updated 07/23/24 @ 13:26 by Buck Shi MD) Difficulty swallowing at times, not often. due to thyroid nodule Thyroid nodule Hypothyroidism Dupuytren's contracture of left hand Diverticulosis of colon (04/01/09) Degenerative disc disease, lumbar Degenerative disc disease, cervical Spondylolisthesis, lumbar region Sacroiliitis Menopausal syndrome Carpal tunnel syndrome of right wrist Carpal tunnel syndrome of left wrist Arthritis of right knee Arthritis of right hand Arthritis of right ankle Arthritis of left knee Arthritis of left ankle Arthritis of hand, left Arthritis of carpometacarpal (CMC) joint of left thumb Migraine Osteopenia had Reclast in February Wears hearing aid in both ears GERD (gastroesophageal reflux disease) PVC's (premature ventricular contractions) Surgical History (Updated 07/22/24 @ 06:16 by Jodi Hurd RN) History of tubal ligation History of back surgery with hardware S/P thyroid biopsy History of lumbar fusion History of blepharoplasty regina upper lids History of open reduction and internal fixation (ORIF) procedure left ankle History of total abdominal hysterectomy and bilateral salpingo-oophorectomy History of bilateral knee replacement History of sinus surgery History of colonoscopy Family History Mother Arthritis Malignant melanoma Father Polycythemia Emphysema lung History of stroke Brother Cancer Grandparent Legacy FamHx Relation: Maternal Grand Father Grandparent Legacy FamHx Relation: Maternal Grand Mother Grandparent Legacy FamHx Relation: Paternal Grand Father Grandparent Legacy FamHx Relation: Paternal Grand Mother Brother A-fib Social History Smoking Status: Never smoker Substance Use Type: Alcohol Meds Medications and Allergies Allergies Penicillins Allergy (Unknown, Verified 07/22/24 06:08) Hives sulfamethoxazole Allergy (Unknown, Verified 07/22/24 06:08) Rash Home Medications calcium-vitamin D3-vitamin K 500 mg-100 unit-40 mcg chewable tablet 1 tab PO QPM04/10/21 [History Confirmed 07/08/24] gabapentin 400 mg capsule 400 mg PO TID nerve pain 04/10/21 [History Confirmed 07/22/24] ondansetron HCl 4 mg tablet (Zofran) 4 mg PO Q6H PRN Nausea 04/10/21 [History Confirmed 07/08/24] diclofenac sodium 75 mg tablet,delayed release 75 mg PO BID 12/03/22 [History Confirmed 07/08/24] sumatriptan succinate 50 mg tablet 50 mg PO DAILY PRN migraine headache 12/03/22[History Confirmed 07/08/24] tramadol 50 mg tablet 50 mg PO Q8H PRN Pain 12/03/22 [History Confirmed 07/08/24] diclofenac sodium 1 % topical gel 2 g topical DIRECTED 12/24/23 [History Confirmed 07/08/24] atorvastatin 20 mg tablet 20 mg PO QPM 07/08/24 [History Confirmed 07/08/24] cholecalciferol (vitamin D3) 25 mcg (1,000 unit) tablet (Vitamin D3) 25 mcg PO QPM 07/08/24 [History Confirmed 07/08/24] levothyroxine 100 mcg tablet 100 mcg PO QAM 07/08/24 [History Confirmed 07/22/24] omeprazole 20 mg capsule,delayed release 20 mg PO QAM gerd 07/08/24 [History Confirmed 07/22/24] propranolol 160 mg capsule,24 hr,extended release 160 mg PO QAM 07/08/24 [History Confirmed 07/22/24] Exam Physical Exam Vital Signs: Temp Pulse Resp BP Pulse Ox O2 Del Method O2 Flow Rate 98.1 F 78 19 135/76 94 L Room Air 3 07/23/24 08:00 07/23/24 08:00 07/23/24 08:00 07/23/24 08:00 07/23/24 08:00 07/23/24 08:00 07/23/24 08:00 Narrative: Gen: Awake, oriented, cooperative. HEENT: Atraumatic, PERRL, EOMI Resp: No respiratory distress Cardio: Extremities well perfused MSK: Moves all extremities spontaneously Neuro: CN grossly intact Skin: No swelling, erythema, ecchymosis appreciated Psych: Mood and affect normal Results - Phys. Rehab Labs Labs: Laboratory Results - last 24 hr 07/22/24 15:15 Corrected WBC 12.7 H Uncorrected WBC Count 12.7 H RBC 3.87 Hgb 12.3 Hct 37.4 MCV 96.6 MCH 31.8 MCHC 32.9 RDW 14.6 Plt Count 327 MPV 7.3 Neut % (Auto) 91.5 Lymph % (Auto) 5.8 Bennett % (Auto) 2.6 Eos % (Auto) 0.0 Baso % (Auto) 0.1 Nucleat RBC Rel Count 0.0 Neut # (Auto) 11.6 H Lymph # (Auto) 0.7 L Bennett # (Auto) 0.3 Eos # (Auto) 0.0 Baso # (Auto) 0.0 PHA Creatinine Clear 75.76 Sodium 138 Potassium 4.6 Chloride 106 Carbon Dioxide 28.6 Anion Gap 8.0 BUN 18 Creatinine 0.66 Est GFR (CKD-EPI) > 60.0 Glucose 165 H Calcium 8.7 Assessment/Plan (1) Lumbar radiculopathy: (2) Lumbar stenosis: Qualifiers: Neurogenic claudication status: unspecified Qualified Code(s): M48.061 - Spinal stenosis, lumbar region without neurogenic claudication (3) Obesity (BMI 35.0-39.9 without comorbidity): (4) History of lumbar fusion: (5) Impaired mobility and activities of daily living: (6) Post-operative pain: Plan This is a 73-year-[facility] the setting of lumbar spinal stenosis with neurogenic claudication s/p L2-3and L3-4 fusion with revision of hardware. She has continued impaired mobility and impaired independence with ADLs and IADLs requiring PT/OT 5-7 days/week 3 hours/day to maximize safety and independence with functional ability and self-care. Patient is appropriate for acute inpatient rehab facility once medically stable per primary serviceand consultants. The patient has functional deficits requiring both active and ongoing therapeutic intervention of at least 2 disciplines of therapy, physical therapy/Occupational Therapy +/- speech t herapy. Patient has worked appropriately with multiple disciplines of therapy on acute care, and demonstrates ability to tolerate and participate and make reasonable gains with at least a 15 hour/week inpatient rehabilitation program. Due to medical complexity as noted, rehabilitation physician supervision is bothreasonable and necessary, including ssxu-wc-[id number] visits at least 3 days/week with the need to treat, manage and modify course of treatment, including participating in at least once weekly interdisciplinary team conferences. The patient requires multidisciplinary rehabilitation treatment including rehabilitation physician at least 3 times per week, 24-hour rehabilitation nursing, physical occupational therapy, plus/minusspeech-language pathology, rehabilitation case management, nutrition services, plus minus rehabilitation psychology. This case cannot be best/most appropriately managed at a lower level of care. Estimated length of rehabilitation stay: 14 Days Prior Level of Function: IND Expected functional status at discharge from rehab: Self-care (ADLs) : SBA Bed Mobility/Transfers: SBA Ambulation: SBA There is a reasonable plan in place for discharge to the community. Overall prognosis is fair to good to make functional gains that would make substantial difference in the eventual discharge setting. Patient was personally seen by me, Dr. Shi, on the day of encounter, reviewed the history and the relevant portions of the chart, including current orders, allied health and transportation consultant notes, labs/imaging and performed aguayo elements of exam and I formulated the plan of care and facilitated the medical decision making. I completed a substantive portion of this encounter, the medical decision makingportion of this note in its entirety, including Allied health note review, nursing note review, transportation consultant note review,discussion with nursing and case management, and more than 50% of my time was spent on counseling and coordination of care, time spent 65 minutes Documented By: Buck Shi MD 0930 Signed By: <Electronically signed by Buck Shi MD> 07/23/24 1331 [facility] Work Phone: [phone]) 624-337409-26-2024 Progress note Author Artie Hair [facility] July 23, 2024 7:29amNote Date/TimeSeptember 2023 7:29[place] [address] Neurosurgery Progress Note Signed Patient: Yolis Florez MR#: [id number] : 1950 Acct:[id number] Age/Sex: 73 / F Adm Date: 4 Loc: 4N Room: [address] [place] [address] Type: ADM IN Attending Dr: Artie Hair MD Copies to: ~ Date of Service: 07/23/2024 Subjective Subjective HPI: Patient in bed awake and alert. Says her back is sore, unsure of her legs different. Exam Physical Exam Vital Signs: Temp Pulse Resp BP Pulse Ox O2 Del Method O2 Flow Rate 97.6 F 74 16 132/72 97 Nasal Cannula 3 07/22/24 23:45 07/23/24 04:16 07/22/24 20:45 07/23/24 04:16 07/23/24 04:16 07/23/24 04:16 07/23/24 00:00 Narrative: Incisions clean and dry Lower extremity range of motion baseline Objective Lab Results Most Recent Labs: 07/22/24 15:15: Corrected WBC 12.7 H, Uncorrected WBC Count 12.7 H, RBC 3.87, Hgb 12.3, Hct 37.4, MCV 96.6, MCH 31.8, MCHC 32.9, RDW 14.6, Plt Count 327, MPV 7.3, Neut % (Auto) 91.5, Lymph % (Auto) 5.8, Bennett % (Auto) 2.6, Eos % (Auto) 0.0, Baso % (Auto) 0.1, Nucleat RBC Rel Count 0.0, Neut # (Auto)11.6 H, Lymph #(Auto) 0.7 L, Bennett # (Auto) 0.3, Eos # (Auto) 0.0, Baso # (Auto) 0.0, PHA CreatinineClear 75.76, Sodium 138, Potassium 4.6, Chloride 106, Carbon Dioxide 28.6, Anion Gap 8.0, BUN 18, Creatinine 0.66, Est GFR (CKD-EPI) > 60.0, Glucose 165 H, Calcium 8.7 Assessment/Plan Assessment/Plan (1) Lumbar radiculopathy: (2) History of lumbar fusion: (3) Lumbar stenosis: Qualifiers: Neurogenic claudication status: unspecified Qualified Code(s): M48.061 - Spinal stenosis, lumbar region without neurogenic claudication Plan Increase activity as tolerated with physical therapy. Patient is moving very slowly. This is a relatively large operation. I suspect inpatient rehab may beneeded. Documented By: Artie Hair MD 07/23/24 0725 Signed By: <Electronically signed by MD Artie Hair> 07/23/24 0729 [facility] Work Phone: 1(397) 401-442309-21-2024 NoteEducation Materials Neurology Migraine Headache A migraine headache is a very strong throbbing pain on one or both sides of your head. This type ofheadache can also cause other symptoms. It can last from 4 hours to 3 days. Talk with your doctor about what things may bring on (trigger) this condition. What are the causes? The exact cause of a migraine is not known. This condition may be brought on or caused by: ? Smoking. ? Medicines, such as: ? Medicine used to treat chest pain (nitroglycerin). ? control pills. ? Estrogen. ? Some blood pressure medicines. ? Certain substances in some foods or drinks. ? Foods and drinks, such as: ? Cheese. ? Chocolate. ? Alcohol. ? Caffeine. ? Doing physical activity that is very hard. Other things that may trigger a migraine headache include: ? Periods. ? . ? Hunger. ? Stress. ? Getting too much or too little sleep. ? Weather changes. ? Feeling tired (fatigue). What increases the risk? ? Being 25?55 years old. ? Being female. ? Having a family history of migraine headaches. ? Being . ? Having a mental health condition, such as being sad (depressed) or feeling worried or nervous (anxious). ? Being very overweight (obese). What are the signs or symptoms? ? A throbbing pain. This pain may: ? Happen in any area of the head, such as on one or both sides. ? Make it hard to do daily activities. ? Get worse with physical activity. ? Get worse around bright lights, loud noises, or smells. ? Other symptoms may include: ? Feeling like you may vomit (nauseous). ? Vomiting. ? Dizziness. ? Before a migraine headache starts, you may get warning signs (an aura). An aura may include: ? Seeing flashing lights or having blind spots. ? Seeing bright spots, halos, or zigzag lines. ? Having tunnel vision or blurred vision. ? Having numbness or a tingling feeling. ? Having trouble talking. ? Having weak muscles. ? After a migraine ends, you may have symptoms. These may include: ? Tiredness. ? Trouble thinking (concentrating). How is this treated? ? Taking medicines that: ? Relieve pain. ? Relieve the feeling like you may vomit. ? Prevent migraine headaches. ? Treatment may also include: ? Acupuncture. ? Lifestyle changes like avoiding foods that bring on migraine headaches. ? Learning ways to control your body functions (biofeedback). ? Therapy to help you know and deal with negative thoughts (cognitive behavioral therapy). Follow these instructions at home: Medicines ? Take yscs-srn-zzeegzz and prescription medicines only as told by your doctor. ? If told, take steps to prevent problems with pooping (constipation). You may need to: ? Drink enough fluid to keep your pee (urine) pale yellow. ? Take medicines. You will be told what medicines to take. ? Eat foods that are high in fiber. These include beans, whole grains, and fresh fruits and vegetables. ? Limit foods that are high in fat and sugar. These include fried or sweet foods. Ask your doctor if you should avoid driving or using machines while you are taking your medicine. Lifestyle ? Do not drink alcohol. ? Do not smoke or use any products that contain nicotine or tobacco. If you need help quitting, askyour doctor. ? Get 7?9 hours of sleep each night, or the amount recommended by your doctor. ? Find ways to deal with stress, such as meditation, deep breathing, or yoga. ? Try to exercise often. This can help lessen how bad and how often your migraines happen. General instructions ? Keep a journal to find out what may bring on your migraine headaches. This can help you avoid those things. For example, write down: ? What you eat and drink. ? How much sleep you get. ? Any change to your medicines or diet. ? If you have a migraine headache: ? Avoid things that make your symptoms worse, such as bright lights. ? Lie down in a dark, quiet room. ? Do not drive or use machinery. ? Ask your doctor what activities are safe for you. Where to find more information ? Coalition for Headache and Migraine Patients (CHAMP): headachemigraine.org ? [place] [employer]raine Foundation: americanmigrainefoundation.org ? National Headache Foundation: headaches.org Contact a doctor if: ? You get a migraine headache that is different or worse than others you have had. ? You have more than 15 days of headaches in one month. Get help right away if: ? Your migraine headache gets very bad. ? Your migraine headache lasts more than 72 hours. ? You have a fever or stiff neck. ? You have trouble seeing. ? Your muscles feel weak or like you cannot control them. ? You lose your balance a lot. ? You have trouble walking. ? You faint. ? You have a seizure. This information is not intended to replace advice given to you by your health care provider. Make sure you discuss any questions you have with your health care p (more content not included)...[facility] [id number] NoteEducation Materials Dermatology Nonsutured Laceration Care A laceration is a cut that may go through all layers of the skin and into the tissue that is right under the skin. A laceration is usually stitched up (sutured) or closed with adhesive strips or skin glue shortly after the injury happens. However, if the wound is dirty or if several hours pass before medical treatment is provided, it is likely that bacteria will enter the wound. Closing a laceration after bacteria have entered it increases the risk for infection. In these cases, your health care provider may leave the laceration open (nonsutured) and cover it with a bandage (dressing). This type of treatment helps prevent infection and allows the wound to heal from the deepest layer of tissue damage up tothe surface. Nonsutured healing is also known as secondary wound healing. This is more common for wounds that involve loss of tissue, are irregular in shape and size, or are on surfaces of the body where movementmakes sutures or other closure methods impossible. How to care for your nonsutured laceration Follow instructions from your health care provider about how to take care of your wound. ? Keep the wound clean and dry. ? Change any dressings as told by your health care provider. This includes changing the dressing when it starts to smell, or when it gets wet or dirty. ? Clean the wound one time each day, or as often as told by your health care provider. To clean your wound: 1. Wash your hands with soap and water for at least 20 seconds before and after touching your woundor changing your dressing. If soap and water are not available, use hand clinical research scientist. 2. Remove any dressing as told by your health care provider. 3. Clean the wound with water or irrigation solution as told by your health care provider. 4. Pat the wound dry with a clean towel. Do not rub the wound. 5. Apply a thin layer of antibiotic ointment or another topical ointment to the wound as told by your health care provider. This will prevent infection and keep the dressing from sticking to the wound. 6. Apply a new dressing as told by your health care provider. ? Check your wound every day for signs of infection. Watch for: ? More redness, swelling, or pain. ? Fluid or blood. ? Warmth. ? Pus or a bad smell. ? Do not take baths, swim, or do anything that puts your wound underwater until your health care provider approves. ? Do not scratch or pick at the wound. ? Do not usedisinfectants or antiseptics, such as rubbing alcohol, to clean your wound unless told by your health care provider. Follow these instructions at home: Medicines ? Take xnht-dzs-vhrzwed and prescription medicines only as told by your health care provider. ? If you were prescribed an antibiotic medicine, take or apply it as told by your health care provider. Do not stop using the antibiotic even if your condition improves. Managing pain and swelling ? If directed, put ice on the injured area. To do this: ? Put ice in a plastic bag. ? Place a towel between your skin and the bag. ? Leave the ice on for 20 minutes, 2?3 times a day. ? Remove the ice if your skin turns bright red. This is very important. If you cannot feel pain, heat, or cold, you have a greater risk of damage to the area. ? Raise (elevate) the injured area above the level of your heart while you are sitting or lying down. General instructions ? Avoid any activity that could cause your laceration to reopen. ? Keep all follow-up visits. This is important. Contact a health care provider if: ? You received a tetanus shot and you have swelling, severe pain, redness, or bleeding at the injection site. ? Your pain is not controlled with medicine. ? You have any of these signs of infection: ? More redness, swelling, or pain around your wound. ? Fluid or blood coming from your wound. ? Warmth coming from your wound. ? Pus or a bad smell coming from your wound. ? A fever. ? You notice something coming out of the wound, such as wood or glass. ? You notice a change in the color of your skin near your wound. ? You develop a new rash. ? You need to change the dressing often. ? You develop numbness around your wound. Get help right away if: ? Your pain suddenly increases and is severe. ? You develop severe swelling around the wound. ? The wound is on your hand or foot, and you cannot properly move a finger or toe. ? The wound is on your hand or foot, and you notice that your fingers or toes look pale or bluish. ? You have a red streak going away from your wound. ? You develop painful lumps near the wound or on skin anywhere else on your body. Summary ? A laceration is a cut that may go through all layers of the skin and into the tissue that is right under the skin. It is usually closed with stitches, tape, or skin glue shortly after the injury happens. ? If a wound is dirty or if several hours pass before me (more content not included)...[facility] [id number] Evaluation note* Encounter Date Diagnosis Assessment Notes Treatment Notes Treatment Clinical Notes 09 Feb, 2024 Spondylolisthesis at L4-L5 level (ICD-10 - M43.16) 1. Lumbar degenerative disc disease and spinal stenosis I independently reviewed the MRI of lumbar spine shows degeneration at L2-3 and L3-4, with disc bulge at L2-3 and L3-4 just above previous fusion and arthritic changes in facet joints.Reviewed X-ray from 10/06 shows degeneration and arthritic changes in sacroiliac joint, as well as narrowing at L2-3 and L3-4. Degeneration at L2-L3 and L3-L4 with weakness in left leg and occasional right leg pain. Advised to continue aqua/physical therapy for 12 sessions, reassess progress and symptoms. Darianley will be sore and tired after therapy sessionsas to be expected. 2. Sacroiliac joint pain and left hip bursitis: Received injections with some improvement in back pain. in which patient just recieved 12/03/23 Plan: Monitor response to injections for 8 weeks, avoid aggravating activities. 3. Lower extremity weakness:- Difficulty lifting left leg, related to degenerative disc disease andspinal stenosis.- Plan: Continue physical therapy, reassess progress and symptoms. 4. Weight managment: Education completed on diet, exercise, sugary and caloric intake. Education on 1lb weight has 4lbs of pressure to the spine. 5. Follow-up appointment: Schedule appointment in 8 weeks to discuss potential surgical interventions with Dr Hair. Nov,Sacroiliac inflammation (ICD-10 - M46.1) Nov,Lumbar radiculopathy (ICD-10 - M54.16) Nov,Facet arthritis of lumbar region (ICD-10 - M47.816) Nov,MI 38.0-38.9,adult (ICD-10 - Z68.38) [facility] [employer] Other 01-23-2024 Evaluation note* Encounter Date Diagnosis Assessment Notes Treatment Notes Treatment Clinical Notes Oct, Sacroiliitis (ICD-10 - M46.1) Patients primary complaint today is low lumbar and gluteal pain, consistent with the sacroiliac joints on exam. Based on location of pain and exam findings, patient is a candidate for bilateral sacroiliac joint injections which we will proceed with. Risks and benefits of procedure explained to patient; patient verbalizes understanding. In the meantime, she will continue her current medication regimen. These medications were refilled today. Anatomy of spine discussed in detail with patient in regards to patients condition. Oct,Trochanteric bursitis (ICD-10 - M70.60)Patient is also voicing complaints of pain over the lateral left hip. She shows notable tenderness over the trochanteric bursa on exam. Based on location of pain and exam findings, patient is a candidate for a left trochanteric bursa injection which we will proceed with.. Risks and benefits of procedure explained to patient; patient verbalizes understanding. Oct,Spinal stenosis (ICD-10 - M48.00)Patient is also voicing complaints of weakness throughout her bilateral lower extremities. Recent MRI results were discussed with the patient, severe stenosis is evidenced above her surgical level. She likely has multiple issues contributing to her symptoms. Should her symptoms persist, we can consider a lumbar epidural steroid injection. She was encouraged to continue with physical therapy as recently prescribed by neurosurgery and follow up with their office as scheduled. Anatomy of spine disc ussed in detail with patient in regards to patients condition. Oct,hronic, continuous use of opioids (ICD-10 - F11.90)We will switch the patient from Tramadol 50 mg to Tylenol #3 twice daily as needed for severe pain.An OARRS report was processed and reviewed and shows no violations, as well as an opioid risk assessment being completed without concerns. She denies any significant opioid related side effects and appears to be compliant with this medication. The patient was counseled and educated regarding the risks and benefits of children[employer] opioid use. She understands the associated risks with this medication and agrees that it provides reasonable benefit in regards to her pain control and level of function.This medication was filled today. Oct,Other chronic pain (ICD-10 - G89.29) Oct,OtherEdited and approved by Dr. Jamie Rooney MD. [facility] Other 01-23-2024 Evaluation note* Encounter Date Diagnosis Assessment Notes Treatment Notes Treatment Clinical Notes Oct, Sacroiliitis (ICD-10 - M46.1) [facility] Other 01-03-2024 Evaluation note* Encounter Date Diagnosis Assessment Notes Treatment Notes Treatment Clinical Notes Oct, Lumbar radiculopathy (ICD-10 - M 54.16) Ms Folrez has an extensive past surgical history of XLIF 04/17/21 in which has done well. States over last few months having difficulty with walking and pain right low back. Will order xray lumbar 6 vand MRI to r/o cord compression and determine procedural interventions. Upon examination patient ishaving bilateral leg weakness. Will order Aqua therapy. Advised to follow up with Dr Rooney for Right SI injection. Follow up in 12 weeks. Medical decision making shows a new problem to me with further workup planned or suggested with the potential for extensive treatment options that were considered with the most applicable given this patient's situation as noted above. Treatment options considered include a combination of physical therapy approaches, pharmacologic management, and interventional procedures. Those most applicable to the patient were discussed at this time. Risk of complications and/or morbidity and mortality is high given that acute and chronic pain poses a threat to life and bodily function if undertreated, poorly treated or with failure to maintain adequate treatment and timely followup. Given the serious and fluctuating nature of pain with extensive consideration for whenever pain changes, there always remains the possibility of prolonged functional impairment requiring constant patient reassessment and high-level medical decision making. The amount and complexity of data reviewed is high given that patient labs, radiology reports, and other test were obtained, reviewed and summarized as applicable from the physician portal and/or outside medical records. Pertinent positive and negative findings were considered in medical decision-making. Oct,Sacroiliac inflammation (ICD-10 - M46.1) [facility] Other 12-20-2023 Evaluation note* Encounter Date Diagnosis Assessment Notes Treatment Notes Treatment Clinical Notes Sep, Trigger finger, right middle fin sujey (ICD-10 - M65.331) Sep,Trigger finger, right index finger (ICD-10 - M65.321)Bilateral carpal tunnel and right index/middle/ring trigger fingers injected with cortisone under sterile technique, patient tolerated well. Sep,Trigger finger, right ring finger (ICD-10 - M65.341) Sep,arpal tunnel syndrome of right wrist (ICD-10 - G56.01) Sep,arpal tunnel syndrome of left wrist (ICD-10 - G56.02) Sep,Right hand pain (ICD-10 - M79.641) [facility] Other 12-15-2023 Evaluation note* Encounter Date Diagnosis Assessment Notes Treatment Notes Treatment Clinical Notes Sep, Shoulder pain (ICD-10 - M25.519) [facility] Other 11-02-2023 Evaluation note* Encounter Date Diagnosis Assessment Notes Treatment Notes Treatment Clinical Notes Aug, Medicare annual wellness visit, subsequent (ICD-10 - Z00.00) Personalized health advice was given to the beneficiary including a written plan for screenings discussed and provided. Advanced care planning reviewed and/or information given as requested. The above visit was performed by JI Giordano/ MITCHEL, under direct supervision of Dr. Amanda Sharif DO. Document reviewed and amended by provider signed below. Chronic health problems are under adequate control. Continue to follow with specialty care as she is already doing. Flu vaccine is provided Aug,Flu vaccine need (ICD-10 - Z23) Aug,MI 37.0-37.9, adult (ICD-10 - Z68.37)We discussed lifestyle treatment for weight loss at length. I encouraged her to increase her exercise up to 1 5 0 minutes/week. Encouraged smaller portion size, decrease carbohydrates, increase protein and vegetables. She is going to work on this for the next few months, if she does not achieve significant success, then I advised her to return for consideration of pharmaceutical intervention helpwith weight loss Aug,OVID-19 (ICD-10 - U07.1)Pulmonary exam is normal, but I will order repeat chest x-ray as was previously recommended throughthe urgent care [facility] Other 10-10-2023 Evaluation note* Encounter Date Diagnosis Assessment Notes Treatment Notes Treatment Clinical Notes Jul, Chronic, continuous use of opioi ds (ICD-10 - F11.90) We will switch the patient from Tramadol 50 mg to Tylenol #3 twice daily as needed for severe pain.An OARRS report was processed and reviewed and shows no violations, as well as an opioid risk assessment being completed without concerns. She denies any significant opioid related side effects and appears to be compliant with this medication. The patient was counseled and educated regarding the risks and benefits of children[employer] magistrate opioid use. She understands the associated risks with this medication and agrees that it provides reasonable benefit in regards to her pain control and level of function.This medication was filled today. Jul,Spinal stenosis (ICD-10 - M48.00)Patient appears to be doing well and voices minimal complaints of pain at this time. She continues to follow up with neurosurgery. Patient will continue her current medication reigmen. Gabapentin andDiclofenac were refilled today. We will follow up with the patient in six months, sooner if needed.Anatomy of spine discussed in detail with patient in regards to patients condition. Overall, patient believes their pain is reasonably well controlled and she is in agreement with our treatment plan. Jul,Shoulder pain (ICD-10 - M25.519)We discussed treatment options for the patient's persistent bilateral shoulder pain. She shows notable pain upon exam. She is a reasaonble candidate for bilateral shoulder joint injections which we will proceed with today in the office. Risks and benefits of procedure explained to patient; patient verbalizes understanding. Patient tolerated well. Jul,Other chronic pain (ICD-10 - G89.29) Jul,OtherAbove note written by Radha Brooks LPN, [employer]. Edited and approved by Dr. Jamie Rooney MD. [facility] Other 10-10-2023 Evaluation note* Encounter Date Diagnosis Assessment Notes Treatment Notes Treatment Clinical Notes Jul, Shoulder pain (ICD-10 - M25.519) [facility] Other 10-09-2023 Evaluation note* Encounter Date Diagnosis Assessment Notes Treatment Notes Treatment Clinical Notes Jul, Shoulder pain (ICD-10 - M25.519) [facility] Other 07-19-2023 Evaluation note* Encounter Date Diagnosis Assessment Notes Treatment Notes Treatment Clinical Notes Apr, Trigger finger, right middle fin sujey (ICD-10 - M65.331) Apr,Trigger finger, right index finger (ICD-10 - M65.321)Bilateral carpal tunnel and right index/middle/ring trigger fingers injected with cortisone under sterile technique, patient tolerated well Apr,Trigger finger, right ring finger (ICD-10 - M65.341) Apr,arpal tunnel syndrome of right wrist (ICD-10 - G56.01) Apr,arpal tunnel syndrome of left wrist (ICD-10 - G56.02) Apr,Right hand pain (ICD-10 - M79.641) [facility] Other 06-20-2023 Evaluation note* Encounter Date Diagnosis Assessment Notes Treatment Notes Treatment Clinical Notes Mar, Spondylolisthesis at L4-L5 level (ICD-10 - M43.16) 2 years postop the patient has minimal discomfort good function her back gets tired. X-ray which was independently reviewed and compared to the previous shows good hardware placement with what appears to be a ongoing autofusion of the 2 levels above our surgical fusion. There is been no hardware failure everything looks good I given the patient reassurance I will see her again in a year. Mar,Lumbar stenosis with neurogenic claudication (ICD-10 - M48.062) [facility] Other 05-31-2023 Evaluation note* Encounter Date Diagnosis Assessment Notes Treatment Notes Treatment Clinical Notes February, Shoulder pain (ICD-10 - M25.519) [facility] Other 05-08-2023 Evaluation note* Encounter Date Diagnosis Assessment Notes Treatment Notes Treatment Clinical Notes February, Pain in right shoulder (ICD-10 - M25.511) February,ain in left shoulder (ICD-10 - M25.512) February,alcific tendinitis of right shoulder (ICD-10 - M75.31)A 1/1cc marcaine / kenalog cortisone injection was performed into the subacromial space under sterile technique. Patient tolerated the injection well with no adverse reaction. February,3Calcific tendinitis of left shoulder (ICD-10 - M75.32)A 1/1cc marcaine / kenalog cortisone injection was performed into the subacromial space under sterile technique. Patient tolerated the injection well with no adverse reaction. [facility] Other 03-16-2023 Evaluation note* Encounter Date Diagnosis Assessment Notes Treatment Notes Treatment Clinical Notes 16 Dec, 2022 Shoulder pain (ICD-10 - M25.519) [facility] Other 03-14-2023 Evaluation note* Encounter Date Diagnosis Assessment Notes Treatment Notes Treatment Clinical Notes 14 Dec, 2022 Spinal stenosis (ICD-10 - M48.00 ) [facility] Other 03-13-2023 Evaluation note* Encounter Date Diagnosis Assessment Notes Treatment Notes Treatment Clinical Notes Dec, Hyperlipidemia (ICD-10 - E78.5) Dec,Hypothyroidism, unspecified (ICD-10 - E03.9) [facility] Other 02-22-2023 Evaluation note* Encounter Date Diagnosis Assessment Notes Treatment Notes Treatment Clinical Notes Nov, Trochanteric bursitis, right hip (ICD-10 - M70.61) Nov,Trochanteric bursitis, left hip (ICD-10 - M70.62) Nov,cute left ankle pain (ICD-10 - M25.572) Nov,rthritis of ankle, left (ICD-10 - M19.072) Nov,Left foot drop (ICD-10 - M21.372) Nov,OtherWe had another discussion regarding her left ankle. I again explained to her that her x-rays demonstrate odeg-rf-[id number] articulation of the ankle joint and this explains a lot of her symptoms in the ankle. At this point I still feel that the hardware is symptomatic but this is more result of posttraumatic ankle arthritis. We did discuss continuing with oral anti- inflammatories and topical anti-inflammatories as much she can tolerate. If he gets to the point where her pain is more consistent and she like to try other treatment options we did discuss injections or getting her referred to a foot an d ankle surgeon for discussions about a fusion. [facility] Encounter Date Diagnosis Assessment Notes Treatment Notes Treatment Clinical Notes Oct, Acute non-recurrent maxillary si nusitis (ICD-10 - J01.00) Discussed diagnosis with patient. Instructed to take ATB as directed and complete entire course even if asymptomatic. OTC Tylenol or ibuprofen for discomfort. Start Flonase nasal spray prn congestion. OTC cough medication prn cough. Push fluids and rest. Cool mist humidier. Immediate evaluation if w orsening symptoms. Patient to notify office should symptoms persist or not improve. Pt verbalizes understanding and agrees with tx plan. [facility] Other 11-15-2022 Evaluation note* Encounter Date Diagnosis Assessment Notes Treatment Notes Treatment Clinical Notes Aug, Trochanteric bursitis, right hip (ICD-10 - M70.61) Aug,Trochanteric bursitis, left hip (ICD-10 - M70.62) Aug,cute left ankle pain (ICD-10 - M25.572) Aug,rthritis of ankle, left (ICD-10 - M19.072) Patient is in need of a left ankle AFO brace due to their diagnosis of left ankle post traumatic arthritis and left drop foot. This is needed for aid in activities of daily living by increasing safety and stability. This will be needed for approximately a lifetime. Aug,Left foot drop (ICD-10 - M21.372) Aug,therI do long discussion with the patient regarding etiology of her symptoms. I think that she has someankle arthritis causing her some discomfort. She also has a flatfoot and a dropfoot when the muscles get tired. She is already doing anti-inflammatories topically and orally. She is already doing ice. At this point working to send her to [facility] for an AFO brace to help with the dropfoot as well as the ankle arthritis. I want her to try and wear this all the time for 4 to 6 weeks and if she still having discomfort then she can come back in and we can consider doing a steroid injection of the ankle. Patient voiced understanding and is in agreement with this plan. [facility] Other 11-01-2022 Evaluation note* Encounter Date Diagnosis Assessment Notes Treatment Notes Treatment Clinical Notes Aug, Medicare annual wellness visit, initial (ICD-10 - Z00.00) Personalized health advice was given to the beneficiary including a written plan for screenings discussed and provided. Advanced care planning reviewed and/or information given as requested. The above visit was performed by JI Miranda, under direct supervision of Dr. Amanda Sharif DO. Document reviewed and amended by provider signed below. Overall exam is stable. Obesity is discussed, weight loss strategies are reviewed including increased physical activity and healthy diet choices, avoid processed food, portion control. Flu vaccine isprovided. She will arrange mammogram on her own, she is already arranged repeat colonoscopy. RepeatDEXA scan is also ordered. Reassurance regarding the skin lesions, warning symptoms are reviewed Aug,Flu vaccine need (ICD-10 - Z23) Aug,ge-related osteoporosis without current pathological fracture (ICD- 10 - M81.0) [facility] Other 10-31-2022 Evaluation note* Encounter Date Diagnosis Assessment Notes Treatment Notes Treatment Clinical Notes Jul, Screening for colon cancer (ICD- 10 - Z12.11) [facility] Other 10-21-2022 Evaluation note* Encounter Date Diagnosis Assessment Notes Treatment Notes Treatment Clinical Notes Jul, Trigger finger, right middle fin sujey (ICD-10 - M65.331) We performed a cortisone injection into the palmar aspect of the finger near at the A1 ladi understerile technique. The patient tolerated this well without complication. We discussed that the finger may feel numb and tingle for hours after this injection.. Jul,Trigger finger, right index finger (ICD-10 - M65.321)We performed a cortisone injection into the palmar aspect of the finger near at the A1 ladi understerile technique. The patient tolerated this well without complication. We discussed that the finger may feel numb and tingle for hours after this injection.. Jul,Trigger finger, right ring finger (ICD-10 - M65.341)We performed a cortisone injection into the palmar aspect of the finger near at the A1 ladi understerile technique. The patient tolerated this well without complication. We discussed that the finger may feel numb and tingle for hours after this injection.. Jul,arpal tunnel syndrome of right wrist (ICD-10 - G56.01)We performed a cortisone injection into the bilateral carpal tunnels under sterile technique. Patient tolerated the injection well without adverse reaction. Jul,arpal tunnel syndrome of left wrist (ICD-10 - G56.02) Jul,ight hand pain (ICD-10 - M79.641) [facility] Other 08-05-2022 Evaluation note* Encounter Date Diagnosis Assessment Notes Treatment Notes Treatment Clinical Notes May, Trochanteric bursitis, right hip (ICD-10 - M70.61) May,Trochanteric bursitis, left hip (ICD-10 - M70.62) May,ain in right hip (ICD-10 - M25.551) May,ain in left hip (ICD-10 - M25.552) May,ther1. We had a long discussion regarding the etiology of their symptoms. I explained to the patient that greater trochanteric bursitis is a chronic condition and as a result may require several rounds of physical therapy and or injections. Furthermore, it requires a diligent home exercise regimen to prevent flareups. 2. We discussed oral anti-inflammatories and Tylenol. Recommended utilizing enkb-efk-wqsfsak oral anti-inflammatories. Recommended adjusting their Tylenol dosing to 1000mg by mouth up to 3 times a day. 3. We discussed physical therapy. Patient preferred formal physical therapy which we provided a referral. 4. We discussed steroid injections as a treatment option. Patient preferred bilateral hip bursa injections. After consent was obtained, the right and left hip greater trochanteric bursa were injectedwith 2 cc of Kenalog and 8 cc of bupivacaine using sterile technique. Patient tolerated the injection well. 5. Follow up in 3 months. 6. Patient had her left ankle fixed by Dr. Morales many years ago. She is noted some increasing pain in that area and its been a while since she has had an x- ray. We will get 3 views of the left ankle when she returns for her visit to follow-up on her hips. [facility] Other 08-05-2022 Evaluation note* Encounter Date Diagnosis Assessment Notes Treatment Notes Treatment Clinical Notes May, Trigger finger, right middle fin sujey (ICD-10 - M65.331) Right index, right long, and right ring trigger fingers injected with cortisone under sterile technique, patient tolerated well May,Trigger finger, right index finger (ICD-10 - M65.321)Right index, right long, and right ring trigger fingers injected with cortisone under sterile technique, patient tolerated well May,Trigger finger, right ring finger (ICD-10 - M65.341)Right index, right long, and right ring trigger fingers injected with cortisone under sterile technique, patient tolerated well May,arpal tunnel syndrome of right wrist (ICD-10 - G56.01)Bilateral carpal tunnel injected with cortisone under sterile technique, patient tolerated well May,arpal tunnel syndrome of left wrist (ICD-10 - G56.02)Bilateral carpal tunnel injected with cortisone under sterile technique, patient tolerated well May,ight hand pain (ICD-10 - M79.641) [facility] Other 06-30-2022 Evaluation note* Encounter Date Diagnosis Assessment Notes Treatment Notes Treatment Clinical Notes Mar, Degenerative disc disease, lumba r (ICD-10 - M51.36) Mar,pinal stenosis (ICD-10 - M48.00)The patient is 1 year out and actually doing very well. I have independently evaluated the AP and lateral lumbar spine x-ray with flexion and extension showing good stable segment at L4- 5 with cage placement and hardware showing no change. Clinically the patient had almost complete relief of her claudicatory symptoms. I will see her again in a year with another x-ray. The left foot numbness I am not certain as to the cause. 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) 15 Mar,rimary osteoarthritis of left wrist (ICD-10 - M19.032) 15 Mar, 2021Trigger finger, right middle finger (ICD-10 - M65.331) 15 Mar, 2022Trigger finger, right ring finger (ICD-10 - M65.341) 15 Mar, 2022Trigger finger, left index finger (ICD-10 - M65.322) 15 Mar, 2021Trigger finger, left middle finger (ICD-10 - M65.332) 15 Mar, 2022Trigger finger, left ring finger (ICD-10 - M65.342) Mar,ight hand pain (ICD-10 - M79.641) Mar,Left hand pain (ICD-10 - M79.642) [facility] Other 05-18-2022 Evaluation note* Encounter Date Diagnosis Assessment Notes Treatment Notes Treatment Clinical Notes February, Spinal stenosis (ICD-10 - M48.00 ) Patient appears to be doing well after lumbar surgery, she may have some degree of sacroiliac jointpain. She notes plans to follow up with neurosurgery in the future. Anatomy of spine discussed in detail with patient in regards to patients condition. Overall, patient believes their pain is reasonably well controlled and she is in agreement with our treatment plan. February,houlder pain (ICD-10 - M25.519)Patient is voicing minimal complaints of pain at this time. She attributes this to physical therapy. We will continue to monitor her symptoms in this region. Overall, patient believes their pain is reasonably well controlled and she is in agreement with our treatment plan. February,ther chronic pain (ICD-10 - G89.29) February,hronic, continuous use of opioids (ICD-10 - F11.90)Patient has continued need for Tramadol 50 MG needed. An OARRS report was processed and reviewed and shows no violations, as well as an opioid risk assessment being completed without concerns. She denies any significant opioid related side effects and appears to be compliant with this medication. The patient was counseled and educated regarding the risks and benefits of [facility] opioid use. She understands the associated risks with this medication and agrees that it provides reasonable benefitin regards to her pain control and level of function. This medication was refilled today. Saliva performed through [facility] today, will await confirmatory results. February,therAbove note written by Radha Brooks LPN, [employer]. Edited and approved by Dr. Jamie Rooney MD. [facility] Other 03-29-2022 Evaluation note* Encounter Date Diagnosis Assessment Notes Treatment Notes Treatment Clinical Notes Dec, Pain in right shoulder (ICD-10 - M25.511) Dec,ain in left shoulder (ICD-10 - M25.512) Dec,alcific tendinitis of right shoulder (ICD-10 - M75.31) This appears to be pain secondary to bilaeral rotator cuff tendonitis. We discussed and demonstrated gentle motion exercise and rotator cuff strengthening exercise. Discussed the use of ofd-exbzjjaujgjza-iphixrpfligo medication. We will provide an order for formal physical therapy. Dec,alcific tendinitis of left shoulder (ICD-10 - M75.32) [facility] Other 03-15-2022 Evaluation note* Encounter Date Diagnosis Assessment Notes Treatment Notes Treatment Clinical Notes Dec, Trigger finger, right middle fin sujey (ICD-10 - M65.331) Right middle, right ring, left index, left middle, and left ring trigger fingers injected with cortisone under sterile technique, patient tolerated well Dec,Trigger finger, right ring finger (ICD-10 - M65.341) Dec,Trigger finger, left index finger (ICD-10 - M65.322) Dec,Trigger finger, left middle finger (ICD-10 - M65.332) Dec,Trigger finger, left ring finger (ICD-10 - M65.342) Dec,ight hand pain (ICD-10 - M79.641) Dec,Left hand pain (ICD-10 - M79.642) [facility] Other 12-07-2021 Evaluation note* Encounter Date Diagnosis Assessment Notes Treatment Notes Treatment Clinical Notes Sep, Bronchitis (ICD-10 - J40) [facility] Other 12-06-2021 Evaluation note* Encounter Date Diagnosis Assessment Notes Treatment Notes Treatment Clinical Notes Sep, Rhonchi at right lung base (ICD- 10 - R09.89) COVID negative, Influenza A/B negative. She does have rhonchi to her right lung base. Will further evaluate with CXR. Further treatment pending results of testing. Warning s/s reviewed with patient today. Patient to go immediately to the ER should pt experience any of these. Patient verbalizes understanding and agrees to treatment plan. Sep,ough (ICD-10 - R05.9) See above treatment plan. Sep,ontact with and (suspected) exposure to other viral communicable diseases (ICD-10 - Z20.828) COVID negative, Influenza A/B negative. See above treatment plan. Sep,OtherAdditional time spent conducting pre-visit phone call, screening for symptoms, instructions on social distancing, application and removal of PPE, and cleaning of examination room, equipment and supplies was preformed. 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 Patient tolerated the injection well without adverse reaction. If pain persists we will refer patient to Dr. bey for further evaluation. Aug,cute left ankle pain (ICD-10 - M25.572) [facility] Other 10-27-2021 Evaluation note* Encounter Date Diagnosis Assessment Notes Treatment Notes Treatment Clinical Notes Jul, Chronic, continuous use of opioi ds (ICD-10 - F11.90) Patient has continued need for Oxycodone Acetaminophen 5-325 mg up to three times daily as needed. An OARRS report was processed and reviewed and shows no violations, as well as an opioid risk assessment being completed without concerns. She denies any significant opioid related side effects and appears to be compliant with this medication. The patient was counseled and educated regarding the risks and benefits of children's court magistrate opioid use. She understands the associated risks with this medication and agrees that it provides reasonable benefit in regards to her pain control and level of function. Patient does not currently need a refill. Jul,ain in left ankle and joints of left foot (ICD-10 - M25.572) Patient was encouraged to follow up with orthopedics in regards to her left ankle pain and swelling. Jul,pinal stenosis (ICD-10 - M48.00) Patient's radiating lower extremity symptoms are tolerable at this time since her recent lumbar surgery. Anatomy of spine discussed in detail with patient in regards to patients condition. Overall, patient believes their pain is reasonably well controlled and she is in agreement with our treatment plan. Jul,egenerative disc disease, lumbar (ICD-10 - M51.36) Jul,hronic pain (ICD-10 - G89.29) Jul,Other chronic pain (ICD-10 - G89.29) Jul,OtherAbove note written by Angi Leblanc CMA, [employer] Professional. Edited and approved by Dr. Jamie Rooney MD. [facility] Other 10-08-2021 Evaluation note* Encounter Date Diagnosis Assessment Notes Treatment Notes Treatment Clinical Notes Jul, Spinal stenosis (ICD-10 - M48.00 ) [facility] Other 10-08-2021 Evaluation note* Encounter Date Diagnosis Assessment Notes Treatment Notes Treatment Clinical Notes Jul, Degenerative disc disease, lumba r (ICD-10 - M51.36) Jul,pinal stenosis (ICD-10 - M48.00) The patient is now 3-1/2 months postop. She has residual numbness of the left leg which is not a surprise. Her radicular leg pain is better. She can stop wearing the brace and increase activity. I will see her back in 3 months with an x-ray. Jul,Other spondylosis with radiculopathy, lumbar region (ICD-10 - M47.26) [facility] Other evaluation noteNo InformationNortJefferson Health [facility] Other Evaluation noteN[facility]Jefferson Health [facility] Other evaluation noteNo assessment information available [facility] Work Phone: Evaluation note* Diagnosis Onset Date Resolution Status Greater trochanteric bursitis of both hi ps acutePost-traumatic osteoarthritis of left ankleacute [facility] Work Phone: Evaluation note* Diagnosis Onset Date Resolution Status Greater trochanteric bursitis of both hi ps acutePost-traumatic osteoarthritis of left ankleacuteObesity, Class II, BMI 35-39.9acuteHistory of lumbar fusionacuteLumbar stenosisacuteVascular claudicationacute [facility] Work Phone: Evaluation note* Diagnosis Onset Date Resolution Status Greater trochanteric bursitis of both hi ps acutePost-traumatic osteoarthritis of left ankleacuteLumbar stenosisacute Vascular claudicationacuteCarpal tunnel syndrome of left wristacuteCarpal tunnel syndrome of right wristacuteTrigger finger, left ring fingeracuteTrigger finger, right index fingeracuteTrigger finger, right middle fingeracute [facility] Work Phone: Evaluation note* Diagnosis Onset Date Resolution Status Greater trochanteric bursitis of both hi ps acutePost-traumatic osteoarthritis of left ankleacuteLumbar stenosisacute Vascular claudicationacuteCarpal tunnel syndrome of left wristacuteCarpal tunnel syndrome of right wristacuteTrigger finger, left ring fingeracuteTrigger finger, right index fingeracuteTrigger finger, right middle fingeracuteSupraclavicular fossa fullnessacute [facility] Work Phone: Evaluation note* Diagnosis Onset Date Resolution Status Greater trochanteric bursitis of both hi ps acutePost-traumatic osteoarthritis of left ankleacuteLumbar stenosisacute Vascular claudicationacuteCarpal tunnel syndrome of left wristacuteCarpal tunnel syndrome of right wristacuteTrigger finger, left ring fingeracuteTrigger finger, right index fingeracuteTrigger finger, right middle fingeracuteSupraclavicular fossa fullnessacuteLumbar stenosisacute [facility] Work Phone: Evaluation note* Diagnosis Onset Date Resolution Status Lumbar stenosis acuteVascular claudicationacuteCarpal tunnel syndrome of left wristacuteCarpal tunnel syndrome of right wristacuteTrigger finger, left ring fingeracuteTrigger finger, right index fingeracuteTrigger finger, right middle fingeracute Supraclavicular fossa fullnessacuteLumbar stenosisacute [facility] Work Phone: evaluation note* Diagnosis Onset Date Resolution Status Lumbar stenosis acuteVascular claudicationacuteCarpal tunnel syndrome of left wristacuteCarpal tunnel syndrome of right wristacuteTrigger finger, left ring fingeracuteTrigger finger, right index fingeracuteTrigger finger, right middle fingeracute Supraclavicular fossa fullnessacuteLumbar stenosisacuteElevated LFTsacuteFatty liveracuteLeft thyroid noduleacuteSupraclavicular fossa fullnessacuteGreater trochanteric bursitis of both hipsacutePost-traumatic osteoarthritis of left ankleacute [facility] Work Phone: Evaluation note* Diagnosis Onset Date Resolution Status Lumbar stenosis acuteVascular claudicationacuteCarpal tunnel syndrome of left wristacuteCarpal tunnel syndrome of right wristacuteTrigger finger, left ring fingeracuteTrigger finger, right index fingeracuteTrigger finger, right middle fingeracute Supraclavicular fossa fullnessacuteLumbar stenosisacuteElevated LFTsacuteFatty liveracuteLeft thyroid noduleacuteSupraclavicular fossa fullnessacuteGreater trochanteric bursitis of both hipsacutePost-traumatic osteoarthritis of left ankleacuteHistory of lumbar fusionacuteLumbar radiculopathyacute [facility] Work Phone: Evaluation note* Diagnosis Onset Date Resolution Status Carpal tunnel syndrome of left wrist acuteCarpal tunnel syndrome of right wristacuteTrigger finger, left ring finger acuteTrigger finger, right index fingeracuteTrigger finger, right middle finger acuteSupraclavicular fossa fullnessacuteLumbar stenosisacuteElevated LFTsacute Fatty liveracuteLeft thyroid noduleacuteSupraclavicular fossa fullnessacute Greater trochanteric bursitis of both hipsacutePost-traumatic osteoarthritis of left ankleacuteHistory of lumbar fusionacuteLumbar radiculopathyacute [facility] Work Phone: Evaluation note* Diagnosis Onset Date Resolution Status Carpal tunnel syndrome of left wrist acuteCarpal tunnel syndrome of right wristacuteTrigger finger, left ring finger acuteTrigger finger, right index fingeracuteTrigger finger, right middle finger acuteSupraclavicular fossa fullnessacuteLumbar stenosisacuteElevated LFTsacute Fatty liveracuteLeft thyroid noduleacuteSupraclavicular fossa fullnessacute Greater trochanteric bursitis of both hipsacutePost-traumatic osteoarthritis of left ankleacuteHistory of lumbar fusionacuteLumbar radiculopathyacute Osteoarthritis, shoulderacute [facility] Work Phone: Evaluation note* Diagnosis Onset Date Resolution Status Elevated LFTs acuteFatty liveracuteLeft thyroid noduleacuteSupraclavicular fossa fullnessacute Greater trochanteric bursitis of both hipsacutePost-traumatic osteoarthritis of left ankleacuteHistory of lumbar fusionacuteLumbar radiculopathyacute Osteoarthritis, shoulderacuteAcute diarrheaacuteSymptoms of upper respiratory infection (URI)[facility] Work Phone: Evaluation note* Diagnosis Onset Date Resolution Status Greater trochanteric bursitis of both hi ps acutePost-traumatic osteoarthritis of left ankleacuteHistory of lumbar fusion acuteLumbar radiculopathyacuteOsteoarthritis, shoulderacuteAcute diarrheaacute Symptoms of upper respiratory infection (URI)acuteFatty liveracuteThyroid nodule acute [facility] Work Phone: Evaluation note* Diagnosis Onset Date Resolution Status Greater trochanteric bursitis of both hi ps acutePost-traumatic osteoarthritis of left ankleacuteHistory of lumbar fusion acuteLumbar radiculopathyacuteOsteoarthritis, shoulderacuteAcute diarrheaacute Symptoms of upper respiratory infection (URI)acuteFatty liveracuteObesity (BMI 35.0-39.9 without comorbidity)acuteThyroid noduleacuteCarpal tunnel syndrome of left wristacuteCarpal tunnel syndrome of right wristacuteTrigger finger, right index fingeracuteTrigger finger, right middle fingeracuteTrigger finger, right ring fingeracute [facility] Work Phone: Evaluation note* Diagnosis Onset Date Resolution Status Greater trochanteric bursitis of both hi ps acutePost-traumatic osteoarthritis of left ankleacuteHistory of lumbar fusion acuteLumbar radiculopathyacuteOsteoarthritis, shoulderacuteAcute diarrheaacute Symptoms of upper respiratory infection (URI)acuteFatty liveracuteObesity (BMI 35.0-39.9 without comorbidity)acuteThyroid noduleacuteCarpal tunnel syndrome of left wristacuteCarpal tunnel syndrome of right wristacuteTrigger finger, right index fingeracuteTrigger finger, right middle fingeracuteTrigger finger, right ring fingeracuteHistory of lumbar fusionacuteLumbar radiculopathyaMag[facility] Work Phone: Evaluation note* Diagnosis Onset Date Resolution Status History of lumbar fusion acuteLumbar radiculopathyacuteOsteoarthritis, shoulderacuteAcute diarrheaacute Symptoms of upper respiratory infection (URI)acuteFatty liveracuteObesity (BMI 35.0-39.9 without comorbidity)acuteThyroid noduleacuteCarpal tunnel syndrome of left wristacuteCarpal tunnel syndrome of right wristacuteTrigger finger, right index fingeracuteTrigger finger, right middle fingeracuteTrigger finger, right ring fingeracuteHistory of lumbar fusionacuteLumbar radiculopathyate [facility] Work Phone: Evaluation note* Diagnosis Onset Date Resolution Status Osteoarthritis, shoulder acuteAcute diarrheaacuteSymptoms of upper respiratory infection (URI)acuteFatty liveracuteObesity (BMI 35.0-39.9 without comorbidity)acuteThyroid noduleacute Carpal tunnel syndrome of left wristacuteCarpal tunnel syndrome of right wrist acuteTrigger finger, right index fingeracuteTrigger finger, right middle finger acuteTrigger finger, right ring fingeracuteHistory of lumbar fusionacuteLumbar radiculopathyacuteHistory of lumbar fusionacuteImpaired mobility and activities of daily livingacuteLumbar radiculopathyacuteLumbar stenosisacuteObesity (BMI 35.0-39.9 without comorbidity)acutePost-operative painacute [facility] Work Phone: Evaluation note* Diagnosis Onset Date Resolution Status Osteoarthritis, shoulder acuteAcute diarrheaacuteSymptoms of upper respiratory infection (URI)acuteFatty liveracuteObesity (BMI 35.0-39.9 without comorbidity)acuteThyroid noduleacute Carpal tunnel syndrome of left wristacuteCarpal tunnel syndrome of right wrist acuteTrigger finger, right index fingeracuteTrigger finger, right middle finger acuteTrigger finger, right ring fingeracuteHistory of lumbar fusionacuteLumbar radiculopathyacuteHistory of lumbar fusionacuteImpaired mobility and activities of daily livingacuteLumbar radiculopathyacuteLumbar stenosisacuteObesity (BMI 35.0-39.9 without comorbidity)acutePost-operative painacuteFallacuteHistory of lumbar fusionacuteHypothyroidismacuteImpaired mobility and activities of daily livingacuteLumbar radiculopathyacuteLumbar stenosisacuteObesity (BMI 35.0-39.9 without comorbidity)acutePost-operative painacuteUTI (urinary tract infection) acute [facility] Work Phone: Evaluation note* Diagnosis Onset Date Resolution Status Acute diarrhea acuteSymptoms of upper respiratory infection (URI)acuteFatty liveracuteObesity (BMI 35.0-39.9 without comorbidity)acuteThyroid noduleacuteCarpal tunnel syndrome of left wristacuteCarpal tunnel syndrome of right wristacuteTrigger finger, right index fingeracuteTrigger finger, right middle fingeracuteTrigger finger, right ring fingeracuteHistory of lumbar fusionacuteLumbar radiculopathy acuteHistory of lumbar fusionacuteImpaired mobility and activities of daily livingacuteLumbar radiculopathyacuteLumbar stenosisacuteObesity (BMI 35.0-39.9 without comorbidity)acutePost-operative painacuteFallacuteHistory of lumbar fusionacuteHypothyroidismacuteImpaired mobility and activities of daily living acuteLumbar radiculopathyacuteLumbar stenosisacuteObesity (BMI 35.0-39.9 without comorbidity)acutePost-operative painacuteUTI (urinary tract infection)acute History of lumbar fusionacuteLumbar radiculopathyacute [facility] Work Phone: Evaluation note* Diagnosis Onset Date Resolution Status Acute diarrhea acuteSymptoms of upper respiratory infection (URI)acuteFatty liveracuteThyroid noduleacuteCarpal tunnel syndrome of left wristacuteCarpal tunnel syndrome of right wristacuteTrigger finger, right index fingeracuteTrigger finger, right middle fingeracuteTrigger finger, right ring fingeracute [facility] Work Phone: Evaluation note* Diagnosis Thyroid nodule (CMS/HCC)- Primary Nontoxic uninodular goiter [facility]* Diagnosis Onset Date Resolution Status Fatty liver acuteThyroid noduleacuteCarpal tunnel syndrome of left wristacuteCarpal tunnel syndrome of right wristacuteTrigger finger, right index fingeracuteTrigger finger, right middle fingeracuteTrigger finger, right ring fingeracute [facility] Work Phone: Evaluation note* Diagnosis Thyroid mass (CMS/HCC)- Primary Unspecified disorder of thyroid [facility]* Diagnosis Thyroid mass (CMS/HCC)- Primary Unspecified disorder of thyroid [facility]* Diagnosis Status post partial thyroidectomy (CMS/HCC)- Primary Other postprocedural status [facility]* Diagnosis Status post partial thyroidectomy (CMS/HCC) Other postprocedural status [facility]* Diagnosis Status post partial thyroidectomy- Primary Other postprocedural status documented in this encounter [facility] HealthcareHistory and physical note Author Krishna Zamorano [facility] December 03, 2022 8:32amNote Date/TimeFebruary 2022 8:32[place] [address] Gastroenterology H&P Signed Patient: Yolis Florez MR#: [id number] : 1950 Acct:[id number] Age/Sex: 72 / F Adm Date: 3 Loc: Room: Type: [facility] Attending Dr: Krishna Zamorano MD Copies to: Krishna Zamorano MD Amanda Sharif DO~ Date of Service: 12/03/2022 HISTORY & PHYSICAL: Patient's history with special attention to the cardiovascular, pulmonary systems and the current problem was reviewed with the patient immediately prior to the procedure. Present medications and doses reviewed in the EMR. Allergies and pertinent laboratory tests were also re viewedat this time in the EMR. The physical examination, as below, was then performed. Indication, assessment and HPI: 72-year-old female presents for screening colonoscopy Family history of GI malignancy? No PHYSICAL EXAMINATION Mouth and Pharynx : Moist mucus membranes, normal dentition Cardiac: Regular rate, regular rhythm Pulmonary: Clear to auscultation bilaterally, no wheezing Neurological: Alert and oriented x3, no focal deficits noted Abdomen: Abdomen soft, non-tender REVIEW OF SYSTEMS Constitutional: Denies malaise, fevers Cardiovascular: Denies chest pain, palpitations Respiratory: Denies shortness of breath, wheezing Gastrointestinal: Per HPI Genitourinary: Denies dysuria, polyuria Musculoskeletal: Denies joint swelling, joint stiffness Neurological: Denies numbness, tingling Integumentary: Denies rashes, skin lesions Endocrine: Denies fatigue, weight loss Written informed consent obtained from the patient. Risks (including but not limited to perforation, infection, bloating, bleeding, need for emergent surgeryand loss of life), benefits and alternatives explained and questions answered. The patient verbalized understanding. Based on history patient is an appropriate candidate for the procedure. Krishna Zamorano MD Documented By: Krishna Zamorano MD 12/03/22830 Signed By: <Electronically signed by Krishna Zamorano MD> 12/03/22831 [facility] Work Phone: History general Narrative - Reported* Type Description Date Medical History Hypothyroidism Medical HistoryMigraine HeadachesMedical HistoryDiverticulosisMedical HistoryMid back painMedical HistoryArthritisSurgical [id number],2011Surgical HistoryHysterectomySurgical Historyankle surgerySurgical HistoryBI LATERAL KNEE REPLACEMENT DR. [id number] HistoryLeft Ring Trigger Finger Dr. Nielsen Surgical HistorySinus Surgery10/2018Surgical HistoryEYELID [id number]/2019 Surgical Historylumbar [id number] Historysee above Hospitalization HistoryKNEE [id number] [facility] Other Hiskznt general Narrative - ReportedNortVerical Other Hisboqh general Narrative - Reported* Type Description Date Medical History Hypothyroidism Medical HistoryMigraine HeadachesMedical HistoryDiverticulosisMedical HistoryMid back painMedical HistoryArthritisSurgical [id number],2011Surgical HistoryHysterectomySurgical Historyankle surgerySurgical HistoryBI LATERAL KNEE REPLACEMENT DR. [id number] HistoryLeft Ring Trigger Finger Dr. Nielsen Surgical HistorySinus Surgery10/2018Surgical HistoryEYELID CCXHZXK73/2019 Surgical Historylumbar surgery-XLIF [id number] Historysee above surg. hx.H[facility] [id number] [facility] Other Hospital Discharge instructions Additional Instructions DISCHARGE INSTRUCTIONS FOR COLONOSCOPY WHAT TO EXPECT: - You may feel full, gassy or cramping after your procedure. In some cases, this may be from a few hours to a day. Walking may help relieve the discomfort. - You should begin to recover from anesthesia within 1 hour of the procedure, however may feel groggy for the next 24 hours. DO's AND DON'Ts: - Call your doctor right away if you have a hard abdomen, severe pain, are passing lots of bright red blood or clots. - Call your doctor if you develop any rashes, hives or difficulty breathing. - Let your doctor know if you have not had a bowel movement by 3 days after your procedure. - If you take 81 mg aspirin for your heart it is safe to resume this medication. - If you take other blood thinner medications your doctor will instruct you when these can safely be resumed. - Do NOT drive for 24 hours. - Do NOT operate machinery such as power tools, lawn mowers, snow blowers, sewing machines, etc. for 24 hours. - Avoid alcoholic beverages and drugs for allergies, nerves, or sleep. - Do NOT stay alone. Do NOT leave your child unattended. - Do NOT make important personal or business decisions or sign any legal documents. - Eat solid foods and drink liquids in smaller amounts than usual until normal appetite returns. If you should experience an upset stomach, liquids high in sugar content (soda, Denzel-Aid, non-acid juices) are recommended. - You can resume normal activities tomorrow. FOLLOW UP & RECOMMENDATIONS: -Follow-up with Dr. Zamorano as needed -Notify the doctor if you have any problems. -You do not need any further colonoscopies for colorectal cancer screening -Follow up with PCP. -Office number [phone].[facility] Work Phone: Hospital Discharge instructionsAmbulatory Orders* Referral to Podiatry Time Frame: 03/27/24, Location: None [facility] Work Phone: Hospital Discharge instructionsAmbulatory Orders* Referral to PT / OT / Speech (David Vasquez [facility]) Location: None [facility] Work Phone: Reason for referral (narrative)No reason for referral information availableProm[facility]ica [facility] Work Phone: Reason for Referral Reason Aqua therapy - evalu ate and treat Diagnosis 1 Lumbar radiculopathy (M54.16) Referral Organization [facility] uros[facility]gery Referring Provider First Name Juanita Referring Provider Last Name Lucy Referring Provider Specialty Nurse Pract itabyr Referred Organization [facility] nicolas Referred Address [address] [place], [place],[address] Referred Provider Specialty Physical The rapist Referral Priority Routine Reason * Waiting for appt Repeat colonoscopy screening Diagnosis 1 Screening for colon cancer (Z12.11) Referral Organization [facility] Family Medicin e Smith Referring Provider First Name Amanda Referring Provider Last Name Mast Referring Provider Specialty Family Prac betty Referred Organization [facility] Gastroenterolo gy Referred Provider Krishna Zamorano Referred Address [address] ,[place], [place],[address] Referred Provider Specialty Gastroentero logy Referral Priority Routine General Notes Dr. Jaun Boles, Jessica L 07/30/2022 10:04:54 AM >referral received and sent p2p successful per log Reason Repeat screening for colonoscopy Diagnosis 1 Encounter for screen ing colonoscopy (Z12.11) Referral Organization [facility] Orianamo denisa Fuentes Referring Provider First Name Amanda Referring Provider Last Name [facility] Referring Provider Specialty [facility] Prac betty Referred Organization Unknown Facility Referred Provider Specialty Gastroentero logy Referral Priority Routine General Notes Please schedule with Dr. Zamorano per Dr. Sharif Chief Complaint and Reason for Visit Chief Complaint M79.641 M79.642 m51.36 M81.0 M81.0 M25.572 Chief Complaint M25.572 m81.0 Screening Chief Complaint M25.572 m81.0 Screening Screening Chief Complaint U07.1 M54.16 Chief Complaint 1 Year Follow Up Increased Pain R Lower Back U07.1 M54.16 m54.16 Chief Complaint Increased Pain R Low er Back U07.1 M54.16 m54.16 , Chief Complaint Increased Pain R Low er Back U07.1 M54.16 m54.16 Lumbar Back Pain OP SP RECHECK LT HIP AND M70.61 - Trochanteric bursitis, right hipReason for VisitGreater trochanteric bursitis of both hips Post-traumatic osteoarthritis of left ankle Chief Complaint Increased Pain R Low er Back U07.1 M54.16 m54.16 Lumbar Back Pain OP SP RECHECK LT HIP AND M70.61 - Trochanteric bursitis, right hip l97.511Reason for VisitGreater trochanteric bursitis of both hips Post-traumatic osteoarthritis of left ankle Chief Complaint m54.16 Lumbar Back Pain OP SP RECHECK LT HIP AND M70.61 - Trochanteric bursitis, right hip l97.511 discuss weight loss f/u 8 wks surgery consultReason for VisitGreater trochanteric bursitis of both hips Post-traumatic osteoarthritis of left ankle Obesity, Class II, BMI 35-39.9 History of lumbar fusion Lumbar stenosis Vascular claudication Chief Complaint OP SP RECHECK LT HIP AND M70.61 - Trochanteric bursitis, right hip l97.511 discuss weight loss f/u 8 wks surgery consult 5 MONTHSReason for VisitGreater trochanteric bursitis of both hips Post-traumatic osteoarthritis of left ankle Lumbar stenosis Vascular claudication Carpal tunnel syndrome of left wrist Carpal tunnel syndrome of right wrist Trigger finger, left ring finger Trigger finger, right index finger Trigger finger, right middle finger Chief Complaint [id number], [id number] OP SP RECHECK LT HIP AND M70.61 - Trochanteric bursitis, right hip l97.511 discuss weight loss f/u 8 wks surgery consult 5 MONTHS I73.9Reason for VisitGreater trochanteric bursitis of both hips Post-traumatic osteoarthritis of left ankle Lumbar stenosis Vascular claudication Carpal tunnel syndrome of left wrist Carpal tunnel syndrome of right wrist Trigger finger, left ring finger Trigger finger, right index finger Trigger finger, right middle finger Chief Complaint [id number], [id number] OP SP RECHECK LT HIP AND M70.61 - Trochanteric bursitis, right hip l97.511 discuss weight loss f/u 8 wks surgery consult 5 MONTHS I73.9 lump near the neckReason for VisitGreater trochanteric bursitis of both hips Post-traumatic osteoarthritis of left ankle Lumbar stenosis Vascular claudication Carpal tunnel syndrome of left wrist Carpal tunnel syndrome of right wrist Trigger finger, left ring finger Trigger finger, right index finger Trigger finger, right middle finger Supraclavicular fossa fullness Chief Complaint OP SP RECHECK LT HIP AND M70.61 - Trochanteric bursitis, right hip l97.511 discuss weight loss f/u 8 wks surgery consult 5 MONTHS I73.9 lump near the neck f/u surgical consult ScreeningReason for VisitGreater trochanteric bursitis of both hips Post-traumatic osteoarthritis of left ankle Lumbar stenosis Vascular claudication Carpal tunnel syndrome of left wrist Carpal tunnel syndrome of right wrist Trigger finger, left ring finger Trigger finger, right index finger Trigger finger, right middle finger Supraclavicular fossa fullness Lumbar stenosis Chief Complaint discuss weight loss f/u 8 wks surgery consult 5 MONTHS I73.9 lump near the neck f/u surgical consult Screening Amb Documentation R22.2 Z13.6 E78.5Reason for VisitLumbar stenosis Vascular claudication Carpal tunnel syndrome of left wrist Carpal tunnel syndrome of right wrist Trigger finger, left ring finger Trigger finger, right index finger Trigger finger, right middle finger Supraclavicular fossa fullness Lumbar stenosis Chief Complaint discuss weight loss f/u 8 wks surgery consult 5 MONTHS I73.9 lump near the neck f/u surgical consult Screening Amb Documentation R22.2 Z13.6 E78.5 3 weeksReason for VisitLumbar stenosis Vascular claudication Carpal tunnel syndrome of left wrist Carpal tunnel syndrome of right wrist Trigger finger, left ring finger Trigger finger, right index finger Trigger finger, right middle finger Supraclavicular fossa fullness Lumbar stenosis Chief Complaint f/u 8 wks surgery co nsult 5 MONTHS I73.9 lump near the neck f/u surgical consult Screening Amb Documentation R22.2 Z13.6 E78.5 3 weeks 3 MONTHS R79.89 E04.1 Z11.59 z13.29Reason for VisitLumbar stenosis Vascular claudication Carpal tunnel syndrome of left wrist Carpal tunnel syndrome of right wrist Trigger finger, left ring finger Trigger finger, right index finger Trigger finger, right middle finger Supraclavicular fossa fullness Lumbar stenosis Elevated LFTs Fatty liver Left thyroid nodule Supraclavicular fossa fullness Greater trochanteric bursitis of both hips Post-traumatic osteoarthritis of left ankle Chief Complaint f/u 8 wks surgery co nsult 5 MONTHS I73.9 lump near the neck f/u surgical consult Screening Amb Documentation R22.2 Z13.6 E78.5 3 weeks 3 MONTHS R79.89 E04.1 Z11.59 z13.29 M48.062 YRLY XLIF 04/17 W/X-RAYReason for VisitLumbar stenosis Vascular claudication Carpal tunnel syndrome of left wrist Carpal tunnel syndrome of right wrist Trigger finger, left ring finger Trigger finger, right index finger Trigger finger, right middle finger Supraclavicular fossa fullness Lumbar stenosis Elevated LFTs Fatty liver Left thyroid nodule Supraclavicular fossa fullness Greater trochanteric bursitis of both hips Post-traumatic osteoarthritis of left ankle History of lumbar fusion Lumbar radiculopathy Chief Complaint f/u 8 wks surgery co nsult 5 MONTHS I73.9 lump near the neck f/u surgical consult Screening Amb Documentation R22.2 Z13.6 E78.5 3 weeks 3 MONTHSReason for VisitLumbar stenosis Vascular claudication Carpal tunnel syndrome of left wrist Carpal tunnel syndrome of right wrist Trigger finger, left ring finger Trigger finger, right index finger Trigger finger, right middle finger Supraclavicular fossa fullness Lumbar stenosis Elevated LFTs Fatty liver Left thyroid nodule Supraclavicular fossa fullness Greater trochanteric bursitis of both hips Post-traumatic osteoarthritis of left ankle Chief Complaint 5 MONTHS I73.9 lump near the neck f/u surgical consult Screening Amb Documentation R22.2 Z13.6 E78.5 3 weeks 3 MONTHS R79.89 E04.1 Z11.59 z13.29 M48.062 YRLY XLIF 04/17 W/X-RAY Thyroid NoduleReason for VisitCarpal tunnel syndrome of left wrist Carpal tunnel syndrome of right wrist Trigger finger, left ring finger Trigger finger, right index finger Trigger finger, right middle finger Supraclavicular fossa fullness Lumbar stenosis Elevated LFTs Fatty liver Left thyroid nodule Supraclavicular fossa fullness Greater trochanteric bursitis of both hips Post-traumatic osteoarthritis of left ankle History of lumbar fusion Lumbar radiculopathy Chief Complaint 5 MONTHS I73.9 lump near the neck f/u surgical consult Screening Amb Documentation R22.2 Z13.6 E78.5 3 weeks 3 MONTHS R79.89 E04.1 Z11.59 z13.29 M48.062 YRLY XLIF 04/17 W/X-RAY Thyroid Nodule M25.511 - Pain in right shoulder OP SP RT SHOULDER PAINReason for VisitCarpal tunnel syndrome of left wrist Carpal tunnel syndrome of right wrist Trigger finger, left ring finger Trigger finger, right index finger Trigger finger, right middle finger Supraclavicular fossa fullness Lumbar stenosis Elevated LFTs Fatty liver Left thyroid nodule Supraclavicular fossa fullness Greater trochanteric bursitis of both hips Post-traumatic osteoarthritis of left ankle History of lumbar fusion Lumbar radiculopathy Osteoarthritis, shoulder Chief Complaint Amb Documentation R22.2 Z13.6 E78.5 3 weeks 3 MONTHS R79.89 E04.1 Z11.59 z13.29 M48.062 YRLY XLIF 6 W/X-RAY Thyroid Nodule OP SP RT SHOULDER PAIN congestion, cough, fever, diarrheaReason for VisitElevated LFTs Fatty liver Left thyroid nodule Supraclavicular fossa fullness Greater trochanteric bursitis of both hips Post-traumatic osteoarthritis of left ankle History of lumbar fusion Lumbar radiculopathy Osteoarthritis, shoulder Acute diarrhea Symptoms of upper respiratory infection (URI) Chief Complaint 3 MONTHS R79.89 E04.1 Z11.59 z13.29 M48.062 YRLY XLIF 6/21 W/X-RAY Thyroid Nodule OP SP RT SHOULDER PAIN congestion, cough, fever, diarrhea 3 monthReason for VisitGreater trochanteric bursitis of both hips Post-traumatic osteoarthritis of left ankle History of lumbar fusion Lumbar radiculopathy Osteoarthritis, shoulder Acute diarrhea Symptoms of upper respiratory infection (URI) Fatty liver Thyroid nodule Chief Complaint 3 MONTHS R79.89 E04.1 Z11.59 z13.29 M48.062 YRLY XLIF 6/21 W/X-RAY Thyroid Nodule OP SP RT SHOULDER PAIN congestion, cough, fever, diarrhea 3 month 4 MONTH RECHECKReason for VisitGreater trochanteric bursitis of both hips Post-traumatic osteoarthritis of left ankle History of lumbar fusion Lumbar radiculopathy Osteoarthritis, shoulder Acute diarrhea Symptoms of upper respiratory infection (URI) Fatty liver Obesity (BMI 35.0-39.9 without comorbidity) Thyroid nodule Carpal tunnel syndrome of left wrist Carpal tunnel syndrome of right wrist Trigger finger, right index finger Trigger finger, right middle finger Trigger finger, right ring finger Chief Complaint 3 MONTHS R79.89 E04.1 Z11.59 z13.29 M48.062 YRLY XLIF 6/21 W/X-RAY Thyroid Nodule OP SP RT SHOULDER PAIN congestion, cough, fever, diarrhea 3 month 4 MONTH RECHECK discuss surgeryReason for VisitGreater trochanteric bursitis of both hips Post-traumatic osteoarthritis of left ankle History of lumbar fusion Lumbar radiculopathy Osteoarthritis, shoulder Acute diarrhea Symptoms of upper respiratory infection (URI) Fatty liver Obesity (BMI 35.0-39.9 without comorbidity) Thyroid nodule Carpal tunnel syndrome of left wrist Carpal tunnel syndrome of right wrist Trigger finger, right index finger Trigger finger, right middle finger Trigger finger, right ring finger History of lumbar fusion Lumbar radiculopathy Chief Complaint M48.062 YRLY XLIF 6/21 W/X-RAY Thyroid Nodule OP SP RT SHOULDER PAIN congestion, cough, fever, diarrhea 3 month 4 MONTH RECHECK discuss surgery SpondylolisthesisReason for VisitHistory of lumbar fusion Lumbar radiculopathy Osteoarthritis, shoulder Acute diarrhea Symptoms of upper respiratory infection (URI) Fatty liver Obesity (BMI 35.0-39.9 without comorbidity) Thyroid nodule Carpal tunnel syndrome of left wrist Carpal tunnel syndrome of right wrist Trigger finger, right index finger Trigger finger, right middle finger Trigger finger, right ring finger History of lumbar fusion Lumbar radiculopathy Chief Complaint Thyroid Nodule OP SP RT SHOULDER PAIN congestion, cough, fever, diarrhea 3 month 4 MONTH RECHECK discuss surgery Spondylolisthesis Amb Documentation Amb Documentation Spondylolisthesis Spondylolisthesis Spondylolisthesis SpondylolisthesisReason for VisitOsteoarthritis, shoulder Acute diarrhea Symptoms of upper respiratory infection (URI) Fatty liver Obesity (BMI 35.0-39.9 without comorbidity) Thyroid nodule Carpal tunnel syndrome of left wrist Carpal tunnel syndrome of right wrist Trigger finger, right index finger Trigger finger, right middle finger Trigger finger, right ring finger History of lumbar fusion Lumbar radiculopathy History of lumbar fusion Impaired mobility and activities of daily living Lumbar radiculopathy Lumbar stenosis Obesity (BMI 35.0-39.9 without comorbidity) Post-operative pain Chief Complaint OP SP RT SHOULDER PA IN congestion, cough, fever, diarrhea 3 month 4 MONTH RECHECK discuss surgery Spondylolisthesis Amb Documentation Amb Documentation Spondylolisthesis Spondylolisthesis Spondylolisthesis Spondylolisthesis lumbar radiculopathy s/p l2-5 xlif lumbar radiculopathy s/p l2-5 xlif lumbar radiculopathy s/p l2-5 xlifReason for VisitOsteoarthritis, shoulder Acute diarrhea Symptoms of upper respiratory infection (URI) Fatty liver Obesity (BMI 35.0-39.9 without comorbidity) Thyroid nodule Carpal tunnel syndrome of left wrist Carpal tunnel syndrome of right wrist Trigger finger, right index finger Trigger finger, right middle finger Trigger finger, right ring finger History of lumbar fusion Lumbar radiculopathy History of lumbar fusion Impaired mobility and activities of daily living Lumbar radiculopathy Lumbar stenosis Obesity (BMI 35.0-39.9 without comorbidity) Post-operative pain Fall History of lumbar fusion Hypothyroidism Impaired mobility and activities of daily living Lumbar radiculopathy Lumbar stenosis Obesity (BMI 35.0-39.9 without comorbidity) Post-operative pain UTI (urinary tract infection) Chief Complaint congestion, cough, f ever, diarrhea 3 month 4 MONTH RECHECK discuss surgery Spondylolisthesis Amb Documentation Amb Documentation Spondylolisthesis Spondylolisthesis Spondylolisthesis Spondylolisthesis lumbar radiculopathy s/p l2-5 xlif lumbar radiculopathy s/p l2-5 xlif lumbar radiculopathy s/p l2-5 xlif Amb Documentation 3 week po XLIF ([place])Reason for VisitAcute diarrhea Symptoms of upper respiratory infection (URI) Fatty liver Obesity (BMI 35.0-39.9 without comorbidity) Thyroid nodule Carpal tunnel syndrome of left wrist Carpal tunnel syndrome of right wrist Trigger finger, right index finger Trigger finger, right middle finger Trigger finger, right ring finger History of lumbar fusion Lumbar radiculopathy History of lumbar fusion Impaired mobility and activities of daily living Lumbar radiculopathy Lumbar stenosis Obesity (BMI 35.0-39.9 without comorbidity) Post-operative pain Fall History of lumbar fusion Hypothyroidism Impaired mobility and activities of daily living Lumbar radiculopathy Lumbar stenosis Obesity (BMI 35.0-39.9 without comorbidity) Post-operative pain UTI (urinary tract infection) History of lumbar fusion Lumbar radiculopathy Chief Complaint congestion, cough, f ever, diarrhea 3 month 4 MONTH RECHECK discuss surgery Spondylolisthesis Amb Documentation Amb Documentation Spondylolisthesis Spondylolisthesis Spondylolisthesis Spondylolisthesis lumbar radiculopathy s/p l2-5 xlif lumbar radiculopathy s/p l2-5 xlif lumbar radiculopathy s/p l2-5 xlif Amb Documentation 3 week po XLIF ([place]) M54.16cZ98.1 5 week po XLIF w/xrayReason for VisitAcute diarrhea Symptoms of upper respiratory infection (URI) Fatty liver Thyroid nodule Carpal tunnel syndrome of left wrist Carpal tunnel syndrome of right wrist Trigger finger, right index finger Trigger finger, right middle finger Trigger finger, right ring finger Chief Complaint 3 month 4 MONTH RECHECK discuss surgery Spondylolisthesis Amb Documentation Amb Documentation Spondylolisthesis Spondylolisthesis Spondylolisthesis Spondylolisthesis lumbar radiculopathy s/p l2-5 xlif lumbar radiculopathy s/p l2-5 xlif lumbar radiculopathy s/p l2-5 xlif Amb Documentation 3 week po XLIF ([place]) M54.16cZ98.1 5 week po XLIF w/xrayReason for VisitFatty liver Thyroid nodule Carpal tunnel syndrome of left wrist Carpal tunnel syndrome of right wrist Trigger finger, right index finger Trigger finger, right middle finger Trigger finger, right ring finger Chief Complaint Admit Date Left thyroid nodule September 01, 2024 8 :31am Amb Documentation September 21, 2024 9:45am 3-4 months October 02, 2024 1 0:41am z98.1 m54.16 e04.1 e07.9 2024 11:54am 3 mo po xlif w/x-ray 2024 12:49pm Thyroid Nodule October 14, 2024 11:14am E04.1 November 26, 2024 1 :31pm Reason for Visit Admit Date Arthritis of carpometacarpal (CMC) joint of left thumb October 02, 2024 10:41am Carpal tunnel syndrome of left wrist Dec ember 2023 10:41am Carpal tunnel syndrome of right wrist De cember 2023 10:41am Lower extremity weakness 2024 12:49pm History of lumbar fusion 2024 12:49pm Chief Complaint Admit Date Thyroid Nodule October 14, 2024 11:14am E04.1 November 26, 2024 1 :31pm R29.898 January 05, 2025 11: 41am 6 mo po w/x-ray January 05, 2025 12: 58pm Reason for Visit Admit Date Lower extremity weakness January 05 12:58pm History of lumbar fusion January 05 12:58pm Chief Complaint Admit Date E04.1 November 26, 2024 1 :31pm R29.898 January 05, 2025 11: 41am 6 mo po w/x-ray January 05, 2025 12: 58pm MK weakness of lower extremity December 9:11am 4 MONTHS January 28, 2025 2:09 pm Reason for Visit Admit Date Lower extremity weakness March 11th, 202 5 12:58pm History of lumbar fusion January 05 12:58pm Arthritis of carpometacarpal (CMC) joint of left thumb January 28, 2025 2:09pm Carpal tunnel syndrome of left wrist Apr il 2024 2:09pm Carpal tunnel syndrome of right wrist Ap ril 2024 2:09pm Trigger finger, right ring finger January 28, 2025 2:09pm Chief Complaint Admit Date R29.898 January 05, 2025 11: 41am 6 mo po w/x-ray January 05, 2025 12: 58pm 4 MONTHS January 28, 2025 2:09 pm MK weakness of lower extremity February 25, 2025 10:30am E89.0 February 25, 2025 11:43a m 1 year f/u gabapentin refill February 25 1:12pm Reason for Visit Admit Date Lower extremity weakness January 05 12:58pm History of lumbar fusion January 05 12:58pm Arthritis of carpometacarpal (CMC) joint of left thumb January 28, 2025 2:09pm Carpal tunnel syndrome of left wrist Apr il 2024 2:09pm Carpal tunnel syndrome of right wrist Ap ril 2024 2:09pm Trigger finger, right ring finger January 28, 2025 2:09pm Chronic pain February 25, 2025 1:12pm Lower extremity weakness February 25, 2025 1 :12pm Osteoarthritis of spine with radiculopat hy, lumbar region February 25, 2025 1:12pm Chief Complaint Admit Date R29.898 January 05, 2025 11: 41am 6 mo po w/x-ray January 05, 2025 12: 58pm 4 MONTHS January 28, 2025 2:09 pm MK 10th visit, weakness of lower extremi ty February 25, 2025 10:30am E89.0 February 25, 2025 11:43a m 1 year f/u gabapentin refill February 25 1:12pm Chief Complaint Admit Date R29.898 January 05, 2025 11: 41am 6 mo po w/x-ray January 05, 2025 12: 58pm 4 MONTHS January 28, 2025 2:09 pm E89.0 February 25, 2025 11:43a m 1 year f/u gabapentin refill February 25 1:12pm MK weakness of lower extremity March 11, 2025 10:30am toe inflammation March 11, 2025 12:01 pm Reason for Visit Admit Date Lower extremity weakness January 05 12:58pm History of lumbar fusion January 05 12:58pm Arthritis of carpometacarpal (CMC) joint of left thumb January 28, 2025 2:09pm Carpal tunnel syndrome of left wrist Apr il 2024 2:09pm Carpal tunnel syndrome of right wrist Ap ril 2024 2:09pm Trigger finger, right ring finger January 28, 2025 2:09pm Chronic pain February 25, 2025 1:12pm Lower extremity weakness February 25, 2025 1 :12pm Osteoarthritis of spine with radiculopat hy, lumbar region February 25, 2025 1:12pm Paronychia March 11, 2025 12:01 pm Chief Complaint Admit Date R29.898 January 05, 2025 11: 41am 6 mo po w/x-ray January 05, 2025 12: 58pm 4 MONTHS January 28, 2025 2:09 pm E89.0 February 25, 2025 11:43a m 1 year f/u gabapentin refill February 25 1:12pm toe inflammation March 11, 2025 12:01 pm MK weakness of lower extremity March 23, 2025 10:30am Screening March 24, 2025 1:37p m Reason for Visit Admit Date Lower extremity weakness January 05 12:58pm History of lumbar fusion January 05 12:58pm Arthritis of carpometacarpal (CMC) joint of left thumb January 28, 2025 2:09pm Carpal tunnel syndrome of left wrist Apr il 2024 2:09pm Carpal tunnel syndrome of right wrist Ap ril 2024 2:09pm Trigger finger, right ring finger January 28, 2025 2:09pm Chronic pain February 25, 2025 1:12pm Lower extremity weakness February 25, 2025 1 :12pm Osteoarthritis of spine with radiculopat hy, lumbar region February 25, 2025 1:12pm Paronychia of great toe March 11, 2025 1 2:01pm Chief Complaint Admit Date 4 MONTHS January 28, 2025 2:09 pm E89.0 February 25, 2025 11:43a m 1 year f/u gabapentin refill February 25 1:12pm toe inflammation March 11, 2025 12:01 pm Screening March 24, 2025 1:37p m MK weakness of lower extremity March 11:00am M47.26 April 06, 2025 1:43 pm 2 month f/u April 06, 2025 2:21 pm Reason for Visit Admit Date Arthritis of carpometacarpal (CMC) joint of left thumb January 28, 2025 2:09pm Carpal tunnel syndrome of left wrist Apr il 2024 2:09pm Carpal tunnel syndrome of right wrist Ap ril 2024 2:09pm Trigger finger, right ring finger January 28, 2025 2:09pm Chronic pain February 25, 2025 1:12pm Lower extremity weakness February 25, 2025 1 :12pm Osteoarthritis of spine with radiculopat hy, lumbar region February 25, 2025 1:12pm Paronychia of great toe March 11, 2025 1 2:01pm Lower extremity weakness April 06, 2025 2:21pm History of lumbar fusion April 06, 2025 2:21pm Chief Complaint Admit Date E89.0 February 25, 2025 11:43a m 1 year f/u gabapentin refill February 25 1:12pm toe inflammation March 11, 2025 12:01 pm Screening March 24, 2025 1:37p m M47.26 April 06, 2025 1:43 pm 2 month f/u April 06, 2025 2:21 pm E89.0 April 19, 2025 8:17 am MK weakness of lower extremity April 3:15pm B ankle pain (2 accounts) May 13 4:00pm 4-6 wk recheck May 14, 2025 8:24 am Reason for Visit Admit Date Chronic pain February 25, 2025 1:12pm Lower extremity weakness February 25, 2025 1 :12pm Osteoarthritis of spine with radiculopat hy, lumbar region February 25, 2025 1:12pm Paronychia of great toe March 11, 2025 1 2:01pm Lower extremity weakness April 06, 2025 2:21pm History of lumbar fusion April 06, 2025 2:21pm Arthritis of carpometacarpal (CMC) joint of left thumb May 14, 2025 8:24am Carpal tunnel syndrome on both sides Apr 8:24am Trigger finger, right ring finger April [id number] 8:24am Chief Complaint Admit Date E89.0 February 25, 2025 11:43a m 1 year f/u gabapentin refill February 25 1:12pm toe inflammation March 11, 2025 12:01 pm Screening March 24, 2025 1:37p m M47.26 April 06, 2025 1:43 pm 2 month f/u April 06, 2025 2:21 pm E89.0 April 19, 2025 8:17 am MK weakness of lower extremity April 3:15pm 4-6 wk recheck May 14, 2025 8:24 am Z13.6, E78.5 May 21, 2025 9:06 am B ankle pain (2 accounts) May 21 10:15am Chief Complaint Admit Date Screening March 24, 2025 1:37p m M47.26 April 06, 2025 1:43 pm 2 month f/u April 06, 2025 2:21 pm E89.0 April 19, 2025 8:17 am MK weakness of lower extremity April 3:15pm 4-6 wk recheck May 14, 2025 8:24 am Z13.6, E78.5 May 21, 2025 9:06 am B ankle pain (2 accounts) June 14, 2 025 11:15am Reason for Visit Admit Date Lower extremity weakness April 06, 2025 2:21pm History of lumbar fusion April 06, 2025 2:21pm Arthritis of carpometacarpal (CMC) joint of left thumb May 14, 2025 8:24am Carpal tunnel syndrome on both sides Apr 8:24am Trigger finger, right ring finger April [id number] 8:24am Chief Complaint Admit Date E89.0 April 19, 2025 8:17 am MK weakness of lower extremity April 3:15pm 4-6 wk recheck May 14, 2025 8:24 am Z13.6, E78.5 May 21, 2025 9:06 am B ankle pain (2 accounts) June 14 11:15am awv July 08, 2025 1:44pm Reason for Visit Admit Date Arthritis of carpometacarpal (CMC) joint of left thumb May 14, 2025 8:24am Carpal tunnel syndrome on both sides Apr 8:24am Trigger finger, right ring finger April [id number] 8:24am Encounter for subsequent ignacia ual wellness visit in Medicare patient July 08, 2025 1:44pm Chief Complaint Admit Date MK weakness of lower extremity April 3:15pm 4-6 wk recheck May 14, 2025 8:24 am Z13.6, E78.5 May 21, 2025 9:06 am B ankle pain (2 accounts) June 14 11:15am awv July 08, 2025 1:44pm z13.6 k76.0 e04.1 z13.29 z78.0 July 22, 2025 11:22am follow up ALIF w/xray July 22 12:57pm Reason for Visit Admit Date Arthritis of carpometacarpal (CMC) joint of left thumb May 14, 2025 8:24am Carpal tunnel syndrome on both sides Apr 8:24am Trigger finger, right ring finger April [id number] 8:24am Fatty liver July 08, 2025 1:44pm Hx of partial thyroidectomy July 082024 1:44pm Hyperlipidemia July 08, 2025 1:44pm Obesity (BMI 35.0-39.9 without comorbidi ty) July 08, 2025 1:44pm Osteopenia July 08, 2025 1:44pm Encounter for subsequent ignacia ual wellness visit in Medicare patient July 08, 2025 1:44pm Lower extremity weakness July 22, 2025 12:57pm History of lumbar fusion July 22, 2025 12:57pm Chief Complaint Admit Date 4-6 wk recheck May 14, 2025 8:24 am Z13.6, E78.5 May 21, 2025 9:06 am B ankle pain (2 accounts) June 14 11:15am awv July 08, 2025 1:44pm z13.6 k76.0 e04.1 z13.29 z78.0 July 22, 2025 11:22am follow up ALIF w/xray July 22 12:57pm K76.0 August 11, 2025 1 0:43am Chief Complaint Admit Date Z13.6, E78.5 May 21, 2025 9:06 am B ankle pain (2 accounts) June 14, 2 025 11:15am awv July 08, 2025 1:44pm z13.6 [...] 08, 2025 1:44pm Encounter for subsequent ign[facility] wellness visit in Medicare patient July 08, 2025 1:44pm Lower extremity weakness July 22, 2025 12:57pm History of lumbar fusion July 22, 2025 12:57pm Family History No Family History Records Found Relationship Condition Age at Onset Recorded Date/T rissa Not Specified Arthritis Unknown Malignant melanomaUnknownfatherPulmonary emphysemaUnknownPolycythemiaUnknown brotherAtrial fibrillationUnknown Relationship Condition Age at Onset Recorded Date/T rissa Not Specified Arthritis Unknown Malignant melanomaUnknownfatherPulmonary emphysemaUnknownPolycythemiaUnknown brotherAtrial fibrillationUnknownfatherDeceasedUnknownHistory of strokeUnknown grandparentDeceasedUnknownNot SpecifiedDeceasedUnknown Relationship Condition Age at Onset Recorded Date/T rissa Not Specified Arthritis Unknown Malignant melanomaUnknownfatherPulmonary emphysemaUnknownPolycythemiaUnknown brotherAtrial fibrillationUnknownMalignant neoplasmUnknownDeceasedUnknownfather DeceasedUnknownHistory of strokeUnknowngrandparentDeceasedUnknownNot Specified DeceasedUnknown Relationship Condition Age at Onset Recorded Date/T rissa mother Arthritis Unknown Malignant melanomaUnknownfatherPulmonary emphysemaUnknownPolycythemiaUnknown brotherAtrial fibrillationUnknownMalignant neoplasmUnknownDeceasedUnknownfather DeceasedUnknownHistory of strokeUnknowngrandparentDeceasedUnknownmotherDeceased Unknown Relationship Condition Age at Onset Recorded Date/T rissa mother Arthritis Unknown Malignant melanomaUnknownDeceasedUnknownfatherPolycythemiaUnknownPulmonary emphysemaUnknownHistory of strokeUnknownbrotherDeceasedUnknownMalignant neoplasm UnknowngrandparentDeceasedUnknownbrotherAtrial fibrillationUnknown Advance Directives No Advanced Directives Records Found Advance Directive Response Recorded Date/ Time Advance Directives No February 11 11:11am Advance Directive Response Recorded Date/ Time Advance Directives No February 11 10:11am Advance Directive Response Recorded Date/ Time Advance Directives Yes February 03 10:26am Summary Purpose Additional Source Comments REASON FOR VISIT (unrecogniz ed section and content) ReasonCommentsHistory Of Thyroidectomy3 month reckReasonCommentsPost-op1 month roxy left thyroidReasonCommentsPost-opReasonCommentsThyroid NoduleFNA Results ReasonCommentsThyroid NoduleThyroid Nodule, FNAREGINA SI JOINT INJECTIONS AND LEFT TROCH BURSA INJECTION /VWreview MRI results again and discuss further treatmentLUMBAR BACK PAINincreased pain r lower back1 year Follow upCOVIDINCREASED PAINNot feeling wellyrly f/u XLIF w/xrayOP SP RECHECK LT ANKLE, AFO IS NOT HELPINGDR. MAST PT- HAS COUGH AND SOME CONGESTIONRefill/ Levothyroxine3 MONTH FOLLOW UPMCAWVMAIL PPWapptNew ReferralRecheck Right HandJRB PT BILAT HIP PAIN NXRequest/ Order1 year po lumbar fusion3 MOBilateral Shoulder PainRecheck Bilateral HandsOrthopedic consultrefillPOSS SINUS INFECTION AND EAR INFECTION. HAS BEEN VACCINATEDCoughcxrresultsLeft Ankle PainFOLLOW UP3 1/2 mo po f/up XLIF Care Teams (unrecognized sec tion and content) Team Status: Active Member Role Status Dates Amanda Mast , DO Primary Care Provider Active Team Status: Inactive Member Role Status Dates Amanda Mast , DO Primary Care Provider Active Star t: March 27, 2024 End: March 27Susy Tong IIending ProviderActiveStart: March 27, 2024 End: March 27, 2024 Team Status: Inactive Member Role Status Dates Amanda Mast , DO Primary Care Provide r, Attending Provider Active Start: April 01, 2024 End: April 01, 2024 Team Status: Inactive Member Role Status Dates Amanda Mast , DO Primary Care Provider Active Star t: April 14, 2024 End: April 14warren Hair MDAttending ProviderActiveStart: April 14, 2024 End: April 14, 2024 Team Status: Inactive Member Role Status Dates Pascual Thornton DO Attending Provider Active S tart: May 05, 2024 End: May 05, 2024 Team Status: Inactive Member Role Status Dates COLLEEN GoldmanC Attending Provider Active Start: May 12, 2024 End: May 12, 2024Eric ZAINAB Sharifrimary Care ProviderActiveStart: May 12, 2024 End: May 12, 2024 Team Status: Inactive Member Role Status Dates Amanda Mast , DO Primary Care Provide r, Attending Provider Active Start: June 01, 2024 End: June 01, 2024 Team Status: Inactive Member Role Status Dates Amanda Mast , DO Primary Care Provide r, Attending Provider Active Start: June 16, 2024 End: June 16, 2024 Team Status: Active Member Role Status Dates Amanda Mast , DO Primary Care Provider Active Star t: March 06, 2024 Ari Goldberg ProviderActiveStart: March 06, 2024 Team Status: Inactive Member Role Status Dates Amanda Mast , DO Primary Care Provide r, Attending Provider Active Start: March 12, 2024 End: March 12, 2024 Team Status: Inactive Member Role Status Dates Amanda Mast , DO Primary Care Provide r, Attending Provider Active Start: March 17, 2024 End: March 17, 2024 Team Status: Inactive Member Role Status Dates Amanda Mast , DO Primary Care Provider Active Baljit Pompa II, MDAttbrijesh ProviderActive Team Status: Inactive Member Role Status Dates Amanda Mast , DO Primary Care Provider Active Artie Hair MDAttending ProviderActive Team Status: Inactive Member Role Status Dates Amanda Mast , DO Primary Care Provider, Attending Provid er Active Team Status: Inactive Member Role Status Dates Amanda Mast , DO Primary Care Provider Active Tali Abraham ProviderActive Team Status: Inactive Member Role Status Dates Amanda Mast , DO Primary Care Provider, Referring Provid er Active Referral SelfAttending ProviderActive Team Status: Inactive Member Role Status Dates Amanda Mast , DO Primary Care Provider Active Tlai Abreu ProviderActive Team Status: Inactive Member Role Status Dates Amanda Mast , DO Primary Care Provider Active Juanita Ayala [employer]-CAttending ProviderActive Team Status: Inactive Member Role Status Dates Amanda Mast , DO Attending Provider Active Start: August 29, 2023 End: August 29, 2023 Team Status: Inactive Member Role Status Dates Juanita Ayala [employer]-C Attending Provider Active Start: October 30, 2023 End: October 30, 2023 Team Status: Inactive Member Role Status Dates Amanda Mast , DO Primary Care Provide r, Attending Provider Active Start: October 30, 2023 End: October 30, 2023 Team Status: Inactive Member Role Status Dates Amanda Mast , DO Primary Care Provider Active Star t: October 30, 2023 End: October 30, 2023Juanita Ayala [employer]-CAttending ProviderActiveStart: October 30, 2023 End: October 30, 2023 Team Status: Inactive Member Role Status Dates Amanda Mast , DO Primary Care Provider Active Star t: November 16, 2023 End: November 16, 2023Juanita Ayala [employer]-CAttending ProviderActiveStart: November 16, 2023 End: November 16, 2023 Team Status: Inactive Member Role Status Dates Amanda Mast , DO Primary Care Provider Active Star t: December 03, 2023 End: December 03, 2023Tali Mcgill ProviderActiveStart: December 03, 2023 End: December 03, 2023 Team Status: Inactive Member Role Status Dates Jamie Rooney MD Attending Provider Active Sta rt: November 19, 2023 End: November 19, 2023 Team Status: Inactive Member Role Status Dates Amanda Mast , DO Primary Care Provider Active Star t: December 19, 2023 End: December 19miladys Pompa II, DANIELttending ProviderActiveStart: December 19, 2023 End: December 19, 2023 Team Status: Active Member Role Status Dates Amanda Mast , DO Primary Care Provider Active Star t: December 19, 2023 Baljit Pompa II, MDAttending ProviderActiveStart: December 19, 2023 Team Status: Inactive Member Role Status Dates Amanda Mast , DO Primary Care Provider Active Star t: December 19, 2023 End: December 19, 2023BRYN Deutschttending ProviderActiveStart: December 19, 2023 End: December 19, 2023 Team Status: Inactive Member Role Status Dates Amanda Mast , DO Primary Care Provide r, Attending Provider Active Start: December 24, 2023 End: December 24, 2023 Team Status: Inactive Member Role Status Dates Amanda Mast , DO Primary Care Provider Active Star t: February 04, 2024 End: February 03warren Hair MDAttending ProviderActiveStart: February 04, 2024 End: February 04, 2024 Team Status: Inactive Member Role Status Dates Amanda Mast , DO Primary Care Provider Active Star t: February 18, 2024 End: February 17ollemmy Nielsen MDAttending ProviderActiveStart: February 18, 2024 End: February 18, 2024 Team Status: Inactive Member Role Status Dates Amanda Mast , DO Primary Care Provider Active Star t: February 24, 2024 End: February 23warren Hair MDAttending ProviderActiveStart: February 24, 2024 End: February 24, 2024 Team Status: Inactive Member Role Status Dates Amanda Mast , DO Primary Care Provide r, Attending Provider Active Start: February 25, 2024 End: February 25, 2024 Team Status: Inactive Member Role Status Dates Amanda Mast , DO Primary Care Provider Active Star t: February 27, 2024 End: February 26warren Hair , MDAttending ProviderActiveStart: February 27, 2024 End: February 27, 2024 Team Status: Inactive Member Role Status Dates Amanda Mast , DO Primary Care Provide r, Referring Provider Active Start: February 27, 2024 End: February 26eferral SelfAttending ProviderActiveStart: February 27, 2024 End: February 27, 2024 Team Status: Active Member Role Status Dates Amanda Mast , DO Primary Care Provider Active Star t: April 14, 2024 Artie Hair MDAttending ProviderActiveStart: April 14, 2024 Team Status: Active Member Role Status Dates COLLEEN GoldmanC Attending Provider Active Start: May 12, 2024 Team Status: Inactive Member Role Status Dates Amanda Mast , DO Primary Care Provider Active Star t: June 19, 2024 End: June 19hermelindo Nielsen MDAttending ProviderActiveStart: June 19, 2024 End: June 19, 2024 Team Status: Inactive Member Role Status Dates Amanda Mast , DO Primary Care Provider Active Star t: June 25, 2024 End: June 25Susy Davidsonending ProviderActiveStart: June 25, 2024 End: June 25, 2024 Team Status: Inactive Member Role Status Dates Amanda Mast , DO Primary Care Provider Active Star t: July 08, 2024 End: July 08Susy Davidsonending ProviderActiveStart: July 08, 2024 End: July 08, 2024 Team Status: Active Member Role Status Dates Amanda Mast , DO Primary Care Provider Active Star t: July 09, 2024 Ari Goldberg ProviderActiveStart: July 09, 2024 Team Status: Active Member Role Status Dates Amanda Mast , DO Primary Care Provider Active Star t: July 17, 2024 Jessica SheridanAttending ProviderActiveStart: July 17, 2024 Team Status: Inactive Member Role Status Dates Amanda Mast , DO Primary Care Provider Active Star t: July 22, 2024 End: July 24Marco Davidson Provider, Attending Provider ActiveStart: July 22, 2024 End: July 24, 2024Simeon Tellez ProviderActiveStart: July 22, 2024 End: July 24, 2024 Team Status: Active Member Role Status Dates Amanda Mast , DO Primary Care Provider Active Star t: July 22, 2024 Artie Hair MDAdmit Provider, Attending Provider, Other ProviderActiveStart: July 22, 2024 Team Status: Active Member Role Status Dates Amanda Mast , DO Primary Care Provider Active Star t: July 23, 2024 Artie Hair MDAdmit Provider, Attending Provider, Other ProviderActiveStart: July 23, 2024 Team Status: Active Member Role Status Dates Amanda Mast , DO Primary Care Provider Active Star t: July 23, 2024 Artie Hair , MDAdmit Provider, Other ProviderActiveStart: July 23, 2024 Marlo Wheatley MDOther ProviderActiveStart: July 23, 2024 Tali Lawson ProviderActiveStart: July 23, 2024 Team Status: Active Member Role Status Dates Amanda Mast , DO Primary Care Provider Active Star t: July 24, 2024 Marco Lawson Provider, Attending Provider, Other Provider ActiveStart: July 24, 2024 Stephanie De Guzman RNOther ProviderActiveStart: July 24, 2024 End: August 09matt Hernandez RNOther ProviderActiveStart: July 24, 2024 End: August 09, 2024Micshilpa Farmer RNOther ProviderActiveStart: July 24, 2024 End: August 09, 2024Morenay Acosta RNOther ProviderActiveStart: July 24, 2024 End: August 09, 2024Kacey Carroll RNOther ProviderActiveStart: July 24, 2024 End: August 09augusto Mills MDOther ProviderActiveStart: July 24, 2024 End: August 09sharad Finley DOOther ProviderActiveStart: July 24, 2024 End: August 09, 2024Omi Saldana MDOther ProviderActiveStart: July 24, 2024 End: August 09, 2024Tao Turk DOOther ProviderActiveStart: July 24, 2024 End: August 09ndjohnathan Berg MDOther ProviderActiveStart: July 24, 2024 End: August 09ruiz Carranza MDOther ProviderActiveStart: July 24, 2024 End: August 09, 2024Simeon Rae ProviderActiveStart: July 24, 2024 End: August 09, 2024Monica Mayfieldher ProviderActiveStart: July 24, 2024 End: August 09, 2024Jing Latif MDOther ProviderActiveStart: July 24, 2024 End: August 09assSimeon Aly ProviderActiveStart: July 24, 2024 End: August 09, 2024Simeon Kapoor ProviderActiveStart: July 24, 2024 End: August 09, 2024Yvonne Nesbitt MDOther ProviderActiveStart: July 24, 2024 End: August 09, 2024Micakil Severino DOOther ProviderActiveStart: July 24, 2024 End: August 09, 2024Precious Blanc MDOther ProviderActiveStart: July 24, 2024 End: August 09, 2024Earnav Harrington MDOther ProviderActiveStart: July 24, 2024 End: August 09Saloni Noonanher ProviderActiveStart: July 24, 2024 End: August 09dMonica Maldonadoher ProviderActiveStart: July 24, 2024 End: August 09, 2024Lico Serra MDOther ProviderActiveStart: July 24, 2024 End: August 09, 2024Simeon Sotelo ProviderActiveStart: July 24, 2024 End: August 09Simeon Johnson ProviderActiveStart: July 24, 2024 End: August 09, 2024Simeon Collins ProviderActiveStart: July 24, 2024 End: August 09lara Veloz MDOther ProviderActiveStart: July 24, 2024 End: August 09, 2024Charu Haas DOOther ProviderActiveStart: July 24, 2024 End: August 09, 2024Zach Mancini , DOOther ProviderActiveStart: July 24, 2024 End: August 09, 2024Za Webster , APRNOther ProviderActiveStart: July 24, 2024 End: August 09, 2024Jerad Cleveland DOOther ProviderActiveStart: July 24, 2024 End: August 09, 2024Kelvin Ruvalcaba MDOther ProviderActiveStart: July 24, 2024 End: August 09coral Arriaza APRNOther ProviderActiveStart: July 24, 2024 End: August 09bhaskar Haque , APRNOther ProviderActiveStart: July 24, 2024 End: August 09drew Monsivais MDOther ProviderActiveStart: July 24, 2024 End: August 09jordon Coronado MDOther ProviderActiveStart: July 24, 2024 End: August 09, 2024Yon Carver DOOther ProviderActiveStart: July 24, 2024 End: August 09, 2024Chio Neville , DOOther ProviderActiveStart: July 24, 2024 End: August 09, 2024Satnam Gentile MDOther ProviderActiveStart: July 24, 2024 End: August 09yair Lindsey MDOther ProviderActiveStart: July 24, 2024 End: August 09eusebia Fuller APRNOther ProviderActiveStart: July 24, 2024 End: August 09, 2024Neftali Lantigua MDOther ProviderActiveStart: July 24, 2024 End: August 09eligio Hardin MDOther ProviderActiveStart: July 24, 2024 End: August 09, 2024Kortney Kidd RNOther ProviderActiveStart: July 24, 2024 End: August 09, 2024 Team Status: Active Member Role Status Dates Amanda Sharif DO Primary Care Provider Active Star t: July 31, 2024 Marco Lawson Provider, Other ProviderActiveStart: July 31, 2024 Stephanie Gab , RNOther ProviderActiveStart: July 31, 2024 Arin Hernandez , RNOther ProviderActiveStart: July 31, 2024 Jessica Farmer , RNOther ProviderActiveStart: July 31, 2024 Leida Acosta , RNOther ProviderActiveStart: July 31, 2024 Kacey Carroll , RNOther ProviderActiveStart: July 31, 2024 Kathy Mills MDOther ProviderActiveStart: July 31, 2024 Stacey Finley , DOOther ProviderActiveStart: July 31, 2024 Omi Saldana MDOther ProviderActiveStart: July 31, 2024 Tao Turk , DOOther ProviderActiveStart: July 31, 2024 Geoffrey Berg MDOther ProviderActiveStart: July 31, 2024 Sagrario Carranza MDOther ProviderActiveStart: July 31, 2024 Eddie Cannon MDOther ProviderActiveStart: July 31, 2024 April Oreilly , APRNOther ProviderActiveStart: July 31, 2024 Jing Latif MDOther ProviderActiveStart: July 31, 2024 Taqueria Mcwilliams MDOther ProviderActiveStart: July 31, 2024 Eliu Leonard MDOther ProviderActiveStart: July 31, 2024 Yvonne Nesbitt MDOther ProviderActiveStart: July 31, 2024 Shailesh Severino , DOOther ProviderActiveStart: July 31, 2024 Precious Blanc MDOther ProviderActiveStart: July 31, 2024 Omar Harrington MDOther ProviderActiveStart: July 31, 2024 Tonya Martinez NP-COther ProviderActiveStart: July 31, 2024 Cory Paniagua , APRNOther ProviderActiveStart: July 31, 2024 Lico Serra MDOther ProviderActiveStart: July 31, 2024 Hoang Webb MDOther ProviderActiveStart: July 31, 2024 Ayan Gentile MDOther ProviderActiveStart: July 31, 2024 Nancy Zhao MDOther ProviderActiveStart: July 31, 2024 Ruddy Veloz MDOther ProviderActiveStart: July 31, 2024 Charu Haas DOOther ProviderActiveStart: July 31, 2024 Zach Mancini , DOOther ProviderActiveStart: July 31, 2024 Za Webster , APRNOther ProviderActiveStart: July 31, 2024 Jerad Cleveland DOOther ProviderActiveStart: July 31, 2024 Kelvin Ruvalcaba MDOther ProviderActiveStart: July 31, 2024 Aileen Arriaza , APRNOther ProviderActiveStart: July 31, 2024 Olivia Haque , APRNOther ProviderActiveStart: July 31, 2024 Elizabeth Monsivais MDOther ProviderActiveStart: July 31, 2024 Sidney Coronado MDOther ProviderActiveStart: July 31, 2024 Yon Carver , DOOther ProviderActiveStart: July 31, 2024 Chio Neville , DOOther ProviderActiveStart: July 31, 2024 Satnam Gentile MDOther ProviderActiveStart: July 31, 2024 Mahsa Lindsey MDOther ProviderActiveStart: July 31, 2024 Merissa Fuller , APRNOther ProviderActiveStart: July 31, 2024 Neftali Lantigua MDOther ProviderActiveStart: July 31, 2024 Jamie Hardin MDOther ProviderActiveStart: July 31, 2024 Kortney Kidd RNOther ProviderActiveStart: July 31, 2024 Divina Stewart , APRNAttending ProviderActiveStart: July 31, 2024 Team Status: Active Member Role Status Dates [facility] , DO Primary Care Provider Active Star t: August 07, 2024 Buck Shi MDAlevar Provider, Attending Provider, Other Provider ActiveStart: August 07, 2024 Stephanie De Guzman , GIRISHOther ProviderActiveStart: August 07, 2024 Arin Hernandez , GIRISHOther ProviderActiveStart: August 07, 2024 Jessica Farmer , GIRISHOther ProviderActiveStart: August 07, 2024 Leida Acosta , GIRISHOther ProviderActiveStart: August 07, 2024 Kacey Carroll RNOther ProviderActiveStart: August 07, 2024 Kathy Mills MDOther ProviderActiveStart: August 07, 2024 Stacey Finley DOOther ProviderActiveStart: August 07, 2024 Omi Saldana MDOther ProviderActiveStart: August 07, 2024 Tao Turk , DOOther ProviderActiveStart: August 07, 2024 Geoffrey Berg MDOther ProviderActiveStart: August 07, 2024 Sagrario Carranza MDOther ProviderActiveStart: August 07, 2024 Eddie Cannon MDOther ProviderActiveStart: August 07, 2024 April Oreilly , APRNOther ProviderActiveStart: August 07, 2024 Jing Latif MDOther ProviderActiveStart: August 07, 2024 Taqueria Mcwilliams MDOther ProviderActiveStart: August 07, 2024 Eliu Leonard MDOther ProviderActiveStart: August 07, 2024 Yvonne Nesbitt MDOther ProviderActiveStart: August 07, 2024 Shailesh Severino , DOOther ProviderActiveStart: August 07, 2024 Precious Blanc MDOther ProviderActiveStart: August 07, 2024 Omar Harrington MDOther ProviderActiveStart: August 07, 2024 Tonya Martinez , [employer]-COther ProviderActiveStart: August 07, 2024 Cory Paniagua , APRNOther ProviderActiveStart: August 07, 2024 Lico Serra MDOther ProviderActiveStart: August 07, 2024 Hoang Webb MDOther ProviderActiveStart: August 07, 2024 Ayan Gentile MDOther ProviderActiveStart: August 07, 2024 Nancy Zhao MDOther ProviderActiveStart: August 07, 2024 Ruddy Veloz MDOther ProviderActiveStart: August 07, 2024 Charu Haas DOOther ProviderActiveStart: August 07, 2024 Zach Mancini , DOOther ProviderActiveStart: August 07, 2024 Za Webster , APRNOther ProviderActiveStart: August 07, 2024 Jerad Cleveland DOOther ProviderActiveStart: August 07, 2024 Kelvin Ruvalcaba MDOther ProviderActiveStart: August 07, 2024 Aileen Arriaza , APRNOther ProviderActiveStart: August 07, 2024 Olivia Haque , APRNOther ProviderActiveStart: August 07, 2024 Elizabeth Monsivais MDOther ProviderActiveStart: August 07, 2024 Sidney Coronado MDOther ProviderActiveStart: August 07, 2024 Yon Sierra Carver , DOOther ProviderActiveStart: August 07, 2024 Chio Neville , DOOther ProviderActiveStart: August 07, 2024 Satnam Gentile MDOther ProviderActiveStart: August 07, 2024 Mahsa Lindsey MDOther ProviderActiveStart: August 07, 2024 Merissa Fuller , APRNOther ProviderActiveStart: August 07, 2024 Neftali Lantigua MDOther ProviderActiveStart: August 07, 2024 Jamie Hardin MDOther ProviderActiveStart: August 07, 2024 Kortney Kidd RNOther ProviderActiveStart: August 07, 2024 Team Status: Active Member Role Status Dates Amanda Sharif , DO Primary Care Provider Active Star t: August 10, 2024 Jessica Jimenezending ProviderActiveStart: August 10, 2024 Team Status: Inactive Member Role Status Dates Amanda Sharif , DO Primary Care Provider Active Star t: August 11, 2024 End: August 11Tali Davidson ProviderActiveStart: August 11, 2024 End: August 11, 2024 Team Status: Active Member Role Status Dates Amanda Sharif , DO Primary Care Provider Active Star t: August 25, 2024 Tali Isbell ProviderActiveStart: August 25, 2024 Team Status: Inactive Member Role Status Dates Amanda Sharif , DO Primary Care Provider Active Star t: August 25, 2024 End: August 25Tali Davidson ProviderActiveStart: August 25, 2024 End: August 25, 2024Team MemberRelationshipSpecialtyStart DateEnd Date Amanda Sharif MD [address] [place] [phone] [facility] - General12/19/23 Pascual Thornton DO [address] [place] [address] Otolaryngology05/05/24Team MemberRelationshipSpecialtyStart DateEnd Date Amanda Sharif MD [address] [place] [phone] PCP General12/19/23 Pascual Thornton DO [address] [place] [address] Otolaryngology05/05/24 Team Status: Inactive Member Role Status Dates Pascual Thornton DO Attending Provider Active S tart: September 01, 2024 End: September 01, 2024Team MemberRelationshipSpecialtyStart DateEnd Date Amanda Sharif MD [address] [place] [address] [facility]12/19/23 Pascual Thornton DO [address] [place] [address] Otolaryngology05/05/24Team MemberRelationshipSpecialtyStart DateEnd Date Amanda Sharif MD [address] [place] [phone] [facility]12/19/23 Pascual Thornton DO [address] [place] [address] Otolaryngology05/05/24Team MemberRelationshipSpecialtyStart DateEnd Date Amanda Sharif MD [address] [facility] [address] [place] [address] [facility]12/19/23 Pascual Thornton DO [address] [place] [address] Otolaryngology05/05/24 Team Status: Active Member Role Status Dates JI Goldberg Attending Provider Active Start: September 21, 2024 Team Status: Inactive Member Role Status Dates Lilly Nielsen MD Attending Provider Active Start: October 02, 2024 End: October 02, 2024Eric Chante DOPriv[facility] centery Care ProviderActiveStart: October 02, 2024 End: October 02, 2024 Team Status: Inactive Member Role Status Dates Amanda Sharif DO Primary Care Provider Active Star t: 2024 End: October 06warren Hair MDAttending ProviderActiveStart: 2024 End: October 06enlouise Thornton DOOther ProviderActiveStart: 2024 End: 2024 Team Status: Inactive Member Role Status Dates Amanda Sharif DO Primary Care Provider Active Star t: 2024 End: October 06warren Hair MDAttending ProviderActiveStart: 2024 End: 2024 Team Status: Inactive Member Role Status Dates Pascual Thornton DO Attending Provider Active S tart: October 14, 2024 End: October 14, 2024 Team Status: Inactive Member Role Status Dates Amanda Sharif DO Primary Care Provider Active Star t: November 26, 2024 End: November 26saundra Thornton DOAttending ProviderActiveStart: November 26, 2024 End: November 26, 2024Team MemberRelationshipSpecialtyStart DateEnd Date Amanda Sharif MD [address] [place] [address] PCP - General12/19/23 Pascual Thornton, [address] [place] [address] Otolaryngology05/05/24Team MemberRelationshipSpecialtyStart DateEnd Amanda Rosales MD [address] [place] [address] PCP General12/19/23 Pascual Thornton, [address] [place] [address] Otolaryngology05/05/24 Team Status: Active Member Role Status Dates Amanda Sharif , DO Primary Care Provider Active Star t: January 05, 2025 Tali Isbell ProviderActiveStart: January 05, 2025 Team Status: Inactive Member Role Status Dates Amanda Sharif , DO Primary Care Provider Active Star t: January 05, 2025 End: January 05, 2025Tali Isbell ProviderActiveStart: January 05, 2025 End: January 05, 2025 Team Status: Active Member Role Status Dates Amanda Sharif , DO Primary Care Provider Active Star t: January 25, 2025 Tali Isbell ProviderActiveStart: January 25, 2025 Team Status: Inactive Member Role Status Dates Amanda Sharif , DO Primary Care Provider Active Star t: January 28, 2025 End: January 28Susy Spencerending ProviderActiveStart: January 28, 2025 End: January 28, 2025 Team Status: Active Member Role Status Dates mAanda Sharif , DO Primary Care Provider Active Star t: February 25, 2025 Tali Isbell ProviderActiveStart: February 25, 2025 Team Status: Active Member Role Status Dates Amanda Mast , DO Primary Care Provider Active Star t: February 25, 2025 Pascual Thornton , DOAttending ProviderActiveStart: February 25, 2025 Team Status: Inactive Member Role Status Dates Amanda Mast , DO Primary Care Provider Active Star t: February 25, 2025 End: February 25, 2025Thkonstantin Rooney , MDAttending ProviderActiveStart: February 25, 2025 End: February 25, 2025 Team Status: Inactive Member Role Status Dates Amanda Mast , DO Primary Care Provider Active Star t: February 25, 2025 End: February 25enlouise Thornton , DOAttending ProviderActiveStart: February 25, 2025 End: February 25, 2025 Team Status: Active Member Role Status Dates Amanda Mast , DO Primary Care Provider Active Star t: March 11, 2025 Artie Hair MDAttending ProviderActiveStart: March 11, 2025 Team Status: Inactive Member Role Status Dates Amanda Mast , DO Primary Care Provider Active Star t: March 11, 2025 End: March 11Joey Rivas ProviderActiveStart: March 11, 2025 End: March 11, 2025 Team Status: Active Member Role Status Dates Amanda Mast , DO Primary Care Provider Active Star t: March 23, 2025 Artie Hair MDAttending ProviderActiveStart: March 23, 2025 Team Status: Inactive Member Role Status Dates Amanda Mast , DO Primary Care Provide r, Referring Provider Active Start: March 24, 2025 End: March 24, 2025Referral SelfAttending ProviderActiveStart: March 24, 2025 End: March 24, 2025 Team Status: Active Member Role Status Dates Amanda Mast , DO Primary Care Provider Active Star t: April 06, 2025 Artie Hair MDAttending ProviderActiveStart: April 06, 2025 Team Status: Inactive Member Role Status Dates Amanda Mast , DO Primary Care Provider Active Star t: April 06, 2025 End: April 06, 2025Artie Hair MDAttending ProviderActiveStart: April 06, 2025 End: April 06, 2025Team MemberRelationshipSpecialtyStart DateEnd Date Mast, Amanda E, DO [facility] General12/19/23 Pascual Thornton, DO [address] [place] [place] [address] Otolaryngology05/05/24Team MemberRelationshipSpecialtyStart DateEnd Date Amanda Sharif DO [facility] - General12/19/23 Hillary Pascual Spence, DO [address] [place] [address] Otolarynlogy05/05/24 Team Status: Inactive Member Role Status Dates Amanda Mast , DO Primary Care Provider Active Star t: March 24, 2025 End: March 24, 2025Eric Chante , DOReferring ProviderActiveStart: March 24, 2025 End: March 24, 2025Referral SelfAttending ProviderActiveStart: March 24, 2025 End: March 24, 2025 Team Status: Inactive Member Role Status Dates Amanda Mast , DO Primary Care Provider Active Star t: April 19, 2025 End: April 19enlouise Thornton DOAttending ProviderActiveStart: April 19, 2025 End: April 19, 2025 Team Status: Active Member Role Status Dates Amanda Mast , DO Primary Care Provider Active Star t: May 13, 2025 Artie Hair MDAttending ProviderActiveStart: May 13, 2025 Team Status: Active Member Role Status Dates Amanda Mast , DO Primary Care Provider Active Star t: May 13, 2025 Sanchez Lr DPMAttending ProviderActiveStart: May 13, 2025 Team Status: Inactive Member Role Status Dates Amanda Mast , DO Primary Care Provider Active Star t: May 14, 2025 End: May 14hermelindo Nielsen MDAttending ProviderActiveStart: May 14, 2025 End: May 14, 2025 Team Status: Inactive Member Role Status Dates Amanda Mast , DO Primary Care Provider Active Star t: May 13, 2025 End: May 13, 2025Artie Hair MDAttending ProviderActiveStart: May 13, 2025 End: May 13, 2025 Team Status: Inactive Member Role Status Dates Amanda Mast , DO Primary Care Provider Active Star t: May 21, 2025 End: May 21, 2025Eric Mast , DOAttending ProviderActiveStart: May 21, 2025 End: May 21, 2025 Team Status: Active Member Role Status Dates Amanda Mast , DO Primary Care Provider Active Star t: May 21, 2025 ROLAND MaldonadoMAttending ProviderActiveStart: May 21, 2025 Team Status: Inactive Member Role Status Dates Amanda Mast , DO Primary Care Provider Active Star t: June 14, 2025 End: June 14, 2025Sanchez Lr DPMAttending ProviderActiveStart: June 14, 2025 End: June 14, 2025 Team Status: Inactive Member Role Status Dates Amanda Mast , DO Primary Care Provider Active Star t: July 08, 2025 End: July 08, 2025Eric Mast , DOAttending ProviderActiveStart: July 08, 2025 End: July 08, 2025 Team Status: Active Member Role Status Dates Amanda Mast , DO Primary Care Provider Active Star t: July 22, 2025 Amanda Mast , DOReferring ProviderActiveStart: July 22, 2025 Artie Hair MDAttending ProviderActiveStart: July 22, 2025 Team Status: Inactive Member Role Status Dates Amanda Mast , DO Primary Care Provider Active Star t: July 22, 2025 End: July 22, 2025Artie Hair MDAttending ProviderActiveStart: July 22, 2025 End: July 22, 2025 Team Status: Inactive Member Role Status Dates Amanda Mast , DO Primary Care Provider Active Star t: July 22, 2025 End: July 22, 2025Eric Mast , DOReferring ProviderActiveStart: July 22, 2025 End: July 22, 2025Artie Hair MDAttending ProviderActiveStart: July 22, 2025 End: July 22, 2025 Team Status: Inactive Member Role Status Dates Amanda Mast , DO Primary Care Provider Active Star t: August 11, 2025 End: August 11, 2025Eric Mast , DOAttending ProviderActiveStart: August 11, 2025 End: August 11, 2025 Team Status: Active Member Role/Relationship Status Dates Amanda Mast , DO Primary Care Provider Active Team Status: Inactive Member Role/Relationship Status Dates Amanda Mast , DO Primary Care Provider Active Star t: May 21, 2025 End: May 21, 2025Eric Mast , DOAttending ProviderActiveStart: May 21, 2025 End: May 21, 2025 Team Status: Inactive Member Role/Relationship Status Dates Amanda Mast , DO Primary Care Provider Active Star t: June 14, 2025 End: June 14, 2025Sanchez Lr DPMAttending ProviderActiveStart: June 14, 2025 End: June 14, 2025 Team Status: Inactive Member Role/Relationship Status Dates Amanda Mast , DO Primary Care Provider Active Star t: July 08, 2025 End: July 08, 2025Eric Mast , DOAttending ProviderActiveStart: July 08, 2025 End: July 08, 2025 Team Status: Inactive Member Role/Relationship Status Dates Amanda Mast , DO Primary Care Provider Active Star t: July 22, 2025 End: July 22, 2025Eric Mast , DOReferring ProviderActiveStart: July 22, 2025 End: July 22, 2025Dajudah Hair MDAttending ProviderActiveStart: July 22, 2025 End: July 22, 2025 Team Status: Inactive Member Role/Relationship Status Dates Amanda Mast , DO Primary Care Provider Active Star t: July 22, 2025 End: July 22, 2025Artie Hair MDAttending ProviderActiveStart: July 22, 2025 End: July 22, 2025 Team Status: Inactive Member Role/Relationship Status Dates Amanda Mast , DO Primary Care Provider Active Star t: August 11, 2025 End: August 11, 2025Eric Mast , DOAttending ProviderActiveStart: August 11, 2025 End: August 11, 2025 Team Status: Active Member Role/Relationship Status Dates Amanda Mast , DO Primary Care Provider Active Star t: August 18, 2025 Gretel Watts RNAttending ProviderActiveStart: August 18, 2025 Team Status: Inactive Member Role/Relationship Status Dates Amandaantwon Sharif DO Primary Care Provider Active Star t: August 19, 2025 End: August 19, 2025Amanda DO ChanteAttending ProviderActiveStart: August 19, 2025 End: August 19, 2025 Goals (unrecognized section and content) Goals may be documented in a n alternate section INFORMATION SOURCE (unrecogn ized section and content) DATE CREATED AUTHOR 01/26/2025 [facility] DATE CREATED AUTHOR AUTHOR'S ORGANIZ ATION 04/21/2025 [facility] DATE CREATED AUTHOR AUTHOR'S ORGANIZ ATION 08/19/2025 [facility] FOR RECORDS PERTAINING TO PATIENTS WHO ARE OR HAVE BEEN ENROLLED IN A CHEMICAL DEPENDENCY/SUBSTANCEABUSE PROGRAM, SOME INFORMATION MAY BE OMITTED. This clinical summary was aggregated from multiple sources. Caution should be exercised in using it in the provision of clinical care. This summary normalizes information from multiple sources, and as a consequence, information in this document may materially change the coding, format and clinical context of patient data. In addition, data may be omitted in some cases. CLINICAL DECISIONS SHOULD BE BASED ON THE PRIMARY CLINICAL RECORDS. [facility]. provides no warranty or guarantee of the accuracy or completeness of information in this document.
== END 2025-08-24 14:36 | disposition home or self-care (01) ==
LOC: RAD 14:35
PROVIDERS: PCP Family Medicine; Visit Provider Podiatrist Foot & Ankle Surgery
DX: M25.571 Pain in right ankle and joints of right foot (principal); M25.572 Pain in left ankle and joints of left foot; M85.88 Other specified disorders of bone density and structure, other site; M77.32 Calcaneal spur, left foot; M77.31 Calcaneal spur, right foot
CPT/HCPCS: 73610